=== PATIENT | female | born 1955 | race Caucasian/White ===

== ENCOUNTER 2025-06-23 10:36 | Outpatient (AMB) | payer OTHER, SELFPAY ==
--- OUTSIDE RECORDS SUMMARY | 2025-06-23 11:36 | XMS_ITS | Encounter Summary ---
Author Organization [facility] Address [address] [place] [address] Phone Care Team Providers Care Wind Plant Manager Name Role Phone Jovan Guillermo MD Primary Care Provider + Cece Dai MD, MPH Primary Care Provid er Cece Dai MD, MPH Unavailable [phone] Encounter Details Date Type Department Care Team (Late Contact Info) Description 05/24/2021 Ancillary Orders Virtual Department [address] [place] [address] Jovan Guillermo MD [address] [place] [id number] Breast screening Social History Tobacco Use Types Packs/Day Years Used Date Smoking Tobacco: Former Smokeless Tobacco: Never Comments:Smoking History Pac ks/day: >2 Alcohol Use Standard Drinks/Week Comments Never 0 (1 standard drink = 0.6 oz pur e alcohol) Comments Unknown Sex and Gender Information Value Date Recorded Sex Assigned at Not on file Legal Sex Female 6:31 PM EST Gender Identity Not on file Sexual Orientation Not on file documented as of this encounter Plan of Treatment Upcoming Encounters Date Type Department Care Team (Late Contact Info) Description 02/26/2026 9:00 AM EDT Office Visit [facility] [address] [facility] [address] [place] [address] Cece Dai MD, MPH [address] [address] Tomer Arita MD [address] [address] [email or web address] documented as of this encounter Results * BI MAMMOGRAM SCREENING WITH TOMOSYNTHESIS WITH CAD (BILATERAL) (06/03/2021 9:29 AM EDT) Anatomical Region Laterality Modality Breast Left, Breast Right, Breast Bilateral Bila teral Mammography 06/03/2021 10:4 2 AM EDT Addenda Addendum by Jovan Martinez MD on 07/02/2021 5:30 PM EDT ADDENDUM: The first word in the addendum should be comparison not thousand. Addendum by Jovan Martinez MD on 06/10/2021 2:58 PM EDT ADDENDUM: Thousand now made to multiple prior, most recent May 06, 2011. No worrisome interval change is seen. Routine screening is again recommended. Impressions 06/03/2021 10:44 AM EDT No mammographic finding indicative of malignancy. Routine screening is recommended. BI-RADS CATEGORY: 1 - Negative. DENSITY: There are scattered fibroglandular densities. Narrative 06/03/2021 10:44 AM EDT Bilateral full-field digital screening mammography is obtained and read in conjunction with computer-aided detection. Tomosynthesis as well as 2-D C view imaging of both breasts in two planes also obtained. No prior for comparison. No dominant mass, architectural distortion, worrisome asymmetry, or suspicious calcification is identified. No skin or nipple finding of concern is appreciated. Some skin lesions noted bilaterally. Procedure Note Jovan Martinez MD - 06/03/2021 Bilateral full-field digital screening mammography is obtained and read inconjunction with computer-aided detection. Tomosynthesis as well as 2-D Cview imaging of both breasts in two planes also obtained. No prior forcomparison. No dominant mass, architectural distortion, worrisome asymmetry, orsuspicious calcification is identified. No skin or nipple finding ofconcern is appreciated. Some skin lesions noted bilaterally. IMPRESSION: No mammographic finding indicative of malignancy. Routine screening isrecommended. BI-RADS CATEGORY: 1 - Negative. DENSITY: There are scattered fibroglandular densities. Jovan Guillermo MD IM MG EXAMS Edited R esult - Final documented in this encounter Visit Diagnoses Diagnosis Breast screening Breast screening, unspecified Breast screening Breast screening, unspecified documented in this encounter Care Teams Wind Plant Manager Relationship Specialty Start Date End Date Jovan Guillermo MD [address] [place] [address] PCP - General 05/17/19 04/21/24 Cece Dai MD, MPH [address] [place] [id number] PCP - General Family Medicine 04/22/24 Cece Dai MD, MPH [address] [place] [id number] Insurance Assigned Provider 02/09/25 documented as of this encounter Additional Source Comments The information contained in this document represents components of the legal health record. It is not the complete legal health record.[facility]
--- OUTSIDE RECORDS SUMMARY | 2025-06-23 11:36 | XMS_ITS | Clinical Summary ---
Author Organization [facility] it Address [address] [place] [address] Care Team Providers Care Canvas Shrinker Name Role Phone Heri Cueto MD Primary Care Provider [phone] Allergies Active Allergy Reactions Criticality Noted Date Comments Penicillins Hives 12/26/2005 Sulfamethoxazole-Trimethopri m 05/03/2010 Bactrim [na Benzoate-sulfamethoxazol e-trimethoprim] Medications lisinopriL (PRINIVIL,ZESTR IL) 10 mg tablet take 1 tablet by mouth once daily 1 Active multivitamin (Multiple Vitamins) tablet Take 1 Tab by mouth daily. Active coenzyme Q-10 30 mg capsule Take 30 mg by mouth daily. Active esomeprazole (NexIUM) [address] capsule TAKE 1 CAPSULE MOUTH EVERY MORNING BEFORE BREAKFAST 1 Active aspirin 81 mg EC tablet 1 Tab daily. Active fluticasone propionate (FLONASE) 50 mcg/actuation nasal spray 2 Sprays by Nasal route 2 times daily. Active folic acid (FOLVITE) 800 mcg tablet Take 2 Tabs by mouth daily. Active fexofenadine (Khalida Allergy) 180 mg tablet 1 TABLET DAILY Activ e montelukast (Singulair) 10 mg tablet 1 tab po qhs Active Active Problems Problem Noted Date Diagnosed Date Hepatic cyst 06/01/2011 Overview (11/07/2024): Liver US 05/2011 Gallstone 06/01/2011 Overview (11/07/2024): US 05/2011. 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 GERD (gastroesophageal reflux disease) 1 Overview (11/07/2024): Evaluation for H. Pylori was negative in 2002. Lung blebs ([facility] V24, [facility] V28) 05/18/2011 Overview (11/07/2024): H/o chest tube on the right side for this approx age 22. 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 Migraine without aura 10/06/2005 Overview (11/07/2024): IMO update Immunizations Name Administration Dates Next Due Influenza trivalent, with pr eservative (Fluzone; Afluria) 6mo and older 10/12/2005 Surgical History Surgery Date Site/Laterality Comments HERNIA REPAIR PROCEDURE: HISTORICAL HERNIA REPAIR/ING Medical History Medical History Date Comments Unspecified transient cerebr al ischemia 10/06/2005 DX:Unspecified transient cer ebral ischemia; COMMENT: Verapamil Migraine without aura, witho ut mention of intractable migraine without mention of status migrainosus 10/06/2005 DX:Migraine without aura, wi thout mention of intractable migraine without mention of status migrainosus DVT (deep venous thrombosis) (CMS/HCC V24, [facility] V28) in 20s DX:DVT (deep venous thrombo sis) ([facility]); COMMENT: on OCPs at the time, taken off; never anticoagulated MTHFR mutation 05/18/2011 DX:MTHFR mutatio n GERD (gastroesophageal reflu x disease) 05/18/2011 DX:GERD (gastroesophageal re flux disease) Lung blebs (CMS/HCC V24, [facility] V28) 05/18/2011 DX:Lung blebs (HCC) Hepatic cyst 06/01/2011 DX:Hepatic cyst Gallstone 06/01/2011 DX:Gallstone Family History Relation Name Status Comments Father Mother Alive Social History Tobacco Use Types Packs/Day Years Used Date Smoking Tobacco: Never Smokeless Tobacco: Never Alcohol Use Standard Drinks/Week Comments No 0 (1 standard drink = 0.6 oz pur e alcohol) Comments Unknown Sex and Gender Information Value Date Recorded Sex Assigned at Not on file Legal Sex Female 4:41 AM EST Gender Identity Not on file Sexual Orientation Not on file Obstetrics History Plan of Treatment Health Maintenance Due Date Last Done Comments Breast Cancer Screening 1955 DTaP,Tdap,and Td Vaccines (1 - Tdap) 1976 Pneumococcal Vaccine: 50+ Ye ars (1 of 2 - PCV) 1976 Zoster Vaccines (1 of 2) 2007 COVID-19 Vaccine ( - 2023-2 5 season) 2024 Depression Screening 11/06/2024 Colorectal Cancer Screening: Colonoscopy 11/08/2024 Falls Risk Assessment 11/08/2024 Osteoporosis Screening (Bone Density Screening) 11/08/2024 Social Influencers of Health Screening 11/08/2024 Influenza Vaccine (#1) 2025 10/12/2005 RSV Immunization Adult Patie nts (1 - 1-dose 75+ series) 2032 Hepatitis C Screening Completed 05/20/2003 HIB Vaccines Aged Out No longer eligi ble based on patient's age to complete this topic HPV Vaccines Aged Out No longer eligi ble based on patient's age to complete this topic Hepatitis A Vaccines Aged Out No long er eligible based on patient's age to complete this topic Hepatitis B Vaccines Aged Out No long er eligible based on patient's age to complete this topic IPV Vaccines Aged Out No longer eligi ble based on patient's age to complete this topic MMR Vaccines Aged Out No longer eligi ble based on patient's age to complete this topic Meningococcal ACWY Vaccine Aged Out N o longer eligible based on patient's age to complete this topic Meningococcal B Vaccine Aged Out No l onger eligible based on patient's age to complete this topic RSV Immunization Patients Un federico 20 months Aged Out No longer eligible b ased on patient's age to complete this topic Varicella Vaccines Aged Out No longer eligible based on patient's age to complete this topic Procedures Procedure Name Priority Date/Time Associated Diagnosis Comments HM HEPATITIS C SCREENING Routine 05/20/2003 from Last 3 Months or Most Recently Relevant to Health Maintenance Results * Hm Hepatitis C Screening (05/20/2003) Hepatitis C Screening Abstracted us Historical Provider HEALTH MAINTENANCE Final Result from Last 3 Months or Most Recently Relevant to Health Maintenance Care Teams Canvas Shrinker Relationship Specialty Start Date End Date Heri Cueto MD [address] [place] [address] PCP - General 04/29/11
== END 2025-06-23 10:39 | disposition home or self-care (01) ==
LOC: HO.HMGAL 10:36
PROVIDERS: PCP Family Medicine; Visit Provider Registered Nurse Emergency
DX: J30.89 Other allergic rhinitis (principal)
CPT/HCPCS: 95117; 95165

== ENCOUNTER 2025-07-09 09:50 | Outpatient (AMB) | payer MEDICARE, OTHER, SELFPAY ==
--- OUTSIDE RECORDS SUMMARY | 2007-05-11 | XMS_ITS | Encounter Summary ---
Author Organization [facility] Address [address] [place] [address] Phone Care Team Providers Care Hebrew Cantor Name Role Phone Unavailable Primary Care Provider Unavailabl e Encounter Details Date Type Department Care Team (Late st Contact Info) Description 05/11/2007 Hospital Encounter [facility],Outside Imaging 30 [place], [place] [id number] System, Provider [place] In, [place] [address] Social History Tobacco Use Types Packs/Day Years [...] Sex Female 6:31 PM EST Gender Identity Not on file Sexual Orientation Not on file documented as of this encounter Functional Status documented as of this encounter Plan of Treatment Upcoming Encounters Date Type Department Care Team (Late st Contact Info) Description 02/26/2026 9:00 AM EDT Office Visit [facility] [place] [facility] 15 [facility] [address] [place] [address] Cece Dai MD, MPH 15 [facility] 201 [place] [address] Tomer Arita MD 15 [facility] 201 [place] [address] documented as of this encounter Procedures Procedure [...] It is not the complete legal health record.[facility]
--- OUTSIDE RECORDS SUMMARY | 2007-05-15 | XMS_ITS | Encounter Summary ---
Author Organization [facility] Address [address] [place] [address] Phone Care Team Providers Care Elementary School Art Teacher Name Role Phone Unavailable Primary Care Provider Unavailabl e Encounter Details Date Type Department Care Team (Late st Contact Info) Description 05/15/2007 Hospital Encounter [facility],Outside Imaging 30 [place], [place] [id number] System, Provider [place] In, [place] [address] Social History Tobacco Use Types Packs/Day Years [...] 02/26/2026 9:00 AM EDT Office Visit [facility] [place] [facility] 15 [facility] [address] [place] [address] Cece Dai MD, MPH 15 [facility] 201 [place] [address] Tomer Arita MD 15 [facility] 201 [place] [address] documented as of this encounter Procedures Procedure [...]
--- OUTSIDE RECORDS SUMMARY | 2010-05-11 | XMS_ITS | Encounter Summary ---
Author Organization [facility] Address [address] [place] [address] Phone Care Team Providers Care Radio Mechanic Apprentice Name Role Phone Unavailable Primary Care Provider Unavailabl e Encounter Details Date Type Department Care Team (Late st Contact Info) Description 05/11/2010 Hospital Encounter [facility],Outside Imaging 30 [place], [place] [phone] System, Provider [place] In, [place] [address] Social History Tobacco Use Types Packs/Day Years [...] 02/26/2026 9:00 AM EDT Office Visit [facility] [place] [facility] 15 [facility] [address] [place] [address] Cece Dai MD, MPH 15 [facility] 201 [place] [address] Tomer Arita MD 15 [facility] 201 [place] [address] documented as of this encounter Procedures Procedure [...] It is not the complete legal health record.[facility]
--- OUTSIDE RECORDS SUMMARY | 2011-05-16 | XMS_ITS | Encounter Summary ---
Author Organization [facility] Address [address] [place] [address] Phone Care Team Providers Care Foreign Exchange Dealer Name Role Phone Unavailable Primary Care Provider Unavailabl e Encounter Details Date Type Department Care Team (Late st Contact Info) Description 05/16/2011 Hospital Encounter [facility],Outside Imaging 30 [place], [place] [phone] System, Provider [place] In, [place] [address] Social History Tobacco Use Types Packs/Day Years [...] 02/26/2026 9:00 AM EDT Office Visit [facility] [place] [facility] 15 [facility] [address] [place] [address] Cece Dai MD, MPH 15 [facility] 201 [place] [address] Tomer Arita MD 15 [facility] 201 [place] [address] documented as of this encounter Procedures Procedure [...]
--- OUTSIDE RECORDS SUMMARY | 2025-07-09 10:59 | XMS_ITS | Encounter Summary ---
Author Organization [facility] Address [address] [place] [address] Phone Care Team Providers Care Voice Intercept Technician Name Role Phone Jovan Guillermo MD Primary Care Provider + Cece Dai MD, MPH Primary Care Provid er Cece Dai MD, MPH Unavailable [phone] Encounter Details Date Type Department Care Team (Late st Contact Info) Description 05/24/2021 Procedure Pass [facility] - [address] [place] [address] Social History Tobacco Use Types Packs/Day Years Used Date Smoking Tobacco: Former Smokeless Tobacco: Never Comments:Smoking History Pac ks/day: >2 Alcohol Use Standard Drinks/Week Comments Never 0 (1 standard drink = 0.6 oz pur e alcohol) Comments No Sex and Gender Information Value Date Recorded Sex Assigned at Not on file Legal Sex Female 6:31 PM EST Gender Identity Not on file Sexual Orientation Not on file documented as of this encounter Plan of Treatment Upcoming Encounters Date Type Department Care Team (Late Contact Info) Description 02/26/2026 9:00 AM EDT Office Visit [facility] [address] [place] [address] Cece Dai MD, MPH [address] [facility] [address]. [address] [place] [address] Tomer Arita MD [address] [address] documented as of this encounter Visit Diagnoses Not on filedocumented in this encounter Care Teams Voice Intercept Technician Relationship Specialty Start Date End Date Jovan Guillermo MD [address] [place] [address] PCP - General 05/17/19 04/21/24 Cece Dai MD, MPH [address] [address] PCP - General Family Medicine 04/22/24 Cece Dai MD, MPH [address] [address] [email or web address] Insurance Assigned Provider 02/09/25 documented as of this encounter Additional Source Comments The information contained in this document represents components of the legal health record. It is not the complete legal health record.[facility]
--- OUTSIDE RECORDS SUMMARY | 2025-07-09 10:59 | XMS_ITS | Encounter Summary ---
Author Organization [facility] Address [address] [place] [address] Phone Care Team Providers Care Change Control Manager Name Role Phone Jovan Guillermo MD Primary Care Provider + Cece Dai MD, MPH Primary Care Provid er Cece Dai MD, MPH Unavailable [phone] Encounter Details Date Type Department Care Team (Late Contact Info) Description 05/24/2021 Ancillary Orders Virtual Department [address] [place] [address] Jovan Guillermo MD [address] [place] [phone] Breast screening Social History Tobacco Use Types [...] 02/26/2026 9:00 AM EDT Office Visit [facility] [address] [facility] [address] [place] [address] Cece Dai MD, MPH [address] [address] Tomer Arita MD [address] [address] [email or web address] documented as of this encounter Results * [...] unspecified documented in this encounter Care Teams Change Control Manager Relationship Specialty Start Date End Date Jovan Guillermo MD [address] [place] [address] PCP - General 05/17/19 04/21/24 Cece Dai MD, MPH [address] [place] [address] PCP - General Family Medicine 04/22/24 Cece Dai MD, MPH [address] [place] [phone] Insurance Assigned Provider 02/09/25 documented as of this encounter Additional Source Comments The information contained in this document represents components of the legal health record. It is not the complete legal health record.[facility]
--- OUTSIDE RECORDS SUMMARY | 2025-07-09 10:59 | XMS_ITS | Clinical Summary ---
Author Organization [facility] Address [address] [facility] [address] [place] [address] Phone Care Team Providers Care Heater Engineer Helper Name Role Phone Cece Dai MD, MPH Primary Care Provid er Cece Dai MD, MPH Unavailable [phone] Allergies Active Allergy Reactions Criticality Noted Date Comments Penicillins Rash,GI Upset Low 02/25/2011 All antibiotics, as reported Sulfa (Sulfonamide Antibiotics) Rash 02/25/2011 Sulfamethoxazole-Trimethop rim Rash Low 02/25/2011 Medications aspirin 81 MG EC tablet Take 81 mg by mouth. Active multivitamin per tablet Take 1 tablet by mouth. Active omega-3 fatty acids-fish oil 300-1,000 mg Cap Take 1 g by mouth. Active folic acid (FOLVITE) 1 MG tablet Take 2,400 mg by mouth. Active calcium carbonate-vitam in D3 1,250 mg (500 mg elemental)-400 units per tablet Take 1 tablet by mouth daily. Active flaxseed oiL 1,000 mg Cap Take 1,000 mg by mouth daily. Active GARLIC ORAL Take by mouth. Act cristiane VALERIAN ORAL Take by mouth. A ctive Bacillus coagulans-inuli n 1 billion-250 cell-mg Cap Take 250 mg by mouth daily. Active acetylcysteine 600 mg Cap capsule Take by mouth every 4 (four) hours. Active OLIVE LEAF EXTRACT ORAL Take by mouth. Ac tive dihydroberberin e (BERBERINE ES-5 ORAL) Take by mouth. Acti ve lisinopril (PRINIVIL,ZESTR IL) 2.5 MG tablet Take 1 tablet (2.5 mg total) by mouth daily. Take 2.5-5mg by mouth daily 60 tablet 5 Active Additional Information Patient not taking.Reported on 02/07/2025 aloe vera 25 mg Cap Take by mouth. Activ e Active Problems Problem Noted Date Diagnosed Date Essential hypertension 10/28/2024 Assessment & Plan (03/31/2025 5:27 AM EDT): Controlled. She monitors closely Assessment & Plan (10/28/2024 1:39 PM EST): Plantar fasciitis 04/22/2024 Osteoarthritis, multiple sites 04/22/2024 Chronic sinusitis 04/22/2024 Overview (04/22/2024): Follows at [facility], believes it is fungal Assessment & Plan (02/25/2025 11:18 AM EDT): Orders: Ambulatory referral to External Allergy Assessment & Plan (10/22/2024 10:54 AM EST): Orders: External Referral to [facility] ([facility]) History of stroke associated with blood clotting tendency 04/22/2024 Overview (04/22/2024): Age 37 yo Vision effected, walks with cane for a while Assessment & Plan (03/31/2025 5:27 AM EDT): Cont aspirin daily 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 I also strongly encouraged her to think about re-visiting neurology for migraine treatment options. There are a bunch of new medications that has helped many people who previously had treatment resistent sinus migraines. Orders: Ambulatory referral to External Allergy Assessment & Plan (10/28/2024 1:39 PM EST): Chronic headaches 04/22/2024 Assessment & Plan (10/28/2024 1:39 PM EST): Resolved Problems Problem Noted Date Diagnosed Date Resolved Date Cholecystitis 03/16/2015 04/22/2024 Encounters Date Type Department Care Team Description 06/07/2025 10:33 AM EDT - 06/07/2025 11:59 PM EDT Hospital Encounter [facility] [address] [place] [address] Cece Dai MD, MPH Discharge Disposition: Home or Self Care 05/13/2025 Telephone [facility] [address] [place] [address] Cece Dai MD, MPH Triage (Yellow - Rib Pain) 04/23/2025 11:19 AM EDT - 04/23/2025 11:59 PM EDT Hospital Encounter [facility] [address] [place] [address] Cece Dai MD, MPH Discharge Disposition: Home or Self Care 04/23/2025 Telephone [facility] [address] [place] [address] Cece Dai MD, MPH 04/15/2025 Telephone [facility] [address] [place] [address] Paige Reardon Referral from Last 3 Months Immunizations Immunization Administration Dates Next Due INFLUENZA, SPLIT VIRUS, TRIVALENT W/ PRESERVATIV E IM 10/12/2005 Influenza Quadrivalent Adjuvanted Preservative F ree IM 09/04/2023 Influenza Quadrivalent Preservative Free IM 12/2021 Pneumococcal conjugate PCV20 12/30/2022 Td, unspecified formulation 05/22/2002 Tdap 12/30/2022 Social History Tobacco Use Types Packs/Day Years Used Date Smoking Tobacco: Former Cigarettes Smokeless Tobacco: Never Tobacco Cessation:Counseling Given: Not Answered Comments:Smoking History Packs/day: >2. Quit about 1985. Alcohol Use Standard [...] your housing situation today? I have beth sing 04/22/2024 How many times have you move [...] on file Sexual Orientation Not on file Last Filed Vital Signs Vital Sign Reading Time Taken Comments Blood Pressure 124/74 02/25/2025 10:05 AM EDT Pulse 80 02/25/2025 10:05 AM EDT Temperature - - Respiratory Rate - - Oxygen Saturation 97% 02/25/2025 10:05 AM EDT Inhaled Oxygen Concentration - - Weight 60.1 kg (132 lb 9.6 oz) 02/25/2025 10:05 AM EDT Height 163.5 cm (5' 4.37 ) 02/25/2025 10:05 AM E DT Body Mass Index 22.5 02/25/2025 10:05 AM EDT Plan of Treatment Upcoming Encounters Date Type Department Care Team (Late st Contact Info) Description 02/26/2026 9:00 AM EDT Office Visit [facility] [address] [place] [address] [address] [place] [address] Cece Dai MD, MPH [address] [facility] [address] [place] [address] Tomer Arita MD [address] [facility] [place] [address] Health Maintenance Due Date Last Done Comments SMOKING Hx and SMOKELESS TOBACCO SCREENING 1970 HEPATITIS C SCREENING 1975 COLONOSCOPY 2002 FIT TEST 2002 FOBT 2002 SIGMOIDOSCOPY 2002 VIRTUAL COLONOSCOPY 2002 ZOSTER VACCINES (1 of 2) 2007 COVID-19 VACCINE ( season) 2025 10/16/2024, 09/11/2023, 08/18/2022, Additional history exists CREATININE LEVEL 06/21/2025 06/21/2024 POTASSIUM LEVEL 06/21/2025 06/21/2024 BLOOD PRESSURE 08/27/2025 02/25/2025 DEPRESSION SCREENING 02/25/2026 02/25/2025 MAMMOGRAM 02/27/2027 02/27/2025, 08/0 02/2023, 06/03/2021, Additional history exists COLOGUARD 01/07/2028 01/06/2025 COLORECTAL CANCER SCREENING 01/07/2028 LIPID PANEL 06/21/2029 06/21/2024 RSV VACCINE (1 - 1-dose 75+ series) 2032 Adult Td,Tdap Booster 12/30/2032 12/30/2022, 002 PNEUMOCOCCAL VACCINES (50+ years) Completed 12/30/2022 OSTEOPOROSIS SCREENING INITIAL (ONE-TIME) Completed 06/07/2025 HEPATITIS A VACCINES Aged Out No long er eligible based on patient's age to complete this topic HIB VACCINES Aged Out No longer eligi ble based on patient's age to complete this topic MENINGOCOCCAL VACCINES (ACWY) Aged Out No longer eligible based on patient's age to complete this topic MENINGOCOCCAL VACCINES (B) Aged Out N o longer eligible based on patient's age to complete this topic Medical Devices Not on file Procedures Procedure Name Priority Date/Time Associated Diagnosis Comments BD DXA AXIAL (SPINE) WITH HIP Routine 06/07/2025 11:36 AM EDT Medicare annual wellness visit, subsequent Unspecified menopausal and perimenopausal disorder MEASLES ANTIBODY, IGG Routine 04/23/2025 11:31 AM EDT Measles, mumps, rubella (MMR) vaccination status unknown BI MAMMOGRAM DIAGNOSTIC WITH TOMOSYNTHESIS WITH CAD (BILATERAL) Urgent/patient waiting 02/27/2025 2:46 PM EDT Mass of lower inner quadrant of left breast LIPID PANEL Routine 06/21/2024 10:39 AM EDT Screening cholesterol level COMPREHENSIVE METABOLIC PANEL Routine 06/21/2024 10:39 AM EDT Restricted diet from Last 3 Months or Most Recently Relevant to Health Maintenance Results * BD DXA AXIAL (SPINE) WITH HIP (06/07/2025 11:36 AM EDT) Anatomical Region Laterality Modality Bone Density Bone Density 06/07/2025 10:5 1 AM EDT Impressions 06/09/2025 12:17 PM EDT Interpretation: Osteoporosis. Narrative 06/09/2025 12:17 PM EDT Referred By: CECE DAI Indications: Postmenopausal Scanner: Hepa Wash A with serial# of [id number] located at [facility] Bone Density Scan (DXA) 06/07/25 Details of prior DXA scans are available by clicking View Full Report BMD T- Z- Skeletal Site gm/cm2 score score BMD Change Since Prior Scan ------ ----- ----- PA Spine (L1-L4) 0.560 -4.40 -2.50 N/A Total Hip (Left) 0.439 -4.10 -2.80 N/A Femoral Neck (Left) 0.430 -3.80 -2.10 N/A Total Hip (Right) 0.432 -4.20 -2.80 N/A Femoral Neck (Right) 0.411 -3.90 -2.30 N/A ------ ----- ----- * Denotes significant change when >= 0.022 g/cm2 for the spine, 0.027 g/cm2 for the total hip, 0.029 g/cm2 for the femoral neck. Interpretation: Osteoporosis. Technical Quality: Imaging of all sites was of adequate quality. FRAX: A FRAX(r) score is not provided because the patient has osteoporosis, which is generally an indication for treatment. Reviewed By: Jean Loza on 06/09/2025 12:17:48 Additional Information: -World Health Organization criteria classify adults based on lowest T-score at PA spine, hip or forearm: Normal (T-score >= -1.0), Osteopenia (T-score between -1 and -2.5), or Osteoporosis (T-score <= -2.5). At [facility], T-scores are compared to peak bone density of a young white gender matched reference population. - For premenopausal women and men under the age of 50, Z-scores (comparison to age, gender, and ethnicity matched reference population) are used: Above expected range for age (Z-score >= 2.0), Within expected range of age (Z-score 1.9 to -1.9), or Below expected range for age (Z-score <= -2.0). - The Bone Health and Osteoporosis Foundation recommends that treatment be considered in men aged more than 50 years and in postmenopausal women with ANY of the following: Prior hip or vertebral fractures; T-score of <= -2.5 at the PA spine or hip; or 10 year fracture probability by FRAX of >= 3% for the hip or >= 20% for major osteoporotic fracture. - The FRAX algorithm (https://www.jamila.ac.uk/FRAX/tool.aspx) is designed to predict 10-year fracture risk in treatment-naive adults between the ages of 40 and 90. It is not intended to be used in those receiving pharmacologic osteoporosis treatment. - The TBS is derived from the texture of the DXA spine image and has been shown to be related to bone microarchitecture and fracture risk. This data provides information independent of BMD value. It adds to fracture risk assessment with a FRAX adjusted for TBS score. If your patient had a TBS and qualified for a FRAX score, the reported FRAX score has been adjusted for TBS. TBS Score Interpretation 1.350 and greater Normal bone microarchitecture 1.200 to 1.350 Partially degraded bone microarchitecture 1.200 and less Degraded bone microarchitecture - Including race/ethnicity in the generation of T- or Z-scores or in the FRAX calculation is complicated, and currently undergoing active review to ensure that we can give patients the best information on their risk of fracture. - Some prior studies may not be compatible with our comparison software. - Click on View Full Report to see subsequent pages with images and prior bone density results. Procedure Note Jean Loza MD - 06/09/2025 Referred By: CECE DAI Indications: Postmenopausal Scanner: Hepa Wash A with serial# of [id number] located at [facility] Bone Density Scan (DXA) 06/07/25 Details of prior DXA scans are available by clicking View Full Report BMD T- Z- Skeletal Site gm/cm2 score score BMD Change Since Prior Scan ------ ----- PA Spine (L1-L4) 0.560 -4.40 -2.50 N/A Total Hip (Left) 0.439 -4.10 -2.80 N/A Femoral Neck (Left) 0.430 -3.80 -2.10 N/A Total Hip (Right) 0.432 -4.20 -2.80 N/A Femoral Neck (Right) 0.411 -3.90 -2.30 N/A ------ ----- * Denotes significant change when >= 0.022 g/cm2 for the spine, 0.027g/cm2 for the total hip, 0.029 g/cm2 for the femoral neck. Interpretation: Osteoporosis. Technical Quality: Imaging of all sites was of adequate quality. FRAX: A FRAX(r) score is not provided because the patient hasosteoporosis, which is generally an indication for treatment. Reviewed By: Jean Loza on 06/09/2025 12:17:48 Additional Information: -World Health Organization criteria classify adults based on lowestT-score at PA spine, hip or forearm: Normal (T-score >= -1.0), Osteopenia (T-score between -1 and -2.5), or Osteoporosis (T-score <= -2.5). At [facility], T-scores are compared to peak bone density of a young white gender matched reference population. - For premenopausal women and men under the age of 50, Z-scores(comparison to age, gender, and ethnicity matched reference population) are used:Above expected range for age (Z-score >= 2.0), Within expected range of age (Z-score 1.9 to -1.9), or Below expected range for age (Z-score <= -2.0). - The Bone Health and Osteoporosis Foundation recommends that treatment be considered in men aged more than 50 years and in postmenopausal women with ANY of the following: Prior hip or vertebral fractures; T-score of <= -2.5 at the PA spine or hip; or 10 year fracture probability by FRAX of >= 3%for the hip or >= 20% for major osteoporotic fracture. - The FRAX algorithm (https://www.jamila.ac.uk/FRAX/tool.aspx) is designed to predict 10-year fracture risk in treatment-naive adultsbetween the ages of 40 and 90. It is not intended to be used in those receiving pharmacologic osteoporosis treatment. - The TBS is derived from the texture of the DXA spine image and has been shown to be related to bone microarchitecture and fracture risk. This data provides information independent of BMD value. It adds to fracture risk assessment with a FRAX adjusted for TBS score. If your patient had a TBSand qualified for a FRAX score, the reported FRAX score has been adjusted for TBS. TBS Score Interpretation 1.350 and greater Normal bone microarchitecture 1.200 to 1.350 Partially degraded bone microarchitecture 1.200 and less Degraded bone microarchitecture - Including race/ethnicity in the generation of T- or Z-scores or in the FRAX calculation is complicated, and currently undergoing active review to ensure that we can give patients the best information on their risk of fracture. - Some prior studies may not be compatible with our comparison software. - Click on View Full Report to see subsequent pages with images andprior bone density results. IMPRESSION: Interpretation: Osteoporosis. us Cece Dai MD, MPH IMG BD BONE DENSITY DEXA Final Result * (ABNORMAL) Measles antibody, IgG (04/23/2025 11:31 AM EDT) SIDRA IGG Negative(A ) Positive [facility] Blood (Blood) 04/23/2025 11: 31 AM EDT 04/23/2025 11:32 AM EDT us Cece Dai MD, MPH NON CULTURE MICROBIO LOGY Final Result Performing Organization Address City/State/[facility] Co de Phone Number [address] [address] * BI MAMMOGRAM DIAGNOSTIC WITH TOMOSYNTHESIS WITH CAD (BILATERAL) (02/27/2025 2:46 PM EDT) Anatomical Region Laterality Modality Breast Left, Breast Right, Breast Bilateral Bila teral Mammography 02/27/2025 3:03 PM EDT Impressions 02/27/2025 4:25 PM EDT No findings suspicious for malignancy. Clinical follow-up recommended as well as bilateral screening mammography in one year. BI-RADS 2 BENIGN Results and recommendations were communicated to the patient at time of examination. Narrative 02/27/2025 4:25 PM EDT BI MAMMOGRAM DIAGNOSTIC WITH TOMOSYNTHESIS WITH CAD (BILATERAL), BI US BREAST LIMITED (LEFT) Additional patient information: Palpable lump and pain 2:00 position left breast near axilla. COMPARISON: Comparison is made with relevant prior imaging. Breast composition: There are scattered areas of fibroglandular density. FINDINGS: Right Mammogram: No abnormal masses, suspicious calcifications, or other significant findings are identified mammographically in the right breast. There is no change since previous examination. Left Mammogram: 4 mm oval mass in the posterior lower inner aspect. Targeted ultrasound demonstrates a smoothly marginated hypoechoic reniform shape 4 mm x 4 mm x 1 mm mass. This has a hyperechoic notch with a small amount of blood flow. The appearance is consistent with a benign lymph node. No suspicious mass. No architectural distortion. No suspicious microcalcifications. Targeted ultrasound performed over palpable lump in the axillary region. This demonstrates 7 mm x 7 mm x 3 mm lymph node with a prominent fatty hilum. No cortical thickening. Scanning elsewhere in the upper outer quadrant demonstrates no sonographic abnormality. us Cece Dia MD, MPH IMG MG EXAMS Karolyn l Result * (ABNORMAL) Comprehensive metabolic panel (06/21/2024 10:39 AM EDT) SODIUM 138 133 - 146 mmol/L [facility] POTASSIUM 4.3 3.3 - 5.1 mmol/L [facility] CHLORIDE 102 96 - 108 mmol/L [facility] CO2 26 21 - 35 mmol/L [facility] BUN 8 6 - 19 mg/dL [facility] CREATININE 0.40(L) 0.5 - 1.5 mg/dL [facility] GLUCOSE 97 70 - 99 mg/dL [facility] ALBUMIN 4.4 3.9 - 4.8 g/dL [facility] TOTAL PROTEIN 7.3 6.5 - 8.0 g/dL [facility] CALCIUM 9.7 8.4 - 10.3 mg/dL [facility] ALKALINE PHOSPHATASE 75 39 - 117 U/L [facility] TOTAL BILIRUBIN 0.6 0.0 - 1.2 mg/dL [facility] AST 32 0 - 37 U/L [facility] ALT 15 0 - 40 U/L [facility] GLOBULIN 2.9 1 - 4.8 g/dL [facility] EGFR 109 >59 mL/min/1.7 3m2 [facility] Comment:Estimated glomerular filtration rate calculated using the CKD-EPI refit equation. ANION GAP 14 10 - 20 mmol/L [facility] Blood 06/21/2024 10:3 9 AM EDT 06/21/2024 10:50 AM EDT us Cece Dai MD, MPH LAB BLOOD ORDERABLES Final Result Performing Organization Address City/[facility]/ZIP Co de Phone Number [address] [address] * (ABNORMAL) Lipid panel (06/21/2024 10:39 AM EDT) HDL 103 mg/dL [facility] Comment: Interpretation <40 mg/dL: Low HDL cholesterol (major risk factor for CHD) Greater than or equal to 60 mg/dL: High HDL cholesterol ( negative risk factor for CHD) HDL - cholesterol is affected by a number of factors, e.g. smoking, excerise, hormones, sex and age. CHOLESTEROL 174 0 - 240 mg/dL [facility] TRIGLYCERIDES 62 30 - 160 mg/dL [facility] LDL 59 50 - 129 mg/dL [facility] Comment: LDL levels in terms of risk for coronary heart disease: <100 mg/dL: Optimal 100-129 mg/dL: Near or above optimal 130-159 mg/dL: Borderline high 160-189 mg/dL: High >190 mg/dL: Very High CARDIAC RISK RATIO 1.7(L) 3.3 - 4.4 C [facility] Blood 06/21/2024 10:3 9 AM EDT 06/21/2024 10:50 AM EDT us Cece Dai MD, MPH LAB BLOOD ORDERABLES Final Result Performing Organization Address [facility]/ZIP Co de Phone Number [address] [address] from Last 3 Months or Most Recently Relevant to Health Maintenance Insurance MEDICARE PART A & B [facility] MEDICARE ENHANCE SUPPLEMENT MEDICARE PART A & B [facility] MEDICARE ENHANCE SUPPLEMENT MEDICARE PART A & B MEDICARE ENHANCE SUPPLEMENT MEDICARE PART A & B MEDICARE ENHANCE SUPPLEMENT MEDICARE PART A & B [facility] MEDICARE ENHANCE SUPPLEMENT MEDICARE PART A & B [facility] MEDICARE ENHANCE SUPPLEMENT Care Teams Heater Engineer Helper Relationship Specialty Start Date End Date Cece Dai MD, MPH [address] [place] [id number] PCP - General Family Medicine 04/22/24 Cece Dai MD, MPH [address] [place] [address] Insurance Assigned Provider 02/09/25 Additional Source Comments The information contained in this document represents components of the legal health record. It is not the complete legal health record.[facility]
--- OUTSIDE RECORDS SUMMARY | 2025-07-09 11:00 | XMS_ITS | Encounter Summary ---
Author Organization [facility] Address [address] [place] [address] Phone Care Team Providers Care Motorized Squad Captain Name Role Phone Jovan Guillermo MD Primary Care Provider + Cece Dai MD, MPH Primary Care Provid er Cece Dai MD, MPH Unavailable + [phone] Encounter Details Date Type Department Care Team (Late Contact Info) Description 06/04/2021 Ancillary Orders [facility],Outside Imaging [address] [place] [address] System, Provider Not In, PhD [address] [address] Social History Tobacco Use Types Packs/Day Years [...] Upcoming Encounters Date Type Department Care Team ([facility] Contact Info) Description 02/26/2026 9:00 AM EDT Office Visit [facility] [address] [facility] [address] [place], [place] [id number] Cece Dai MD, MPH [address] [facility] [address] [place] [address] Tomer Arita MD [address] [place] [id number] [email or web address] documented as of this encounter Results * Mammogram Outside (No Interpretation) (05/16/2011 12:00 AM EDT) Narrative SYSTEMGENERATED, DOCUMENTATION - 06/04/2021 10:44 AM EDT This study is for PACS storage only and not for interpretation. us Provider Not In System PhD IMG OUTSIDE IMAGING W /OUT INTERPRETATION Final Result * Mammogram Outside (No Interpretation) (05/11/2010 12:00 AM EDT) Narrative SYSTEMGENERATED, DOCUMENTATION - 06/04/2021 10:45 AM EDT This study is for PACS storage only and not for interpretation. us Provider Not In System PhD IMG OUTSIDE IMAGING W /OUT INTERPRETATION Final Result * Mammogram Outside (No Interpretation) (05/13/2008 12:00 AM EDT) Narrative SYSTEMGENERATED, DOCUMENTATION - 06/04/2021 10:46 AM EDT This study is for PACS storage only and not for interpretation. us Provider Not In System PhD IMG OUTSIDE IMAGING W /OUT INTERPRETATION Final Result * Mammogram Outside (No Interpretation) (05/15/2007 12:00 AM EDT) Narrative SYSTEMGENERATED, DOCUMENTATION - 06/04/2021 10:44 AM EDT This study is for PACS storage only and not for interpretation. us Provider Not In System PhD IMG OUTSIDE IMAGING W /OUT INTERPRETATION Final Result * Mammogram Outside (No Interpretation) (05/11/2007 12:00 AM EDT) Narrative SYSTEMGENERATED, DOCUMENTATION - 06/04/2021 10:45 AM EDT This study is for PACS storage only and not for interpretation. us Provider Not In System PhD IMG OUTSIDE IMAGING W /OUT INTERPRETATION Final Result documented in this encounter Visit Diagnoses Not on filedocumented in this encounter Care Teams Motorized Squad Captain Relationship Specialty Start Date End Date Jovan Guillermo MD [address] [place] [id number] PCP - General 05/17/19 04/21/24 Cece Dai MD, MPH [address] [facility] [address] [place] [address] [email or web address] PCP - General Family Medicine 04/22/24 Cece Dai MD, MPH [address] [address] [email or web address] Insurance Assigned Provider 02/09/25 documented as of this encounter Additional Source Comments The information contained in this document represents components of the legal health record. It is not the complete legal health record.[facility]
--- OUTSIDE RECORDS SUMMARY | 2025-07-09 11:00 | XMS_ITS | Encounter Summary ---
Author Organization [facility] Address [address] [facility] [address] [place] [address] Phone Care Team Providers Care Music Librarian Name Role Phone Jovan Guillermo MD Primary Care Provider + Cece Dai MD, MPH Primary Care Provid er Cece Dai MD, MPH Unavailable +1- [phone] Encounter Details Date Type Department Care Team (Late Contact Info) Description 06/09/2023 Procedure Pass [facility] - [address] [place] [address] Social History Tobacco Use Types Packs/Day Years Used Date Smoking Tobacco: Former Smokeless Tobacco: Never Comments:Smoking History Pac ks/day: >2 Alcohol Use Standard Drinks/Week Comments Never 0 (1 standard drink = 0.6 oz pur e alcohol) Education Answer Date Recorded Are you interested in more education? Not on yanet e 03/12/2023 Are you concerned about learning? Not on file 03/12/2023 No 03/12/2023 No 03/12/2023 Digital Access Answer Date Recorded No 04/02/2023 No 04/02/2023 Reliable internet access at home? Not on file 04/02/2023 Device with a working camera? Not on file Comments No Sex and Gender Information Value Date Recorded Sex Assigned at Not on file Legal Sex Female 6:31 PM EST Gender Identity Not on file Sexual Orientation Not on file documented as of this encounter Plan of Treatment Upcoming Encounters Date Type Department Care Team (Late st Contact Info) Description 02/26/2026 9:00 AM EDT Office Visit [facility] [place] [facility] 15 [facility] [address] [place] [address] Cece Dai MD, MPH 15 [facility] [address] [place] [address] Tomer Arita MD 15 [facility] [address] [place] [address] documented as of this encounter Visit Diagnoses Not on filedocumented in this encounter Care Teams Music Librarian Relationship Specialty Start Date End Date Jovan Guillermo MD [address] [place] [address] PCP - General 05/17/19 04/21/24 Cece Dai MD, MPH [address] [address] PCP - General Family Medicine 04/22/24 Cece Dai MD, MPH 15 [facility]. 201 [place] [address] Insurance Assigned Provider 02/09/25 documented as of this encounter Additional Source Comments The information contained in this document represents components of the legal health record. It is not the complete legal health record.[facility]
--- OUTSIDE RECORDS SUMMARY | 2025-07-09 11:00 | XMS_ITS | Encounter Summary ---
Author Organization [facility] Address [address] [facility] [address] [place] [address] Phone Care Team Providers Care Dumpster Operator Name Role Phone Cece Dai MD, MPH Primary Care Provid er Cece Dai MD, MPH Unavailable [phone]- [phone] Reason for Visit * Reason Onset Date Comments Triage 05/06/2025 Yellow - Rib Korin n Encounter Details Date Type Department Care Team (Late st Contact Info) Description 05/13/2025 Telephone [facility] [place] [facility] 15 [facility] [address] [place] [address] Cece Dai MD, MPH 15 [facility] [address] [place] [address] [email or web address] Triage (Yellow - Rib Pain) Social History Tobacco Use Types Packs/Day Years [...] on file documented as of this encounter Progress Notes * Renata Dumas I, RN - 05/13/2025 2:49 PM EDT Called pt. She stated that she has DXA in . Basically reiterated below. Pt states her two broken ribs were from this past winter. She is 69 and 'doesn't act like she is. States I do things that I shouldn't be doing.I stretched myself in a way I shouldn't in the car and that is when I brokeone of them. This incident was from her carrying too many boxes down from the attic. Wedged the box into her ribs and heard and felt it pop. That is when it happened. She has had this before and didnot report the other two incidents because I didn't think there was anything you guys could do about it. Advised pt she was correct re this. Pt was only looking for advice re DEXA vs CXR to see if she could do one or the other if they checked the same thing. Advised they did not but CXR to confirm break was not necessary since there was nothing to treat this but time. Advised pt that to get directly to nursing staff please send gateway message rather than walking in to office or calling retail center receptionist desk. Advised option 4 for nursing rather than 2 for retail center receptionist when she had medical questions. Told pt that once DEXA was received and reviewed someone would reach ut to her re next steps. Pt understood and agreed with plan. FYI to Dr. Arita. * Harika Medina - 05/13/2025 2:26 PM EDT Red Yellow Green Guidelines Select Red, Yellow, Green Triage Intake *Route to appropriate staff member/pool according to practice guidelines* Yellow Call Intake Call Back Number: (if not patient, name/relationship) [phone] Yellow Symptom: Triage (Yellow - Rib Pain) When did these symptoms start? 1 week ago Have you ever experienced these symptoms before? YES Any additional information: Pt c/o left upper rib pain for about 1 week. She thinks it is broken. She states she has had 2 broken ribs in the past. This one is worse. She questions if she should get an x-ray prior to her bone density test or if she should be seen sooner. She states she tried to schedule an appt in the office earlier and she was told she could not schedule an appt with Dr. Arita. Route Normal Priority Encounter to cashier tube room Reason for Call = TRIAGE Comment = YELLOW + symptom documented in this encounter Plan of Treatment Upcoming Encounters Date Type Department Care Team (Late st Contact Info) Description 02/26/2026 9:00 AM EDT Office Visit [facility] 15 [facility] [address] [place] [address] Cece Dai MD, MPH 15 [facility]. [address] [place] [address] Tomer Arita MD 15 [facility] [address] [place] [address] documented as of this encounter Visit Diagnoses Not on filedocumented in this encounter Additional Health Concerns Assessment Noted Time PHQ-2 Depression Total Score: 0 02/26/20 10:12 AM EDT documented as of this encounter Care Teams Dumpster Operator Relationship Specialty Start Date End Date Cece Dai MD, MPH 15 [facility] 201 [place] [address] PCP - General Family Medicine 04/22/24 Cece Dai MD, MPH 15 [facility] [place] [address] Insurance Assigned Provider 02/09/25 documented as of this encounter Additional Source Comments The information contained in this document represents components of the legal health record. It is not the complete legal health record.[facility]
--- OUTSIDE RECORDS SUMMARY | 2025-07-09 11:00 | XMS_ITS | Encounter Summary ---
Author Organization [facility] Address [address] [facility] [address] [place] [address] Phone Care Team Providers Care Health Center Manager Name Role Phone Jovan Guillermo MD Primary Care Provider + Cece Dai MD, MPH Primary Care Provid er Cece Dai MD, MPH Unavailable [phone]- [phone] Encounter Details Date Type Department Care Team (Latest Contact Info) Description 06/07/2023 Transcribe Orders Virtual Department 30 [place] [address] Jovan Guillermo MD [address] [place] [address] Encounter for screening mammogram for malignant neoplasm of breast (Primary Dx) Social History Tobacco Use Types Packs/Day Years [...] Upcoming Encounters Date Type Department Care Team ([facility] st Contact Info) Description 02/26/2026 9:00 AM EDT Office Visit [facility] [place] [facility] 15 [facility] [address] [place] [address] Cece Dai MD, MPH 15 [facility]. [address] [place] [address] Tomer Arita MD 15 [facility] [place] [address] documented as of this encounter Visit Diagnoses Diagnosis Encounter for screening mammogram for malignant neoplasm of breast- Primary documented in this encounter Care Teams Health Center Manager Relationship Specialty Start Date End Date Jovan Guillermo MD [address] [place] [address] PCP - General 05/17/19 04/21/24 Cece Dai MD, MPH [address] [address] PCP - General Family Medicine 04/22/24 Cece Dai MD, MPH 15 [facility] 201 [place] [address] Insurance Assigned Provider 02/09/25 documented as of this encounter Additional Source Comments The information contained in this document represents components of the legal health record. It is not the complete legal health record.[facility]
--- OUTSIDE RECORDS SUMMARY | 2025-07-09 11:00 | XMS_ITS | Encounter Summary ---
Author Organization [facility] Address [address] [facility] [address] [place] [address] Phone Care Team Providers Care Mail Order Biller Name Role Phone Jovan Guillermo MD Primary Care Provider + Cece Dai MD, MPH Primary Care Provid er Cece Dai MD, MPH Unavailable [phone]- [phone] Encounter Details Date Type Department Care Team (Late st Contact Info) Description 06/09/2023 Ancillary Orders Virtual Department 30 [place] [address] Jovan Guillermo MD [address] [place] [address] Encounter for screening mammogram for malignant neoplasm of breast Social History Tobacco Use Types Packs/Day Years [...] 02/26/2026 9:00 AM EDT Office Visit [facility] [place] [facility] 15 [facility] [address] [place] [address] Cece Dai MD, MPH 15 [facility] [address] [place] [address] Tomer Arita MD 15 [facility] [address] [place] [address] documented as of this encounter Results * BI MAMMOGRAM DIAGNOSTIC WITH TOMOSYNTHESIS WITH CAD (BILATERAL) (06/09/2023 3:42 PM EDT) Anatomical Region Laterality Modality Breast Left, Breast Right, Breast Bilateral Bila teral Mammography 06/09/2023 4:05 PM EDT Impressions 06/09/2023 4:53 PM EDT No imaging findings suspicious for malignancy. Clinical follow-up recommended. Bilateral screening mammography in 12 months is recommended. Results and recommendation conveyed to the patient before she left the clinic. BI-RADS CATEGORY: 1 - Negative. DENSITY: There are scattered fibroglandular densities. Narrative 06/09/2023 4:53 PM EDT HISTORY: Left breast pain and intermittent warmth in the 3:00 position there is a history of remote benign biopsy in this region. EXAM: Bilateral diagnostic mammogram with tomosynthesis and CAD, left breast ultrasound. COMPARISON: Compared with previous mammograms as far back as 05/11/2007 and as recent as 06/03/2021. FINDINGS: No suspicious masses or evidence of architectural distortion on mammography. No suspicious microcalcifications. Directed left breast ultrasound performed in the region of pain and intermittent performed to include the 3:00 position. No sonographic abnormalities are demonstrated. Procedure Note Tomi Thrasher MD - 06/09/2023 HISTORY: Left breast pain and intermittent warmth in the 3:00 positionthere is a history of remote benign biopsy in this region. EXAM: Bilateral diagnostic mammogram with tomosynthesis and CAD, leftbreast ultrasound. COMPARISON: Compared with previous mammograms as far back as 05/11/2007 andas recent as 06/03/2021. FINDINGS: No suspicious masses or evidence of architectural distortion onmammography. No suspicious microcalcifications. Directed left breast ultrasound performed in the region of pain andintermittent performed to include the 3:00 position. No sonographicabnormalities are demonstrated. IMPRESSION: No imaging findings suspicious for malignancy. Clinical follow-uprecommended. Bilateral screening mammography in 12 months isrecommended. Results and [facility]-RADS CATEGORY: 1 - Negative. DENSITY: There are scattered fibroglandular densities. Jovan Guillermo MD IMG MG EXAMS Final Re sult documented in this encounter Visit Diagnoses Diagnosis Encounter for screening mammogram for malignant neoplasm of breast Encounter for screening mammogram for malignant neoplasm of breast documented in this encounter Care Teams Mail Order Biller Relationship Specialty Start Date End Date Jovan Guillermo MD [address] [place] [address] PCP - General 05/17/19 04/21/24 Cece Dai MD, MPH [address] [place] [address] PCP - General Family Medicine 04/22/24 Cece Dai MD, MPH [address] [place] [address] Insurance Assigned Provider 02/09/25 documented as of this encounter Additional Source Comments The information contained in this document represents components of the legal health record. It is not the complete legal health record.[facility]
--- OUTSIDE RECORDS SUMMARY | 2025-07-09 11:00 | XMS_ITS | Encounter Summary ---
Author Organization [facility] Address [address] [place] [address] Phone Care Team Providers Care Frame Coverer Name Role Phone Cece Dai MD, MPH Primary Care Provid er Cece Dai MD, MPH Unavailable [phone]- [phone] Encounter Details Date Type Department Care Team (Late st Contact Info) Description 02/07/2025 Procedure Pass [facility] - [address] [place] [address] Social History Tobacco Use Types Packs/Day Years [...] ecorded Denied Basic Needs Not on file 04/22/2024 In the past 12 months have y ou been in a relationship with a person who hurts, threatens, or tries to control you? No 04/22/2024 Worried food would run out Not on file 04/22 In the past 12 months have y ou been in a relationship with a person who hurts, threatens, or tries to control you? No 04/22/2024 Comments No Sex and Gender Information Value Date Recorded Sex Assigned at Not on file Legal Sex Female 6:31 PM EST Gender Identity Not on file Sexual Orientation Not on file documented as of this encounter Plan of Treatment Upcoming Encounters Date Type Department Care Team (Late Contact Info) Description 02/26/2026 9:00 AM EDT Office Visit [facility] [place] [facility] 15 [facility] [address] [place] [address] Cece Dai MD, MPH [address] [address] [email or web address] Tomer Arita MD 15 [facility] 201 [place] [address] [email or web address] documented as of this encounter Visit Diagnoses Not on filedocumented in this encounter Additional Health Concerns Assessment Noted Time PHQ-2 Depression Total Score: 0 02/26/20 10:12 AM EDT documented as of this encounter Care Teams Frame Coverer Relationship Specialty Start Date End Date Cece Dai MD, MPH [address] [address] [email or web address] PCP - General Family Medicine 04/22/24 Cece Dai MD, MPH [address] [place] [address] [email or web address] Insurance Assigned Provider 02/09/25 documented as of this encounter Additional Source Comments The information contained in this document represents components of the legal health record. It is not the complete legal health record.[facility]
--- OUTSIDE RECORDS SUMMARY | 2025-07-09 11:00 | XMS_ITS | Encounter Summary ---
Author Organization [facility] Address [address] [facility] [address] [place] [address] Phone Care Team Providers Care Tinsel Machine Operator Name Role Phone Jovan Guillermo MD Primary Care Provider + Cece Dai MD, MPH Primary Care Provid er Cece Dai MD, MPH Unavailable [phone]- [phone] Encounter Details Date Type Department Care Team (Late st Contact Info) Description 06/09/2023 Procedure Pass [facility] - [address] [place] [address] Social History Tobacco Use Types Packs/Day Years [...] 02/26/2026 9:00 AM EDT Office Visit [facility] [place] [facility] 15 [facility] [address] [place] [address] Cece Dai MD, MPH 15 [facility] [address] [place] [address] Tomer Arita MD 15 [facility] [address] [place] [address] documented as of this encounter Visit Diagnoses Not on filedocumented in this encounter Care Teams Tinsel Machine Operator Relationship Specialty Start Date End Date Jovan Guillermo MD [address] [place] [address] PCP - General 05/17/19 04/21/24 Cece Dai MD, MPH [address] [address] PCP - General Family Medicine 04/22/24 Cece Dai MD, MPH 15 [facility] 201 [place] [address] Insurance Assigned Provider 02/09/25 documented as of this encounter Additional Source Comments The information contained in this document represents components of the legal health record. It is not the complete legal health record.[facility]
--- OUTSIDE RECORDS SUMMARY | 2025-07-09 11:00 | XMS_ITS | Encounter Summary ---
Author Organization [facility] Address [address] [employer] [facility] [address] [place] [address] Phone Care Team Providers Care Marketing Information Coordinator Name Role Phone Jovan Guillermo MD Primary Care Provider + Cece Dai MD, MPH Primary Care Provid er Cece Dai MD, MPH Unavailable [phone]- [phone] Encounter Details Date Type Department Care Team (Late st Contact Info) Description 06/09/2023 Ancillary Orders Virtual Department 30 [place] [address] Jovan Guillermo MD [address] [place] [address] Encounter for screening mammogram for malignant neoplasm [...] EDT Office Visit [facility] [place] [facility] 15 [facility] [address] [place] [address] Cece Dai MD, MPH 15 [facility] [address] [place] [address] Tomer Arita MD 15 [facility] [address] [place] [address] documented as of this encounter Results * BI US BREAST LIMITED (LEFT) (06/09/2023 4:52 PM EDT) Anatomical Region Laterality Modality Breast Left, Breast Bilateral Left Ul trasound 06/09/2023 4:05 PM EDT Impressions 06/09/2023 4:53 [...] [facility] BI-RADS CATEGORY: 1 - Negative. DENSITY: There are scattered fibroglandular densities. Jovan Guillermo MD [facility] BREAST Final Re sult documented in this encounter Visit Diagnoses Diagnosis Encounter for screening mammogram for malignant neoplasm of breast Encounter for screening mammogram for malignant neoplasm of breast documented in this encounter Care Teams Marketing Information Coordinator Relationship Specialty Start Date End Date Jovan Guillermo MD [address] [place] [address] PCP - General 05/17/19 04/21/24 Cece Dai MD, MPH [address] [place] [address] PCP - General Family Medicine 04/22/24 Cece Dai MD, MPH [address] [place] [address] Insurance Assigned Provider 02/09/25 documented as of this encounter Additional Source Comments The information contained in this document represents components of the legal health record. It is not the complete legal health record.[facility]
--- OUTSIDE RECORDS SUMMARY | 2025-07-09 11:00 | XMS_ITS | Clinical Summary ---
Author Organization [facility] it Address [address] [place] [address] Care Team Providers Care Fixer Supervisor Name Role Phone Heri Cueto MD Primary Care Provider [phone] Allergies Active Allergy Reactions Criticality Noted Date [...] Pylori was negative in 2002. Lung blebs ([facility] V24, CMS/[facility] V28) 05/18/2011 Overview (11/07/2024): H/o chest tube [...] migrainosus DVT (deep venous thrombosis) (CMS/HCC V24, [facility] V28) in 20s DX:DVT (deep venous thrombo sis) ([facility]); COMMENT: on OCPs at the time, taken off; never anticoagulated MTHFR mutation 05/18/2011 DX:MTHFR mutatio n GERD (gastroesophageal reflu x disease) 05/18/2011 DX:GERD (gastroesophageal re flux disease) Lung blebs (CMS/HCC V24, CMS /[facility] V28) 05/18/2011 DX:Lung blebs (HCC) Hepatic cyst [...] 1976 Zoster Vaccines (1 of 2) 2007 Depression Screening 11/06/2024 Colorectal Cancer Screening: Colonoscopy 11/08/2024 Falls Risk Assessment 11/08/2024 Osteoporosis Screening (Bone Density Screening) 11/08/2024 Social Influencers of Health Screening 11/08/2024 COVID-19 Vaccine ( - 2023-2 5 season) 2025 Influenza Vaccine (#1) 2025 10/12/2005 RSV Immunization [...] Recently Relevant to Health Maintenance Results * Hepatitis C Screening (05/20/2003) Hepatitis C Screening Abstracted us Historical Provider HEALTH MAINTENANCE Final Result from Last 3 Months or Most Recently Relevant to Health Maintenance Care Teams Fixer Supervisor Relationship Specialty Start Date End Date Heri Cueto MD [address] [place] [address] PCP - General 04/29/11
--- OUTSIDE RECORDS SUMMARY | 2025-07-09 11:00 | XMS_ITS | Encounter Summary ---
Author Organization [facility] Address [address] [place] [address] Phone Care Team Providers Care Director Advertising Name Role Phone Cece Dai MD, MPH Primary Care Provid er Cece Dai MD, MPH Unavailable [phone] Encounter Details Date Type Department Care Team (Late st Contact Info) Description 02/27/2025 Procedure Pass [address] [place] [address] Social History Tobacco Use Types Packs/Day Years [...] 02/26/2026 9:00 AM EDT Office Visit [facility] [place] [facility] 15 [facility] 201 [place] [address] Cece Dai MD, MPH [address] [address] [email or web address] Tomer Arita MD 15 [facility] 201 [place] [address] [email or web address] documented as of this encounter Visit Diagnoses Not on filedocumented in this encounter Additional Health Concerns Assessment Noted Time PHQ-2 Depression Total Score: 0 02/26/20 10:12 AM EDT documented as of this encounter Care Teams Director Advertising Relationship Specialty Start Date End Date Cece Dai MD, MPH [address] [place] [address] [email or web address] PCP - General Family Medicine 04/22/24 Cece Dai MD, MPH [address] [place] [address] [email or web address] Insurance Assigned Provider 02/09/25 documented as of this encounter Additional Source Comments The information contained in this document represents components of the legal health record. It is not the complete legal health record.[facility]
== END 2025-07-09 09:52 | disposition home or self-care (01) ==
LOC: HO.HMGAL 09:50
PROVIDERS: PCP Family Medicine; Visit Provider Registered Nurse Emergency
DX: J30.89 Other allergic rhinitis (principal)
CPT/HCPCS: 95117; 95165

== ENCOUNTER 2025-07-16 11:18 | Outpatient (AMB) | payer MEDICARE, OTHER, SELFPAY ==
--- OUTSIDE RECORDS SUMMARY | 2007-05-11 | XMS_ITS | Encounter Summary ---
Author Organization [facility] Address [address] [place] [address] Phone Care Team Providers Care Customer Service Coordinator Name Role Phone Unavailable Primary Care Provider Unavailabl e Encounter Details Date Type Department Care Team (Late st Contact Info) Description 05/11/2007 Hospital Encounter [facility],Outside Imaging 30 [place], [place] [phone] System, Provider [place] In, [place] [address] Social History Tobacco Use Types Packs/Day Years [...] Description 08/21/2025 10:40 AM EDT Office Visit [facility] Primary Care 15 [facility] [address] [place] [address] Tomer Arita MD [address] [place] [address] [email or web address] 02/26/2026 9:00 AM EDT Office Visit [facility] Primary [facility] 15 [facility] [address] [place] [address] Cece Dai MD, MPH [address] [place] [address] Tomer Arita MD [address] [address] [email or web address] documented as of this [...] It is not the complete legal health record.[facility]
--- OUTSIDE RECORDS SUMMARY | 2007-05-15 | XMS_ITS | Encounter Summary ---
Author Organization [facility] Address [address] [place] [address] Phone Care Team Providers Care Alteration Tailor Apprentice Name Role Phone Unavailable Primary Care Provider Unavailabl e Encounter Details Date Type Department Care Team (Late st Contact Info) Description 05/15/2007 Hospital Encounter [facility],Outside Imaging 30 [place], [place] [phone] System, Provider Not In, [place] [address] Social History Tobacco Use Types Packs/Day Years [...] Description 08/21/2025 10:40 AM EDT Office Visit [facility] 15 [facility] [address] [place] [address] Tomer Arita MD [address] [place] [address] [email or web address] 02/26/2026 9:00 AM EDT Office Visit [facility] 15 [facility] [address] [place] [address] Cece Dai MD, MPH [address] [place] [address] Tomer Arita MD [address] [address] [email or web address] documented as of this encounter Procedures Procedure [...] It is not the complete legal health record.[facility]
--- OUTSIDE RECORDS SUMMARY | 2008-05-13 | XMS_ITS | Encounter Summary ---
Author Organization [facility] Address [address] [place] [address] Phone Care Team Providers Care Display Designer Name Role Phone Unavailable Primary Care Provider Unavailabl e Encounter Details Date Type Department Care Team (Late st Contact Info) Description 05/13/2008 Hospital Encounter [facility],Outside Imaging 30 [place], [place] [phone] System, Provider [place] In, [place] [address] Social History Tobacco Use Types Packs/Day Years [...] Description 08/21/2025 10:40 AM EDT Office Visit [facility] 15 [facility] [address] [place] [address] Tomer Arita MD [address] [place] [address] [email or web address] 02/26/2026 9:00 AM EDT Office Visit [facility] 15 [facility] [address] [place] [address] Cece Dai MD, MPH [address] [place] [address] Tomer Arita MD [address] [address] [email or web address] documented as of this [...] complete legal health record.[facility]
--- OUTSIDE RECORDS SUMMARY | 2010-05-11 | XMS_ITS | Encounter Summary ---
Author Organization [facility] Address [address] [place] [address] Phone Care Team Providers Care Sweatband Maker Name Role Phone Unavailable Primary Care Provider Unavailabl e Encounter Details Date Type Department Care Team (Late st Contact Info) Description 05/11/2010 Hospital Encounter [facility],Outside Imaging 30 [place], [place] [phone] System, Provider Not In, [place] [address] Social History Tobacco Use Types Packs/Day Years [...] Description 08/21/2025 10:40 AM EDT Office Visit [facility] 15 [facility] [address] [place] [address] Tomer Arita MD [address] [place] [address] [email or web address] 02/26/2026 9:00 AM EDT Office Visit [facility] 15 [facility] [address] [place] [address] Cece Dai MD, MPH [address] [place] [address] Tomer Arita MD [address] [address] [email or web address] documented as of this encounter Procedures Procedure [...] is not the complete legal health record.[facility]
--- OUTSIDE RECORDS SUMMARY | 2011-05-16 | XMS_ITS | Encounter Summary ---
Author Organization [facility] Address [address] [place] [address] Phone Care Team Providers Care Managing Consultant Name Role Phone Unavailable Primary Care Provider Unavailabl e Encounter Details Date Type Department Care Team (Late st Contact Info) Description 05/16/2011 Hospital Encounter [facility],Outside Imaging 30 [place], [place] [phone] System, Provider Not In, [place] [address] Social History Tobacco Use Types Packs/Day Years [...] Description 08/21/2025 10:40 AM EDT Office Visit [facility] Care 15 [facility] [address] [place] [address] Tomer Arita MD [address] [place] [address] [email or web address] 02/26/2026 9:00 AM EDT Office Visit [facility] 15 [facility] [address] [place] [address] Cece Dai MD, MPH [address] [place] [address] Tomer Arita MD [address] [address] [email or web address] documented as of this encounter Procedures Procedure [...]
--- OUTSIDE RECORDS SUMMARY | 2025-07-15 16:00 | XMS_ITS | Encounter Summary ---
Author Organization [facility] Address [address] [place] [address] Phone Care Team Providers Care Collar Cutter Name Role Phone Cece Dai MD, MPH Primary Care Provid er Cece Dai MD, MPH Unavailable +1- [phone] Reason for Referral * Consultation (Within 2 weeks) - New Request Specialty Diagnoses / Procedures Referred By Hussein t Referred To Contact Endocrinology Diagnoses Age related osteoporosis, unspecified pathological fracture presence Tomer Arita MD [address] [place] [address] [address] [place] [address] Phone: tel: fax: mailto:[email or web address] [address] Phone: tel: Referral ID Status Reason Start Date Expiration Date V isits Requested Visits Authorized [id number] New Request 07/15/2025 07/15/2026 1 1 * MRI/CAT Scan - Authorized Specialty Diagnoses / Procedures Referred By Contac t Referred To Contact Radiology Diagnoses Intractable abdominal pain Procedures CT Abdomen/Pelvis Tomer Arita MD 15 [facility] 201 [place] [address] Phone: tel: fax: mailto:[email or web address] Referral ID Status Reason Start Date Expiration Date V isits Requested Visits Authorized [id number] Authorized 07/15/2025 07/16/2026 1 1 Reason for Visit * Reason Comments Sick Visit Abdominal pain x 3 w eeks. Mid back pain, rib pain - mentions had broken 4 ribs. Encounter Details Date Type Department Care Team (Late st Contact Info) Description 07/15/2025 4:00 PM EDT Office Visit [facility] [place] [facility] [address] [facility] [address] [place] [address] Tomer Arita MD 15 [facility] [address]. [address] [place] [address] [email or web address] Age related osteoporosis, unspecified pathological fracture presence (Primary Dx); Need for gbqaswi-fhlmj-jabbgmh (MMR) vaccine; Intractable abdominal pain Social History Tobacco Use Types Packs/Day Years [...] on file documented as of this encounter Last Filed Vital Signs Vital Sign Reading Time Taken Comments Blood Pressure 112/72 07/15/2025 3:50 PM EDT Pulse 86 07/15/2025 3:50 PM EDT Temperature 36.4 C (97.5 F) 07/15/2025 3:50 PM EDT Respiratory Rate - - Oxygen Saturation 97% 07/15/2025 3:50 PM EDT Inhaled Oxygen Concentration - - Weight 59.1 kg (130 lb 3.2 oz) 07/15/2025 3:50 P M EDT Height - - Body Mass Index 22.09 02/25/2025 10:05 AM EDT documented in this encounter Miscellaneous Notes * Assessment & Plan Note - Peggy Schmidt - 07/15/2025 5:03 PM EDTAssociated Problem(s): Intractable abdominal pain During interview, patient's initial complaints were LUQ pain, characterized as dull and achey with 4-5/10 pain that has worsened in frequency over the last 3 weeks. Patient has had longstanding GERD that has not been relieved by any treatments. Initially Ddx included gastritis or H.pylori infection, however upon physical exam, the patient's pain was localized more to the LLQ instead which suggests a different pathology. Ddx includes a diverticulosis or mild diverticulitis, or an MSK etiology involving some small pelvic hip fractures in setting of patient's osteoporosis. CT abdomen/pelvis without contrast was ordered to evaluate for any signs of bowel pathology and can also capture presence of any fractures. CBC and CMP were ordered to evaluate for signs of infection and analyze kidney/liver functions. * Assessment & Plan Note - Peggy Schmidt - 07/15/2025 5:01 PM EDTAssociated Problem(s): Age related osteoporosis Patient has (+) Dowager sign on physical exam with tenderness to palpation in thoracic region, in addition to feeling stiff and experiencing numerous nontraumatic rib fractures. Her DEXA scan revealed osteoporosis for which bisphosphonates were recommended, however given this patient's longstanding history of GERD, she would be a better candidate for the injectable Reclast in order to avoid esophagitis exacerbation. Endocrine referral was placed for this treatment option and patient should be receiving a call to schedule. Plan to follow-up in 1 month's time. documented in this encounter Plan of Treatment Upcoming Encounters Date Type Department Care Team (Late st Contact Info) Description 08/21/2025 10:40 AM EDT Office Visit [facility] [address] [place] [address] [address] [place] [address] Tomer Arita MD 15 [facility] [address] [place] [address] 02/26/2026 9:00 AM EDT Office Visit [facility] [place] 15 [facility] 201 [place] [address] Cece Dai MD, MPH 15 [facility]. 201 [place] [address] Tomer Arita MD 15 [facility] [address] [place] [address] Scheduled Orders Name Type Priority Associated Diagnoses Orde r Schedule CT Abdomen/Pelvis Imaging Routine Intractable abdominal pain Expected: 07/15/2025, Expires: 10/14/2025 CBC and differential Lab Routine Intractable abdominal pain Expected: 07/15/2025, Expires: 08/14/2025 Comprehensive metabolic panel Lab Routine Intractable abdominal pain Expected: 07/15/2025, Expires: 07/15/2026 Scheduled Referrals Name Type Priority Associated Diagnoses Orde r Schedule Ambulatory referral to [facility] Endocrinology Outpatient Referral Routine Age related osteoporosis, unspecified pathological fracture presence Ordered: 07/15/2025 documented as of this encounter Visit Diagnoses Diagnosis Age related osteoporosis, unspecified pathological fracture presence- Primary Need for jmmftcq-xlswd-knltrbq (MMR) vaccine Need for prophylactic vaccination with wigggny-wtymf-lwvsoba (MMR) vaccine Intractable abdominal pain documented in this encounter Additional Health Concerns Assessment Noted Time PHQ-2 Depression Total Score: 0 02/26/20 25 10:12 AM EDT documented as of this encounter Care Teams Collar Cutter Relationship Specialty Start Date End Date Cece Dai MD, MPH [address] [place] [address] [email or web address] PCP - General Family Medicine 04/22/24 Cece Dai MD, MPH [address] [place] [address]. [address] [place] [address] [email or web address] Insurance Assigned Provider 02/09/25 documented as of this encounter Additional Source Comments The information contained in this document represents components of the legal health record. It is not the complete legal health record.[facility]
--- OUTSIDE RECORDS SUMMARY | 2025-07-16 14:26 | XMS_ITS | Encounter Summary ---
Author Organization [facility] Address [address] [facility] [address] [place] [address] Phone Care Team Providers Care Bone Process Operator Name Role Phone Jovan Guillermo MD Primary Care Provider + Cece Dai MD, MPH Primary Care Provid er Cece Dai MD, MPH Unavailable [phone]- [phone] Encounter Details Date Type Department Care Team (Late st Contact Info) Description 06/09/2023 Ancillary Orders Virtual Department [address] [place] [address] Jovan Guillermo MD [address] [place] [address] Encounter for screening mammogram for malignant neoplasm [...] Description 08/21/2025 10:40 AM EDT Office Visit [facility] 15 [facility] [address] [place] [address] Tomer Arita MD [address] [address] 02/26/2026 9:00 AM EDT Office Visit [facility] 15 [facility] [address] [place] [address] Cece Dai MD, MPH [address] [place] [address] Tomer Arita MD [address] [address] documented as of this encounter Results * [...] conveyed to the patient before she left theinic. BI-RADS CATEGORY: 1 - Negative. DENSITY: There are scattered fibroglandular densities. Jovan Guillermo MD IMG MG EXAMS Final Re sult documented in this encounter Visit Diagnoses Diagnosis Encounter for screening mammogram for malignant neoplasm of breast Encounter for screening mammogram for malignant neoplasm of breast documented in this encounter Care Teams Bone Process Operator Relationship Specialty Start Date End Date Jovan Guillermo MD [address] [place] [address] PCP - General 05/17/19 04/21/24 Cece Dai MD, MPH 15 [facility] 201 [place] [address] [email or web address] PCP - General Family Medicine 04/22/24 Cece Dai MD, MPH [address] [place] [address] [email or web address] Insurance Assigned Provider 02/09/25 documented as of this encounter Additional Source Comments The information contained in this document represents components of the legal health record. It is not the complete legal health record.[facility]
--- OUTSIDE RECORDS SUMMARY | 2025-07-16 14:26 | XMS_ITS | Encounter Summary ---
Author Organization [facility] Address [address] [facility] [address] [place] [address] Phone Care Team Providers Care Alligator Hunter Name Role Phone Cece Dai MD, MPH Primary Care Provid er Cece Dai MD, MPH Unavailable [phone]- [phone] Reason for Visit * Reason Onset Date Comments Triage 07/15/2025 Abdominal pain Encounter Details Date Type Department Care Team (Late st Contact Info) Description 07/15/2025 Nurse Triage [facility] [address] [facility] [address] [place] [address] Cece Dai MD, MPH 15 [facility] [address] [place] [address] [email or web address] Triage (Abdominal pain ) Social History Tobacco Use Types Packs/Day Years [...] this encounter Progress Notes * Renata Dumas RN - 07/15/2025 10:40 AM EDT Nurse Triage Encounter Note Reason for Triage Tish Ren contacted office for Triage Abdominal pain Call Disposition See Today In Office Disposition Comments: Patient/caregiver understands and will follow disposition: Yes Initial Symptom Screening and Assessment IA None Care Advice Patient/Caregiver understands and will follow care advice?: Yes, plans to follow advice Abdominal Pain - Xxjlu-YDRCM-BW Renata Dumas RN Tumayuri Jul 15, 2025 10:44 AM Disposition and First Aid SEE IN OFFICE OR VIDEO VISIT TODAY: * You need to be examined today or have a video telemedicine visit. * PCP OFFICE VISIT: Let me give you an appointment. Patient will call back with additional questions or if symptoms change or worsen Renata Dumas RN Reason for Disposition and Assessment Pt denies n/v/d. No changes in BM. Dull achey pain. Has intermittent pain. Has not noted anything that makes it better or worse. Reason for Disposition Age > 60 years Protocols used: Abdominal Pain - Keleo-RWBWJ-GL * Janna Martini - 07/15/2025 10:01 AM EDT [facility] PEN Top Smart Phrases: Red Yellow Green Guidelines Select Red, Yellow, Green Triage Intake *Route to appropriate staff member/pool according to practice guidelines* [place] Call Intake Call Back Number: (if not patient, name/relationship) [phone] [place] Symptom: Triage (Abdominal pain ) When did these symptoms start? 3 weeks Have you ever experienced these symptoms before? NO Any additional information: Pt said pain is off and on but feels like pain from gallbladder but on other side Route High Priority Encounter to twisting frame fixer Reason for Call = TRIAGE Comment = ORANGE + symptom documented in this encounter Plan of Treatment Upcoming Encounters Date Type Department Care Team (Late st Contact Info) Description 08/21/2025 10:40 AM EDT Office Visit [facility] [place] [facility] [address] [facility] [address] [place] [address] Tomer Arita MD [address] [place] [address] [address] [place] [address] 02/26/2026 9:00 AM EDT Office Visit [facility] [place] [facility] [address] [facility] [address] [place] [address] Cece Dai MD, MPH 15 [facility] 201 [place] [address] Tomer Arita MD 15 [facility] [address] [place] [address] documented as of this encounter Visit Diagnoses Not on filedocumented in this encounter Additional Health Concerns Assessment Noted Time PHQ-2 Depression Total Score: 0 02/26/20 10:12 AM EDT documented as of this encounter Care Teams Alligator Hunter Relationship Specialty Start Date End Date Cece Dai MD, MPH 15 [facility] 201 [place] [address] PCP - General Family Medicine 04/22/24 Cece Dai MD, MPH 15 [facility] 201 [place] [address] Insurance Assigned Provider 02/09/25 documented as of this encounter Additional Source Comments The information contained in this document represents components of the legal health record. It is not the complete legal health record.[facility]
--- OUTSIDE RECORDS SUMMARY | 2025-07-16 14:26 | XMS_ITS | Encounter Summary ---
Author Organization [facility] Address [address] [facility] [address] [place] [address] Phone Care Team Providers Care Boning Room Worker Name Role Phone Jovan Guillermo MD Primary Care Provider + Cece Dai MD, MPH Primary Care Provid er Cece Dai MD, MPH Unavailable [phone]- [phone] Encounter Details Date Type Department Care Team (Late st Contact Info) Description 06/09/2023 Procedure Pass [facility] - [address] [place] [address] Social History Tobacco Use Types Packs/Day Years [...] Description 08/21/2025 10:40 AM EDT Office Visit [facility] [address] [place] [address] Tomer Arita MD [address] [address] 02/26/2026 9:00 AM EDT Office Visit [facility] [address] [place] [address] Cece Dai MD, MPH [address] [place] [address] Tomer Arita MD [address] [place] [address] documented as of this encounter Visit Diagnoses Not on filedocumented in this encounter Care Teams Boning Room Worker Relationship Specialty Start Date End Date Jovan Guillermo MD [address] [place] [address] PCP - General 05/17/19 04/21/24 Cece Dai MD, MPH [address] [place] [address] PCP - General Family Medicine 04/22/24 Cece Dai MD, MPH [address] [place] [address] Insurance Assigned Provider 02/09/25 documented as of this encounter Additional Source Comments The information contained in this document represents components of the legal health record. It is not the complete legal health record.[facility]
--- OUTSIDE RECORDS SUMMARY | 2025-07-16 14:26 | XMS_ITS | Encounter Summary ---
Author Organization [facility] Address [address] [place] [address] Phone Care Team Providers Care Mash Preparatory Operator Name Role Phone Cece Dai MD, MPH Primary Care Provid er Cece Dai MD, MPH Unavailable [phone]- [phone] Encounter Details Date Type Department Care Team (Late st Contact Info) Description 02/27/2025 Procedure Pass [address] [place] [address] Social History Tobacco Use Types Packs/Day Years [...] Department Care Team (Late Contact Info) Description 08/21/2025 10:40 AM EDT Office Visit [facility] [address] [place] [address] Tomer Arita MD [address] [place] [address] [address] [place] [address] 02/26/2026 9:00 AM EDT Office Visit [facility] [address] [facility] [address] [place] [address] Cece Dai MD, MPH [address] [address] [email or web address] Tomer Arita MD [address] [address] [email or web address] documented as of this encounter Visit Diagnoses Not on filedocumented in this encounter Additional Health Concerns Assessment Noted Time PHQ-2 Depression Total Score: 0 02/26/20 10:12 AM EDT documented as of this encounter Care Teams Mash Preparatory Operator Relationship Specialty Start Date End Date Cece Dai MD, MPH [address] [address] [email or web address] PCP - General Family Medicine 04/22/24 Cece Dai MD, MPH [address] [address] [email or web address] Insurance Assigned Provider 02/09/25 documented as of this encounter Additional Source Comments The information contained in this document represents components of the legal health record. It is not the complete legal health record.[facility]
--- OUTSIDE RECORDS SUMMARY | 2025-07-16 14:26 | XMS_ITS | Encounter Summary ---
Author Organization [facility] Address [address] [facility] [address] [place] [address] Phone Care Team Providers Care Aquatic Facility Manager Name Role Phone Jovan Guillermo MD Primary Care Provider + Cece Dai MD, MPH Primary Care Provid er Cece Dai MD, MPH Unavailable [phone]- [phone] Encounter Details Date Type Department Care Team (Late st Contact Info) Description 05/24/2021 Procedure Pass [facility] - [address] [place] [address] Social History Tobacco Use Types Packs/Day Years [...] Description 08/21/2025 10:40 AM EDT Office Visit [facility] [address] [place] [address] [address] [place] [address] Tomer Arita MD 15 [facility] [address]. [address] [place] [address] 02/26/2026 9:00 AM EDT Office Visit [facility] [address] [facility] 201 [place] [address] Cece Dai MD, MPH 15 [facility]. 201 [place] [address] Tomer Arita MD 15 [facility] [place] [address] documented as of this encounter Visit Diagnoses Not on filedocumented in this encounter Care Teams Aquatic Facility Manager Relationship Specialty Start Date End Date Jovan Guillermo MD [address] [place] [address] PCP - General 05/17/19 04/21/24 Cece Dai MD, MPH [address] [address] PCP - General Family Medicine 04/22/24 Cece Dai MD, MPH [address] [place] [address] Insurance Assigned Provider 02/09/25 documented as of this encounter Additional Source Comments The information contained in this document represents components of the legal health record. It is not the complete legal health record.[facility]
--- OUTSIDE RECORDS SUMMARY | 2025-07-16 14:26 | XMS_ITS | Encounter Summary ---
Author Organization [facility] Address [address] [place] [address] Phone Care Team Providers Care Telegraph Repeater Mechanic Name Role Phone Jovan Guillermo MD Primary Care Provider + Ccee Dai MD, MPH Primary Care Provid er Cece Dai MD, MPH Unavailable [phone]- [phone] Encounter Details Date Type Department Care Team (Late st Contact Info) Description 06/09/2023 Ancillary Orders Virtual Department 30 [place] [address] Jovan Guillermo MD [address] [place] [address] Encounter for screening mammogram for malignant neoplasm [...] Description 08/21/2025 10:40 AM EDT Office Visit [facility] [address] [facility] [address] [place] [address] Tomer Arita MD [address] [address] 02/26/2026 9:00 AM EDT Office Visit [facility] [address] [facility] [address] [place] [address] Cece Dai MD, MPH [address] [place] [address] Tomer Arita MD [address] [address] documented as of this encounter Results * [...] [facility] BI-RADS CATEGORY: 1 - Negative. DENSITY: There are scattered fibroglandular densities. Jovan Guillermo MD [facility] BREAST Final Re sult documented in this encounter Visit Diagnoses Diagnosis Encounter for screening mammogram for malignant neoplasm of breast Encounter for screening mammogram for malignant neoplasm of breast documented in this encounter Care Teams Telegraph Repeater Mechanic Relationship Specialty Start Date End Date Jovan Guillermo MD [address] [place] [address] PCP - General 05/17/19 04/21/24 Cece Dai MD, MPH [address] [place] [address] [email or web address] PCP - General Family Medicine 04/22/24 Cece Dai MD, MPH [address] [place] [address] [email or web address] Insurance Assigned Provider 02/09/25 documented as of this encounter Additional Source Comments The information contained in this document represents components of the legal health record. It is not the complete legal health record.[facility]
--- OUTSIDE RECORDS SUMMARY | 2025-07-16 14:26 | XMS_ITS | Encounter Summary ---
Author Organization [facility] Address [address] [place] [address] Phone Care Team Providers Care Engineering Instructor Name Role Phone Cece Dai MD, MPH Primary Care Provid er Cece Dai MD, MPH Unavailable [phone]- [phone] Encounter Details Date Type Department Care Team (Late st Contact Info) Description 02/07/2025 Procedure Pass [facility] - [address] [place] [address] Social History Tobacco Use Types Packs/Day Years [...] Description 08/21/2025 10:40 AM EDT [facility] [address] [place] [address] Tomer Arita MD [address] [place] [address] 201 [place] [address] 02/26/2026 9:00 AM EDT [facility] [address] [place] [address] Cece Dai MD, MPH [address] [address] [email or web address] Tomer Arita MD [address] [address] [email or web address] documented as of this encounter Visit Diagnoses Not on filedocumented in this encounter Additional Health Concerns Assessment Noted Time PHQ-2 Depression Total Score: 0 02/26/20 10:12 AM EDT documented as of this encounter Care Teams Engineering Instructor Relationship Specialty Start Date End Date Cece Dai MD, MPH [address] [address] [email or web address] PCP - General Family Medicine 04/22/24 Cece Dai MD, MPH [address] [address] [email or web address] Insurance Assigned Provider 02/09/25 documented as of this encounter Additional Source Comments The information contained in this document represents components of the legal health record. It is not the complete legal health record.[facility]
--- OUTSIDE RECORDS SUMMARY | 2025-07-16 14:26 | XMS_ITS | Clinical Summary ---
Author Organization [facility] it Address [address] [place] [address] Care Team Providers Care Stenotype Operator Name Role Phone Heri Cueto MD Primary Care Provider [phone] Allergies Active Allergy Reactions Criticality Noted Date [...] Pylori was negative in 2002. Lung blebs ([facility] V24, [facility] V28) 05/18/2011 Overview (11/07/2024): H/o chest tube [...] migrainosus DVT (deep venous thrombosis) (CMS/HCC V24, [facility] V28) in 20s DX:DVT (deep venous thrombo sis) ([facility]); COMMENT: on OCPs at the time, taken off; never anticoagulated MTHFR mutation 05/18/2011 DX:MTHFR mutatio n GERD (gastroesophageal reflu x disease) 05/18/2011 DX:GERD (gastroesophageal re flux disease) Lung blebs (CMS/HCC V24, [facility] V28) 05/18/2011 DX:Lung blebs (HCC) Hepatic cyst [...] Recently Relevant to Health Maintenance Care Teams Stenotype Operator Relationship Specialty Start Date End Date Heri Cueto MD [address] [place] [address] PCP - General 04/29/11
--- OUTSIDE RECORDS SUMMARY | 2025-07-16 14:26 | XMS_ITS | Clinical Summary ---
Author Organization [facility] Address [address] [employer] [facility] [address] [place] [address] Phone Care Team Providers Care Lunchroom Food Service Supervisor Name Role Phone Cece Dai MD, MPH Primary Care Provid er Cece Dai MD, MPH Unavailable +1- [phone] Allergies Active Allergy Reactions Criticality Noted Date Comments Nystatin Unknown High 07/15/2025 Penicillins Rash,GI Upset Low 02/25/2011 All antibiotics, [...] Active Additional Information Patient not taking.Reported on 07/15/2025 aloe vera 25 mg Cap Take by mouth. Activ e ZINC ORAL Take by mouth daily. Active cholecalciferol , vitamin D3, (VITAMIN D3 ORAL) Take by mouth daily. Active MAGNESIUM ORAL Take by mouth daily. Active Active Problems Problem Noted Date Diagnosed Date Age related osteoporosis 07/15/2025 Assessment & Plan (07/16/2025 9:38 AM EDT): Patient has (+) Dowager sign on physical [...] Plan to follow-up in 1 month's time. Intractable abdominal pain 07/15/2025 Assessment & Plan (07/16/2025 9:37 AM EDT): During interview, patient's initial complaints were LUQ [...] signs of infection and analyze kidney/liver functions. Essential hypertension 10/28/2024 Assessment & Plan (03/31/2025 5:27 AM EDT): Controlled. She monitors closely Assessment & Plan (10/28/2024 1:39 PM EST): Plantar fasciitis 04/22/2024 Osteoarthritis, multiple sites 04/22/2024 Chronic sinusitis 04/22/2024 Overview (04/22/2024): Follows at [facility], believes it is fungal Assessment & Plan (02/25/2025 11:18 AM EDT): Orders: Ambulatory referral to External Allergy Assessment & Plan (10/22/2024 10:54 AM EST): Orders: External Referral to [facility]ol[facility] ([facility]) History of stroke associated with blood clotting [...] 5:27 AM EDT): Will need a new technical business systems analyst as Dr Holland is nearing longterm. I also strongly encouraged her to think [...] Encounters Date Type Department Care Team Description 07/15/2025 4:00 PM EDT Office Visit [address] [place] [address] Tomer Arita MD Age related osteoporosis, unspecified pathological fracture presence (Primary Dx); Need for qlntecj-jqldi-lzgpic a (MMR) vaccine; Intractable abdominal pain 07/15/2025 Nurse Triage [facility] [address] [place] [address] Cece Dai MD, MPH Triage (Abdominal pain ) 06/07/2025 10:33 AM EDT - 06/07/2025 11:59 PM EDT Hospital Encounter [facility], [facility] [address] [place] [address] Cece Dai MD, MPH Discharge Disposition: Home or Self Care 05/13/2025 Telephone [facility] [address] [place] [address] Cece Dai MD, MPH Triage (Yellow - Rib Pain) 04/23/2025 11:19 AM EDT - 04/23/2025 11:59 PM EDT Hospital Encounter [facility] [address] [place] [address] Cece Dai MD, MPH Discharge Disposition: Home or Self Care 04/23/2025 Telephone [facility] [address] [place] [address] Cece Dai MD, MPH 04/15/2025 Telephone [facility] [address] [place] [address] Caron, Paige Referral from Last 3 Months Immunizations Immunization [...] oz) 07/15/2025 3:50 P M EDT Height 163.5 cm (5' 4.37 ) 02/25/2025 10:05 AM E DT Body Mass Index 22.09 02/25/2025 10:05 AM EDT Plan of Treatment Upcoming Encounters Date Type Department Care Team (Late st Contact Info) Description 08/21/2025 10:40 AM EDT Office Visit [facility] [address] [place] [address] [address] Tomer Arita MD [address] [place] [address] [email or web address] 02/26/2026 9:00 AM EDT Office Visit [facility] 15 [facility] [address] [place] [address] Cece Dai MD, MPH [address] [place] [address] Tomer Arita MD [address] [place] [address] [address] [place] [address] [email or web address] Health Maintenance Due Date Last Done Comments SMOKING Hx and SMOKELESS TOBACCO SCREENING 1970 HEPATITIS C SCREENING 1975 COLONOSCOPY 2002 FIT TEST 2002 FOBT 2002 SIGMOIDOSCOPY 2002 VIRTUAL COLONOSCOPY 2002 ZOSTER VACCINES (1 of 2) 2007 INFLUENZA VACCINE (#1) 2025 , 09/07/2022, 10/12/2005 CREATININE LEVEL 06/21/2025 06/21/2024 POTASSIUM LEVEL 06/21/2025 06/21/2024 COVID-19 VACCINE ( season) 2025 10/16/2024, 09/11/2023, 08/18/2022, Additional history exists BLOOD PRESSURE 01/12/2026 07/15/2025 DEPRESSION SCREENING 02/25/2026 02/25/2025 MAMMOGRAM 02/27/2027 02/27/2025, [...] Referred By: CECE DAI Indications: Postmenopausal Scanner: [email or web address] A with serial# of [id number] located at [facility] Bone Density Scan (DXA) 06/07/25 Details [...] -2.5), or Osteoporosis (T-score <= -2.5). At [facility], T-scores are compared to peak bone [...] Referred By: CECE DAI Indications: Postmenopausal Scanner: [email or web address] A with serial# of [id number] located at [facility] Bone Density Scan (DXA) 06/07/25 Details [...] -2.5), or Osteoporosis (T-score <= -2.5). At [facility], T-scores are compared to peak bone [...] andprior bone density results. IMPRESSION: Interpretation: Osteoporosis. Cece Dai MD, MPH IMG BD BONE DENSITY DEXA Final Result * (ABNORMAL) Measles antibody, IgG (04/23/2025 11:31 AM EDT) SIDRA IGG Negative(A ) Positive [facility] Blood (Blood) 04/23/2025 11: 31 AM EDT 04/23/2025 11:32 AM EDT Cece Dai MD, MPH NON CULTURE MICROBIO LOGY Final Result [facility] [address] [place] [address] * BI MAMMOGRAM DIAGNOSTIC WITH TOMOSYNTHESIS WITH [...] quadrant demonstrates no sonographic abnormality. us Cece Dai MD, MPH IMG MG EXAMS Karolyn l Result * (ABNORMAL) Comprehensive metabolic panel (06/21/2024 10:39 AM EDT) SODIUM 138 133 - 146 mmol/L [facility] POTASSIUM 4.3 3.3 - 5.1 mmol/L [facility] CHLORIDE 102 96 - 108 mmol/L [facility] CO2 26 21 - 35 mmol/L [facility] BUN 8 6 - 19 mg/dL [facility] CREATININE 0.40(L) 0.5 - 1.5 mg/dL [facility] GLUCOSE 97 70 - 99 mg/dL [facility] ALBUMIN 4.4 3.9 - 4.8 g/dL [facility] TOTAL PROTEIN 7.3 6.5 - 8.0 g/dL [facility] CALCIUM 9.7 8.4 - 10.3 mg/dL [facility] ALKALINE PHOSPHATASE 75 39 - 117 U/L [facility] TOTAL BILIRUBIN 0.6 0.0 - 1.2 mg/dL [facility] AST 32 0 - 37 U/L [facility] ALT 15 0 - 40 U/L [facility] GLOBULIN 2.9 1 - 4.8 g/dL [facility] EGFR 109 >59 mL/min/1.7 3m2 [facility] Comment:Estimated glomerular filtration rate calculated using the CKD-EPI refit equation. ANION GAP 14 10 - 20 mmol/L [facility] Blood 06/21/2024 10:3 9 AM EDT 06/21/2024 10:50 AM EDT us Cece Dai MD, MPH LAB BLOOD ORDERABLES Final Result [address] [address] * (ABNORMAL) Lipid panel (06/21/2024 10:39 AM EDT) HDL 103 mg/dL [facility] Comment: Interpretation <40 mg/dL: Low HDL cholesterol (major risk factor for CHD) Greater than or equal to 60 mg/dL: High HDL cholesterol ( negative risk factor for CHD) HDL - cholesterol is affected by a number of factors, e.g. smoking, excerise, hormones, sex and age. CHOLESTEROL 174 0 - 240 mg/dL [facility] TRIGLYCERIDES 62 30 - 160 mg/dL [facility] LDL 59 50 - 129 mg/dL [facility] Comment: LDL levels in terms of risk for coronary heart disease: <100 mg/dL: Optimal 100-129 mg/dL: Near or above optimal 130-159 mg/dL: Borderline high 160-189 mg/dL: High >190 mg/dL: Very High CARDIAC RISK RATIO 1.7(L) 3.3 - 4.4 C [facility] Blood 06/21/2024 10:3 9 AM EDT 06/21/2024 10:50 AM EDT Cece Dai MD, MPH LAB BLOOD ORDERABLES Final Result [facility] [address] [place] [address] from Last 3 Months or Most Recently Relevant to Health Maintenance Insurance MEDICARE PART A & B [facility] [employer] ENHANCE SUPPLEMENT MEDICARE PART A & B [facility] MEDICARE ENHANCE SUPPLEMENT MEDICARE PART A & B [facility] MEDICARE ENHANCE SUPPLEMENT MEDICARE PART A & B MEDICARE ENHANCE SUPPLEMENT MEDICARE PART A & B [id number] [place] [address] MEDICARE ENHANCE SUPPLEMENT MEDICARE PART A & B Member Subscriber Plan / Payer ( fective 2022-Present) Name:Tish Ren Member ID:[id number] Relation to Subscriber:Self Name:Tish Ren Subscriber ID:[id number] Payer ID:[id number] Group ID:Not on file Type:Medicare Address: [facility] [facility] [facility].[address] [phone] [employer] MEDIC[employer] ENHANCE SUPPLEMENT Care Teams Lunchroom Food Service Supervisor Relationship Specialty Start Date End Date Cece Dai MD, MPH [address] [place] [address] [email or web address] PCP - General Family Medicine 04/22/24 Cece Dai MD, MPH [address] [place] [address] [email or web address] Insurance Assigned Provider 02/09/25 Additional Source Comments The information contained in this document represents components of the legal health record. It is not the complete legal health record.[facility]
--- OUTSIDE RECORDS SUMMARY | 2025-07-16 14:26 | XMS_ITS | Encounter Summary ---
Author Organization [facility] Address [address] [facility] [address] [place] [address] Phone Care Team Providers Care Banquet Captain Name Role Phone Jovan Guillermo MD Primary Care Provider + Cece Dai MD, MPH Primary Care Provid er Cece Dai MD, MPH Unavailable [phone]- [phone] Encounter Details Date Type Department Care Team (Late Contact Info) Description 06/04/2021 Ancillary Orders [facility],Outside Imaging [address] [place] [address] System, Provider Not In, PhD [address] [address] Social History Tobacco Use Types Packs/Day Years [...] Upcoming Encounters Date Type Department Care Team ([facility] Contact Info) Description 08/21/2025 10:40 AM EDT Office Visit [facility] [place] [facility] [address] [facility] [address] [place], [place] [id number] Tomer Artia MD [address] [facility] [address] [place], [place] [id number] 02/26/2026 9:00 AM EDT [facility] [place] [facility] [address] [facility] [address] [place] [address] Cece Dai MD, MPH [address] [facility] [address] [place] [address] Tomer Arita MD [address] [facility] [address] [place] [address] documented as of this encounter Results * [...] on filedocumented in this encounter Care Teams Banquet Captain Relationship Specialty Start Date End Date Jovan Guillermo MD [address] [place] [address] PCP - General 05/17/19 04/21/24 Cece Dai MD, MPH [address] [place] [address] [email or web address] PCP - General Family Medicine 04/22/24 Cece Dai MD, MPH [address] [place] [address] Insurance Assigned Provider 02/09/25 documented as of this encounter Additional Source Comments The information contained in this document represents components of the legal health record. It is not the complete legal health record.[facility]
--- OUTSIDE RECORDS SUMMARY | 2025-07-16 14:26 | XMS_ITS | Encounter Summary ---
Author Organization [facility] Address [address] [facility] [address] [place] [address] Phone Care Team Providers Care Signals Analyst Name Role Phone Jovan Guillermo MD Primary Care Provider + Cece Dai MD, MPH Primary Care Provid er Cece Dai MD, MPH Unavailable [phone]- [phone] Encounter Details Date Type Department Care Team (Late Contact Info) Description 05/24/2021 Ancillary Orders Virtual Department [address] [place] [address] Jovan Guillermo MD [address] [place] [address] Breast screening Social History Tobacco Use Types [...] Description 08/21/2025 10:40 AM EDT Office Visit [facility] [place] [facility] [address] [facility] [address] [place] [address] Tomer Arita MD 15 [facility] [address] [place] [address] 02/26/2026 9:00 AM EDT Office Visit [facility] [place] [facility] [address] [facility] [address] [place] [address] Cece Dai MD, MPH 15 [facility] [address] [place] [address] Tomer Arita MD 15 [facility] [address] [place] [address] documented as of this encounter Results * [...] unspecified documented in this encounter Care Teams Signals Analyst Relationship Specialty Start Date End Date Jovan Guillermo MD [address] [place] [address] PCP - General 05/17/19 04/21/24 Cece Dai MD, MPH [address] [place] [address] PCP - General Family Medicine 04/22/24 Cece Dai MD, MPH [address] [place] [address] Insurance Assigned Provider 4/6/25 documented as of this encounter Additional Source Comments The information contained in this document represents components of the legal health record. It is not the complete legal health record.[facility]
--- OUTSIDE RECORDS SUMMARY | 2025-07-16 14:26 | XMS_ITS | Encounter Summary ---
Author Organization [facility] Address [address] [employer] [facility] [address] [place] [address] Phone Care Team Providers Care Manager Pharmaceutical Name Role Phone Jovan Guillermo MD Primary Care Provider + Cece Dai MD, MPH Primary Care Provid er Cece Dai MD, MPH Unavailable [phone]- [phone] Encounter Details Date Type Department Care Team (Late Contact Info) Description 06/09/2023 Procedure Pass [facility] - [address] [place] [address] Social History Tobacco Use Types Packs/Day Years [...] Description 08/21/2025 10:40 AM EDT Office Visit [facility] [address] [place] [address] Tomer Arita MD [address] [place] [address] 02/26/2026 9:00 AM EDT Office Visit [facility] [address] [place] [address] Cece Dai MD, MPH [address] [place] [address] Tomer Arita MD [address] [place] [address] documented as of this encounter Visit Diagnoses Not on filedocumented in this encounter Care Teams Manager Pharmaceutical Relationship Specialty Start Date End Date Jovan Guillermo MD [address] [place] [address] PCP - General 05/17/19 04/21/24 Cece Dai MD, MPH [address] [place] [address] PCP - General Family Medicine 04/22/24 Cece Dai MD, MPH [address] [place] [address] Insurance Assigned Provider 02/09/25 documented as of this encounter Additional Source Comments The information contained in this document represents components of the legal health record. It is not the complete legal health record.[facility]
--- OUTSIDE RECORDS SUMMARY | 2025-07-16 14:26 | XMS_ITS | Encounter Summary ---
Author Organization [facility] Address [address] [employer] [facility] [address] [place] [address] Phone Care Team Providers Care Grey Goods Tester Name Role Phone Jovan Guillermo MD Primary Care Provider + Cece Dai MD, MPH Primary Care Provid er Cece Dai MD, MPH Unavailable +1- [phone] Encounter Details Date Type Department Care Team (Latest Contact Info) Description 06/07/2023 Transcribe Orders Virtual Department [address] [place] [address] Jovan Guillermo MD [address] [place] [address] Encounter for screening mammogram for malignant neoplasm [...] Description 08/21/2025 10:40 AM EDT Office Visit [facility] [address] [facility] [address] [place] [address] Tomer Arita MD [address] [address] 02/26/2026 9:00 AM EDT Office Visit [facility] [address] [facility] [address] [place] [address] Cece Dai MD, MPH [address] [place] [address] Tomer Arita MD [address] [place] [address] documented as of this encounter Visit Diagnoses Diagnosis Encounter for screening mammogram for malignant neoplasm of breast- Primary documented in this encounter Care Teams Grey Goods Tester Relationship Specialty Start Date End Date Jovan Guillermo MD [address] [place] [address] PCP - General 05/17/19 04/21/24 eCce Dai MD, MPH [address] [place] [address] PCP - General Family Medicine 04/22/24 Cece Dai MD, MPH [address] [place] [address] [email or web address] Insurance Assigned Provider 02/09/25 documented as of this encounter Additional Source Comments The information contained in this document represents components of the legal health record. It is not the complete legal health record.[facility]
--- OUTSIDE RECORDS SUMMARY | 2025-07-16 14:27 | XMS_ITS | Encounter Summary ---
Author Organization [facility] Address [address] [facility] [address] [place] [address] Phone Care Team Providers Care Unit Secretary Name Role Phone Cece Dai MD, MPH Primary Care Provid er Cece Dai MD, MPH Unavailable [phone]- [phone] Encounter Details Date Type Department Care Team (Late st Contact Info) Description 02/27/2025 Ancillary Orders [facility] [place] [facility] [address] [facility] [address] [place] [address] Cece Dai MD, MPH [address] [facility] [address] [place] [address] [email or web address] [place] of lower inner quadrant of left breast (Primary Dx) Social History Tobacco Use [...] EDT Office Visit [facility] [place] [facility] 15 [facility] [address] [place] [address] Tomer Arita MD 15 [facility] [address] [place] [address] [email or web address] 02/26/2026 9:00 AM EDT Office Visit [facility] [place] [facility] [address] [facility] [address] [place] [address] Cece Dai MD, MPH [address] [facility] [address] [place] [address] Tomer Arita MD [address] [facility] [address] [place] [address] documented as of this encounter Results * BI US BREAST LIMITED (LEFT) (02/27/2025 3:52 PM EDT) Anatomical Region Laterality Modality Breast Left, Breast Bilateral Left Ul trasound 02/27/2025 3:03 PM EDT Impressions 02/27/2025 4:25 [...] abnormality. us Cece Dai MD, MPH IMG US BREAST Karolyn l Result documented in this encounter Visit Diagnoses Diagnosis Mass of lower inner quadrant of left breast [place] of lower inner quadrant of left breast- Primary documented in this encounter Additional Health Concerns Assessment Noted Time PHQ-2 Depression Total Score: 0 02/26/20 10:12 AM EDT documented as of this encounter Care Teams Unit Secretary Relationship Specialty Start Date End Date Cece Dai MD, MPH [address] [address] [email or web address] PCP - General Family Medicine 04/22/24 Cece Dai MD, MPH [address] [address] [email or web address] Insurance Assigned Provider 02/09/25 documented as of this encounter Additional Source Comments The information contained in this document represents components of the legal health record. It is not the complete legal health record.[facility]
--- OUTSIDE RECORDS SUMMARY | 2025-07-16 14:27 | XMS_ITS | Encounter Summary ---
Author Organization [facility] Address [address] [facility] [address] [place] [address] Phone Care Team Providers Care Religious Assistant Name Role Phone Cece Dai MD, MPH Primary Care Provid er Cece Dai MD, MPH Unavailable [phone]- [phone] Reason for Visit * Reason Onset Date Comments Triage 05/06/2025 Yellow - Rib Korin n Encounter Details Date Type Department Care Team (Late st Contact Info) Description 05/13/2025 Telephone [facility] [place] [facility] [address] [facility] [address] [place] [address] Cece Dai MD, MPH 15 [facility] [address] [place] [address] [email or web address] Triage (Yellow - Rib Pain) Social History [...] than walking in to office or calling legal secretary receptionist desk. Advised option 4 for nursing rather than 2 for legal secretary receptionist when she had medical questions. Told [...] Call Back Number: (if not patient, name/relationship) [phone] Yellow Symptom: Triage (Yellow - Rib Pain) [...] Dr. Arita. Route Normal Priority Encounter to web content developer Reason for Call = TRIAGE Comment = YELLOW + symptom documented in this encounter Plan of Treatment Upcoming Encounters Date Type Department Care Team (Late st Contact Info) Description 08/21/2025 10:40 AM EDT Office Visit [facility] [address] [place] [address] [address] [place] [address] Tomer Arita MD [address] [place] [address] 02/26/2026 9:00 AM EDT Office Visit [facility] [address] [place] [address] [place] [address] Cece Dai MD, MPH [address] [place] [address] Tomer Arita MD [address] [place] [address] documented as of this encounter Visit Diagnoses Not on filedocumented in this encounter Additional Health Concerns Assessment Noted Time PHQ-2 Depression Total Score: 0 02/26/20 25 10:12 AM EDT documented as of this encounter Care Teams Religious Assistant Relationship Specialty Start Date End Date Cece Dai MD, MPH [address] [place] [address] PCP - General Family Medicine 04/22/24 Cece Dai MD, MPH [address] [place] [address] Insurance Assigned Provider 02/09/25 documented as of this encounter Additional Source Comments The information contained in this document represents components of the legal health record. It is not the complete legal health record.[facility]
== END 2025-07-16 11:20 | disposition home or self-care (01) ==
LOC: HO.HMGAL 11:18
PROVIDERS: PCP Family Medicine; Visit Provider Registered Nurse Emergency
DX: J30.89 Other allergic rhinitis (principal)
CPT/HCPCS: 95117; 95165

== ENCOUNTER 2025-07-30 11:12 | Outpatient (AMB) | payer MEDICARE, OTHER, SELFPAY ==
--- OUTSIDE RECORDS SUMMARY | 2007-05-11 | XMS_ITS | Encounter Summary ---
Author Organization [facility] Address [address] [place] [address] Phone Care Team Providers Care Diet Assistant Name Role Phone Unavailable Primary Care Provider Unavailabl e Encounter Details Date Type Department Care Team (Late st Contact Info) Description 05/11/2007 Hospital Encounter [facility],Outside Imaging 30 [place], [place] [phone] System, Provider [place] In, [place] [address] Social History Tobacco Use Types Packs/Day Years [...] Care Team (Late st Contact Info) Description 08/21/2025 10:40 AM EDT Office Visit [facility] [place] [facility] 15 [facility] [address] [place] [address] Tomer Arita MD 15 [facility] [address] [place] [address] 12/03/2025 10:50 AM EST Office Visit [facility] [address] [place] [address] Juan Wright DO [address] [place] [address] 02/26/2026 9:00 AM EDT Office Visit [facility] [place] [facility] 15 [facility] [address] [place] [address] Cece Dai MD, MPH 15 [facility] [address] [place] [address] Tomer Arita MD 15 [facility] [address] [place] [address] documented as of this encounter Procedures Procedure [...] It is not the complete legal health record.[facility]
--- OUTSIDE RECORDS SUMMARY | 2007-05-15 | XMS_ITS | Encounter Summary ---
Author Organization [facility] Address [address] [place] [address] Phone Care Team Providers Care Electronic Operator Name Role Phone Unavailable Primary Care Provider Unavailabl e Encounter Details Date Type Department Care Team (Late st Contact Info) Description 05/15/2007 Hospital Encounter [facility],Outside Imaging 30 [place], [place] [id number] System, Provider [place] In, [place] [address] Social History Tobacco Use Types Packs/Day Years [...] 08/21/2025 10:40 AM EDT Office Visit [facility] [place] [facility] 15 [facility] [address] [place] [address] Tomer Arita MD 15 [facility] [address] 201 [place] [address] 12/03/2025 10:50 AM EST Office Visit [facility] 22 [place] [address] Juan Wright DO [address] [place] [address] 02/26/2026 9:00 AM EDT Office Visit [facility] [place] [facility] 15 [facility] [address] [place] [address] Cece Dai MD, MPH 15 [facility] [address] [place] [address] Tomer Arita MD 15 [facility] [address] [place] [address] documented as of this encounter Procedures Procedure [...] It is not the complete legal health record.[facility]
--- OUTSIDE RECORDS SUMMARY | 2008-05-13 | XMS_ITS | Encounter Summary ---
Author Organization [facility] Address [address] [place] [address] Phone Care Team Providers Care Sports Physiotherapist Name Role Phone Unavailable Primary Care Provider Unavailabl e Encounter Details Date Type Department Care Team (Late st Contact Info) Description 05/13/2008 Hospital Encounter [facility],Outside Imaging 30 [place], [place] [id number] System, Provider [place] In, [place] [address] Social History Tobacco Use Types Packs/Day Years [...] 08/21/2025 10:40 AM EDT Office Visit [facility] [place] [facility] 15 [facility] [address] [place] [address] Tomer Arita MD 15 [facility] [address] 201 [place] [address] 12/03/2025 10:50 AM EST Office Visit [facility] 22 [place] [address] Juan Wright DO [address] [place] [address] 02/26/2026 9:00 AM EDT Office Visit [facility] [place] [facility] 15 [facility] [address] [place] [address] Cece Dai MD, MPH 15 [facility] [address] [place] [address] Tomer Arita MD 15 [facility] [address] [place] [address] documented as of this encounter Procedures Procedure [...] is not the complete legal health record.[facility]
--- OUTSIDE RECORDS SUMMARY | 2010-05-11 | XMS_ITS | Encounter Summary ---
Author Organization [facility] Address [address] [place] [address] Phone Care Team Providers Care Office Mover Name Role Phone Unavailable Primary Care Provider Unavailabl e Encounter Details Date Type Department Care Team (Late st Contact Info) Description 05/11/2010 Hospital Encounter [facility],Outside Imaging 30 [place], [place] [phone] System, Provider [place] In, [place] [address] Social History Tobacco Use Types Packs/Day Years [...] 08/21/2025 10:40 AM EDT Office Visit [facility] [place] [facility] [facility] 15 [facility] [address] [place] [address] Tomer Arita MD 15 [facility] [address] [place] [address] 12/03/2025 10:50 AM EST Office Visit [facility] [address] [place] [address] Juan Wright DO [address] [place] [address] 02/26/2026 9:00 AM EDT Office Visit [facility] [employer] [facility] [facility] 15 [facility] [address] [place] [address] Cece Dai MD, MPH 15 [facility] [address] [place] [address] Tomer Arita MD 15 [facility] [address] [place] [address] documented as of this encounter Procedures Procedure [...] It is not the complete legal health record.[facility]
--- OUTSIDE RECORDS SUMMARY | 2011-05-16 | XMS_ITS | Encounter Summary ---
Author Organization [facility] Address [address] [place] [address] Phone Care Team Providers Care Bag Printer Name Role Phone Unavailable Primary Care Provider Unavailabl e Encounter Details Date Type Department Care Team (Late st Contact Info) Description 05/16/2011 Hospital Encounter [facility],Outside Imaging 30 [place], [place] [phone] System, Provider [place] In, [place] [address] Social History Tobacco Use Types Packs/Day Years [...] 08/21/2025 10:40 AM EDT Office Visit [facility] [place] [facility] 15 [facility] [address] [place] [address] Tomer Arita MD 15 [facility] [address] 201 [place] [address] 12/03/2025 10:50 AM EST Office Visit [facility] [address] [place] [address] Juan Wright DO [address] [place] [address] 02/26/2026 9:00 AM EDT Office Visit [facility] [place] [facility] 15 [facility] [address] [place] [address] Cece Dai MD, MPH 15 [facility] Carter. [address] [place] [address] Tomer Arita MD 15 [facility] Carter. [address] [place] [address] documented as of this encounter Procedures Procedure [...]
--- OUTSIDE RECORDS SUMMARY | 2025-07-30 14:23 | XMS_ITS | Clinical Summary ---
Author Organization [facility] Address [address] [email or web address] [facility] [address] [place] [address] Phone Care Team Providers Care Plant Engineering Manager Name Role Phone Cece Dai MD, MPH Primary Care Provid er Cece Dai MD, MPH Unavailable +1- [phone] Allergies Active Allergy Reactions Criticality Noted Date [...] Chronic sinusitis 04/22/2024 Overview (04/22/2024): Follows at [facility], believes it is fungal Assessment & Plan (02/25/2025 11:18 AM EDT): Orders: Ambulatory referral to External Allergy Assessment & Plan (10/22/2024 10:54 AM EST): Orders: External Referral to [facility]ol[facility] ([facility]) History of stroke associated with blood clotting [...] 5:27 AM EDT): Will need a new miller apprentice as Dr Holland is nearing snf. I also strongly encouraged her to think [...] Encounters Date Type Department Care Team Description 07/24/[address] [place] [address] Cece Dai MD, MPH CT order question 07/21/[address] [place] [address] Cece Dai MD, MPH Testing question 07/15/2025 4:00 PM EDT Office Visit [address] [place] [address] Tomer Arita MD Age related osteoporosis, unspecified pathological fracture presence (Primary Dx); Need for [id number]-myhxhf a (MMR) vaccine; Intractable abdominal pain 07/15/2025 Nurse Triage [address] [place] [address] Cece Dai MD, MPH Triage (Abdominal pain ) 06/07/2025 10:33 AM EDT - 06/07/2025 11:59 PM EDT Hospital Encounter [facility], Bone Density - [address] [address] Cece Dai MD, MPH Discharge Disposition: Home or Self Care 05/13/[address] [place] [address] Cece Dai MD, MPH Triage (Yellow - Rib Pain) from Last 3 Months Immunizations Immunization Administration [...] 08/21/2025 10:40 AM EDT Office Visit [facility] [address] [place] [address] Tomer Arita MD [address] [place] [address] 12/03/2025 10:50 AM EST Office Visit [facility] 22 [place] [address] Juan Wright DO [address] [place] [address] 02/26/2026 9:00 AM EDT Office Visit [facility] [address] [place] [address] Cece Dai MD, MPH [address] [address] [email or web address] Tomer Arita MD 15 [facility] 201 [place] [address] [email or web address] Health Maintenance Due Date Last Done Comments [...] visit, subsequent Unspecified menopausal and perimenopausal disorder BI MAMMOGRAM DIAGNOSTIC WITH TOMOSYNTHESIS WITH CAD [...] Referred By: CECE DAI Indications: Postmenopausal Scanner: [employer] A with serial# of [id number] located at [facility] Bone Density Scan (DXA) 06/07/25 Details of [...] -2.5), or Osteoporosis (T-score <= -2.5). At [facility], T-scores are compared to peak bone density [...] Referred By: CECE DAI Indications: Postmenopausal Scanner: [employer] A with serial# of [id number] located at [facility] Bone Density Scan (DXA) 06/07/25 Details of [...] -2.5), or Osteoporosis (T-score <= -2.5). At [facility], T-scores are compared to peak bone density [...] BD BONE DENSITY DEXA Final Result * BI MAMMOGRAM DIAGNOSTIC WITH TOMOSYNTHESIS WITH [...] EDT) SODIUM 138 133 - 146 mmol/L [facility] POTASSIUM 4.3 3.3 - 5.1 mmol/L [facility] CHLORIDE 102 96 - 108 mmol/L [facility] CO2 26 21 - 35 mmol/L [facility] BUN 8 6 - 19 mg/dL [facility] CREATININE 0.40(L) 0.5 - 1.5 mg/dL [facility] GLUCOSE 97 70 - 99 mg/dL [facility] ALBUMIN 4.4 3.9 - 4.8 g/dL [facility] TOTAL PROTEIN 7.3 6.5 - 8.0 g/dL [facility] CALCIUM 9.7 8.4 - 10.3 mg/dL [facility] ALKALINE PHOSPHATASE 75 39 - 117 U/L [facility] TOTAL BILIRUBIN 0.6 0.0 - 1.2 mg/dL [facility] AST 32 0 - 37 U/L [facility] ALT 15 0 - 40 U/L [facility] GLOBULIN 2.9 1 - 4.8 g/dL [facility] EGFR 109 >59 mL/min/1.7 3m2 [facility] Comment:Estimated glomerular filtration rate calculated using the CKD-EPI refit equation. ANION GAP 14 10 - 20 mmol/L [facility] Blood 06/21/2024 10:3 9 AM EDT 06/21/2024 10:50 AM EDT us Cece Dai MD, MPH LAB BLOOD ORDERABLES Final Result Performing Organization Address City/[facility]/ZIP Co de Phone Number [address] [address] * (ABNORMAL) Lipid panel (06/21/2024 10:39 AM EDT) HDL 103 mg/dL [facility] Comment: Interpretation <40 mg/dL: Low HDL cholesterol (major risk factor for CHD) Greater than or equal to 60 mg/dL: High HDL cholesterol ( negative risk factor for CHD) HDL - cholesterol is affected by a number of factors, e.g. smoking, excerise, hormones, sex and age. CHOLESTEROL 174 0 - 240 mg/dL [facility] TRIGLYCERIDES 62 30 - 160 mg/dL [facility] LDL 59 50 - 129 mg/dL [facility] Comment: LDL levels in terms of risk for coronary heart disease: <100 mg/dL: Optimal 100-129 mg/dL: Near or above optimal 130-159 mg/dL: Borderline high 160-189 mg/dL: High >190 mg/dL: Very High CARDIAC RISK RATIO 1.7(L) 3.3 - 4.4 C [facility] Blood 06/21/2024 10:3 9 AM EDT 06/21/2024 10:50 AM EDT us Cece Dai MD, MPH LAB BLOOD ORDERABLES Final Result Performing Organization Address City/[facility]/ZIP Co de Phone Number [address] [address] from Last 3 Months or Most Recently Relevant to Health Maintenance Insurance MEDICARE PART A & [place] [address] [place] [address] MEDICARE ENHANCE SUPPLEMENT MEDICARE PART A & B [facility] MEDICARE ENHANCE SUPPLEMENT MEDICARE PART A & B [facility] MEDICARE ENHANCE SUPPLEMENT MEDICARE PART A & B [facility] MEDICARE ENHANCE SUPPLEMENT MEDICARE PART A & B [facility] MEDICARE ENHANCE SUPPLEMENT MEDICARE PART A & B [facility] MEDICARE ENHANCE SUPPLEMENT Care Teams Plant Engineering Manager Relationship Specialty Start Date End Date Cece Dai MD, MPH [address] [place] [address] [email or web address] PCP - General Family Medicine 04/22/24 Cece Dai MD, MPH [address] [place] [address] Insurance Assigned Provider 02/09/25 Additional Source Comments The information contained in this document represents components of the legal health record. It is not the complete legal health record.[facility]
--- OUTSIDE RECORDS SUMMARY | 2025-07-30 14:23 | XMS_ITS | Encounter Summary ---
Author Organization [facility] Address [address] [facility] [address] [place] [address] Phone Care Team Providers Care Industrial Gas Servicer Name Role Phone Jovan Guillermo MD Primary Care Provider + Cece Dai MD, MPH Primary Care Provid er Cece Dai MD, MPH Unavailable [phone]- [phone] Encounter Details Date Type Department Care Team (Late Contact Info) Description 05/24/2021 Ancillary Orders Virtual Department [address] [place] [address] Jovan Guillermo MD [address] [place] [address] Breast screening Social History Tobacco Use Types [...] 08/21/2025 10:40 AM EDT Office Visit [facility] [place] [facility] 201 [place] [address] Tomer Arita MD [address] [address] 12/03/2025 10:50 AM EST Office Visit [facility] 22 [place] [address] Juan Wright DO 22 [place] [address] 02/26/2026 9:00 AM EDT Office Visit [facility] [place] [facility] [address] [address] Cece Dai MD, MPH [address] [address] Tomer Arita MD [address] [address] documented as of this encounter Results * [...] densities. Jovan Guillermo MD IMG MG EXAMS Edited R esult - Final documented in this encounter Visit Diagnoses Diagnosis Breast screening Breast screening, unspecified Breast screening Breast screening, unspecified documented in this encounter Care Teams Industrial Gas Servicer Relationship Specialty Start Date End Date Jovan Guillermo MD [address] [place] [address] PCP - General 05/17/19 04/21/24 Cece Dai MD, MPH [address] [place] [address] [email or web address] PCP - General Family Medicine 04/22/24 Cece Dai MD, MPH [address] [place] [address] [email or web address] Insurance Assigned Provider 02/09/25 documented as of this encounter Additional Source Comments The information contained in this document represents components of the legal health record. It is not the complete legal health record.[facility]
--- OUTSIDE RECORDS SUMMARY | 2025-07-30 14:23 | XMS_ITS | Encounter Summary ---
Author Organization [facility] Address [address] [facility] [address] [place] [address] Phone Care Team Providers Care Atomic Physics Professor Name Role Phone Jovan Guillermo MD Primary Care Provider + Cece Dai MD, MPH Primary Care Provid er Cece Dai MD, MPH Unavailable [phone]- [phone] Encounter Details Date Type Department Care Team (Late Contact Info) Description 06/09/2023 Procedure Pass [facility] - [address] [place] [address] Social History Tobacco Use Types Packs/Day Years [...] Description 08/21/2025 10:40 AM EDT Office Visit [facility] [address] [address] Tomer Arita MD [address] [place] [address] 12/03/2025 10:50 AM EST Office Visit [facility] 22 [place] [address] Juan Wright DO 22 [place] [address] 02/26/2026 9:00 AM EDT Office Visit [facility] [address] [address] Cece Dai MD, MPH [address] [place] [address] Tomer Arita MD [address] [place] [address] documented as of this encounter Visit Diagnoses Not on filedocumented in this encounter Care Teams Atomic Physics Professor Relationship Specialty Start Date End Date Jovan Guillermo MD [address] [place] [address] PCP - General 05/17/19 04/21/24 Cece Dai MD, MPH [address] [place] [address] PCP - General Family Medicine 04/22/24 Cece Dai MD, MPH [address] [place] [address] [email or web address] Insurance Assigned Provider 02/09/25 documented as of this encounter Additional Source Comments The information contained in this document represents components of the legal health record. It is not the complete legal health record.[facility]
--- OUTSIDE RECORDS SUMMARY | 2025-07-30 14:23 | XMS_ITS | Encounter Summary ---
Author Organization [facility] Address [address] [facility] [address] [place] [address] Phone Care Team Providers Care Cement Boat And Barge Loader Name Role Phone Jovan Guillermo MD Primary Care Provider + Cece Dai MD, MPH Primary Care Provid er Cece Dai MD, MPH Unavailable [phone]- [phone] Encounter Details Date Type Department Care Team (Late st Contact Info) Description 06/09/2023 Procedure Pass [facility] - [address] [place] [address] Social History Tobacco Use Types Packs/Day Years [...] Description 08/21/2025 10:40 AM EDT Office Visit [facility] [address] [address] Tomer Arita MD [address] [place] [address] 12/03/2025 10:50 AM EST Office Visit [facility] 22 [place] [address] Juan Wright DO 22 [place] [address] 02/26/2026 9:00 AM EDT Office Visit [facility] [address] [address] Cece Dai MD, MPH [address] [place] [address] Tomer Arita MD [address] [place] [address] documented as of this encounter Visit Diagnoses Not on filedocumented in this encounter Care Teams Cement Boat And Barge Loader Relationship Specialty Start Date End Date Jovan Guillermo MD [address] [place] [address] PCP - General 05/17/19 04/21/24 Cece Dai MD, MPH [address] [place] [address] PCP - General Family Medicine 04/22/24 Cece Dai MD, MPH [address] [place] [address] [email or web address] Insurance Assigned Provider 02/09/25 documented as of this encounter Additional Source Comments The information contained in this document represents components of the legal health record. It is not the complete legal health record.[facility]
--- OUTSIDE RECORDS SUMMARY | 2025-07-30 14:23 | XMS_ITS | Encounter Summary ---
Author Organization [facility] Address [address] [facility] [address] [place] [address] Phone Care Team Providers Care Help Desk Engineer Name Role Phone Jovan Guillermo MD Primary Care Provider + Cece Dai MD, MPH Primary Care Provid er Cece Dai MD, MPH Unavailable [phone]- [phone] Encounter Details Date Type Department Care Team (Late Contact Info) Description 06/04/2021 Ancillary Orders [facility] Imaging 30 [place] [address] System, Provider Not In, PhD [address] [address] Social History Tobacco Use Types Packs/Day Years [...] Upcoming Encounters Date Type Department Care Team ([facility] Contact Info) Description 08/21/2025 10:40 AM EDT Office Visit [facility] [facility] 15 [facility] [address] [place], [place] [phone] Tomer Arita MD 15 [facility] [address]. [address] [place], [place] [address] 12/03/2025 10:50 AM EST Office Visit [facility] 22 [place] [address] Juan Wright DO 22 [place] [address] 02/26/2026 9:00 AM EDT [facility] [place] [facility] 15 [facility] [address] [place] [address] Cece Dai MD, MPH [address] [address] Tomer Arita MD 15 [facility] 201 [place] [address] documented as of this encounter Results * [...] on filedocumented in this encounter Care Teams Help Desk Engineer Relationship Specialty Start Date End Date Jovan Guillermo MD [address] [place] [address] PCP - General 05/17/19 04/21/24 Cece Dai MD, MPH [address] [place] [address] [email or web address] PCP - General Family Medicine 04/22/24 Cece Dai MD, MPH [address] [place] [address] Insurance Assigned Provider 02/09/25 documented as of this encounter Additional Source Comments The information contained in this document represents components of the legal health record. It is not the complete legal health record.[facility]
--- OUTSIDE RECORDS SUMMARY | 2025-07-30 14:23 | XMS_ITS | Encounter Summary ---
Author Organization [facility] Address [address] [facility] [address] [place] [address] Phone Care Team Providers Care Sneller Hand Name Role Phone Cece Dai MD, MPH Primary Care Provid er Cece Dai MD, MPH Unavailable [phone]- [phone] Encounter Details Date Type Department Care Team (Late st Contact Info) Description 02/27/2025 Ancillary Orders [facility] [place] [facility] 15 [facility] [address] [place] [address] Cece Dai MD, MPH 15 [facility] [address] [place] [address] [email or web address] [place] [...] [facility] 15 [facility] 201 [place] [address] Tomer Arita MD 15 [facility] 201 [place] [address] 12/03/2025 10:50 AM EST Office Visit [facility] 22 [place] [address] Juan Wright DO 22 [place] [address] 02/26/2026 9:00 AM EDT Office Visit [facility] [place] [facility] [address] [address] Cece Dai MD, MPH [address] [address] Tomer Arita MD [address] [address] documented as of this encounter Results * [...] documented as of this encounter Care Teams Sneller Hand Relationship Specialty Start Date End Date Cece Dai MD, MPH [address] [address] [email or web address] PCP - General Family Medicine 04/22/24 Cece Dai MD, MPH [address] [address] [email or web address] Insurance Assigned Provider 02/09/25 documented as of this encounter Additional Source Comments The information contained in this document represents components of the legal health record. It is not the complete legal health record.[facility]
--- OUTSIDE RECORDS SUMMARY | 2025-07-30 14:23 | XMS_ITS | Encounter Summary ---
Author Organization [facility] Address [address] [facility] [address] [place] [address] Phone Care Team Providers Care Head Of It Name Role Phone Jovan Guillermo MD Primary Care Provider + Cece Dai MD, MPH Primary Care Provid er Cece Dai MD, MPH Unavailable [phone]- [phone] Encounter Details Date Type Department Care Team (Latest Contact Info) Description 06/07/2023 Transcribe Orders Virtual Department 30 [place] [address] Jovan Guillermo MD [address] [place] [address] Encounter for screening mammogram for malignant neoplasm [...] Upcoming Encounters Date Type Department Care Team ([facility] Contact Info) Description 08/21/2025 10:40 AM EDT [facility] [address] [address] Tomer Arita MD [address] [place] [address] 12/03/2025 10:50 AM EST Office Visit [facility] 22 [place] [address] Juan Wright DO [address] [place] [address] 02/26/2026 9:00 AM EDT Office Visit [facility] [address] [address] Cece Dai MD, MPH [address] [place] [address] Tomer Arita MD [address] [place] [address] documented as of this encounter Visit Diagnoses Diagnosis Encounter for screening mammogram for malignant neoplasm of breast- Primary documented in this encounter Care Teams Head Of It Relationship Specialty Start Date End Date Jovan Guillermo MD [address] [place] [address] PCP - General 05/17/19 04/21/24 Cece Dai MD, MPH [address] [place] [address] [email or web address] PCP - General Family Medicine 04/22/24 Cece Dai MD, MPH [address] [place] [address] [address] [place] [address] [email or web address] Insurance Assigned Provider 02/09/25 documented as of this encounter Additional Source Comments The information contained in this document represents components of the legal health record. It is not the complete legal health record.[facility]
--- OUTSIDE RECORDS SUMMARY | 2025-07-30 14:23 | XMS_ITS | Encounter Summary ---
Author Organization [facility] Address [address] [employer] [facility] [address] [place] [address] Phone Care Team Providers Care Port Traffic Manager Name Role Phone Jovan Guillermo MD Primary Care Provider + Cece Dai MD, MPH Primary Care Provid er Cece Dai MD, MPH Unavailable [phone]- [phone] Encounter Details Date Type Department Care Team (Late st Contact Info) Description 06/09/2023 Ancillary Orders Virtual Department 30 [place] [address] Jovan Guillermo MD [address] [place] [address] Encounter for screening mammogram for malignant neoplasm [...] Description 08/21/2025 10:40 AM EDT Office Visit [facility] [address] [address] Tomer Arita MD [address] [place] [address] 12/03/2025 10:50 AM EST Office Visit [facility] 22 [place] [address] Juan Wright DO 22 [place] [address] 02/26/2026 9:00 AM EDT Office Visit [facility] [address] [address] Cece Dai MD, MPH [address] [place] [address] Tomer Arita MD [address] [place] [address] documented as of this encounter Results * [...] conveyed to the patient before she left theclinic. BI-RADS CATEGORY: 1 - Negative. DENSITY: There are scattered fibroglandular densities. Jovan Guillermo MD [facility] BREAST Final Re sult documented in this encounter Visit Diagnoses Diagnosis Encounter for screening mammogram for malignant neoplasm of breast Encounter for screening mammogram for malignant neoplasm of breast documented in this encounter Care Teams Port Traffic Manager Relationship Specialty Start Date End Date Jovan Guillermo MD [address] [place] [address] PCP - General 05/17/19 04/21/24 Cece Dai MD, MPH [address] [place] [address] [email or web address] PCP - General Family Medicine 04/22/24 Cece Dai MD, MPH [address] [place] [address] [email or web address] Insurance Assigned Provider 02/09/25 documented as of this encounter Additional Source Comments The information contained in this document represents components of the legal health record. It is not the complete legal health record.[facility]
--- OUTSIDE RECORDS SUMMARY | 2025-07-30 14:23 | XMS_ITS | Clinical Summary ---
Author Organization [facility] it Address [address] [place] [address] Care Team Providers Care Reference Services Head Name Role Phone Heri Cueto MD Primary Care Provider [phone] Allergies Active Allergy Reactions Criticality Noted Date [...] Pylori was negative in 2002. Lung blebs ([facility] V24, CMS/[facility] V28) 05/18/2011 Overview (11/07/2024): H/o chest tube [...] migrainosus DVT (deep venous thrombosis) (CMS/HCC V24, [facility] V28) in 20s DX:DVT (deep venous thrombo sis) ([facility]); COMMENT: on OCPs at the time, taken off; never anticoagulated MTHFR mutation 05/18/2011 DX:MTHFR mutatio n GERD (gastroesophageal reflu x disease) 05/18/2011 DX:GERD (gastroesophageal re flux disease) Lung blebs (CMS/HCC V24, [facility] /[facility] V28) 05/18/2011 DX:Lung blebs (HCC) Hepatic cyst [...] Recently Relevant to Health Maintenance Care Teams Reference Services Head Relationship Specialty Start Date End Date Heri Cueto MD 4 [place] [address] PCP - General 04/29/11
--- OUTSIDE RECORDS SUMMARY | 2025-07-30 14:23 | XMS_ITS | Encounter Summary ---
Author Organization [facility] Address [address] [place] [address] Phone Care Team Providers Care Airport Skilled Maintenance Supervisor Name Role Phone Cece Dai MD, MPH Primary Care Provid er Cece Dai MD, MPH Unavailable +1- [phone] Encounter Details Date Type Department Care Team (Late st Contact Info) Description 02/27/2025 Procedure Pass [facility] - [address] [place] [address] Social History Tobacco Use Types Packs/Day Years [...] EDT Office Visit [facility] [place] [facility] 15 [facility] [address] [place] [address] Tomer Arita MD 15 [facility] [address] [place] [address] 12/03/2025 10:50 AM EST Office Visit [facility] [address] [place] [address] Juan Wright DO [address] [place] [address] 02/26/2026 9:00 AM EDT Office Visit [facility] [place] [facility] [address] [address] Cece Dai MD, MPH [address] [address] Tomer Arita MD [address] [address] documented as of this encounter Visit Diagnoses Not on filedocumented in this encounter Additional Health Concerns Assessment Noted Time PHQ-2 Depression Total Score: 0 02/26/20 25 10:12 AM EDT documented as of this encounter Care Teams Airport Skilled Maintenance Supervisor Relationship Specialty Start Date End Date Cece Dai MD, MPH [address] [address] PCP - General Family Medicine 04/22/24 Cece Dai MD, MPH [address] [address] Insurance Assigned Provider 02/09/25 documented as of this encounter Additional Source Comments The information contained in this document represents components of the legal health record. It is not the complete legal health record.[facility]
--- OUTSIDE RECORDS SUMMARY | 2025-07-30 14:23 | XMS_ITS | Encounter Summary ---
Author Organization [facility] Address [address] [facility] [address] [place] [address] Phone Care Team Providers Care Sr. Manager Marketing Name Role Phone Jovan Guillermo MD Primary Care Provider + Cece Dai MD, MPH Primary Care Provid er Cece Dai MD, MPH Unavailable +1- [phone] Encounter Details Date Type Department Care Team (Late st Contact Info) Description 05/24/2021 Procedure Pass [facility] - [address] [place] [address] Social History Tobacco Use Types Packs/Day Years [...] AM EDT Office Visit [facility] [address] [place] [address] [address] [place] [address] Tomer Arita MD 15 [facility] [address] [place] [address] 12/03/2025 10:50 AM EST Office Visit [facility] 22 [place] [address] Juan Wright DO 22 [place] [address] 02/26/2026 9:00 AM EDT Office Visit [facility] [place] [facility] [address] [address] Cece Dai MD, MPH [address] [place] [address] Tomer Arita MD [address] [address] documented as of this encounter Visit Diagnoses Not on filedocumented in this encounter Care Teams Sr. Manager Marketing Relationship Specialty Start Date End Date Jovan Guillermo MD [address] [place] [address] PCP - General 05/17/19 04/21/24 Cece Dai MD, MPH [address] [place] [address] PCP - General Family Medicine 04/22/24 Cece Dai MD, MPH [address] [place] [address] Insurance Assigned Provider 02/09/25 documented as of this encounter Additional Source Comments The information contained in this document represents components of the legal health record. It is not the complete legal health record.[facility]
--- OUTSIDE RECORDS SUMMARY | 2025-07-30 14:23 | XMS_ITS | Encounter Summary ---
Author Organization [facility] Address [address] [place] [address] Phone Care Team Providers Care Research Director Name Role Phone Cece Dai MD, MPH Primary Care Provid er Cece Dai MD, MPH Unavailable +1- [phone] Encounter Details Date Type Department Care Team (Late st Contact Info) Description 02/07/2025 Procedure Pass [facility] - [address] [place] [address] Social History Tobacco Use Types Packs/Day Years [...] EDT Office Visit [facility] [place] [facility] 15 [facility] [address] [place] [address] Tomer Arita MD 15 [facility] [address] [place] [address] 12/03/2025 10:50 AM EST Office Visit [facility] [address] [place] [address] Juan Wright DO [address] [place] [address] 02/26/2026 9:00 AM EDT Office Visit [facility] [place] [facility] [address] [address] Cece Dai MD, MPH [address] [address] Tomer Arita MD [address] [address] documented as of this encounter Visit Diagnoses Not on filedocumented in this encounter Additional Health Concerns Assessment Noted Time PHQ-2 Depression Total Score: 0 02/26/20 10:12 AM EDT documented as of this encounter Care Teams Research Director Relationship Specialty Start Date End Date Cece Dai MD, MPH [address] [address] PCP - General Family Medicine 04/22/24 Cece Dai MD, MPH [address] [address] Insurance Assigned Provider 02/09/25 documented as of this encounter Additional Source Comments The information contained in this document represents components of the legal health record. It is not the complete legal health record.[facility]
--- OUTSIDE RECORDS SUMMARY | 2025-07-30 14:23 | XMS_ITS | Encounter Summary ---
Author Organization [facility] Address [address] [facility] [address] [place] [address] Phone Care Team Providers Care Hosted Services Analyst Name Role Phone Cece Dai MD, MPH Primary Care Provid er Cece Dai MD, MPH Unavailable +1- [phone] Reason for Visit * Reason Onset Date Comments Triage 05/06/2025 Yellow - Rib Korin n Encounter Details Date Type Department Care Team (Late st Contact Info) Description 05/13/2025 Telephone [email or web address] [place] [facility] 15 [facility] [address] [place] [address] Cece Dai MD, MPH 15 [facility] [address] [place] [address] [email or web address] Triage (Yellow - Rib Pain) Social History [...] than walking in to office or calling switchboard operator receptionist desk. Advised option 4 for nursing rather than 2 for switchboard operator receptionist when she had medical questions. Told [...] Call Back Number: (if not patient, name/relationship) [phone] Yellow Symptom: Triage (Yellow - Rib Pain) [...] Dr. Arita. Route Normal Priority Encounter to vocational aide Reason for Call = TRIAGE Comment = YELLOW + symptom documented in this encounter Plan of Treatment Upcoming Encounters Date Type Department Care Team (Late st Contact Info) Description 08/21/2025 10:40 AM EDT Office Visit [facility] [address] [place] [address] Tomer Arita MD [address] [place] [address] 12/03/2025 10:50 AM EST Office Visit [facility] [address] [place] [address] Juan Wright DO [address] [place] [address] 02/26/2026 9:00 AM EDT Office Visit [address] [address] Cece Dai MD, MPH [address] [place] [address] Tomer Arita MD [address] [place] [address] documented as of this encounter Visit Diagnoses Not on filedocumented in this encounter Additional Health Concerns Assessment Noted Time PHQ-2 Depression Total Score: 0 02/26/20 25 10:12 AM EDT documented as of this encounter Care Teams Hosted Services Analyst Relationship Specialty Start Date End Date Cece Dai MD, MPH [address] [place] [address] PCP - General Family Medicine 04/22/24 Cece Dai MD, MPH [address] [place] [address] [email or web address] Insurance Assigned Provider 02/09/25 documented as of this encounter Additional Source Comments The information contained in this document represents components of the legal health record. It is not the complete legal health record.[facility]
== END 2025-07-30 11:15 | disposition home or self-care (01) ==
LOC: HO.HMGAL 11:12
PROVIDERS: PCP Family Medicine; Visit Provider Registered Nurse Emergency
DX: J30.89 Other allergic rhinitis (principal)
CPT/HCPCS: 95117; 95165

== ENCOUNTER 2025-08-11 10:28 | Outpatient (AMB) | payer MEDICARE, OTHER, SELFPAY ==
--- OUTSIDE RECORDS SUMMARY | 2007-05-11 | XMS_ITS | Encounter Summary ---
Author Organization [facility] Address [address] [place] [address] Phone Care Team Providers Care Homemaking Rehabilitation Consultant Name Role Phone Unavailable Primary Care Provider Unavailabl e Encounter Details Date Type Department Care Team (Late st Contact Info) Description 05/11/2007 Hospital Encounter [facility],Outside Imaging 30 [place], [place] [address] System, Provider [place] In, [place] [address] Social History Tobacco Use Types Packs/Day Years [...] 08/21/2025 10:40 AM EDT Office Visit [facility] [place] [facility] 15 [facility] [address] [place] [address] Tomer Arita MD 15 [facility] [address] [place] [address] 12/03/2025 10:50 AM EST Office Visit [facility] [address] [place] [address] Juan Wright DO [address] [place] [address] 02/26/2026 9:00 AM EDT Office Visit [facility] [place] 15 [facility] [address] [place] [address] Cece Dai MD, MPH 15 [facility] [address]. [address] [place] [address] Tomer Arita MD 15 [facility] [address]. [address] [place] [address] documented as of this encounter Procedures Procedure [...] It is not the complete legal health record.[facility]
--- OUTSIDE RECORDS SUMMARY | 2007-05-15 | XMS_ITS | Encounter Summary ---
Author Organization [facility] Address [address] [place] [address] Phone Care Team Providers Care Drapery And Upholstery Measurer Name Role Phone Unavailable Primary Care Provider Unavailabl e Encounter Details Date Type Department Care Team (Late st Contact Info) Description 05/15/2007 Hospital Encounter [facility],Outside Imaging 30 [place], [place] [id number] System, Provider [place] In, [place] [address] Social History Tobacco Use Types Packs/Day Years [...] 08/21/2025 10:40 AM EDT Office Visit [facility] [place] [facility] 15 [facility] [address] [place] [address] Tomer Arita MD 15 [facility] [address] 201 [place] [address] 12/03/2025 10:50 AM EST Office Visit [facility] 22 [place] [address] Juan Wright DO [address] [place] [address] 02/26/2026 9:00 AM EDT Office Visit [facility] [place] [facility] 15 [facility] [address] [place] [address] Cece Dai MD, MPH 15 [facility] Carter. 201 [place] [address] Tomer Arita MD 15 [facility] [address]. 201 [place] [address] documented as of this encounter Procedures Procedure [...] It is not the complete legal health record.[facility]
--- OUTSIDE RECORDS SUMMARY | 2008-05-13 | XMS_ITS | Encounter Summary ---
Author Organization [facility] Address [address] [place] [address] Phone Care Team Providers Care Ear Machine Operator Name Role Phone Unavailable Primary Care Provider Unavailabl e Encounter Details Date Type Department Care Team (Late st Contact Info) Description 05/13/2008 Hospital Encounter [facility],Outside Imaging 30 [place], [place] [phone] System, Provider [place] In, [place] [address] Social History Tobacco Use Types Packs/Day Years [...] 08/21/2025 10:40 AM EDT Office Visit [facility] [place] [facility] 15 [facility] [address] [place] [address] Tomer Arita MD 15 [facility] [address] 201 [place] [address] 12/03/2025 10:50 AM EST Office Visit [facility] 22 [place] [address] Juan Wright DO [address] [place] [address] 02/26/2026 9:00 AM EDT Office Visit [facility] [place] [facility] 15 [facility] [address] [place] [address] Cece Dai MD, MPH 15 [facility] [address] [place] [address] Tomer Arita MD 15 [facility] [address] [place] [address] documented as of this encounter Procedures Procedure [...] It is not the complete legal health record.[facility]
--- OUTSIDE RECORDS SUMMARY | 2010-05-11 | XMS_ITS | Encounter Summary ---
Author Organization [facility] Address [address] [place] [address] Phone Care Team Providers Care Rn Access Name Role Phone Unavailable Primary Care Provider Unavailabl e Encounter Details Date Type Department Care Team (Late st Contact Info) Description 05/11/2010 Hospital Encounter [facility],Outside Imaging 30 [place], [place] [phone] System, Provider [place] In, [place] [address] Social History Tobacco Use Types Packs/Day Years [...] 08/21/2025 10:40 AM EDT Office Visit [facility] [place] [facility] 15 [facility] [address] [place] [address] Tomer Arita MD 15 [facility] [address] [place] [address] 12/03/2025 10:50 AM EST Office Visit [facility] 22 [place] [address] Juan Wright DO [address] [place] [address] 02/26/2026 9:00 AM EDT Office Visit [facility] [place] [facility] 15 [facility] [address] [place] [address] Cece Dai MD, MPH 15 [facility] [address] [place] [address] Tomer Arita MD 15 [facility] [address] [place] [address] documented as of this encounter Procedures Procedure [...] is not the complete legal health record.[facility]
--- OUTSIDE RECORDS SUMMARY | 2011-05-16 | XMS_ITS | Encounter Summary ---
Author Organization [facility] Address [address] [place] [address] Phone Care Team Providers Care Overlay Plastician Name Role Phone Unavailable Primary Care Provider Unavailabl e Encounter Details Date Type Department Care Team (Late st Contact Info) Description 05/16/2011 Hospital Encounter [facility],Outside Imaging 30 [place], [place] [phone] System, Provider [place] In, [place] [address] Social History Tobacco Use Types Packs/Day Years [...] 08/21/2025 10:40 AM EDT Office Visit [facility] [place] [facility] 15 [facility] [address] [place] [address] Tomer Arita MD 15 [facility] [address] [place] [address] 12/03/2025 10:50 AM EST Office Visit [facility] [address] [place] [address] Juan Wright DO [address] [place] [address] 02/26/2026 9:00 AM EDT Office Visit [facility] [place] [facility] 15 [facility] [address] [place] [address] Cece Dai MD, MPH 15 [facility] [address] [place] [address] Tomer Arita MD 15 [facility] [address] [place] [address] documented as of this encounter Procedures Procedure [...] It is not the complete legal health record.[facility]
--- OUTSIDE RECORDS SUMMARY | 2025-08-11 12:17 | XMS_ITS | Encounter Summary ---
Author Organization [facility] Address [address] [facility] [address] [place] [address] Phone Care Team Providers Care Diet Aide Name Role Phone Jovan Guillermo MD Primary Care Provider + Cece aDi MD, MPH Primary Care Provid er Cece Dai MD, MPH Unavailable +1- [phone] Encounter Details Date Type Department Care Team (Late Contact Info) Description 05/24/2021 Ancillary Orders Virtual Department 30 [place] [address] Jovan Guillermo MD [address] [place] [address] Breast screening Social History Tobacco Use Types [...] 08/21/2025 10:40 AM EDT Office Visit [facility] [place] [facility] 15 [facility] 201 [place] [address] Tomer Arita MD [address] [address] 12/03/2025 10:50 AM EST Office Visit [facility] 22 [place] [address] Juan Wright DO 22 [place] [address] 02/26/2026 9:00 AM EDT Office Visit [facility] [place] [facility] [address] [address] Cece Dai MD, MPH [address] [address] Tomer Arita MD [address] [address] documented as of this encounter Results * [...] unspecified documented in this encounter Care Teams Diet Aide Relationship Specialty Start Date End Date Jovan Guillermo MD [address] [place] [address] PCP - General 05/17/19 04/21/24 Cece Dai MD, MPH [address] [place] [address] [email or web address] PCP - General Family Medicine 04/22/24 Cece Dai MD, MPH [address] [place] [address] [email or web address] Insurance Assigned Provider 02/09/25 documented as of this encounter Additional Source Comments The information contained in this document represents components of the legal health record. It is not the complete legal health record.[facility]
--- OUTSIDE RECORDS SUMMARY | 2025-08-11 12:17 | XMS_ITS | Encounter Summary ---
Author Organization [facility] Address [address] [facility] [address] [place] [address] Phone Care Team Providers Care Middle School Music Teacher Name Role Phone Cece Dai MD, MPH Primary Care Provid er Cece Dai MD, MPH Unavailable +1- [phone] Reason for Visit * Reason Onset Date Comments Calcium Injection 08/11/2025 Encounter Details Date Type Department Care Team (Late st Contact Info) Description 08/11/2025 Telephone [facility] [place] [facility] 15 [facility] [address] [place] [address] Cece Dai MD, MPH 15 [facility] [address] [place] [address] [email or web address] Calcium Injection Social History Tobacco Use Types Packs/Day Years [...] as of this encounter Progress Notes * Danika Garcia - 08/11/2025 9:43 AM EDT PT lm on the triage line to f/u on calcium injection she is scheduled for in Nov. PT is concerned of waiting this long, states that she has broken six bones since Dec. Requesting call back to f/u. CSS Agent (Please do not reply to this user, as this inbox is not monitored. Thank you.) Thank you. documented in this encounter Plan of Treatment Upcoming Encounters Date Type Department Care Team (Late st Contact Info) Description 08/21/2025 10:40 AM EDT Office Visit [facility] [address] [place] [address] Tomer Arita MD [address] [place] [address] 12/03/2025 10:50 AM EST Office Visit [facility] [address] [place] [address] Juan Wright DO [address] [place] [address] 02/26/2026 9:00 AM EDT Office Visit [facility] [address] [place] [address] Cece Dai MD, MPH [address] [place] [address] Tomer Arita MD [address] [place] [address] documented as of this encounter Visit Diagnoses Not on filedocumented in this encounter Additional Health Concerns Assessment Noted Time PHQ-2 Depression Total Score: 0 02/26/20 25 10:12 AM EDT documented as of this encounter Care Teams Middle School Music Teacher Relationship Specialty Start Date End Date Cece Dai MD, MPH [address] [place] [address] [email or web address] PCP - General Family Medicine 04/22/24 Cece Dai MD, MPH [address] [place], [place] [address] [email or web address] Insurance Assigned Provider 02/09/25 documented as of this encounter Additional Source Comments The information contained in this document represents components of the legal health record. It is not the complete legal health record.[facility]
--- OUTSIDE RECORDS SUMMARY | 2025-08-11 12:17 | XMS_ITS | Encounter Summary ---
Author Organization [facility] Address [address] [facility] [address] [place] [address] Phone Care Team Providers Care Vice President Quality Name Role Phone Jovan Guillermo MD Primary Care Provider + Cece Dai MD, MPH Primary Care Provid er Cece Dai MD, MPH Unavailable +1- [phone] Encounter Details Date Type Department Care Team (Late st Contact Info) Description 05/24/2021 Procedure Pass [facility] - [address] [place] [address] Social History Tobacco Use Types Packs/Day Years [...] Office Visit [facility] [address] [place] [address] [address] [place] [address] Tomer Arita MD 15 [facility] [address] [place] [address] 12/03/2025 10:50 AM EST Office Visit [facility] 22 [place] [address] Juan Wright DO 22 [place] [address] 02/26/2026 9:00 AM EDT Office Visit [facility] [place] [facility] [address] [address] Cece Dai MD, MPH [address] [place] [address] Tomer Arita MD [address] [address] documented as of this encounter Visit Diagnoses Not on filedocumented in this encounter Care Teams Vice President Quality Relationship Specialty Start Date End Date Jovan Guillermo MD [address] [place] [address] PCP - General 05/17/19 04/21/24 Cece Dai MD, MPH [address] [place] [address] PCP - General Family Medicine 04/22/24 Cece Dai MD, MPH [address] [place] [address] Insurance Assigned Provider 02/09/25 documented as of this encounter Additional Source Comments The information contained in this document represents components of the legal health record. It is not the complete legal health record.[facility]
--- OUTSIDE RECORDS SUMMARY | 2025-08-11 12:17 | XMS_ITS | Encounter Summary ---
Author Organization [facility] Address [address] [facility] [address] [place] [address] Phone Care Team Providers Care Carport Erector Name Role Phone Cece Dai MD, MPH Primary Care Provid er Cece Dai MD, MPH Unavailable +1- [phone] Encounter Details Date Type Department Care Team (Late st Contact Info) Description 02/27/2025 Ancillary Orders [facility] [place] [facility] 15 [facility] [address] [place] [address] Cece Dai MD, MPH 15 [facility] [address] [place] [address] [email or web address] [place] [...] [facility] [place] [facility] 15 [facility] 201 [place] [address] Tomer Arita MD 15 [facility] 201 [place] [address] 12/03/2025 10:50 AM EST Office Visit [facility] 22 [place] [address] Juan Wright DO 22 [place] [address] 02/26/2026 9:00 AM EDT Office Visit [facility] [place] [facility] [address] [address] Cece Dai MD, MPH [address] [address] Tomer Arita MD [address] [address] documented as of this encounter Results * [...] documented as of this encounter Care Teams Carport Erector Relationship Specialty Start Date End Date Cece Dai MD, MPH [address] [address] [email or web address] PCP - General Family Medicine 04/22/24 Cece Dai MD, MPH [address] [address] [email or web address] Insurance Assigned Provider 02/09/25 documented as of this encounter Additional Source Comments The information contained in this document represents components of the legal health record. It is not the complete legal health record.[facility]
--- OUTSIDE RECORDS SUMMARY | 2025-08-11 12:17 | XMS_ITS | Encounter Summary ---
Author Organization [facility] Address [address] [facility] [address] [place] [address] Phone Care Team Providers Care Soubrette Name Role Phone Cece Dai MD, MPH Primary Care Provid er Cece Dai MD, MPH Unavailable +1- [phone] Encounter Details Date Type Department Care Team (Late st Contact Info) Description 02/27/2025 Procedure Pass [address] [place] [address] Social History Tobacco Use Types Packs/Day Years [...] EDT Office Visit [facility] [place] [facility] 15 [facility] [address] [place] [address] Tomer Arita MD 15 [facility] [address] [place] [address] 12/03/2025 10:50 AM EST Office Visit [facility] [address] [place] [address] Juan Wright DO [address] [place] [address] 02/26/2026 9:00 AM EDT Office Visit [facility] [place] [facility] [address] [address] Cece Dai MD, MPH [address] [address] Tomer Arita MD [address] [address] documented as of this encounter Visit Diagnoses Not on filedocumented in this encounter Additional Health Concerns Assessment Noted Time PHQ-2 Depression Total Score: 0 02/26/20 25 10:12 AM EDT documented as of this encounter Care Teams Soubrette Relationship Specialty Start Date End Date Cece Dai MD, MPH [address] [address] PCP - General Family Medicine 04/22/24 Cece Dai MD, MPH [address] [address] Insurance Assigned Provider 02/09/25 documented as of this encounter Additional Source Comments The information contained in this document represents components of the legal health record. It is not the complete legal health record.[facility]
--- OUTSIDE RECORDS SUMMARY | 2025-08-11 12:17 | XMS_ITS | Encounter Summary ---
Author Organization [facility] Address [address] [place] [address] Phone Care Team Providers Care Leisure Travel Agent Name Role Phone Cece Dai MD, MPH Primary Care Provid er Cece Dai MD, MPH Unavailable +1- [phone] Encounter Details Date Type Department Care Team (Late st Contact Info) Description 02/07/2025 Procedure Pass [facility] - [address] [place] [address] Social History Tobacco Use Types Packs/Day Years [...] EDT Office Visit [facility] [place] [facility] 15 [facility] [address] [place] [address] Tomer Arita MD 15 [facility] [address] [place] [address] 12/03/2025 10:50 AM EST Office Visit [facility] [address] [place] [address] Juan Wright DO [address] [place] [address] 02/26/2026 9:00 AM EDT [facility] [place] [facility] [address] [address] Cece Dai MD, MPH [address] [address] Tomer Arita MD [address] [address] documented as of this encounter Visit Diagnoses Not on filedocumented in this encounter Additional Health Concerns Assessment Noted Time PHQ-2 Depression Total Score: 0 02/26/20 10:12 AM EDT documented as of this encounter Care Teams Leisure Travel Agent Relationship Specialty Start Date End Date Cece aDi MD, MPH [address] [address] PCP - General Family Medicine 04/22/24 Cece Dai MD, MPH [address] [address] Insurance Assigned Provider 02/09/25 documented as of this encounter Additional Source Comments The information contained in this document represents components of the legal health record. It is not the complete legal health record.[facility]
--- OUTSIDE RECORDS SUMMARY | 2025-08-11 12:18 | XMS_ITS | Encounter Summary ---
Author Organization [facility] Address [address] [facility] [address] [place] [address] Phone Care Team Providers Care Guard Entrance Registrar Name Role Phone Jovan Guillermo MD Primary Care Provider + Cece Dai MD, MPH Primary Care Provid er Cece Dai MD, MPH Unavailable +1- [phone] Encounter Details Date Type Department Care Team (Late st Contact Info) Description 06/09/2023 Ancillary Orders Virtual Department 30 [place] [address] Jovan Guillermo MD [address] [place] [address] Encounter for screening mammogram for malignant neoplasm [...] Description 08/21/2025 10:40 AM EDT Office Visit [facility] [address] [address] Tomer Arita MD [address] [place] [address] 12/03/2025 10:50 AM EST Office Visit [facility] [address] [place] [address] Juan Wright DO 22 [place] [address] 02/26/2026 9:00 AM EDT Office Visit [facility] [address] [address] Cece Dai MD, MPH [address] [place] [address] Tomer Arita MD [address] [place] [address] documented as of this encounter Results * [...] breast documented in this encounter Care Teams Guard Entrance Registrar Relationship Specialty Start Date End Date Jovan Guillermo MD [address] [place], [place] [address] PCP - General 05/17/19 04/21/24 Cece Dai MD, MPH [address] [place] [address] [email or web address] PCP - General Family Medicine 04/22/24 Cece Dai MD, MPH [address] [place] [address] [email or web address] Insurance Assigned Provider 02/09/25 documented as of this encounter Additional Source Comments The information contained in this document represents components of the legal health record. It is not the complete legal health record.[facility]
--- OUTSIDE RECORDS SUMMARY | 2025-08-11 12:18 | XMS_ITS | Encounter Summary ---
Author Organization [facility] Address [address] [address] [place] [address] Phone Care Team Providers Care Histology Assistant Name Role Phone Jovan Guillermo MD Primary Care Provider + Cece Dai MD, MPH Primary Care Provid er Cece Dai MD, MPH Unavailable [phone]- [phone] Encounter Details Date Type Department Care Team (Late Contact Info) Description 06/09/2023 Procedure Pass [facility] - [address] [place] [address] Social History Tobacco Use Types Packs/Day Years [...] Description 08/21/2025 10:40 AM EDT Office Visit [facility] [address] [address] Tomer Arita MD [address] [place] [address] 12/03/2025 10:50 AM EST Office Visit [facility] 22 [place] [address] Juan Wright DO 22 [place] [address] 02/26/2026 9:00 AM EDT Office Visit [facility] [address] [address] Cece Dai MD, MPH [address] [place] [address] Tomer Arita MD [address] [place] [address] documented as of this encounter Visit Diagnoses Not on filedocumented in this encounter Care Teams Histology Assistant Relationship Specialty Start Date End Date Jovan Guillermo MD [address] [place] [address] PCP - General 05/17/19 04/21/24 Cece Dai MD, MPH [address] [place] [address] PCP - General Family Medicine 04/22/24 Cece Dai MD, MPH [address] [place] [address] [email or web address] Insurance Assigned Provider 02/09/25 documented as of this encounter Additional Source Comments The information contained in this document represents components of the legal health record. It is not the complete legal health record.[facility]
--- OUTSIDE RECORDS SUMMARY | 2025-08-11 12:18 | XMS_ITS | Encounter Summary ---
Author Organization [facility] Address [address] [facility] [address] [place] [address] Phone Care Team Providers Care Information Developer Name Role Phone Cece Dai MD, MPH Primary Care Provid er Cece Dai MD, MPH Unavailable [phone]- [phone] Reason for Visit * Reason Onset Date Comments Triage 05/06/2025 Yellow - Rib Korin n Encounter Details Date Type Department Care Team (Late st Contact Info) Description 05/13/2025 Telephone [facility] 15 [facility] [address] [place] [address] Cece Dai MD, MPH 15 [facility] [address] [place] [address] [email or web address] Triage (Yellow - Rib Pain) Social History [...] walking in to office or calling legal receptionist desk. Advised option 4 for nursing rather than 2 for legal receptionist when she had medical questions. Told [...] Call Back Number: (if not patient, name/relationship) [phone] Yellow Symptom: Triage (Yellow - Rib Pain) [...] Dr. Arita. Route Normal Priority Encounter to sample selector Reason for Call = TRIAGE Comment = YELLOW + symptom documented in this encounter Plan of Treatment Upcoming Encounters Date Type Department Care Team (Late st Contact Info) Description 08/21/2025 10:40 AM EDT Office Visit [facility] [address] [place] [address] Tomer Arita MD [address] [place] [address] 12/03/2025 10:50 AM EST Office Visit [facility] [address] [place] [address] Juan Wright DO [address] [place] [address] 02/26/2026 9:00 AM EDT Office Visit [address] [address] Cece Dai MD, MPH [address] [place] [address] Tomer Arita MD [address] [place] [address] documented as of this encounter Visit Diagnoses Not on filedocumented in this encounter Additional Health Concerns Assessment Noted Time PHQ-2 Depression Total Score: 0 02/26/20 25 10:12 AM EDT documented as of this encounter Care Teams Information Developer Relationship Specialty Start Date End Date Cece Dai MD, MPH [address] [place] [address] PCP - General Family Medicine 04/22/24 Cece Dai MD, MPH [address] [place] [address] [email or web address] Insurance Assigned Provider 02/09/25 documented as of this encounter Additional Source Comments The information contained in this document represents components of the legal health record. It is not the complete legal health record.[facility]
--- OUTSIDE RECORDS SUMMARY | 2025-08-11 12:18 | XMS_ITS | Encounter Summary ---
Author Organization [facility] Address [address] [facility] [address] [place] [address] Phone Care Team Providers Care Property Insurance Agent Name Role Phone Jovan Guillermo MD Primary Care Provider + Cece Dai MD, MPH Primary Care Provid er Cece Dai MD, MPH Unavailable [phone]- [phone] Encounter Details Date Type Department Care Team (Late st Contact Info) Description 06/09/2023 Ancillary Orders Virtual Department 30 [place] [address] Jovan Guillermo MD [address] [place] [address] Encounter for screening mammogram for malignant neoplasm [...] Description 08/21/2025 10:40 AM EDT Office Visit [facility] [address] [address] Tomer Arita MD [address] [place] [address] 12/03/2025 10:50 AM EST Office Visit [facility] 22 [place] [address] Juan Wright DO 22 [place] [address] 02/26/2026 9:00 AM EDT Office Visit [facility] [address] [address] Cece Dai MD, MPH [address] [place] [address] Tomer Arita MD [address] [place] [address] documented as of this encounter Results * [...] are scattered fibroglandular densities. Jovan Guillermo MD [facility] Final Re sult documented in this encounter Visit Diagnoses Diagnosis Encounter for screening mammogram for malignant neoplasm of breast Encounter for screening mammogram for malignant neoplasm of breast documented in this encounter Care Teams Property Insurance Agent Relationship Specialty Start Date End Date Jovan Guillermo MD [address] [place] [address] PCP - General 05/17/19 04/21/24 Cece Dai MD, MPH [address] [place] [address] [email or web address] PCP - General Family Medicine 04/22/24 Cece Dai MD, MPH [address] [place] [address] [email or web address] Insurance Assigned Provider 02/09/25 documented as of this encounter Additional Source Comments The information contained in this document represents components of the legal health record. It is not the complete legal health record.[facility]
--- OUTSIDE RECORDS SUMMARY | 2025-08-11 12:18 | XMS_ITS | Clinical Summary ---
Author Organization [facility] it Address [address] [place] [address] Care Team Providers Care Theoretical Physics Teacher Name Role Phone Heri Cueto MD Primary Care Provider [phone] Allergies Active Allergy Reactions Criticality Noted Date [...] Pylori was negative in 2002. Lung blebs (CMS/HCC V24, CMS/HCC V28) 05/18/2011 Overview (11/07/2024): H/o chest tube on the right side for this approx age 22. 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 Migraine without aura 10/06/2005 Overview (11/07/2024): IMO update Immunizations Immunization Administration Dates Next Due Influenza trivalent, with [...] migrainosus DVT (deep venous thrombosis) (CMS/HCC V24, CMS/HCC V28) in 20s DX:DVT (deep venous thrombo sis) ([facility]); COMMENT: on OCPs at the time, taken off; never anticoagulated MTHFR mutation 05/18/2011 DX:MTHFR mutatio n GERD (gastroesophageal reflu x disease) 05/18/2011 DX:GERD (gastroesophageal re flux disease) Lung blebs (CMS/HCC V24, CMS /[facility] V28) 05/18/2011 DX:Lung blebs (HCC) Hepatic cyst [...] Last Done Comments Breast Cancer Screening 1957 Colorectal Cancer Screening: Colonoscopy 1957 DTaP,Tdap,and Td Vaccines (1 - Tdap) 1976 Pneumococcal Vaccine: 50+ Ye ars (1 of 1 - PCV) 2007 Zoster Vaccines (1 of 2) 2007 Depression Screening 11/06/2024 Falls Risk Assessment 11/08/2024 Osteoporosis Screening (Bone Density Screening) 11/08/2024 Social Influencers of Health Screening 11/08/2024 COVID-19 Vaccine (1 - 2023-2 5 season) 2025 Influenza Vaccine [...] Recently Relevant to Health Maintenance Care Teams Theoretical Physics Teacher Relationship Specialty Start Date End Date Heri Cueto MD 4 [place] [address] PCP - General 04/29/11
--- OUTSIDE RECORDS SUMMARY | 2025-08-11 12:18 | XMS_ITS | Encounter Summary ---
Author Organization [facility] Address [address] [facility] [address] [place] [address] Phone Care Team Providers Care Power Cleaner Operator Name Role Phone Jovan Guillermo MD Primary Care Provider + Cece Dai MD, MPH Primary Care Provid er Cece Dai MD, MPH Unavailable [phone] Encounter Details Date Type Department Care Team (Late st Contact Info) Description 06/09/2023 Procedure Pass [facility] - [address] [place] [address] Social History Tobacco Use Types Packs/Day Years [...] Description 08/21/2025 10:40 AM EDT Office Visit [facility] [address] [address] Tomer Arita MD [address] [place] [address] 12/03/2025 10:50 AM EST Office Visit [facility] 22 [place] [address] Juan Wright DO 22 [place] [address] 02/26/2026 9:00 AM EDT Office Visit [facility] [address] [address] Cece Dai MD, MPH [address] [place] [address] Tomer Arita MD [address] [place] [address] documented as of this encounter Visit Diagnoses Not on filedocumented in this encounter Care Teams Power Cleaner Operator Relationship Specialty Start Date End Date Jovan Guillermo MD [address] [place] [address] PCP - General 05/17/19 04/21/24 Cece Dai MD, MPH [address] [place] [address] PCP - General Family Medicine 04/22/24 Cece Dai MD, MPH [address] [place] [address] [email or web address] Insurance Assigned Provider 02/09/25 documented as of this encounter Additional Source Comments The information contained in this document represents components of the legal health record. It is not the complete legal health record.[facility]
--- OUTSIDE RECORDS SUMMARY | 2025-08-11 12:18 | XMS_ITS | Encounter Summary ---
Author Organization [facility] Address [address] [facility] [address] [place] [address] Phone Care Team Providers Care Certified Coding Specialist Name Role Phone Jovan Guillermo MD Primary Care Provider + Cece Dai MD, MPH Primary Care Provid er Cece Dai MD, MPH Unavailable [phone]- [phone] Encounter Details Date Type Department Care Team (Latest Contact Info) Description 06/07/2023 Transcribe Orders Virtual Department 30 [place] [address] Jovan Guillermo MD [address] [place] [address] Encounter for screening mammogram for malignant neoplasm [...] Upcoming Encounters Date Type Department Care Team ([facility] Contact Info) Description 08/21/2025 10:40 AM EDT Office Visit [facility] [address] [address] Tomer Arita MD [address] [place] [address] 12/03/2025 10:50 AM EST Office Visit [facility] 22 [place] [address] Juan Wright DO [address] [place] [address] 02/26/2026 9:00 AM EDT Office Visit [facility] [address] [address] Cece Dai MD, MPH [address] [place] [address] Tomer Arita MD [address] [place] [address] documented as of this encounter Visit Diagnoses Diagnosis Encounter for screening mammogram for malignant neoplasm of breast- Primary documented in this encounter Care Teams Certified Coding Specialist Relationship Specialty Start Date End Date Jovan Guillermo MD [address] [place] [address] PCP - General 05/17/19 04/21/24 Cece Dai MD, MPH [address] [place] [address] [email or web address] PCP - General Family Medicine 04/22/24 Cece Dai MD, MPH [address] [place] [address] [address] [place] [address] [email or web address] Insurance Assigned Provider 02/09/25 documented as of this encounter Additional Source Comments The information contained in this document represents components of the legal health record. It is not the complete legal health record.[facility]
--- OUTSIDE RECORDS SUMMARY | 2025-08-11 12:18 | XMS_ITS | Encounter Summary ---
Author Organization [facility] Address [address] [facility] [address] [place] [address] Phone Care Team Providers Care Hat Finisher Name Role Phone Jovan Guillermo MD Primary Care Provider + Cece Dai MD, MPH Primary Care Provid er Cece Dai MD, MPH Unavailable [phone] Encounter Details Date Type Department Care Team (Late Contact Info) Description 06/04/2021 Ancillary Orders [facility] 30 [place] [address] System, Provider Not In, PhD [address] [address] Social History Tobacco Use Types Packs/Day Years [...] Upcoming Encounters Date Type Department Care Team ([facility] Contact Info) Description 08/21/2025 10:40 AM EDT Office Visit [facility] 15 [facility] [address] [place], [place] [phone] Tomer Arita MD 15 [facility] [address] [place], [place] [phone] 12/03/2025 10:50 AM EST Office Visit [facility] 22 [place] [address] Juan Wright DO 22 [place] [address] 02/26/2026 9:00 AM EDT [facility] [place] [facility] 15 [facility] [address] [place] [address] Cece Dai MD, MPH [address] [address] Tomer Arita MD 15 [facility] 201 [place] [address] documented as of this encounter Results * [...] on filedocumented in this encounter Care Teams Hat Finisher Relationship Specialty Start Date End Date Jovan Guillermo MD [address] [place] [address] PCP - General 05/17/19 04/21/24 Cece Dai MD, MPH [address] [place] [address] [email or web address] PCP - General Family Medicine 04/22/24 Cece Dai MD, MPH [address] [place] [address] Insurance Assigned Provider 02/09/25 documented as of this encounter Additional Source Comments The information contained in this document represents components of the legal health record. It is not the complete legal health record.[facility]
--- OUTSIDE RECORDS SUMMARY | 2025-08-11 12:18 | XMS_ITS | Clinical Summary ---
Author Organization [facility] Address [address] [employer] [facility] [address] [place] [address] Phone Care Team Providers Care Applications Programmer Analyst Name Role Phone Cece Dai MD, MPH Primary Care Provid er Cece Dai MD, MPH Unavailable +1- [phone] Allergies Active Allergy Reactions Criticality Noted Date [...] Chronic sinusitis 04/22/2024 Overview (04/22/2024): Follows at [facility], believes it is fungal Assessment & Plan (02/25/2025 11:18 AM EDT): Orders: Ambulatory referral to External Allergy Assessment & Plan (10/22/2024 10:54 AM EST): Orders: External Referral to [facility]ol[facility] ([facility]) History of stroke associated with blood [...] 5:27 AM EDT): Will need a new pole framer as Dr Holland is nearing custodial. I also strongly encouraged her to think [...] Encounters Date Type Department Care Team Description 08/11/[address] [place] [address] Cece Dai MD, MPH Calcium Injection 07/24/[address] [place] [address] Cece Dai MD, MPH CT order question 07/21/[address] [place] [address] Cece Dai MD, MPH Testing question 07/15/2025 4:00 PM EDT Office Visit [address] [place] [address] Tomer Arita MD Age related osteoporosis, unspecified pathological fracture presence (Primary Dx); Need for obvhecd-tvzss-acbssa a (MMR) vaccine; Intractable abdominal pain 07/15/2025 Nurse Triage [address] [place] [address] Cece Dai MD, MPH Triage (Abdominal pain ) 06/07/2025 10:33 AM EDT - 06/07/2025 11:59 PM EDT Hospital Encounter [facility], Bone Density - [facility] [address] [place] [address] Cece Dai MD, MPH Discharge Disposition: Home or Self Care 05/13/[address] [place] [address] Cece Dai MD, MPH Triage (Yellow - [...] 08/21/2025 10:40 AM EDT Office Visit [facility] [address] [facility] [address] [place] [address] Tomer Arita MD 15 [facility] [address] [place] [address] 12/03/2025 10:50 AM EST Office Visit [facility] [address] [place] [address] Juan Wright DO 22 [place] [address] 02/26/2026 9:00 AM EDT Office Visit [facility] [address] [facility] [address] [place] [address] Cece Dai MD, MPH 15 [facility] [address] [place] [address] Tomer Arita MD 15 [facility] [address] [place] [address] Health Maintenance Due Date Last Done Comments [...] Referred By: CECE DAI Indications: Postmenopausal Scanner: [email or web address] A with serial# of [id number] located at [facility] Bone Density Scan (DXA) 06/07/25 Details [...] -2.5), or Osteoporosis (T-score <= -2.5). At [facility], T-scores are compared to peak bone [...] Referred By: CECE DAI Indications: Postmenopausal Scanner: [email or web address] A with serial# of [id number] located at [facility] Bone Density Scan (DXA) 06/07/25 Details of [...] -2.5), or Osteoporosis (T-score <= -2.5). At [facility], T-scores are compared to peak bone [...] Dai MD, MPH IMG MG EXAMS Karolyn puente Result * (ABNORMAL) Comprehensive metabolic panel (06/21/2024 10:39 AM EDT) SODIUM 138 133 - 146 mmol/L [facility] POTASSIUM 4.3 3.3 - 5.1 mmol/L [facility] CHLORIDE 102 96 - 108 mmol/L [facility] CO2 26 21 - 35 mmol/L [facility] BUN 8 6 - 19 mg/dL [facility] CREATININE 0.40(L) 0.5 - 1.5 mg/dL [facility] GLUCOSE 97 70 - 99 mg/dL [facility] ALBUMIN 4.4 3.9 - 4.8 g/dL [facility] TOTAL PROTEIN 7.3 6.5 - 8.0 g/dL [facility] CALCIUM 9.7 8.4 - 10.3 mg/dL [facility] ALKALINE PHOSPHATASE 75 39 - 117 U/L [facility] TOTAL BILIRUBIN 0.6 0.0 - 1.2 mg/dL [facility] AST 32 0 - 37 U/L [facility] ALT 15 0 - 40 U/L [facility] GLOBULIN 2.9 1 - 4.8 g/dL [facility] EGFR 109 >59 mL/min/1.7 3m2 [facility] Comment:Estimated glomerular filtration rate calculated using the CKD-EPI refit equation. ANION GAP 14 10 - 20 mmol/L [facility] Blood 06/21/2024 10:3 9 AM EDT 06/21/2024 10:50 AM EDT us Cece Dai MD, MPH LAB BLOOD ORDERABLES Final Result Performing Organization Address City/[facility] Co de Phone Number [address] [address] * (ABNORMAL) Lipid panel (06/21/2024 10:39 AM EDT) HDL 103 mg/dL [facility] Comment: Interpretation <40 mg/dL: Low HDL cholesterol (major risk factor for CHD) Greater than or equal to 60 mg/dL: High HDL cholesterol ( negative risk factor for CHD) HDL - cholesterol is affected by a number of factors, e.g. smoking, excerise, hormones, sex and age. CHOLESTEROL 174 0 - 240 mg/dL [facility] TRIGLYCERIDES 62 30 - 160 mg/dL [facility] LDL 59 50 - 129 mg/dL [facility] Comment: LDL levels in terms of risk for coronary heart disease: <100 mg/dL: Optimal 100-129 mg/dL: Near or above optimal 130-159 mg/dL: Borderline high 160-189 mg/dL: High >190 mg/dL: Very High CARDIAC RISK RATIO 1.7(L) 3.3 - 4.4 C [facility] Blood 06/21/2024 10:3 9 AM EDT 06/21/2024 10:50 AM EDT us Cece Dai MD, MPH LAB BLOOD ORDERABLES Final Result [address] [address] from Last 3 Months or Most Recently Relevant to Health Maintenance Insurance MEDICARE PART A & [place] [address] [address] MEDICARE ENHANCE SUPPLEMENT MEDICARE PART A & B [facility] MEDICARE ENHANCE SUPPLEMENT MEDICARE PART A & B [facility] MEDICARE ENHANCE SUPPLEMENT MEDICARE PART A & B [facility] MEDICARE ENHANCE SUPPLEMENT MEDICARE PART A & B [facility] MEDICARE ENHANCE SUPPLEMENT MEDICARE PART A & B [facility] MEDICARE ENHANCE SUPPLEMENT Care Teams Applications Programmer Analyst Relationship Specialty Start Date End Date Cece Dai MD, MPH [address] [place] [address] [email or web address] PCP - General Family Medicine 04/22/24 Cece Dai MD, MPH [address] [address] [email or web address] Insurance Assigned Provider 02/09/25 Additional Source Comments The information contained in this document represents components of the legal health record. It is not the complete legal health record.[facility]
== END 2025-08-11 10:55 | disposition home or self-care (01) ==
LOC: HO.HMGAL 10:28
PROVIDERS: PCP Family Medicine; Visit Provider Registered Nurse Emergency
DX: J30.89 Other allergic rhinitis (principal)
CPT/HCPCS: 95117; 95165

== ENCOUNTER 2025-08-20 12:05 | Outpatient (AMB) | payer MEDICARE, OTHER, SELFPAY ==
--- OUTSIDE RECORDS SUMMARY | 2007-05-15 | XMS_ITS | Encounter Summary ---
Author Organization [facility] Address [address] [place] [address] Phone Care Team Providers Care Pediatric Dietician Name Role Phone Unavailable Primary Care Provider Unavailabl e Encounter Details Date Type Department Care Team (Late st Contact Info) Description 05/15/2007 Hospital Encounter [facility],Outside Imaging 30 [place], [place] [id number] System, Provider [place] In, [place] [address] Social History Tobacco Use Types Packs/Day Years [...] st Contact Info) Description 07/15/2025 Procedure Pass [facility], [address] [address] 08/21/2025 10:40 AM EDT Office Visit [facility] [place] [facility] 15 [facility] [address] [place] [address] Tomer Arita MD [address] [place] [address] [address] 09/25/2025 10:30 AM EST Appointment [address] [place] [address] Tomer Arita MD [address] [address] 12/03/2025 10:50 AM EST Office Visit [facility] 22 [place] [address] Juan Wright DO 22 [place] [address] 02/26/2026 9:00 AM EDT Office Visit [facility] [place] [facility] [address] [address] Cece Dai MD, MPH [address] [address] Tomer Arita MD [address] [address] documented as of this encounter Procedures Procedure [...] It is not the complete legal health record.[facility]
--- OUTSIDE RECORDS SUMMARY | 2008-05-13 | XMS_ITS | Encounter Summary ---
Author Organization [facility] Address [address] [place] [address] Phone Care Team Providers Care Digital Camera Technician Name Role Phone Unavailable Primary Care Provider Unavailabl e Encounter Details Date Type Department Care Team (Late st Contact Info) Description 05/13/2008 Hospital Encounter [facility],Outside Imaging 30 [place], [place] [phone] System, Provider Not In, [place] [address] Social History Tobacco Use Types Packs/Day Years [...] st Contact Info) Description 07/15/2025 Procedure Pass [facility], [address] [address] 08/21/2025 10:40 AM EDT Office Visit [facility] [place] [facility] 15 [facility] [address] [place] [address] Tomer Arita MD [address] [place] [address] [address] 09/25/2025 10:30 AM EST Appointment [address] [place] [address] Tomer Arita MD [address] [address] 12/03/2025 10:50 AM EST Office Visit [facility] 22 [place] [address] Juan [place] DO 22 [place] [address] 02/26/2026 9:00 AM EDT Office Visit [facility] [place] [facility] [address] [address] Cece Dai MD, MPH [address] [address] Tomer Arita MD [address] [address] documented as of this encounter Procedures Procedure [...] It is not the complete legal health record.[facility]
--- OUTSIDE RECORDS SUMMARY | 2011-05-16 | XMS_ITS | Encounter Summary ---
Author Organization [facility] Address [address] [place] [address] Phone Care Team Providers Care Steam Power Plant Operator Name Role Phone Unavailable Primary Care Provider Unavailabl e Encounter Details Date Type Department Care Team (Late st Contact Info) Description 05/16/2011 Hospital Encounter [facility],Outside Imaging 30 [place], [place] [address] System, Provider [place] In, [place] [address] Social History Tobacco Use Types Packs/Day Years [...] st Contact Info) Description 07/15/2025 Procedure Pass [facility], [address] [address] 08/21/2025 10:40 AM EDT Office Visit [facility] [place] [facility] 15 [facility] [address] [place] [address] Tomer Arita MD [address] [place] [address] [address] 09/25/2025 10:30 AM EST Appointment [address] [place] [address] Tomer Arita MD [address] [address] 12/03/2025 10:50 AM EST Office Visit [facility] 22 [place] [address] Juan Wright DO 22 [place] [address] 02/26/2026 9:00 AM EDT Office Visit [facility] [place] [facility] [address] [address] Cece Dai MD, MPH [address] [address] Tomer Arita MD [address] [address] documented as of this encounter Procedures Procedure [...] It is not the complete legal health record.[facility]
--- OUTSIDE RECORDS SUMMARY | 2025-08-20 15:17 | XMS_ITS | Clinical Summary ---
Author Organization [facility] it Address [address] [place] [address] Care Team Providers Care Operating Room Manager Name Role Phone Heri Cueto MD Primary Care Provider [phone] Allergies Active Allergy Reactions Criticality Noted Date [...] in 20s DX:DVT (deep venous thrombo sis) ([facility]); COMMENT: on OCPs at the time, taken off; never anticoagulated MTHFR mutation 05/18/2011 DX:MTHFR mutatio n GERD (gastroesophageal reflu x disease) 05/18/2011 DX:GERD (gastroesophageal re flux disease) Lung blebs (CMS/HCC V24, CMS /[facility] V28) 05/18/2011 DX:Lung blebs (HCC) Hepatic cyst [...] Recently Relevant to Health Maintenance Care Teams Operating Room Manager Relationship Specialty Start Date End Date Heri Cueto MD 4 [place] [address] PCP - General 04/29/11
--- OUTSIDE RECORDS SUMMARY | 2025-08-20 15:17 | XMS_ITS | Encounter Summary ---
Author Organization [facility] Address [address] [facility] [address] [place] [address] Phone Care Team Providers Care Fabric Normalizer Name Role Phone Cece Dai MD, MPH Primary Care Provid er Cece Dai MD, MPH Unavailable +1- [phone] Encounter Details Date Type Department Care Team (Late st Contact Info) Description 02/27/2025 Ancillary Orders [facility] [place] [facility] [address] [facility] [address] [place] [address] Cece Dai MD, MPH 15 [facility] [address] [place] [address] [email or web address] [place] quadrant of left [...] st Contact Info) Description 07/15/2025 Procedure Pass [facility], Ct Scan - [facility] [address] [place] [address] 08/21/2025 10:40 AM EDT Office Visit [facility] [place] [facility] [address] [facility] [address] [place] [address] Tomer Arita MD [address] [address] 09/25/2025 10:30 AM EST Appointment [facility], Ct Scan - [facility] 30 [place] [address] Tomer Arita MD [address] [address] 12/03/2025 10:50 AM EST Office Visit [facility] 22 [place] [address] Juan Wright DO 22 [place] [address] 02/26/2026 9:00 AM EDT Office Visit [facility] [place] [facility] [address] [address] Cece Dai MD, MPH [address] [place] [address] Tomer Arita MD [address] [place] [address] documented as of this encounter Results * [...] documented as of this encounter Care Teams Fabric Normalizer Relationship Specialty Start Date End Date Cece Dai MD, MPH [address] [place] [address] [email or web address] PCP - General Family Medicine 04/22/24 Cece Dai MD, MPH [address] [place] [address] Insurance Assigned Provider 02/09/25 documented as of this encounter Additional Source Comments The information contained in this document represents components of the legal health record. It is not the complete legal health record.[facility]
--- OUTSIDE RECORDS SUMMARY | 2025-08-20 15:17 | XMS_ITS | Encounter Summary ---
Author Organization [facility] Address [address] [facility] [address] [place] [address] Phone Care Team Providers Care Conductor Pullman Name Role Phone Jovan Guillermo MD Primary Care Provider + Cece Dai MD, MPH Primary Care Provid er Cece Dai MD, MPH Unavailable +1- [phone] Encounter Details Date Type Department Care Team (Late st Contact Info) Description 05/24/2021 Procedure Pass [facility] - [address] [place] [address] Social History Tobacco Use Types Packs/Day Years [...] Department Care Team (Late Contact Info) Description 07/15/2025 Procedure Pass [facility], Ct Scan - [facility] 30 [place] [address] 08/21/2025 10:40 AM EDT Office Visit [facility] [place] [facility] 15 [facility] [address] [place] [address] Tomer Arita MD [address] [address] 09/25/2025 10:30 AM EST Appointment [facility], Ct Scan - [facility] 30 [place] [address] Tomer Arita MD [address] [address] 12/03/2025 10:50 AM EST Office Visit [facility] 22 [place] [address] Juan Wright DO [address] [place] [address] 02/26/2026 9:00 AM EDT Office Visit [facility] [facility] [address] [address] Cece Dai MD, MPH [address] [place] [address] Tomer Arita MD [address] [place] [address] documented as of this encounter Visit Diagnoses Not on filedocumented in this encounter Care Teams Conductor Pullman Relationship Specialty Start Date End Date Jovan Guillermo MD [address] [place] [address] PCP - General 05/17/19 04/21/24 Cece Dai MD, MPH [address] [place] [address] [email or web address] PCP - General Family Medicine 04/22/24 Cece Dai MD, MPH [address] [place] [address] [email or web address] Insurance Assigned Provider 02/09/25 documented as of this encounter Additional Source Comments The information contained in this document represents components of the legal health record. It is not the complete legal health record.[facility]
--- OUTSIDE RECORDS SUMMARY | 2025-08-20 15:17 | XMS_ITS | Encounter Summary ---
Author Organization [facility] Address [address] [place] [address] Phone Care Team Providers Care Rehabilitation Worker Name Role Phone Cece Dai MD, MPH Primary Care Provid er Cece Dai MD, MPH Unavailable +1- [phone] Encounter Details Date Type Department Care Team (Late st Contact Info) Description 02/27/2025 Procedure Pass [address] [place] [address] Social History Tobacco Use Types Packs/Day Years [...] st Contact Info) Description 07/15/2025 Procedure Pass [facility], Ct Scan - [facility] [address] [place] [address] 08/21/2025 10:40 AM EDT Office Visit [facility] [place] [facility] [address] [facility] [address] [place] [address] Tomer Arita MD 15 [facility] [address] [place] [address] 09/25/2025 10:30 AM EST Appointment [facility], Ct Scan - [facility] [place] [facility] 30 [place] [address] Tomer Arita MD [address] [address] 12/03/2025 10:50 AM EST Office Visit [facility] 22 [place] [address] Juan Wright DO 22 [place] [address] 02/26/2026 9:00 AM EDT Office Visit [facility] [address] [address] Cece Dai MD, MPH [address] [place] [address] Tomer Arita MD [address] [place] [address] documented as of this encounter Visit Diagnoses Not on filedocumented in this encounter Additional Health Concerns Assessment Noted Time PHQ-2 Depression Total Score: 0 02/26/20 25 10:12 AM EDT documented as of this encounter Care Teams Rehabilitation Worker Relationship Specialty Start Date End Date Cece Dai MD, MPH [address] [place] [address] PCP - General Family Medicine 04/22/24 Cece Dai MD, MPH [address] [place] [address] Insurance Assigned Provider 02/09/25 documented as of this encounter Additional Source Comments The information contained in this document represents components of the legal health record. It is not the complete legal health record.[facility]
--- OUTSIDE RECORDS SUMMARY | 2025-08-20 15:17 | XMS_ITS | Encounter Summary ---
Author Organization [facility] Address [address] [facility] [address] [place] [address] Phone Care Team Providers Care Senior Cognos Developer Name Role Phone Cece Dai MD, MPH Primary Care Provid er Cece Dai MD, MPH Unavailable +1- [phone] Reason for Visit * Reason Onset Date Comments Calcium Injection 08/11/2025 Encounter Details Date Type Department Care Team (Late st Contact Info) Description 08/11/2025 Telephone [facility] [place] [facility] 15 [facility] [address] [place] [address] Cece Dai MD, MPH 15 [facility] [address] [place] [address] [email or web address] Calcium Injection Social History Tobacco Use Types [...] as of this encounter Progress Notes * Shameka Baez - 08/15/2025 2:33 PM EDT Please call patient and offer time held on 09/10 at 1150 with . * Cherri Boudreaux - 08/14/2025 10:42 AM EDT Pt is [facility] on waitlist * Danika Garcia - 08/12/2025 3:19 PM EDT PT lm on the triage line to f/u. CSS Agent (Please do not reply to this user, as this inbox is not monitored. Thank you.) Thank you. * Tomer Arita MD - 08/12/2025 2:33 PM EDT If I update the referral to urgent , could it be booked sooner? Dr T * Danika Garcia - 08/11/2025 9:43 AM [...] st Contact Info) Description 07/15/2025 Procedure Pass [facility], Ct Scan - [facility] [address] [place] [address] 08/21/2025 10:40 AM EDT Office Visit [facility] [place] [facility] 15 [facility] [address] [place] [address] Tomer Arita MD 15 [facility] [address] [place] [address] 09/25/2025 10:30 AM EST Appointment [facility], Ct Scan - [address] [address] Tomer Arita MD [address] [address] 12/03/2025 10:50 AM EST Office Visit [facility] 22 [place] [address] Juan Wright DO 22 [place] [address] 02/26/2026 9:00 AM EDT Office Visit [facility] [place] [facility] [address] [address] Cece Dai MD, MPH [address] [place] [address] Tomer Arita MD [address] [place] [address] documented as of this encounter Visit Diagnoses Not on filedocumented in this encounter Additional Health Concerns Assessment Noted Time PHQ-2 Depression Total Score: 0 02/26/20 25 10:12 AM EDT documented as of this encounter Care Teams Senior Cognos Developer Relationship Specialty Start Date End Date Cece Dai MD, MPH [address] [place] [address] PCP - General Family Medicine 04/22/24 Cece Dai MD, MPH [address] [place] [address] [email or web address] Insurance Assigned Provider 02/09/25 documented as of this encounter Additional Source Comments The information contained in this document represents components of the legal health record. It is not the complete legal health record.[facility]
--- OUTSIDE RECORDS SUMMARY | 2025-08-20 15:17 | XMS_ITS | Encounter Summary ---
Author Organization [facility] Address [address] [place] [address] Phone Care Team Providers Care Registered Land Surveyor Name Role Phone Cece Dai MD, MPH Primary Care Provid er Cece Dai MD, MPH Unavailable +1- [phone] Encounter Details Date Type Department Care Team (Late st Contact Info) Description 02/07/2025 Procedure Pass [facility] - [address] [place] [address] Social History Tobacco Use Types Packs/Day Years [...] st Contact Info) Description 07/15/2025 Procedure Pass [facility], Ct Scan - [facility] [address] [place] [address] 08/21/2025 10:40 AM EDT Office Visit [facility] [place] [facility] [address] [facility] [address] [place] [address] Tomer Arita MD 15 [facility] 201 [place] [address] 09/25/2025 10:30 AM EST Appointment [facility], Ct Scan - [facility] 30 [place] [address] Tomer Arita MD [address] [address] 12/03/2025 10:50 AM EST Office Visit [facility] 22 [place] [address] Juan Wright DO 22 [place] [address] 02/26/2026 9:00 AM EDT Office Visit [facility] [place] [facility] [address] [address] Cece Dai MD, MPH [address] [place] [address] Tomer Arita MD [address] [place] [address] documented as of this encounter Visit Diagnoses Not on filedocumented in this encounter Additional Health Concerns Assessment Noted Time PHQ-2 Depression Total Score: 0 02/26/20 25 10:12 AM EDT documented as of this encounter Care Teams Registered Land Surveyor Relationship Specialty Start Date End Date Cece Dai MD, MPH [address] [place] [address] PCP - General Family Medicine 04/22/24 Cece Dai MD, MPH [address] [place] [address] [email or web address] Insurance Assigned Provider 02/09/25 documented as of this encounter Additional Source Comments The information contained in this document represents components of the legal health record. It is not the complete legal health record.[facility]
--- OUTSIDE RECORDS SUMMARY | 2025-08-20 15:17 | XMS_ITS | Encounter Summary ---
Author Organization [facility] Address [address] [facility] [address] [place] [address] Phone Care Team Providers Care Community Ambassador Name Role Phone Jovan Guillermo MD Primary Care Provider + Cece Dai MD, MPH Primary Care Provid er Cece Dai MD, MPH Unavailable [phone]- [phone] Encounter Details Date Type Department Care Team (Late Contact Info) Description 06/04/2021 Ancillary Orders [facility],Outside Imaging 30 [place] [address] System, Provider Not In, PhD [address] [address] Social History Tobacco Use Types Packs/Day Years [...] Upcoming Encounters Date Type Department Care Team ([facility] Contact Info) Description 07/15/2025 Procedure Pass [facility], [facility] Scan - [facility] 30 [place], [place] [address] 08/21/2025 10:40 AM EDT Office Visit [facility] [place] [facility] 15 [facility] [address] [place], [place] [address] Tomer Arita MD [address] [address] 09/25/2025 10:30 AM EST Appointment [facility], Ct Scan - [facility] 30 [place] [address] Tomer Arita MD [address] [address] 12/03/2025 10:50 AM EST Office Visit [facility] 22 [place] [address] Juan Wright DO 22 [place] [address] 02/26/2026 9:00 AM EDT Office Visit [facility] [place] [facility] [address] [address] Cece Dai MD, MPH [address] [address] Tomer Arita MD [address] [address] documented as of this encounter Results * [...] on filedocumented in this encounter Care Teams Community Ambassador Relationship Specialty Start Date End Date Jovan Guillermo MD [address] [place] [address] PCP - General 05/17/19 04/21/24 Cece Dai MD, MPH [address] [place] [address] PCP - General Family Medicine 04/22/24 Cece Dai MD, MPH [address] [place] [address] [email or web address] Insurance Assigned Provider 02/09/25 documented as of this encounter Additional Source Comments The information contained in this document represents components of the legal health record. It is not the complete legal health record.[facility]
--- OUTSIDE RECORDS SUMMARY | 2025-08-20 15:17 | XMS_ITS | Encounter Summary ---
Author Organization [facility] Address [address] [facility] [address] [place] [address] Phone Care Team Providers Care Research Affiliate Name Role Phone Jovan Guillermo MD Primary Care Provider + Cece Dai MD, MPH Primary Care Provid er Cece Dai MD, MPH Unavailable +1- [phone] Encounter Details Date Type Department Care Team (Late st Contact Info) Description 05/24/2021 Ancillary Orders Virtual Department 30 [place] [address] Jovan Guillermo MD [address] [place] [address] Breast screening Social History Tobacco Use Types [...] (Late Contact Info) Description 07/15/2025 Procedure Pass [facility], Ct Scan - [facility] 30 [place] [address] 08/21/2025 10:40 AM EDT Office Visit [facility] [place] [facility] 15 [facility] [address] [place] [address] Tomer Arita MD [address] [address] 09/25/2025 10:30 AM EST Appointment [facility], Ct Scan - [address] [address] Tomer Arita MD [address] [address] 12/03/2025 10:50 AM EST Office Visit [facility] 22 [place] [address] Juan Wright DO 22 [place] [address] 02/26/2026 9:00 AM EDT Office Visit [facility] [place] [facility] [address] [address] Cece Dai MD, MPH [address] [place] [address] Tomer Arita MD [address] [place] [address] documented as of this encounter Results * [...] unspecified documented in this encounter Care Teams Research Affiliate Relationship Specialty Start Date End Date Jovan Guillermo MD [address] [place] [address] PCP - General 05/17/19 04/21/24 Cece Dai MD, MPH [address] [place] [address] [email or web address] PCP - General Family Medicine 04/22/24 Cece Dai MD, MPH [address] [place] [address] [email or web address] Insurance Assigned Provider 02/09/25 documented as of this encounter Additional Source Comments The information contained in this document represents components of the legal health record. It is not the complete legal health record.[facility]
--- OUTSIDE RECORDS SUMMARY | 2025-08-20 15:17 | XMS_ITS | Clinical Summary ---
Author Organization [facility] Address [address] [employer] [facility] [address] [place] [address] Phone Care Team Providers Care Investment Executive Name Role Phone Cece Dai MD, MPH Primary Care Provid er Cece Dai MD, MPH Unavailable +1- [phone] Allergies Active Allergy Reactions Criticality Noted Date [...] Chronic sinusitis 04/22/2024 Overview (04/22/2024): Follows at [facility], believes it is fungal Assessment & [...] 5:27 AM EDT): Will need a new social media strategist as Dr Holland is nearing care home. I also strongly encouraged her to think [...] Type Department Care Team Description 08/11/[address] [place] [address] Cece Dai MD, MPH Calcium Injection 07/24/[address] [place] [address] Cece Dai MD, MPH CT order question 07/21/2025 Telephone [facility] [address] [place] [address] Cece Dai MD, MPH Testing question 07/15/2025 4:00 PM EDT Office Visit [address] [place] [address] Tomer Arita MD Age related osteoporosis, unspecified pathological fracture presence (Primary Dx); Need for gmytrmw-cyutp-cyweqp a (MMR) vaccine; Intractable abdominal pain 07/15/2025 Nurse Triage [address] [place] [address] Cece Dai MD, MPH Triage (Abdominal pain ) 06/07/2025 10:33 AM EDT - 06/07/2025 11:59 PM EDT Hospital Encounter [facility], Bone Density - [address] [address] Cece Dai MD, MPH Discharge Disposition: Home or Self Care from Last 3 Months Immunizations Immunization Administration [...] st Contact Info) Description 07/15/2025 Procedure Pass [address] [address] 08/21/2025 10:40 AM EDT Office Visit [facility] [place] [facility] 15 [facility] [address] [place] [address] Tomer Arita MD [address] [address] 09/25/2025 10:30 AM EST Appointment [address] [address] Tomer Arita MD [address] [address] 12/03/2025 10:50 AM EST Office Visit [facility] 22 [place] [address] Juan Wright DO 22 [place] [address] 02/26/2026 9:00 AM EDT Office Visit [facility] [place] [facility] 15 [facility] [address] [place] [address] Cece Dai MD, MPH 15 [facility] 201 [place] [address] Tomer Arita MD 15 [facility] 201 [place] [address] Health Maintenance Due Date Last Done Comments [...] Referred By: CECE DAI Indications: Postmenopausal Scanner: Mashed jobs A with serial# of [id number] located at [facility] Bone Density Scan (DXA) 06/07/25 Details [...] -2.5), or Osteoporosis (T-score <= -2.5). At [facility], T-scores are compared to peak bone [...] Referred By: CECE DAI Indications: Postmenopausal Scanner: Mashed jobs A with serial# of [id number] located at [facility] Bone Density Scan (DXA) 06/07/25 Details [...] -2.5), or Osteoporosis (T-score <= -2.5). At [facility], T-scores are compared to peak bone [...] MD, MPH LAB BLOOD ORDERABLES Final Result [facility] 30 [place] [address] * (ABNORMAL) Lipid panel (06/21/2024 10:39 AM [...] RISK RATIO 1.7(L) 3.3 - 4.4 C [facility] Blood 06/21/2024 10:3 9 AM EDT 06/21/2024 10:50 AM EDT Cece Dai MD, MPH LAB BLOOD ORDERABLES Final Result [facility] 30 [place] [address] from Last 3 Months or Most Recently Relevant to Health Maintenance Insurance MEDICARE PART A & B [facility] MED[employer] ENHANCE SUPPLEMENT MEDICARE PART A & B [facility] MEDICARE ENHANCE SUPPLEMENT MEDICARE PART A & B [facility] MEDICARE ENHANCE SUPPLEMENT MEDICARE PART A & B [facility] MEDICARE ENHANCE SUPPLEMENT MEDICARE PART A & B [facility] MEDICARE ENHANCE SUPPLEMENT MEDICARE PART A & B [facility] MEDIC[employer] ENHANCE SUPPLEMENT Care Teams Investment Executive Relationship Specialty Start Date End Date Cece Dai MD, MPH [address] [address] [email or web address] PCP - General Family Medicine 04/22/24 Cece Dai MD, MPH [address] [address] [email or web address] Insurance Assigned Provider 02/09/25 Additional Source Comments The information contained in this document represents components of the legal health record. It is not the complete legal health record.[facility]
--- OUTSIDE RECORDS SUMMARY | 2025-08-20 15:17 | XMS_ITS | Encounter Summary ---
Author Organization [facility] Address [address] [employer] [facility] [address] [place] [address] Phone Care Team Providers Care Lining Folder Name Role Phone Jovan Guillermo MD Primary Care Provider + Cece Dai MD, MPH Primary Care Provid er Cece Dai MD, MPH Unavailable +1- [phone] Encounter Details Date Type Department Care Team (Late Contact Info) Description 06/09/2023 Procedure Pass [facility] - [address] [place] [address] Social History Tobacco Use Types Packs/Day Years [...] st Contact Info) Description 07/15/2025 Procedure Pass [facility], Ct [address] [address] 08/21/2025 10:40 AM EDT Office Visit [facility] [address] [place] [address] Tomer Arita MD [address] [place] [address] 09/25/2025 10:30 AM EST Appointment [address] [address] Tomer Arita MD [address] [place] [address] 12/03/2025 10:50 AM EST Office Visit [facility] 22 [place] [address] Juan Wright DO [address] [place] [address] 02/26/2026 9:00 AM EDT Office Visit [facility] [address] [place] [address] Cece Dai MD, MPH [address] [place] [address] Tomer Arita MD [address] [place] [address] documented as of this encounter Visit Diagnoses Not on filedocumented in this encounter Care Teams Lining Folder Relationship Specialty Start Date End Date Jovan Guillermo MD [address] [place] [address] PCP - General 05/17/19 04/21/24 Cece Dai MD, MPH [address] [place] [address] [email or web address] PCP - General Family Medicine 04/22/24 Cece Dai MD, MPH [address] [place] [address] [email or web address] Insurance Assigned Provider 02/09/25 documented as of this encounter Additional Source Comments The information contained in this document represents components of the legal health record. It is not the complete legal health record.[facility]
--- OUTSIDE RECORDS SUMMARY | 2025-08-20 15:18 | XMS_ITS | Encounter Summary ---
Author Organization Located Within [facility] Address [address] [facility] [address] [place] [address] Phone Care Team Providers Care Lidar Scientist Name Role Phone Jovan Guillermo MD Primary Care Provider + Cece Dai MD, MPH Primary Care Provid er Cece Dai MD, MPH Unavailable [phone]- [phone] Encounter Details Date Type Department Care Team (Late st Contact Info) Description 06/09/2023 Ancillary Orders Virtual Department 30 [place] [address] Jovan Guillermo MD [address] [place] [address] Encounter for screening mammogram for malignant neoplasm [...] st Contact Info) Description 07/15/2025 Procedure Pass [facility], [address] [address] 08/21/2025 10:40 AM EDT Office Visit [facility] Primary Care [address] [place] [address] Tomer Arita MD [address] [place] [address] 09/25/2025 10:30 AM EST Appointment [address] [address] Tomer Arita MD [address] [place] [address] 12/03/2025 10:50 AM EST Office Visit [facility] 22 [place] [address] Juan Wright DO [address] [place] [address] 02/26/2026 9:00 AM EDT Office Visit [facility] Primary Care [address] [place] [address] Cece Dai MD, MPH [address] [place] [address] Tomer Arita MD [address] [place] [address] documented as of this encounter Results * [...] are scattered fibroglandular densities. Jovan Guillermo MD [facility] Final Re sult documented in this encounter Visit Diagnoses Diagnosis Encounter for screening mammogram for malignant neoplasm of breast Encounter for screening mammogram for malignant neoplasm of breast documented in this encounter Care Teams Lidar Scientist Relationship Specialty Start Date End Date Jovan Guillermo MD [address] [place] [address] PCP - General 05/17/19 04/21/24 Cece Dai MD, MPH [address] [address] PCP - General Family Medicine 04/22/24 Cece Dai MD, MPH [address] [address] [email or web address] Insurance Assigned Provider 02/09/25 documented as of this encounter Additional Source Comments The information contained in this document represents components of the legal health record. It is not the complete legal health record.[facility]
--- OUTSIDE RECORDS SUMMARY | 2025-08-20 15:18 | XMS_ITS | Encounter Summary ---
Author Organization [facility] Address [address] [facility] [address] [place] [address] Phone Care Team Providers Care Mother Repairer Name Role Phone Jovan Guillermo MD Primary Care Provider + Cece Dai MD, MPH Primary Care Provid er Cece Dai MD, MPH Unavailable [phone]- [phone] Encounter Details Date Type Department Care Team (Latest Contact Info) Description 06/07/2023 Transcribe Orders Virtual Department 30 [place] [address] Jovan Guillermo MD [address] [place] [address] Encounter for screening mammogram for malignant neoplasm [...] st Contact Info) Description 07/15/2025 Procedure Pass [address] [address] 08/21/2025 10:40 AM EDT Office Visit [facility] Primary Care [address] [place] [address] Tomer Arita MD [address] [place] [address] 09/25/2025 10:30 AM EST Appointment [address] [address] Tomer Arita MD [address] [place] [address] 12/03/2025 10:50 AM EST Office Visit [facility] 22 [place] [address] Juan Wright DO [address] [place] [address] 02/26/2026 9:00 AM EDT Office Visit [facility] [address] [place] [address] Cece Dai MD, MPH [address] [place] [address] Tomer Arita MD [address] [place] [address] documented as of this encounter Visit Diagnoses Diagnosis Encounter for screening mammogram for malignant neoplasm of breast- Primary documented in this encounter Care Teams Mother Repairer Relationship Specialty Start Date End Date Jovan Guillermo MD [address] [place] [address] PCP - General 05/17/19 04/21/24 Cece Dai MD, MPH [address] [place] [address] [email or web address] PCP - General Family Medicine 04/22/24 Cece Dai MD, MPH [address] [place] [address] [email or web address] Insurance Assigned Provider 02/09/25 documented as of this encounter Additional Source Comments The information contained in this document represents components of the legal health record. It is not the complete legal health record.[facility]
--- OUTSIDE RECORDS SUMMARY | 2025-08-20 15:18 | XMS_ITS | Encounter Summary ---
Author Organization [facility] Address [address] [facility] [address] [place] [address] Phone Care Team Providers Care Rn Med Surg Name Role Phone Jovan Guillermo MD Primary Care Provider + Cece Dai MD, MPH Primary Care Provid er Cece Dai MD, MPH Unavailable [phone]- [phone] Encounter Details Date Type Department Care Team (Late st Contact Info) Description 06/09/2023 Procedure Pass [facility] - [address] [place] [address] Social History Tobacco Use Types Packs/Day Years [...] st Contact Info) Description 07/15/2025 Procedure Pass [facility] [address] [address] 08/21/2025 10:40 AM EDT Office Visit [facility] Primary Care [address] [place] [address] Tomer Arita MD [address] [place] [address] 09/25/2025 10:30 AM EST Appointment [address] [address] Tomer Arita MD [address] [place] [address] 12/03/2025 10:50 AM EST Office Visit [facility] [address] [place] [address] Juan Wright DO [address] [place] [address] 02/26/2026 9:00 AM EDT Office Visit [facility] Primary Care [address] [place] [address] Cece Dai MD, MPH [address] [place] [address] Toemr Arita MD [address] [place] [address] documented as of this encounter Visit Diagnoses Not on filedocumented in this encounter Care Teams Rn Med Surg Relationship Specialty Start Date End Date Jovan Guillermo MD [address] [place] [address] PCP - General 05/17/19 04/21/24 Cece Dai MD, MPH [address] [place] [address] [email or web address] PCP - General Family Medicine 04/22/24 Cece Dai MD, MPH [address] [place] [address] [email or web address] Insurance Assigned Provider 02/09/25 documented as of this encounter Additional Source Comments The information contained in this document represents components of the legal health record. It is not the complete legal health record.[facility]
--- OUTSIDE RECORDS SUMMARY | 2025-08-20 15:18 | XMS_ITS | Encounter Summary ---
Author Organization [facility] Address [address] [facility] [address] [place] [address] Phone Care Team Providers Care Special Shopper Name Role Phone Jovan Guillermo MD Primary Care Provider + Cece Dai MD, MPH Primary Care Provid er Cece Dai MD, MPH Unavailable [phone]- [phone] Encounter Details Date Type Department Care Team (Late st Contact Info) Description 06/09/2023 Ancillary Orders Virtual Department 30 [place] [address] Jovan Guillermo MD [address] [place] [address] Encounter for screening mammogram for malignant neoplasm [...] st Contact Info) Description 07/15/2025 Procedure Pass [facility], [address] [address] 08/21/2025 10:40 AM EDT Office Visit [facility] Primary Care [address] [place] [address] Tomer Arita MD [address] [place] [address] 09/25/2025 10:30 AM EST Appointment [address] [address] Tomer Arita MD [address] [place] [address] 12/03/2025 10:50 AM EST Office Visit [facility] 22 [place] [address] Juan Wright DO [address] [place] [address] 02/26/2026 9:00 AM EDT Office Visit [facility] Primary Care [address] [place] [address] Cece Dai MD, MPH [address] [place] [address] Tomer Arita MD [address] [place] [address] documented as of this encounter Results * [...] breast documented in this encounter Care Teams Special Shopper Relationship Specialty Start Date End Date Jovan Guillermo MD [address] [place] [address] PCP - General 05/17/19 04/21/24 Cece Dai MD, MPH [address] [address] PCP - General Family Medicine 04/22/24 Cece Dai MD, MPH [address] [address] Insurance Assigned Provider 02/09/25 documented as of this encounter Additional Source Comments The information contained in this document represents components of the legal health record. It is not the complete legal health record.[facility]
== END 2025-08-20 12:06 | disposition home or self-care (01) ==
LOC: HO.HMGAL 12:05
PROVIDERS: PCP Family Medicine; Visit Provider Registered Nurse Emergency
DX: J30.89 Other allergic rhinitis (principal)
CPT/HCPCS: 95117; 95165

== ENCOUNTER 2025-08-27 14:51 | Outpatient (AMB) | payer MEDICARE, OTHER, SELFPAY ==
--- OUTSIDE RECORDS SUMMARY | 2007-05-11 | XMS_ITS | Encounter Summary ---
Author Organization [facility] Address [address] [place] [address] Phone Care Team Providers Care Compo Caster Name Role Phone Unavailable Primary Care Provider Unavailabl e Encounter Details Date Type Department Care Team (Late st Contact Info) Description 05/11/2007 Hospital Encounter [facility],Outside Imaging 30 [place], [place] [address] System, Provider [place] In, [place] [address] Social History Tobacco Use Types Packs/Day Years [...] Care Team (Late st Contact Info) Description 07/15/2025 Procedure Pass [address] [address] 09/03/2025 10:00 AM EDT Appointment [address] [address] Tomer Arita MD [address] [place] [address] 12/03/2025 10:50 AM EST Office Visit [facility] [address] [place] [address] Juan Wright DO 22 [place] [address] [email or web address] 02/26/2026 9:00 AM EDT Office Visit [facility] [place] [facility] 15 [facility] [address] [place] [address] Cece Dai MD, MPH 15 [facility] Carter. [address] [place] [address] [email or web address] Tomer Arita MD 15 [facility]. 201 [place] [address] documented as of this encounter Procedures Procedure [...] It is not the complete legal health record.[facility]
--- OUTSIDE RECORDS SUMMARY | 2007-05-15 | XMS_ITS | Encounter Summary ---
Author Organization [facility] Address [address] [place] [address] Phone Care Team Providers Care Senior Research Project Manager Name Role Phone Unavailable Primary Care Provider Unavailabl e Encounter Details Date Type Department Care Team (Late st Contact Info) Description 05/15/2007 Hospital Encounter [facility],Outside Imaging 30 [place], [place] [phone] System, Provider [place] In, [place] [address] Social History Tobacco Use Types Packs/Day Years [...] st Contact Info) Description 07/15/2025 Procedure Pass [address] [address] 09/03/2025 10:00 AM EDT Appointment [address] [address] Tomer Arita MD [address] [place] [address] 12/03/2025 10:50 AM EST Office Visit [facility] [address] [place] [address] Juan Wright DO 22 [place] [address] [email or web address] 02/26/2026 9:00 AM EDT Office Visit [facility] [place] [facility] 15 [facility] [address] [place] [address] Cece Dai MD, MPH 15 [facility] [address] [place] [address] [email or web address] Tomer Arita MD 15 [facility]. 201 [place] [address] documented as of this encounter Procedures Procedure [...] It is not the complete legal health record.[facility]
--- OUTSIDE RECORDS SUMMARY | 2008-05-13 | XMS_ITS | Encounter Summary ---
Author Organization [facility] Address [address] [place] [address] Phone Care Team Providers Care Bundle Tier And Labeler Name Role Phone Unavailable Primary Care Provider Unavailabl e Encounter Details Date Type Department Care Team (Late st Contact Info) Description 05/13/2008 Hospital Encounter [facility],Outside Imaging 30 [place], [place] [phone] System, Provider [place] In, [place] [address] Social History Tobacco Use Types Packs/Day Years [...] st Contact Info) Description 07/15/2025 Procedure Pass [address] [address] 09/03/2025 10:00 AM EDT Appointment [address] [address] Tomer Arita MD [address] [place] [address] 12/03/2025 10:50 AM EST Office Visit [facility] 22 [place] [address] Juan [place] DO 22 [place] [address] [email or web address] 02/26/2026 9:00 AM EDT Office Visit [facility] [place] [facility] 15 [facility] [address] [place] [address] Cece Dai MD, MPH 15 [facility] Carter. 201 [place] [address] [email or web address] Tomer Arita MD 15 [facility]. 201 [place] [address] documented as of this encounter Procedures Procedure [...] It is not the complete legal health record.[facility]
--- OUTSIDE RECORDS SUMMARY | 2010-05-11 | XMS_ITS | Encounter Summary ---
Author Organization [facility] Address [address] [place] [address] Phone Care Team Providers Care Bell Neck Hammerer Name Role Phone Unavailable Primary Care Provider Unavailabl e Encounter Details Date Type Department Care Team (Late st Contact Info) Description 05/11/2010 Hospital Encounter [facility],Outside Imaging [address] [place], [place] [id number] System, Provider [place] In, [place] [address] Social History Tobacco Use Types Packs/Day Years [...] st Contact Info) Description 07/15/2025 Procedure Pass [address] [address] 09/03/2025 10:00 AM EDT Appointment [address] [address] Tomer Arita MD [address] [place] [address] 12/03/2025 10:50 AM EST Office Visit [facility] [address] [place] [address] Juan Wright DO 22 [place] [address] [email or web address] 02/26/2026 9:00 AM EDT Office Visit [facility] [place] [facility] 15 [facility] [address] [place] [address] Cece Dai MD, MPH 15 [facility] Carter. 201 [place] [address] [email or web address] Tomer Arita MD 15 [facility]. 201 [place] [address] documented as of this encounter Procedures Procedure [...] is not the complete legal health record.[facility]
--- OUTSIDE RECORDS SUMMARY | 2011-05-16 | XMS_ITS | Encounter Summary ---
Author Organization [facility] Address [address] [place] [address] Phone Care Team Providers Care Manager Investment Banking Name Role Phone Unavailable Primary Care Provider Unavailabl e Encounter Details Date Type Department Care Team (Late st Contact Info) Description 05/16/2011 Hospital Encounter [facility],Outside Imaging 30 [place], [place] [phone] System, Provider [place] In, [place] [address] Social History Tobacco Use Types Packs/Day Years [...] st Contact Info) Description 07/15/2025 Procedure Pass [address] [address] 09/03/2025 10:00 AM EDT Appointment [address] [address] Tomer Arita MD [address] [place] [address] 12/03/2025 10:50 AM EST Office Visit [facility] [address] [place] [address] Juan Wright DO 22 [place] [address] [email or web address] 02/26/2026 9:00 AM EDT Office Visit [facility] [place] [facility] 15 [facility] [address] [place] [address] Cece Dai MD, MPH 15 [facility] Carter. 201 [place] [address] [email or web address] Tomer Arita MD 15 [facility]. 201 [place] [address] documented as of this encounter Procedures Procedure [...] It is not the complete legal health record.[facility]
--- OUTSIDE RECORDS SUMMARY | 2025-08-22 11:20 | XMS_ITS | Encounter Summary ---
Author Organization [facility] Address [address] [facility] [address] [place] [address] Phone Care Team Providers Care Computer Graphic Designer Name Role Phone Cece Dai MD, MPH Primary Care Provid er Cece Dai MD, MPH Unavailable [phone]- [phone] Reason for Visit * Reason Comments Follow-up Encounter Details Date Type Department Care Team (Late st Contact Info) Description 08/22/2025 11:20 AM EDT Office Visit [facility] Primary [facility] [address] [facility] [address] [place] [address] Tomer Arita MD [address] [facility] [place] [address] [email or web address] Intractable abdominal pain (Primary Dx); Age related osteoporosis, unspecified pathological fracture presence Social History Tobacco Use Types Packs/Day Years [...] Sign Reading Time Taken Comments Blood Pressure 106/68 08/22/2025 11:05 AM EDT Pulse 76 08/22/2025 11:05 AM EDT Temperature 36.6 C (97.8 F) 08/22/2025 11:05 AM EDT Respiratory Rate 18 08/22/2025 11:05 AM EDT Oxygen Saturation 98% 08/22/2025 11:05 AM EDT Inhaled Oxygen Concentration - - Weight 54.6 kg (120 lb 6.4 oz) 08/22/2025 11:05 AM EDT Height - - Body Mass Index 20.43 02/25/2025 10:05 AM EDT documented in this encounter Progress Notes * Tomer Arita MD - 08/22/2025 11:20 AM EDT Subjective: Patient ID: Tish Mack is a 69 y.o. female. HPI Patient presents for 1 month FUV for abdominal pain. From last visit (07/15/25): The left-sided pain began three weeks ago, is intermittent, comes and goes throughout the day, andlasts for a couple hours at a time. The pain is ranked as a 4-5/10 and reminiscent of her cholecystitis in that is is of a dull/achey quality but feels more mild than that. Over the last three weeks,it has begun to occur more frequently. Nothing has made it particularly better or worse. Patient does have GERD, with a previous endoscopy revealing a loose lower esophageal sphincter. Occasionally she will fast for days and she will still experience nightly heartburn symptoms. She has tried antacids and PPIs but nothing has provided relief. She denies NSAID use and does not use alcohol. Denies any recent sick contacts. Patient reports that over the past several weeks the abdominal pain has improved in both severity and frequency, though it has not completely resolved. The pain is most pronounced when wearing clothes that compress her abdomen (Spandex). The pain radiates into her left groin at times and now she isexperiencing some aching pain in her RUQ as well, though very infrequently and with less severity than the left. She has also noticed increased L abdominal pain when she does a detox, involving a full liquid diet of mainly vegetable broth for 3-4 days, every 1.5 weeks. No changes to her bowel movements. She endorses daily, well-formed stools without straining. Denies bloody stools. Notably patient has a rather constrictive diet, stating that she cannot eat foods with a high glycemic index. She eats a salad with mostly leafy greens at least once per day, and restricts herself to one beet or a radish withher salad. She makes sure to eat at least one hard-boiled egg, a piece of salmon, or falafel for protein daily. Patient also reports worsening back pain over the past several months to years. It is described as an aching pain and stiffness. She feels that at this point she is unable to fully extend her spine. Patient does supplement with vitamin D and calcium daily, and states that the pain in her back is relieved somewhat when she takes the calcium. She has been to PT for OA of the knees which she feels has been beneficial for her knees but may have worsened her back pain. Patient notes that she thinks she has had more fractures since last visit, including one of her ribs and the top of her right foot. She has not sought evaluation for either of these, rather she states that she can feel when it happens. She describes it as a popping sensation followed by limited ROM secondary to pain. Review of Systems Constitutional: Negative for appetite change, fatigue, fever and unexpected weight change. Gastrointestinal: Positive for abdominal pain and heartburn. Negative for abdominal distention, blood in stool, constipation, diarrhea and vomiting. Genitourinary: Positive for frequency. Negative for bladder incontinence, dysuria and blood in urine. Patient notes increased frequency for several years which has remained unchanged. Musculoskeletal: Positive for joint pain and back pain. Objective: Physical Exam Constitutional: Appearance: Normal appearance. HENT: Head: Normocephalic and atraumatic. Eyes: Extraocular Movements: Extraocular movements intact. Conjunctiva/sclera: Conjunctivae normal. Pulmonary: Effort: Pulmonary effort is normal. Abdominal: General: Abdomen is flat. Bowel sounds are normal. There is no distension. There are no signs of injury. Palpations: Abdomen is soft. There is no mass. Tenderness: There is abdominal tenderness. Comments: Point tenderness in the LLQ, with radiation into the L groin Musculoskeletal: General: Normal range of motion. Comments: Kyphosis of the upper spine is present. Patient able to ambulate without difficulty Skin: General: Skin is warm and dry. Neurological: General: No focal deficit present. Mental Status: She is alert and oriented to person, place, and time. Psychiatric: Mood and Affect: Mood normal. Behavior: Behavior normal. Bone Density Scan (DXA) 08/02/25 Details of prior DXA scans are available [...] g/cm2 for the femoral neck. Interpretation: Osteoporosis. Assessment/Plan: Problem List Items Addressed This Visit Age related osteoporosis DEXA scan 06/2025 revealed significant osteoporosis. Patient reports frequent fractures concerning for fragility fractures. There is a possibility that her abdominal pain is related to fragility fracture of the hip as well. Patient at risk of further fractures without treatment. With patient's reported Hx of GERD, will defer bisphosphonate therapy for injectable medication. A referral for Endocrinology has been placed and will attempt to expedite. Patient is aware that it is important to have treatment as soon as possible to limit her risk of more significant fractures. CMP, CBC, ionized Ca and PTH to be drawn later today. Relevant Orders CT Abdomen/Pelvis Ionized calcium Parathyroid hormone (PTH) Intractable abdominal pain - Primary Patient with mild abdominal pain in the LLQ which worsens with palpation, and seems to be unrelatedto bowel function. Given that the pain is very localized and reproducible, radiates into the groin,and with her documented osteoporosis this makes a fracture of the hip or pelvis much more likely. Considered diverticular disease, or mass of the colon, ovary or kidney. A CT abdomen/pelvis has been ordered for visualization of the potential fracture sites and also to r/o above Dx. Will obtain CBC w/diff and CMP as well. Relevant Orders CT Abdomen/Pelvis CBC and differential With the patient's permission, this visit was conducted with PA Fellow Juan Gayle, who wrote this note. I personally examined the patient and over-read the note to ensure completeness and accuracy. I have maintained a long-term, longitudinal relationship with this patient, overseeing care of chronic conditions, including osteoporosis and hypertension. This care relationship has significantly influenced my decision-making and treatment plans during today's encounter. documented in this encounter Miscellaneous Notes * Assessment & Plan Note - Juan Gayle PA-C - 08/22/2025 1:09 PM EDT Associated Problem(s): Age related osteoporosis DEXA scan 06/2025 revealed significant osteoporosis. Patient reports frequent fractures concerning for fragility fractures. There is a possibility that her abdominal pain is related to fragility fracture of the hip as well. Patient at risk of further fractures without treatment. With patient's reported Hx of GERD, will defer bisphosphonate therapy for injectable medication. A referral for Endocrinology has been placed and will attempt to expedite. Patient is aware that it is important to have treatment as soon as possible to limit her risk of more significant fractures. CMP, CBC, ionized Ca and PTH to be drawn later today. * Assessment & Plan Note - Juan Gayle PA-C - 08/22/2025 1:04 PM EDT Associated Problem(s): Intractable abdominal pain Patient with mild abdominal pain in the LLQ which worsens with palpation, and seems to be unrelatedto bowel function. Given that the pain is very localized and reproducible, radiates into the groin,and with her documented osteoporosis this makes a fracture of the hip or pelvis much more likely. Considered diverticular disease, or mass of the colon, ovary or kidney. A CT abdomen/pelvis has been ordered for visualization of the potential fracture sites and also to r/o above Dx. Will obtain CBC w/diff and CMP as well. documented in this encounter Plan of Treatment Upcoming Encounters Date Type Department Care Team (Late st Contact Info) Description 07/15/2025 Procedure Pass [address] [address] 09/03/2025 10:00 AM EDT Appointment [address] [address] Tomer Arita MD [address] [address] 12/03/2025 10:50 AM EST Office Visit [facility] [address] [place] [address] Juan Wright DO [address] [place] [address] 02/26/2026 9:00 AM EDT Office Visit [facility] [address] [place] [address] Ccee Dai MD, MPH [address] [place] [address] Tomer Arita MD [address] [place] [address] [email or web address] documented as of this encounter Results * Parathyroid hormone (PTH) (08/25/2025 11:57 AM EDT) PARATHYROID HORMONE 26 15 - 65 pg/mL [facility] Blood 08/25/2025 11:5 7 AM EDT 08/25/2025 12:04 PM EDT us Tomer Arita MD LAB BLOOD ORDERABLES Karolyn l Result Performing Organization Address [facility]/ZIP Co de Phone Number [address] [address] * Ionized calcium (08/25/2025 11:57 AM EDT) Pathologist [facility] IONIZED CALCIUM 1.21 1.14 - 1.37 mmol/L [facility] Blood 08/25/2025 11:5 7 AM EDT 08/25/2025 12:04 PM EDT us Tomer Arita MD LAB BLOOD ORDERABLES Karolyn l Result Performing Organization Address [facility]/ZIP Co de Phone Number [address] [address] * (ABNORMAL) CBC and differential (08/25/2025 11:57 AM EDT) WBC 6.31 4.00 - 11.00 K/uL [facility] RBC 4.27 4.00 - 5.20 M/uL [facility] HGB 12.7 12.0 - 16.0 g/dL [facility] HCT 39.8 36.0 - 46.0 % [facility] PLT 349 150 - 450 K/uL [facility] MCV 93.2 80.0 - 100.0 fL [facility] MCH 29.7 27.0 - 31.0 pg [facility] MCHC 31.9(L) 32.0 - 36.0 g/dL [facility] RDW 14.1 11.5 - 14.5 % [facility] MPV 10.0 8.4 - 12.0 fL [facility] NRBC 0.00 0.00 /100 WBCs [facility] ABSOLUTE NRBC 0.00 0.00 K/uL [facility] DIFF METHOD Auto [facility] NEUTS 59.4 48.0 - 76.0 % [facility] LYMPHS 30.4 18.0 - 41.0 % [facility] MONOS 7.4 4.0 - 11.0 % [facility] EOS 2.1 0.0 - 5.0 % [facility] BASOS 0.5 0.0 - 1.5 % [facility] Granulocytes, immature (%) 0.2 0.0 - 0.9 % [facility] ABSOLUTE NEUTS 3.75 1.92 - 7.60 K/uL [facility] ABSOLUTE LYMPHS 1.92 0.72 - 4.10 K/uL [facility] ABSOLUTE MONOS 0.47 0.16 - 1.10 K/uL [facility] ABSOLUTE EOS 0.13 0.00 - 0.50 K/uL [facility] ABSOLUTE BASOS 0.03 0.00 - 0.15 K/uL [facility] Granulocytes, immature 0.01 0.00 - 0.09 K/uL [facility] Blood 08/25/2025 11:5 7 AM EDT 08/25/2025 12:04 PM EDT us Tomer Arita MD LAB BLOOD ORDERABLES Karolyn puente Result [facility] [address] [place], [place] [phone] documented in this encounter Visit Diagnoses Diagnosis Intractable abdominal pain- Primary Age related osteoporosis, unspecified pathological fracture presence documented in this encounter Additional Health Concerns Assessment Noted Time PHQ-2 Depression Total Score: 0 02/26/20 25 10:12 AM EDT documented as of this encounter Care Teams Computer Graphic Designer Relationship Specialty Start Date End Date Cece Dai MD, MPH [address] [address] [email or web address] PCP - General Family Medicine 04/22/24 Cece Dai MD, MPH [address] [address] [email or web address] Insurance Assigned Provider 02/09/25 documented as of this encounter Additional Source Comments The information contained in this document represents components of the legal health record. It is not the complete legal health record.[facility]
--- OUTSIDE RECORDS SUMMARY | 2025-08-25 11:52 | XMS_ITS | Encounter Summary ---
Author Organization [facility] Address [address] [facility] [address] [place] [address] Phone Care Team Providers Care Launch Commander [employer] Name Role Phone Cece Dai MD, MPH Primary Care Provid er Cece Dai MD, MPH Unavailable [phone]- [phone] Encounter Details Date Type Department Care Team (Latest Contact Info) Description 08/25/2025 11:52 AM EDT - 08/25/2025 11:59 PM EDT Hospital Encounter [facility] [address] [place] [address] Tomer Arita MD [address] [facility] [address] [place] [address] [email or web address] Discharge Disposition: Home or Self Care Social History Tobacco Use Types Packs/Day Years [...] on file documented as of this encounter Medications at Time of Discharge acetylcysteine 600 mg Cap capsule Take by mouth every 4 (four) hours. aloe vera 25 mg Cap Take by mouth. aspirin 81 MG EC tablet Take 81 mg by mouth. Bacillus coagulans-inulin 1 billion-250 cell-mg Cap Take 250 mg by mouth daily. cholecalciferol, vitamin D3, (VITAMIN D3 ORAL) Take by mouth daily. dihydroberberine (BERBERINE ES-5 ORAL) Take by mouth. flaxseed oiL 1,000 mg Cap Take 1,000 mg by mouth daily. folic acid (FOLVITE) 1 MG tablet Take 2,400 mg by mouth. GARLIC ORAL Take by mouth. lisinopril (PRINIVIL,ZESTRIL ) 2.5 MG tablet Take 1 tablet (2.5 mg total) by mouth daily. Take 2.5-5mg by mouth daily 60 tablet 5 10/22/2024 MAGNESIUM ORAL Take by mouth daily. multivitamin per tablet Take 1 tablet by mouth. OLIVE LEAF EXTRACT ORAL Take by mouth. omega-3 fatty acids-fish oil 300-1,000 mg Cap Take 1 g by mouth. ZINC ORAL Take by mouth daily. calcium carbonate-vitamin D3 1,250 mg (500 mg elemental)-400 units per tablet Take 1 tablet by mouth daily. documented as of this encounter Plan of Treatment Upcoming Encounters Date Type Department Care Team (Late st Contact Info) Description 07/15/2025 Procedure Pass [address] [address] 09/03/2025 10:00 AM EDT Appointment [address] [address] Tomer Arita MD [address] [place] [address] 12/03/2025 10:50 AM EST Office Visit [facility] [address] [place] [address] Juan Wright DO [address] [place] [address] 02/26/2026 9:00 AM EDT Office Visit [facility] [address] [address] Cece Dai MD, MPH [address] [place] [phone] [email or web address] Tomer Arita MD [address] [place] [address] [address] [place] [address] [email or web address] documented as of this encounter Procedures Procedure Name Priority Date/Time Associated Diagnosis Comments COMPREHENSIVE METABOLIC PANEL Routine 08/25/2025 11:57 AM EDT Intractable abdominal pain CBC AND DIFFERENTIAL Routine 08/25/2025 11:57 AM EDT Intractable abdominal pain PARATHYROID HORMONE (PTH) Routine 08/25/2025 11:57 AM EDT Age related osteoporosis, unspecified pathological fracture presence IONIZED CALCIUM Routine 08/25/2025 11:57 AM EDT Age related osteoporosis, unspecified pathological fracture presence documented in this encounter Results * (ABNORMAL) CBC and differential (08/25/2025 11:57 AM EDT) WBC 6.31 4.00 - 11.00 K/uL [facility] RBC 4.27 4.00 - 5.20 M/uL [facility] HGB 12.7 12.0 - 16.0 g/dL [facility] HCT 39.8 36.0 - 46.0 % [facility] PLT 349 150 - 450 K/uL [facility] MCV 93.2 80.0 - 100.0 [facility] MCH 29.7 27.0 - 31.0 pg [facility] MCHC 31.9(L) 32.0 - 36.0 g/dL [facility] RDW 14.1 11.5 - 14.5 % [facility] MPV 10.0 8.4 - 12.0 [facility] NRBC 0.00 0.00 /100 WBCs [facility] ABSOLUTE NRBC 0.00 0.00 K/uL [facility] DIFF METHOD Auto [facility] NEUTS 59.4 48.0 - 76.0 % [facility] LYMPHS 30.4 18.0 - 41.0 % [facility] MONOS 7.4 4.0 - 11.0 % [facility] EOS 2.1 0.0 - 5.0 % [facility] BASOS 0.5 0.0 - 1.5 % [facility] Granulocytes, immature (%) 0.2 0.0 - 0.9 % [facility] ABSOLUTE NEUTS 3.75 1.92 - 7.60 K/uL [facility] ABSOLUTE LYMPHS 1.92 0.72 - 4.10 K/uL [facility] ABSOLUTE MONOS 0.47 0.16 - 1.10 K/uL [facility] ABSOLUTE EOS 0.13 0.00 - 0.50 K/uL [facility] ABSOLUTE BASOS 0.03 0.00 - 0.15 K/uL [facility] Granulocytes, immature 0.01 0.00 - 0.09 K/uL [facility] Blood 08/25/2025 11:5 7 AM EDT 08/25/2025 12:04 PM EDT us Tomer Arita MD LAB BLOOD ORDERABLES Karolyn l Result [address] [address] * Ionized calcium (08/25/2025 11:57 AM EDT) IONIZED CALCIUM 1.21 1.14 - 1.37 mmol/L [facility] Blood 08/25/2025 11:5 7 AM EDT 08/25/2025 12:04 PM EDT us Tomer Arita MD LAB BLOOD ORDERABLES Karolyn l Result [address] [address] * Parathyroid hormone (PTH) (08/25/2025 11:57 AM EDT) PARATHYROID HORMONE 26 15 - 65 pg/mL [facility] Blood 08/25/2025 11:5 7 AM EDT 08/25/2025 12:04 PM EDT us Tomer Arita MD LAB BLOOD ORDERABLES Karolyn l Result [address] [address] * (ABNORMAL) Comprehensive metabolic panel (08/25/2025 11:57 AM EDT) SODIUM 137 133 - 146 mmol/L [facility] POTASSIUM 4.0 3.3 - 5.1 mmol/L [facility] CHLORIDE 101 96 - 108 mmol/L [facility] CO2 27 21 - 35 mmol/L [facility] BUN 10 6 - 19 mg/dL [facility] CREATININE 0.30(L) 0.5 - 1.5 mg/dL [facility] GLUCOSE 85 70 - 99 mg/dL [facility] ALBUMIN 4.5 3.9 - 4.8 g/dL [facility] TOTAL PROTEIN 6.9 6.5 - 8.0 g/dL [facility] CALCIUM 10.2 8.4 - 10.3 mg/dL [facility] ALKALINE PHOSPHATASE 76 39 - 117 U/L [facility] TOTAL BILIRUBIN 0.5 0.0 - 1.2 mg/dL [facility] AST 16 0 - 37 U/L [facility] ALT 14 0 - 40 U/L [facility] GLOBULIN 2.4 1 - 4.8 g/dL [facility] EGFR 116 >59 mL/min/1.7 3m2 [facility] Comment:Estimated glomerular filtration rate calculated using the CKD-EPI refit equation. ANION GAP 13 10 - 20 mmol/L [facility] Blood 08/25/2025 11:5 7 AM EDT 08/25/2025 12:04 PM EDT us Tomer Arita MD LAB BLOOD ORDERABLES Karolyn l Result [address] [address] documented in this encounter Visit Diagnoses Diagnosis Intractable abdominal pain Age related osteoporosis, unspecified pathological fracture presence documented in this encounter Additional Health Concerns Assessment Noted Time PHQ-2 Depression Total Score: 0 02/26/20 25 10:12 AM EDT documented as of this encounter Care Teams [employer] Relationship Specialty Start Date End Date Cece Dai MD, MPH [address] [address] [email or web address] PCP - General Family Medicine 04/22/24 Cece Dai MD, MPH [address] [address] [email or web address] Insurance Assigned Provider 02/09/25 documented as of this encounter Additional Source Comments The information contained in this document represents components of the legal health record. It is not the complete legal health record.[facility]
--- OUTSIDE RECORDS SUMMARY | 2025-08-27 21:06 | XMS_ITS | Encounter Summary ---
Author Organization [facility] Address [address] [facility] [address] [place] [address] Phone Care Team Providers Care Energy Scheduler Name Role Phone Jovan Guillermo MD Primary Care Provider + Cece Dai MD, MPH Primary Care Provid er Cece Dai MD, MPH Unavailable [phone]- [phone] Encounter Details Date Type Department Care Team (Late st Contact Info) Description 05/24/2021 Procedure Pass [facility] - [address] [place] [address] Social History Tobacco Use Types Packs/Day Years [...] st Contact Info) Description 07/15/2025 Procedure Pass [address] [address] 09/03/2025 10:00 AM EDT Appointment [address] [address] Tomer Arita MD [address] [address] 12/03/2025 10:50 AM EST Office Visit [facility] [address] [place] [address] Juan Wright DO [address] [place] [address] 02/26/2026 9:00 AM EDT Office Visit [facility] [address] [address] Cece Dai MD, MPH [address] [place] [address] Tomer Arita MD [address] [place] [address] documented as of this encounter Visit Diagnoses Not on filedocumented in this encounter Care Teams Energy Scheduler Relationship Specialty Start Date End Date Jovan Guillermo MD [address] [place] [address] PCP - General 05/17/19 04/21/24 Cece Dai MD, MPH [address] [place] [address] PCP - General Family Medicine 04/22/24 Cece Dai MD, MPH [address] [place] [phone] Insurance Assigned Provider 4/6/25 documented as of this encounter Additional Source Comments The information contained in this document represents components of the legal health record. It is not the complete legal health record.[facility]
--- OUTSIDE RECORDS SUMMARY | 2025-08-27 21:06 | XMS_ITS | Data Portability ---
Author Organization [place] - [facility], Allergy Address [address] [address] Care Team Providers Care Special Education Curriculum Specialist Name Role Phone TELLO SAMINA Referring Provider [phone] Assessment Encounter Date Assessment Date Assessment LastModified by Organization Details LastModified Time 12/17/2024 12/17/2024 69-year-old femlesley candelario with allergic rhinitis on SCIT presents for evaluation of chronic facial pain. She reports constant maxillary and frontal facial pain, left worse than right, for 20+ years. She suspects this is related to underlying fungal sinusitis, and feels her symptoms improved significantly with natural antifungal treatments. Examination demonstrates right septal deviation and inferior turbinate hypertrophy. Nasal endoscopy is unremarkable without purulence, mucosal edema, or obvious obstruction. Patient continues weekly SCIT to manage allergic rhinitis. She will continue to use daily intranasal xylitol and saline irrigations. She is not interested in starting intranasal steroid spray or oral antihistamine. We discussed her facial pain may be caused by underlying atypical migraine. Will obtain updated CT sinus. [email or web address] Not available 12/17/2024 12:44:23 03/21/2025 03/21/2025 We reviewed that the patient has symptoms out of proportion to the findings on CT scan. The constant feeling of head pressure, ear fullness and fatigue are likely related to migraine. She is convinced that she has some type of toxin or fungal infection. I explained that I do not see any significant disease on her CT scan. I cannot speak to any systemic illness. She is working with the integrative medicine [employer] [place]. They do have a somewhat different approach. We discussed that I think migraine is a big component and have suggested magnesium oxide up to 400 mg riboflavin 400 mg and avoidance of dietary triggers. I have given her written information including the migraine disorders.org website. I am happy to offer her an additional opinion. She was not happy at the [facility]. I asked her to review the migraine information and we can consider a referral to Dr. Romeo cruz Not available 03/21/2025 12:57:00 05/12/2025 05/12/2025 1. Allergy to environmental antigens Patient interested in continuing immunotherapy, as her previous ENT is closing his office.. Suggest we test and evaluate as it is unusual to need SCIT for long periods of time 2. Sinusitis Likely overlap between allergy and migraine. 3. Migraine Although diagnosis focus remains on sinus-related pressure, the potential overlap with migraine symptoms is acknowledged. Further multidisciplinary input may enhance symptom resolution. 4. Recent fall with knee injury Orthopedic assessment remains crucial following the fall incident. While maintaining brace use, further intervention hinges on natural recovery progress and functional capacity pentecostal. 5. Fractured rib Persistence of rib pain postulated to nutritional factors like calcium insufficiency necessitates dietary review. Further examination at a later date will clarify management strategies. Talk to PCP nancy Not available 05/12/2025 10:54:27 Plan of Treatment Reminders Order Date Submit Date Provider Last Modified By Organization Details Last Modified Time Details Appointments None recorded. Lab None recorded. Referral None recorded. Procedures allergy testing, skin prick (PROC) 2024 025 [email or web address] Not available 11:29:56 intradermal allergy skin testing (PROC) 2024 025 [email or web address] Not available 11:29:56 pulmonary function test procedure (PROC) 2024 025 [email or web address] Not available 11:29:56 pulse oximetry (PROC) 2024 025 [email or web address] Not available 11:29:56 Surgeries None recorded. Imaging CT, sinuses, w/o contrast 2024 025 [place] [facility] [place], [address], [address], [place], [address], 5 10:47:58 Medication Orders None recorded. Patient TargetsNo targets recorded. Patient Instructions Encounter Date Encounter Id Patient Instructions Last Modified By Organization Details Last Modified Time 05/12/2025 [id number] Please note: Parts of this encounter note have been generated by AI based on audio conversation. Patient consent was required prior to utilizing this technology. Content review was required prior to finalizing the note. [email or web address] Not available 05/12/2025 10:50:54 Reason for Referral None Reported. Results Created Date Observation Date Name Description Value Unit Range Abnormal Flag Note LastModifiedBy Organization Detail LastModifiedTime 12/27/19 25 12/26/2024 CT, sinus es, w/o contr ast No observ ation record ed. [facility] [place] [address], [address], 01/01/2025 13:39:36 Result Notes None recorded. Problems Name Problem SNOMED Code Status Onset Date Resolution Date Notes Provider Name and Address Organization Details Recorded Time Nasal congestion 16620134 Active 025 THERESA BRIGGS MD [address], [address], [place] - [facility] 5 12:57:18 Allergic rhinitis 59769974 Active 025 RUTH CORONA PA-C [address], [address], [facility] - [facility] 5 11:03:53 Atypical facial pain 26949882 Active 025 RUTH CORONA PA-C [address], [address], [facility] - [facility] 5 12:43:20 Migraine without aura, not refractory 862264890 Active 025 RUTH CORONA PA-C 100 [facility] [address] [place] [address], [address], [facility] - [facility] 5 12:43:29 Migraine 82697620 Active 025 RUTH CORONA PA-C 100 [facility] E [facility] [place], [address], [facility] - [facility] 5 12:43:37 Pain in face 36084109 Active 025 THERESA BRIGGS MD 100 [facility],[address], [place], [address], [facility] - [facility] 5 12:57:09 Ear sensations - finding 509693022 Active 025 THERESA BRIGGS MD 100 [facility],[address], [place], [address], [facility] - [facility] 5 12:57:24 Deviated nasal septum 294841406 Active 025 THERESA BRIGGS MD 100 [facility],[address], [place], [address], [facility] - [facility] 5 12:57:47 Perennial allergic rhinitis 375879099 Active 025 THERESA BRIGGS MD 100 [facility], [address], [place], [address], [facility] - [facility] 5 10:50:44 Frequent headache 964487933 Active 025 THERESA BRIGGS MD 100 [facility], [address], [place], [address], [facility] - [facility] 5 10:50:52 Chronic sinusitis 63874968 Active 025 THERESA BRIGGS MD 100 [facility], [address], [place], [address], [facility] - [facility] 5 10:50:57 Problem Notes None recorded. Procedures Surgical History Date Name Laterality Status Provider Name and Address Organization Details Recorded Time 03/21/20 25 JMSNasal/Sinus Endoscopy completed THERESA Reynolds MD [address] [address], [place], [address], [place] - [facility] 03/21/2025 08:53:42 12/17/19 25 Nasal Endoscopy completed RUTH CORONA PA-C [address], [address], [facility] - [facility] 12/17/2024 11:06:16 cholecystectomy completed Sonia Jack [place] - [facility] 12/17/2024 10:35:16 hernia repair completed Sonia Jack [place] - [facility] 12/17/2024 10:35:32 Imaging Results None recorded. Procedure Notes None recorded. Medical Equipment None Reported. Allergies Allergen ID Allergen Name Allergen Category Reaction Reaction Severity Criticality Documentation Date Start Date Code Code System Note Provider Name and Address Organization Details Recorded Time 386240 Substance with macrolide structure and antibacte rial mechanism of action (substanc e) medicatio n Not available Not available unabletoasse 12/17/2024 66877 0009 SNOMED Sonia whitt [place] - [facility] 5 10:32:47 007612 cultivate d mushroom extract food,medi cation Not available Not available Not available 12/17/2024 42250 17 RxNorm Sonia whitt [facility] 10:33:43 319261 nystatin medicatio n Not available Not available [facility] 12/17/2024 7597 RxNorm RUTH CORONA PA-C 100 [facility] [address], [place], [address], [facility] - [facility] 5 10:53:29 Medications Name Sig Start Date Stop Date Status Note LastModified by Organization Details LastModified Time lisinopril 2.5 mg tablet TAKE 1 TO 2 TABLETS BY MOUTH DAILY active Not Available Not Available No t Available Vitals Date Recorded Body height Body mass index (BMI) Body weight Provider Name and Address Organization Details Last Updated DateTime 12/17/2024 170.18 cm 18.8 kg/m2 10015.08 g Sonia Jack [place] - [facility] 12/17/2024 10:30:48 Date Recorded Systolic And Diastolic Provider Name and Address Organization Details Last Updated DateTime 05/12/2025 130/84 mm[Hg] THERESA CORTES MD [address] [place] [address], [place], [address], [place] - [facility] 05/12/2025 10:53:13 Date Recorded Body height Provider Name an d Address Organization Details Last Updated DateTime 05/12/2025 170.18 cm BLAIR LARA [place] [facility] [place] 05/12/2025 10:27:07 Social History None recorded. Functional Status Question Answer Note LastModified by Organizat ion Details LastModified Time Do you use any illicit or recreational drugs? No Information not available 12/17/2024 What is your level of alcohol consumption? None Information not available 12/17/2024 Mental Status None recorded. Family History Nothing Reported. Medical History Condition Response Allergies/Hayfever N Heart Problems N Anxiety N Tonsil Infections N Emphysema N Migraines Y Thyroid Problems N COPD N Depression N Developmental Delay N Glaucoma N Nasal or Sinus Problems N Anemia N Immune System Disorder N Anesthesia Complications N Heart Attack ([place]) N Other Skin Condition N Diabetes N Rhinitis N Bleeding Disorder Y Food Allergy N Hearing Loss N Arthritis Y Hyperlipidemia N Cancer N Stroke Y Dementia N Nasal polyps N Asthma N Sleep Disorder N High Cholesterol N GERD/Reflux N Liver Disease Y Headaches Y Fibromyalgia N Hypertension Y Speech Delay N Kidney Disease N Gynecological HistoryNo gynecological history recorded. Obstetrics History GPAL:G 0 P 0 0 0 0 Past Encounters Encounter ID Performer Location Encounter Start Date Encounter Closed Date Diagnosis/Indication Diagnosis SNOMED-CT Code Diagnosis ICD10 Code Diagnosis IMO Codes Diagnosis Note [id number] RUTH CORONA PA-C [facility] [address] [address] 12/17/2024 10:04:14 12/17/2024 11:06:28 Nasal congestion 40157261 R09.81 Allergic rhinitis 105693 04 J30.9 Atypical facial pain 713 13701 G50.1 Migraine 28026948 G43.90 9 [id number] THERESA ELENA MD [facility] [address] [address] 03/21/2025 08:32:29 03/21/2025 08:58:24 Pain in face 96542624 R51.9 98280 Nasal congestion 8121238 0 R09.81 66999 Ear sensat ions - finding 282812239 H93.8X3 52575238 Deviated nasal septum 12 2609095 J34.2 41660 [id number] THERESA ELENA MD [facility] [address] [address] 05/12/2025 10:18:42 05/12/2025 10:55:08 Perennial allergic rhinitis 737290140 J30.89 577805 Frequent headache 785809 003 R51.9 90413824 Chronic sinusitis 891689 00 J32.8 93951 Health Concerns Section Related Observation LastModified by Organization Detai ls LastModified Time None Recorded Concern Status LastModified by Organization Details LastModified Time None Recorded Advance Directives Directive None Recorded Payers Insurance Date Sequence Insurance Name Policy Number Policy Whatley Covered Member ID Whatley Member ID Guarantor Name 05/12/2025 2 [facility] (MEDICARE SUPPLEMENT) Tish garcia [id number] Tish Mack 05/12/2025 1 MEDICARE B-[place]: [facility] [employer] Tish Mack [id number] Tish Mack Notes Date Note Type Note Provider Name and Address Organization Details Recorded Time 12/17/2024 text/html ROS as noted in the HPI 69-year-old female with allergic rhinitis on SCIT presents for evaluation of chronic facial pain. She reports facial pain and pressure in the cheeks and forehead, left worse than right. She endorses associated nasal congestion, nasal drainage, hyposmia, photophobia with associated vomiting, and noise sensitivity. She is closely followed by [facility] for holistic management of her symptoms. She reports her facial pressure improves with natural antifungal supplements including garlic, burberry, tree bark, and compounded antifungal inhaler. She is hesitant to trial antibiotic or intranasal steroid sprays, as she would prefer natural treatments. She reports significant allergy to mold and continues weekly SCIT after 20+ years. She reports significant migraine history with 2-3 migraines per month. She does not take a maintenance migraine medication and is followed by neurologist, Dr. Medley. She reports prior CT sinuses were normal, most recent 2019. No history of sinus surgery. LIZETT PORTILLO MD 100 [facility],[address], [address], [facility] 12/18/2024 07:36:00 03/21/2025 text/html Persistent issues with headache, facial pressure and congestion. Presently taking multiple supplements and antifungals from [facility] for fungus and toxins Saw [facility] [place] [facility] and felt he wasn't very good. there must be something else that we can't see wants IV antifungal to get into brain recent CT scan did not show any significant sinus disease THERESA CORTES MD 100 [facility],[address], [address], [facility] 03/21/2025 12:58:01 05/12/2025 text/html The patient is a 69-year-old female presenting primarily for continuing allergy management due to chronic sinusitis exacerbated by environmental allergens. She has been on long-standing allergen immunotherapy since age 23, with significant symptomatic improvement noted following regular administration. Her sinus symptoms notably worsen upon discontinuation of shots, impacting her ability to engage in gardening, where exposure to allergens is common. Recent events include a fall during winter, resulting in a knee injury for which she requires a brace, and a possible rib fracture, contributing to concerns regarding her calcium intake. Despite these physical injuries, there were no recent hospital admissions or procedures at [facility]. She had an encounter with orthopedic health services and breast screening follow-up. Currently, the patient manages her health with supplementary magnesium and B vitamins, addressing unspecified wellness goals. Previously discussed management of migraine with magnesium and B vitamin. That seems to be helpful. I had also recommended evaluation with Dr. Walters in [place] but she has held off on that at the present time THERESA CORTES MD 100 [facility],[address] [address], [place], [address], [facility] 05/12/2025 10:55:31 OBGyn Episode No OBEpisode recorded.
--- OUTSIDE RECORDS SUMMARY | 2025-08-27 21:06 | XMS_ITS | Encounter Summary ---
Author Organization [facility] Address 399 [facility] [address] [place] [address] Phone Care Team Providers Care First Sampler Name Role Phone Jovan Guillermo MD Primary Care Provider + Cece Dai MD, MPH Primary Care Provid er Cece Dai MD, MPH Unavailable [phone] Encounter Details Date Type Department Care Team (Late Contact Info) Description 05/24/2021 Ancillary Orders Virtual Department [address] [place] [address] Jovan Guillermo MD [address] [place] [address] Breast screening Social History Tobacco Use Types [...] (Late Contact Info) Description 07/15/2025 Procedure Pass [address] [address] 09/03/2025 10:00 AM EDT Appointment [address] [place] [address] Tomer Arita MD [address] [address] 12/03/2025 10:50 AM EST Office Visit [facility] [address] [place] [address] Juan Wright DO 22 [place] [address] 02/26/2026 9:00 AM EDT Office Visit [facility] [address] [address] Cece Dai MD, MPH [address] [address] Tomer Arita MD [address] [address] documented as of this encounter Results * [...] unspecified documented in this encounter Care Teams First Sampler Relationship Specialty Start Date End Date Jovan Guillermo MD [address] [place] [address] PCP - General 05/17/19 04/21/24 Cece Dai MD, MPH [address] [address] [email or web address] PCP - General Family Medicine 04/22/24 Cece Dai MD, MPH [address] [address] [email or web address] Insurance Assigned Provider 02/09/25 documented as of this encounter Additional Source Comments The information contained in this document represents components of the legal health record. It is not the complete legal health record.[facility]
--- OUTSIDE RECORDS SUMMARY | 2025-08-27 21:06 | XMS_ITS | Encounter Summary ---
Author Organization [facility] Address [address] [facility] [address] [place] [address] Phone Care Team Providers Care Regulatory Product Manager Name Role Phone Cece Dai MD, MPH Primary Care Provid er Cece Dai MD, MPH Unavailable [phone]- [phone] Encounter Details Date Type Department Care Team (Late st Contact Info) Description 02/27/2025 Ancillary Orders [facility] [place] [facility] 15 [facility] [address] [place] [address] Cece Dai MD, MPH 15 [facility] [address]. [address] [place] [address] [email or web address] quadrant of left [...] st Contact Info) Description 07/15/2025 Procedure Pass [facility] [place], [address] [address] 09/03/2025 10:00 AM EDT Appointment [facility] [place], [address] [address] Tomer Arita MD [address] [address] 12/03/2025 10:50 AM EST Office Visit [facility] [address] [place] [address] Juan Wright DO [address] [place] [address] 02/26/2026 9:00 AM EDT Office Visit [facility] [place] [facility] [place] [facility] [address] [address] Cece Dai MD, MPH [address] [address] Tomer Arita MD [address] [address] documented as of this encounter Results * [...] documented as of this encounter Care Teams Regulatory Product Manager Relationship Specialty Start Date End Date Cece Dai MD, MPH [address] [address] [email or web address] PCP - General Family Medicine 04/22/24 Cece Dai MD, MPH [address] [address] [email or web address] Insurance Assigned Provider 02/09/25 documented as of this encounter Additional Source Comments The information contained in this document represents components of the legal health record. It is not the complete legal health record.[facility]
--- OUTSIDE RECORDS SUMMARY | 2025-08-27 21:06 | XMS_ITS | Encounter Summary ---
Author Organization [facility] Address [address] [place] [address] Phone Care Team Providers Care Temper Mill Roller Name Role Phone Cece Dai MD, MPH Primary Care Provid er Cece Dai MD, MPH Unavailable [phone]- [phone] Encounter Details Date Type Department Care Team (Late st Contact Info) Description 02/27/2025 Procedure Pass [address] [place] [address] Social History Tobacco Use Types Packs/Day Years [...] st Contact Info) Description 07/15/2025 Procedure Pass [address] [address] 09/03/2025 10:00 AM EDT Appointment [address] [address] Tomer Arita MD [address] [place] [address] 12/03/2025 10:50 AM EST Office Visit [facility] [address] [place] [address] Juan Wright DO 22 [place] [address] 02/26/2026 9:00 AM EDT Office Visit [facility] [place] [facility] [address] [address] Cece Dai MD, MPH [address] [place] [address] Tomer Arita MD [address] [address] documented as of this encounter Visit Diagnoses Not on filedocumented in this encounter Additional Health Concerns Assessment Noted Time PHQ-2 Depression Total Score: 0 02/26/20 10:12 AM EDT documented as of this encounter Care Teams Temper Mill Roller Relationship Specialty Start Date End Date Cece Dai MD, MPH [address] [place] [address] PCP - General Family Medicine 04/22/24 Cece Dai MD, MPH [address] [place] [address] Insurance Assigned Provider 02/09/25 documented as of this encounter Additional Source Comments The information contained in this document represents components of the legal health record. It is not the complete legal health record.[facility]
--- OUTSIDE RECORDS SUMMARY | 2025-08-27 21:07 | XMS_ITS | Encounter Summary ---
Author Organization [facility] Address [address] [employer] [facility] [address] [place] [address] Phone Care Team Providers Care Tiler Name Role Phone Jovan Guillermo MD Primary Care Provider + Cece Dai MD, MPH Primary Care Provid er Cece Dai MD, MPH Unavailable [phone]- [phone] Encounter Details Date Type Department Care Team (Late Contact Info) Description 06/04/2021 Ancillary Orders [facility],Outside Imaging [address] [place] [address] System, Provider Not In, [place] [address] Social History Tobacco Use Types Packs/Day Years [...] Upcoming Encounters Date Type Department Care Team ([facility] Contact Info) Description 07/15/2025 Procedure Pass [facility], [address] [address] 09/03/2025 10:00 AM EDT Appointment [facility], [address] [address] Tomer Arita MD [address] [address] 12/03/2025 10:50 AM EST Office Visit [facility] [address] [place] [address] Juan Wright DO 22 [place] [address] 02/26/2026 9:00 AM EDT Office Visit [facility] [address] [address] Cece Dai MD, MPH [address] [address] Tomer Airta MD [address] [address] documented as of this encounter Results * [...] on filedocumented in this encounter Care Teams Tiler Relationship Specialty Start Date End Date Jovan Guillermo MD [address] [place] [address] PCP - General 05/17/19 04/21/24 Cece Dai MD, MPH [address] [place] [address] PCP - General Family Medicine 04/22/24 Cece Dai MD, MPH [address] [place] [address] Insurance Assigned Provider 02/09/25 documented as of this encounter Additional Source Comments The information contained in this document represents components of the legal health record. It is not the complete legal health record.[facility]
--- OUTSIDE RECORDS SUMMARY | 2025-08-27 21:07 | XMS_ITS | Encounter Summary ---
Author Organization [facility] Address [address] [employer] [facility] [address] [place] [address] Phone Care Team Providers Care Manager Sign Name Role Phone Jovan Guillermo MD Primary Care Provider + Cece Dai MD, MPH Primary Care Provid er Cece Dai MD, MPH Unavailable [phone]- [phone] Encounter Details Date Type Department Care Team (Late Contact Info) Description 06/09/2023 Procedure Pass [facility] - [address] [place] [address] Social History Tobacco Use Types Packs/Day Years [...] st Contact Info) Description 07/15/2025 Procedure Pass [facility], Ct Scan [address] [address] 09/03/2025 10:00 AM EDT Appointment [address] [address] Tomer Arita MD [address] [place] [address] 12/03/2025 10:50 AM EST Office Visit [facility] [address] [place] [address] Juan Wright DO [address] [place] [address] 02/26/2026 9:00 AM EDT Office Visit [facility] [address] [address] Cece Dai MD, MPH [address] [place] [address] Tomer Arita MD [address] [place] [address] documented as of this encounter Visit Diagnoses Not on filedocumented in this encounter Care Teams Manager Sign Relationship Specialty Start Date End Date Jovan Guillermo MD [address] [place] [address] PCP - General 05/17/19 04/21/24 Cece Dai MD, MPH [address] [place] [address] [email or web address] PCP - General Family Medicine 04/22/24 Cece Dai MD, MPH [address] [place], [place] [id number] [email or web address] Insurance Assigned Provider 02/09/25 documented as of this encounter Additional Source Comments The information contained in this document represents components of the legal health record. It is not the complete legal health record.[facility]
--- OUTSIDE RECORDS SUMMARY | 2025-08-27 21:07 | XMS_ITS | Encounter Summary ---
Author Organization [facility] Address [address] [facility] [address] [place] [address] Phone Care Team Providers Care Neuropathologist Name Role Phone Jovan Guillermo MD Primary Care Provider + Cece Dai MD, MPH Primary Care Provid er Cece Dai MD, MPH Unavailable [phone]- [phone] Encounter Details Date Type Department Care Team (Late st Contact Info) Description 06/09/2023 Procedure Pass [facility] - [address] [place] [address] Social History Tobacco Use Types Packs/Day Years [...] st Contact Info) Description 07/15/2025 Procedure Pass [facility], Ct Scan [address] [address] 09/03/2025 10:00 AM EDT Appointment [address] [address] Tomer Arita MD [address] [place] [address] 12/03/2025 10:50 AM EST Office Visit [facility] 22 [place] [address] Juan Wright DO [address] [place] [address] 02/26/2026 9:00 AM EDT Office Visit [facility] [facility] [address] [address] Cece Dai MD, MPH [address] [place] [address] Tomer Arita MD [address] [place] [address] documented as of this encounter Visit Diagnoses Not on filedocumented in this encounter Care Teams Neuropathologist Relationship Specialty Start Date End Date Jovan Guillermo MD [address] [place] [address] PCP - General 05/17/19 04/21/24 Cece Dai MD, MPH [address] [place] [address] [email or web address] PCP - General Family Medicine 04/22/24 Cece Dai MD, MPH [address] [place], [place] [phone] [email or web address] Insurance Assigned Provider 02/09/25 documented as of this encounter Additional Source Comments The information contained in this document represents components of the legal health record. It is not the complete legal health record.[facility]
--- OUTSIDE RECORDS SUMMARY | 2025-08-27 21:07 | XMS_ITS | Encounter Summary ---
Author Organization [facility] Address [address] [facility] [address] [place] [address] Phone Care Team Providers Care Roller Pneumatic Name Role Phone Jovan Guillermo MD Primary Care Provider + Cece Dai MD, MPH Primary Care Provid er Cece Dai MD, MPH Unavailable [phone]- [phone] Encounter Details Date Type Department Care Team (Late st Contact Info) Description 06/09/2023 Ancillary Orders Virtual Department [address] [place] [address] Jovan Guillermo MD [address] [place] [address] Encounter for screening mammogram for malignant neoplasm [...] st Contact Info) Description 07/15/2025 Procedure Pass [facility], [address] [address] 09/03/2025 10:00 AM EDT Appointment [address] [address] Tomer Arita MD [address] [place] [address] 12/03/2025 10:50 AM EST Office Visit [facility] [address] [place] [address] Juan Wright DO [address] [place] [address] 02/26/2026 9:00 AM EDT Office Visit [facility] [address] [place] [address] Cece Dai MD, MPH [address] [place] [address] Tomer Arita MD [address] [place] [address] documented as of this encounter Results * [...] Negative. DENSITY: There are scattered fibroglandular densities. us Jovan Guillermo MD IMG US BREAST Final Re sult documented in this encounter Visit Diagnoses Diagnosis Encounter for screening mammogram for malignant neoplasm of breast Encounter for screening mammogram for malignant neoplasm of breast documented in this encounter Care Teams Roller Pneumatic Relationship Specialty Start Date End Date Jovan Guillermo MD [address] [place] [address] PCP - General 05/17/19 04/21/24 Cece Dai MD, MPH [address] [place] [address] [email or web address] PCP - General Family Medicine 04/22/24 Cece Dai MD, MPH [address] [place] [address] [email or web address] Insurance Assigned Provider 02/09/25 documented as of this encounter Additional Source Comments The information contained in this document represents components of the legal health record. It is not the complete legal health record.[facility]
--- OUTSIDE RECORDS SUMMARY | 2025-08-27 21:07 | XMS_ITS | Clinical Summary ---
Author Organization [facility] it Address [address] [place] [address] Care Team Providers Care Cloud Operations Engineer Name Role Phone Heri Cueto MD Primary Care Provider [phone] Allergies Active Allergy Reactions Criticality Noted Date [...] DX:DVT (deep venous thrombo sis) ([facility]); COMMENT: on OCPs at the time, taken off; never anticoagulated MTHFR mutation 05/18/2011 DX:MTHFR mutatio n GERD (gastroesophageal reflu x disease) 05/18/2011 DX:GERD (gastroesophageal re flux disease) Lung blebs (CMS/HCC V24, CMS /[facility] V28) 05/18/2011 DX:Lung blebs (HCC) Hepatic cyst [...] Recently Relevant to Health Maintenance Care Teams Cloud Operations Engineer Relationship Specialty Start Date End Date Heri Cueto MD [address] [place] [address] PCP - General 04/29/11
--- OUTSIDE RECORDS SUMMARY | 2025-08-27 21:07 | XMS_ITS | Encounter Summary ---
Author Organization [facility] Address [address] [employer] [facility] [address] [place] [address] Phone Care Team Providers Care Bus Assistant Name Role Phone Jovan Guillermo MD Primary Care Provider + Cece Dai MD, MPH Primary Care Provid er Cece Dai MD, MPH Unavailable [phone]- [phone] Encounter Details Date Type Department Care Team (Late st Contact Info) Description 06/09/2023 Ancillary Orders Virtual Department [address] [place] [address] Jovan Guillermo MD [address] [place] [address] Encounter for screening mammogram for malignant neoplasm [...] st Contact Info) Description 07/15/2025 Procedure Pass [facility], [address] [address] 09/03/2025 10:00 AM EDT Appointment [address] [address] Tomer Arita MD [address] [place] [address] 12/03/2025 10:50 AM EST Office Visit [facility] [address] [place] [address] Juan Wright DO [address] [place] [address] 02/26/2026 9:00 AM EDT Office Visit [facility] [address] [place] [address] Cece Dai MD, MPH [address] [place] [address] Tomer Arita MD [address] [place] [address] documented as of this encounter Results * [...] fibroglandular densities. us Jovan Guillermo MD IMG MG EXAMS Final Re sult documented in this encounter Visit Diagnoses Diagnosis Encounter for screening mammogram for malignant neoplasm of breast Encounter for screening mammogram for malignant neoplasm of breast documented in this encounter Care Teams Bus Assistant Relationship Specialty Start Date End Date Jovan Guillermo MD [address] [place] [address] PCP - General 05/17/19 04/21/24 Cece Dai MD, MPH [address] [place] [address] [email or web address] PCP - General Family Medicine 04/22/24 Cece Dai MD, MPH [address] [place] [address] [email or web address] Insurance Assigned Provider 02/09/25 documented as of this encounter Additional Source Comments The information contained in this document represents components of the legal health record. It is not the complete legal health record.[facility]
--- OUTSIDE RECORDS SUMMARY | 2025-08-27 21:07 | XMS_ITS | Encounter Summary ---
Author Organization [facility] Address [address] [facility] [address] [place] [address] Phone Care Team Providers Care Core Drill Operator Helper Name Role Phone Jovan Guillermo MD Primary Care Provider + Cece Dai MD, MPH Primary Care Provid er Cece Dai MD, MPH Unavailable [phone] Encounter Details Date Type Department Care Team (Latest Contact Info) Description 06/07/2023 Transcribe Orders Virtual Department 30 [place] [address] Jovan Guillermo MD [address] [place] [address] Encounter for screening mammogram for malignant neoplasm [...] st Contact Info) Description 07/15/2025 Procedure Pass [facility], [address] [address] 09/03/2025 10:00 AM EDT Appointment [address] [address] Tomer Arita MD [address] [place] [address] 12/03/2025 10:50 AM EST Office Visit [facility] [address] [place] [address] Juan Wright DO [address] [place] [address] 02/26/2026 9:00 AM EDT Office Visit [facility] [place] [facility] [address] [place] [address] Cece Dai MD, MPH [address] [place] [address] Tomer Arita MD [address] [place] [address] documented as of this encounter Visit Diagnoses Diagnosis Encounter for screening mammogram for malignant neoplasm of breast- Primary documented in this encounter Care Teams Core Drill Operator Helper Relationship Specialty Start Date End Date Jovan Guillermo MD [address] [place] [address] PCP - General 05/17/19 04/21/24 Cece Dai MD, MPH [address] [address] [email or web address] PCP - General Family Medicine 04/22/24 Cece Dai MD, MPH [address] [address] [email or web address] Insurance Assigned Provider 02/09/25 documented as of this encounter Additional Source Comments The information contained in this document represents components of the legal health record. It is not the complete legal health record.[facility]
--- OUTSIDE RECORDS SUMMARY | 2025-08-27 21:07 | XMS_ITS | Clinical Summary ---
Author Organization [facility] Address [address] [facility] [address] [place] [address] Phone Care Team Providers Care Stripper Cutter Machine Name Role Phone Cece Dai MD, MPH Primary Care Provid er Cece Dai MD, MPH Unavailable [phone] Allergies Active Allergy Reactions Criticality Noted Date [...] daily. Active GARLIC ORAL Take by mouth. Active Bacillus coagulans-inuli n 1 billion-250 cell-mg Cap Take 250 mg by mouth daily. Active acetylcysteine 600 mg Cap capsule Take by mouth every 4 (four) hours. Active OLIVE LEAF EXTRACT ORAL Take by mouth. Active dihydroberberin e (BERBERINE ES-5 ORAL) Take by mouth. Active lisinopril (PRINIVIL,ZESTR IL) 2.5 MG tablet Take 1 tablet (2.5 mg total) by mouth daily. Take 2.5-5mg by mouth daily 60 tablet 5 4 Active aloe vera 25 mg Cap Take by mouth. Active ZINC ORAL Take by mouth daily. Active cholecalciferol , vitamin D3, (VITAMIN D3 ORAL) Take by mouth daily. Active MAGNESIUM ORAL Take by mouth daily. Active VALERIAN ORAL Take by mouth. 08/22/20 25 Discontinu ed(No longer taking) Active Problems Problem Noted Date Diagnosed Date Age related osteoporosis 07/15/2025 Assessment & Plan (08/22/2025 1:38 PM EDT): DEXA scan 06/2025 revealed significant osteoporosis. Patient [...] and PTH to be drawn later today. Assessment & Plan (07/16/2025 9:38 AM EDT): [...] Intractable abdominal pain 07/15/2025 Assessment & Plan (08/22/2025 1:06 PM EDT): Patient with mild abdominal pain in the LLQ which worsens with palpation, and seems to be unrelated to bowel function. Given that the pain is very localized and reproducible, radiates into the groin, and with her documented osteoporosis this makes a fracture of the hip or pelvis much more likely. Considered diverticular disease, or mass of the colon, ovary or kidney. A CT abdomen/pelvis has been ordered for visualization of the potential fracture sites and also to r/o above Dx. Will obtain CBC w/diff and CMP as well. Assessment & Plan (07/16/2025 9:37 AM EDT): [...] Chronic sinusitis 04/22/2024 Overview (04/22/2024): Follows at [facility], believes it is fungal Assessment & Plan (02/25/2025 11:18 AM EDT): Orders: Ambulatory referral to External Allergy Assessment & Plan (10/22/2024 10:54 AM EST): Orders: External Referral to [facility]ol[facility] ([facility]) History of stroke associated with blood clotting [...] 5:27 AM EDT): Will need a new grounds maintenance supervisor as Dr Holland is nearing care home. [...] Encounters Date Type Department Care Team Description 08/25/2025 11:52 AM EDT - 08/25/2025 11:59 PM EDT Hospital Encounter [facility] [address] [place] [address] Tomer Arita MD Discharge Disposition: Home or Self Care 08/22/2025 11:20 AM EDT Office Visit [facility] [address] [place] [address] Tomer Arita MD Intractable abdominal pain (Primary Dx); Age related osteoporosis, unspecified pathological fracture presence 08/11/2025 Telephone [facility] [address] [place] [address] Cece Dai MD, MPH Calcium Injection 07/24/[address] [place] [address] Cece Dai MD, MPH CT order question 07/21/[address] [place] [address] Cece Dai MD, MPH Testing question 07/15/2025 4:00 PM EDT Office Visit [address] [place] [address] Tomer Arita MD Age related osteoporosis, unspecified pathological fracture presence (Primary Dx); Need for qrathge-qlebk-sbbvkp a (MMR) vaccine; Intractable abdominal pain 07/15/2025 Nurse Triage [address] [place] [address] Cece Dai MD, MPH Triage (Abdominal pain ) 06/07/2025 10:33 AM EDT - 06/07/2025 11:59 PM EDT Hospital Encounter [facility] - [address] [address] Cece Dai MD, MPH Discharge Disposition: Home [...] 6.4 oz) 08/22/2025 11:05 AM EDT Height 163.5 cm (5' 4.37 ) 02/25/2025 10:05 AM E DT Body Mass Index 20.43 02/25/2025 10:05 AM EDT Plan of Treatment Upcoming Encounters Date Type Department Care Team (Late st Contact Info) Description 07/15/2025 Procedure Pass [address] [address] 09/03/2025 10:00 AM EDT Appointment [address] [address] Tomer Arita MD [address] [address] 12/03/2025 10:50 AM EST Office Visit [facility] 22 [place] [address] Juan Wright DO 22 [place] [address] 02/26/2026 9:00 AM EDT Office Visit [facility] [place] [facility] [address] [address] Cece Dai MD, MPH [address] [address] Tomer Arita MD [address] [place] [address] Health Maintenance Due Date Last Done Comments SMOKING Hx and SMOKELESS TOBACCO SCREENING 1970 HEPATITIS C SCREENING 1975 COLONOSCOPY 2002 FIT TEST 2002 FOBT 2002 SIGMOIDOSCOPY 2002 VIRTUAL COLONOSCOPY 2002 ZOSTER VACCINES (1 of 2) 2007 INFLUENZA VACCINE (#1) 2025 , 09/07/2022, 10/12/2005 COVID-19 VACCINE ( season) 2025 10/16/2024, 09/11/2023, 08/18/2022, Additional history exists BLOOD PRESSURE 02/20/2026 08/22/2025 DEPRESSION SCREENING 02/25/2026 02/25/2025 CREATININE LEVEL 08/25/2026 08/25/2025, 06/21/2024 POTASSIUM LEVEL 08/25/2026 08/25/2025, 06/21/2024 MAMMOGRAM 02/27/2027 02/27/2025, 08/0 02/2023, 06/03/2021, Additional [...] Procedure Name Priority Date/Time Associated Diagnosis Comments CBC AND DIFFERENTIAL Routine 08/25/2025 11:57 AM EDT Intractable abdominal pain IONIZED CALCIUM Routine 08/25/2025 11:57 AM EDT Age related osteoporosis, unspecified pathological fracture presence PARATHYROID HORMONE (PTH) Routine 08/25/2025 11:57 AM EDT Age related osteoporosis, unspecified pathological fracture presence COMPREHENSIVE METABOLIC PANEL Routine 08/25/2025 11:57 AM EDT Intractable abdominal pain BD DXA AXIAL (SPINE) WITH HIP Routine 06/07/2025 11:36 AM EDT Medicare annual wellness visit, subsequent Unspecified menopausal and perimenopausal disorder BI MAMMOGRAM DIAGNOSTIC WITH TOMOSYNTHESIS WITH CAD (BILATERAL) Urgent/patient waiting 02/27/2025 2:46 PM EDT Mass of lower inner quadrant of left breast LIPID PANEL Routine 06/21/2024 10:39 AM EDT Screening cholesterol level from Last 3 Months or Most Recently Relevant to Health Maintenance Results * (ABNORMAL) Comprehensive metabolic panel (08/25/2025 11:57 AM EDT) SODIUM 137 133 - 146 mmol/L [facility] POTASSIUM 4.0 3.3 - 5.1 mmol/L [facility] CHLORIDE 101 96 - 108 mmol/L [facility] CO2 27 21 - 35 mmol/L [facility] BUN 10 6 - 19 mg/dL [facility] CREATININE 0.30(L) 0.5 - 1.5 mg/dL [facility] GLUCOSE 85 70 - 99 mg/dL [facility] ALBUMIN 4.5 3.9 - 4.8 g/dL [facility] TOTAL PROTEIN 6.9 6.5 - 8.0 g/dL [facility] CALCIUM 10.2 8.4 - 10.3 mg/dL [facility] ALKALINE PHOSPHATASE 76 39 - 117 U/L [facility] TOTAL BILIRUBIN 0.5 0.0 - 1.2 mg/dL [facility] AST 16 0 - 37 U/L [facility] ALT 14 0 - 40 U/L [facility] GLOBULIN 2.4 1 - 4.8 g/dL [facility] EGFR 116 >59 mL/min/1.7 3m2 [facility] Comment:Estimated glomerular filtration rate calculated using the CKD-EPI refit equation. ANION GAP 13 10 - 20 mmol/L [facility] Blood 08/25/2025 11:5 7 AM EDT 08/25/2025 12:04 PM EDT us Tomer Arita MD LAB BLOOD ORDERABLES Karolyn puente Result [facility] [address] [place] [address] * (ABNORMAL) CBC and differential (08/25/2025 11:57 AM EDT) WBC 6.31 4.00 - 11.00 K/uL [facility] RBC 4.27 4.00 - 5.20 M/uL [facility] HGB 12.7 12.0 - 16.0 g/dL [facility] HCT 39.8 36.0 - 46.0 % [facility] PLT 349 150 - 450 K/uL [facility] MCV 93.2 80.0 - 100.0 fL [facility] MCH 29.7 27.0 - 31.0 pg [facility] MCHC 31.9(L) 32.0 - 36.0 g/dL [facility] RDW 14.1 11.5 - 14.5 % [facility] MPV 10.0 8.4 - 12.0 fL [facility] NRBC 0.00 0.00 /100 WBCs [facility] ABSOLUTE NRBC 0.00 0.00 K/uL [facility] DIFF METHOD Auto [facility] NEUTS 59.4 48.0 - 76.0 % [facility] LYMPHS 30.4 18.0 - 41.0 % [facility] MONOS 7.4 4.0 - 11.0 % [facility] EOS 2.1 0.0 - 5.0 % [facility] BASOS 0.5 0.0 - 1.5 % [facility] Granulocytes, immature (%) 0.2 0.0 - 0.9 % [facility] ABSOLUTE NEUTS 3.75 1.92 - 7.60 K/uL [facility] ABSOLUTE LYMPHS 1.92 0.72 - 4.10 K/uL [facility] ABSOLUTE MONOS 0.47 0.16 - 1.10 K/uL [facility] ABSOLUTE EOS 0.13 0.00 - 0.50 K/uL [facility] ABSOLUTE BASOS 0.03 0.00 - 0.15 K/uL [facility] Granulocytes, immature 0.01 0.00 - 0.09 K/uL [facility] Blood 08/25/2025 11:5 7 AM EDT 08/25/2025 12:04 PM EDT Tomer Arita MD LAB BLOOD ORDERABLES Karolyn l Result [address] [address] * Parathyroid hormone (PTH) (08/25/2025 11:57 AM EDT) PARATHYROID HORMONE 26 15 - 65 pg/mL [facility] Blood 08/25/2025 11:5 7 AM EDT 08/25/2025 12:04 PM EDT us Tomer Arita MD LAB BLOOD ORDERABLES Karolyn l Result [address] [address] * Ionized calcium (08/25/2025 11:57 AM EDT) IONIZED CALCIUM 1.21 1.14 - 1.37 mmol/L [facility] Blood 08/25/2025 11:5 7 AM EDT 08/25/2025 12:04 PM EDT us Tomer Arita MD LAB BLOOD ORDERABLES Karolyn kwame Result [address] [address] * BD DXA AXIAL (SPINE) WITH HIP (06/07/2025 11:36 AM EDT) Anatomical Region Laterality Modality Bone Density Bone Density 06/07/2025 10:5 1 AM EDT Impressions 06/09/2025 12:17 PM EDT Interpretation: Osteoporosis. Narrative 06/09/2025 12:17 PM EDT Referred By: CECE DAI Indications: Postmenopausal Scanner: [facility] [employer] A with serial# of [id number] located at [facility] Bone Density Scan (DXA) 06/07/25 Details of [...] -2.5), or Osteoporosis (T-score <= -2.5). At [facility], T-scores are compared to peak bone density [...] Referred By: CECE DAI Indications: Postmenopausal Scanner: [facility] [facility] A with serial# of [id number] located at [facility] Bone Density Scan (DXA) 06/07/25 Details [...] -2.5), or Osteoporosis (T-score <= -2.5). At [facility], T-scores are compared to peak bone density [...] MG EXAMS Karolyn l Result * (ABNORMAL) Lipid panel (06/21/2024 10:39 AM EDT) HDL 103 mg/dL [facility] Comment: Interpretation <40 mg/dL: Low HDL cholesterol (major risk factor for CHD) Greater than or equal to 60 mg/dL: High HDL cholesterol ( negative risk factor for CHD) HDL - cholesterol is affected by a number of factors, e.g. smoking, excerise, hormones, sex and age. CHOLESTEROL 174 0 - 240 mg/dL [facility] TRIGLYCERIDES 62 30 - 160 mg/dL [facility] LDL 59 50 - 129 mg/dL [facility] Comment: LDL levels in terms of risk for coronary heart disease: <100 mg/dL: Optimal 100-129 mg/dL: Near or above optimal 130-159 mg/dL: Borderline high 160-189 mg/dL: High >190 mg/dL: Very High CARDIAC RISK RATIO 1.7(L) 3.3 - 4.4 C [facility] Blood 06/21/2024 10:3 9 AM EDT 06/21/2024 10:50 AM EDT us Cece Dai MD, MPH LAB BLOOD ORDERABLES Final Result [facility] [address] [place] [address] from Last 3 Months or Most Recently Relevant to Health Maintenance Insurance MEDICARE PART A & B [facility] MEDICARE ENHANCE SUPPLEMENT MEDICARE PART A & B [facility] MEDICARE ENHANCE SUPPLEMENT [facility] Address: [address] [place] [address] MEDICARE PART A & [place] [address] [address] MEDICARE ENHANCE SUPPLEMENT MEDICARE PART A & B [facility] MEDICARE ENHANCE SUPPLEMENT [facility] Address: [facility] [id number] [place] [id number] MEDICARE PART A & B [facility] MEDICARE ENHANCE SUPPLEMENT [facility] Address: [facility] [id number] [place] [id number] MEDICARE PART A & B [facility] MEDICARE ENHANCE SUPPLEMENT Care Teams Stripper Cutter Machine Relationship Specialty Start Date End Date Cece Dai MD, MPH [address] [address] [email or web address] PCP - General Family Medicine 04/22/24 Cece Dai MD, MPH [address] [address] Insurance Assigned Provider 02/09/25 Additional Source Comments The information contained in this document represents components of the legal health record. It is not the complete legal health record.[facility]
== END 2025-08-27 14:51 | disposition home or self-care (01) ==
LOC: HO.HMGAL 14:51
PROVIDERS: PCP Family Medicine; Visit Provider Registered Nurse Emergency
DX: J30.89 Other allergic rhinitis (principal)
CPT/HCPCS: 95117; 95165

== ENCOUNTER 2025-09-03 11:16 | Outpatient (AMB) | payer MEDICARE, OTHER, SELFPAY ==
--- OUTSIDE RECORDS SUMMARY | 2007-05-11 | XMS_ITS | Encounter Summary ---
Author Organization [facility] Address [address] [place] [address] Phone Care Team Providers Care Roller Coaster Designer Name Role Phone Unavailable Primary Care Provider Unavailabl e Encounter Details Date Type Department Care Team (Late st Contact Info) Description 05/11/2007 Hospital Encounter [facility],Outside Imaging 30 [place] [address] System, Provider Not In, PhD Partners [address] [address] Social History Tobacco Use Types Packs/Day Years [...] AM EST Office Visit [facility] [address] [place] [address] Juan Wright DO 22 [place] [address] 02/26/2026 9:00 AM EDT Office Visit [facility] [place] [facility] 15 [facility] [address] [place] [address] Cece Dai MD, MPH 15 [facility] [address] [place] [address] [email or web address] Tomer Arita MD 15 [facility] [address]. [address] [place] [address] [email or web address] documented as of this encounter Procedures Procedure [...]
--- OUTSIDE RECORDS SUMMARY | 2007-05-15 | XMS_ITS | Encounter Summary ---
Author Organization [facility] Address [address] [place] [address] Phone Care Team Providers Care Radio Equipment Installer Name Role Phone Unavailable Primary Care Provider Unavailabl e Encounter Details Date Type Department Care Team (Late st Contact Info) Description 05/15/2007 Hospital Encounter [facility],Outside Imaging 30 [place] [address] System, Provider Not In, PhD Partners [address] [address] Social History Tobacco Use Types Packs/Day Years [...] AM EST Office Visit [facility] 22 [place] [address] Juan Wright DO 22 [place] [address] 02/26/2026 9:00 AM EDT Office Visit [facility] [place] [facility] 15 [facility] [address] [place] [address] Cece Dai MD, MPH 15 [facility] [address] [place] [address] [email or web address] Tomer Arita MD 15 [facility] [address] 201 [place] [address] [email or web address] documented as [...] It is not the complete legal health record.[facility]
--- OUTSIDE RECORDS SUMMARY | 2008-05-13 | XMS_ITS | Encounter Summary ---
Author Organization [facility] Address [address] [place] [address] Phone Care Team Providers Care Sales Representative Consultant Name Role Phone Unavailable Primary Care Provider Unavailabl e Encounter Details Date Type Department Care Team (Late st Contact Info) Description 05/13/2008 Hospital Encounter [facility],Outside Imaging 30 [place] [address] System, Provider Not In, PhD Partners [address] [address] Social History Tobacco Use Types Packs/Day Years [...] AM EST Office Visit [facility] 22 [place] [address] Juan [place] DO 22 [place] [address] 02/26/2026 9:00 AM EDT Office Visit [facility] [place] [facility] 15 [facility] [address] [place] [address] Cece Dai MD, MPH 15 [facility] [address] 201 [place] [address] [email or web address] Tomer Arita MD 15 [facility] [address] 201 [place] [address] [email or web address] documented as of this encounter Procedures Procedure [...]
--- OUTSIDE RECORDS SUMMARY | 2010-05-11 | XMS_ITS | Encounter Summary ---
Author Organization [facility] Address [address] [place] [address] Phone Care Team Providers Care Weigher Bulker Name Role Phone Unavailable Primary Care Provider Unavailabl e Encounter Details Date Type Department Care Team (Late st Contact Info) Description 05/11/2010 Hospital Encounter [facility],Outside Imaging 30 [place] [address] System, Provider Not In, PhD Partners [address] [address] Social History Tobacco Use Types Packs/Day Years [...] AM EST Office Visit [facility] [address] [place] [address] Juan Wright DO 22 [place] [address] 02/26/2026 9:00 AM EDT Office Visit [facility] [place] [facility] 15 [facility] [address] [place] [address] Cece Dai MD, MPH 15 [facility] [address] [place] [address] [email or web address] Tomer Arita MD 15 [facility] Carter. 201 [place] [address] [email or web address] documented as of this encounter [...] It is not the complete legal health record.[facility]
--- OUTSIDE RECORDS SUMMARY | 2011-05-16 | XMS_ITS | Encounter Summary ---
Author Organization [facility] Address [address] [place] [address] Phone Care Team Providers Care Tv Production Assistant Name Role Phone Unavailable Primary Care Provider Unavailabl e Encounter Details Date Type Department Care Team (Late st Contact Info) Description 05/16/2011 Hospital Encounter [facility],Outside Imaging 30 [place] [address] System, Provider Not In, PhD Partners [address] [address] Social History Tobacco Use Types Packs/Day Years [...] AM EST Office Visit [facility] [address] [place] [address] Juan Wright DO 22 [place] [address] 02/26/2026 9:00 AM EDT Office Visit [facility] [place] [facility] 15 [facility] [address] [place] [address] Cece Dai MD, MPH 15 [facility] [address] [place] [address] [email or web address] Tomer Arita MD 15 [facility] [address] [place] [address] [email or web address] documented as of this encounter Procedures [...]
--- OUTSIDE RECORDS SUMMARY | 2025-09-03 09:02 | XMS_ITS | Encounter Summary ---
Author Organization [facility] Address [address] [facility] [address] [place] [address] Phone Care Team Providers Care Picture Frame Maker Name Role Phone Cece Dai MD, MPH Primary Care Provid er Cece Dai MD, MPH Unavailable [phone]- [phone] Reason for Referral * MRI/CAT Scan - Closed Specialty Diagnoses / Procedures Referred By Hussein douglas Referred To Contact Radiology Diagnoses Intractable abdominal pain Procedures CT Abdomen/Pelvis CT Abdomen/Pelvis Tomer Arita MD [address] [place] [address] Phone: tel: fax: [email or web address] Referral ID Status Reason Start Date Expiration Date Visits Re quested Visits Authorized [id number] Closed 07/15/2025 07/16/2026 1 1 Reason for Visit * MRI/CAT Scan - Closed Specialty Diagnoses / Procedures Referred By Hussein douglas Referred To Contact Radiology Diagnoses Intractable abdominal pain Procedures CT Abdomen/Pelvis CT Abdomen/Pelvis Tomer Arita MD [address] [place] [address] Phone: tel: fax: [email or web address]:[email or web address] Referral ID Status Reason Start Date Expiration Date Visits Re quested Visits Authorized [id number] Closed 07/15/2025 07/16/2026 1 1 Encounter Details Date Type Department Care Team (Late st Contact Info) Description 09/03/2025 9:02 AM EDT Hospital Encounter [facility] Scan - [facility] [address] [place] [address] Tomer Arita MD 15 [facility] [address] [place] [address] [email or web address] Arrived Social History Tobacco Use Types Packs/Day Years [...] AM EST Office Visit [facility] [address] [place] [address] Juan Wright DO [address] [place] [place] [address] 02/26/2026 9:00 AM EDT Office Visit [facility] [place] [facility] [address] [address] Cece Dai MD, MPH [address] [address] Tomer Arita MD [address] [address] Pending Results Name Type Priority Associated Diagnoses Date /Time CT Abdomen/Pelvis Imaging Routine Intractable abdominal pain 09/03/2025 9:21 AM EDT Scheduled Orders Name Type Priority Associated Diagnoses Orde r Schedule CT Abdomen/Pelvis Imaging Routine Intractable abdominal pain As Needed for 1 Occurrences starting 09/03/2025 until 09/03/2025 documented as of this encounter Visit Diagnoses Diagnosis Intractable abdominal pain documented in this encounter Additional Health Concerns Assessment Noted Time PHQ-2 Depression Total Score: 0 02/26/20 10:12 AM EDT documented as of this encounter Care Teams Picture Frame Maker Relationship Specialty Start Date End Date Cece Dai MD, MPH [address] [place] [address] [email or web address] PCP - General Family Medicine 04/22/24 Cece Dai MD, MPH [address] [place] [address] [email or web address] Insurance Assigned Provider 02/09/25 documented as of this encounter Additional Source Comments The information contained in this document represents components of the legal health record. It is not the complete legal health record.[facility]
--- OUTSIDE RECORDS SUMMARY | 2025-09-03 14:20 | XMS_ITS | Encounter Summary ---
Author Organization [facility] Address [address] [facility] [address] [place] [address] Phone Care Team Providers Care Retail Sales Director Name Role Phone Jovan Guillermo MD Primary Care Provider + Cece Dai MD, MPH Primary Care Provid er Cece Dai MD, MPH Unavailable [phone]- [phone] Encounter Details Date Type Department Care Team (Late st Contact Info) Description 05/24/2021 Ancillary Orders Virtual Department [address] [place], [place] [id number] Jovan Guillermo MD [address] [place] [phone] Breast screening Social History Tobacco Use Types [...] AM EST Office Visit [facility] [address] [place] [address] Juan Wright DO 22 [place] [address] [email or web address] 02/26/2026 9:00 AM EDT Office Visit [facility] [place] [facility] 15 [facility] 201 [place] [address] Cece Dai MD, MPH 15 [facility]. 201 [place] [address] Tomer Arita MD [address] [address] documented as of this encounter Results * [...] are scattered fibroglandular densities. Jovan Guillermo MD [facility] Edited R esult - Final documented in this encounter Visit Diagnoses Diagnosis Breast screening Breast screening, unspecified Breast screening Breast screening, unspecified documented in this encounter Care Teams Retail Sales Director Relationship Specialty Start Date End Date Jovan Guillermo MD [address] [place] [address] PCP - General 05/17/19 04/21/24 Cece Dai MD, MPH [address] [place] [address] PCP - General Family Medicine 04/22/24 Cece Dai MD, MPH [address] [place] [address] [email or web address] Insurance Assigned Provider 02/09/25 documented as of this encounter Additional Source Comments The information contained in this document represents components of the legal health record. It is not the complete legal health record.[facility]
--- OUTSIDE RECORDS SUMMARY | 2025-09-03 14:20 | XMS_ITS | Encounter Summary ---
Author Organization [facility] Address [address] [place] [address] Phone Care Team Providers Care Thermometer Production Worker Name Role Phone Jovan Guillermo MD Primary Care Provider + Cece Dai MD, MPH Primary Care Provid er Cece Dai MD, MPH Unavailable [phone]- [phone] Encounter Details Date Type Department Care Team (Late st Contact Info) Description 05/24/2021 Procedure Pass [facility] - [address] [place] [address] Social History Tobacco Use Types Packs/Day Years [...] 10:50 AM EST Office Visit [facility] [address] [place] [address] [place] [address] Juan Wright DO 22 [place] [address] 02/26/2026 9:00 AM EDT Office Visit [facility] [place] [facility] 15 [facility] [address] [place] [address] Cece Dai MD, MPH [address] [facility] [address] [place] [address] Tomer Arita MD [address] [facility] [address] [place] [address] documented as of this encounter Visit Diagnoses Not on filedocumented in this encounter Care Teams Thermometer Production Worker Relationship Specialty Start Date End Date Jovan Guillermo MD [address] [place] [address] PCP - General 05/17/19 04/21/24 Cece Dai MD, MPH [address] [address] PCP - General Family Medicine 04/22/24 Cece Dai MD, MPH [address] [address] Insurance Assigned Provider 02/09/25 documented as of this encounter Additional Source Comments The information contained in this document represents components of the legal health record. It is not the complete legal health record.[facility]
--- OUTSIDE RECORDS SUMMARY | 2025-09-03 14:20 | XMS_ITS | Encounter Summary ---
Author Organization [facility] Address [address] [place] [address] Phone Care Team Providers Care Densitometer Reader Name Role Phone Cece Dai MD, MPH Primary Care Provid er Cece Dai MD, MPH Unavailable [phone]- [phone] Encounter Details Date Type Department Care Team (Late st Contact Info) Description 07/15/2025 Procedure Pass [facility], Ct Scan - [address] [address] Social History Tobacco Use Types Packs/Day Years [...] 10:50 AM EST Office Visit [facility] [address] [place] [address] 02/26/2026 9:00 AM EDT Office Visit [facility] [place] [facility] [address] [facility] [address] [place] [address] Cece Dai MD, MPH 15 [facility] [address] [place] [address] [email or web address] Tomer Arita MD 15 [facility] [address] [place] [address] [email or web address] documented as of this encounter Visit Diagnoses Not on filedocumented in this encounter Additional Health Concerns Assessment Noted Time PHQ-2 Depression Total Score: 0 02/26/20 25 10:12 AM EDT documented as of this encounter Care Teams Densitometer Reader Relationship Specialty Start Date End Date Cece Dai MD, MPH 15 [facility] [address] [place] [address] [email or web address] PCP - General Family Medicine 04/22/24 Cece Dai MD, MPH [address] [address] [email or web address] Insurance Assigned Provider 02/09/25 documented as of this encounter Additional Source Comments The information contained in this document represents components of the legal health record. It is not the complete legal health record.[facility]
--- OUTSIDE RECORDS SUMMARY | 2025-09-03 14:21 | XMS_ITS | Clinical Summary ---
Author Organization [facility] it Address [address] [place] [address] Care Team Providers Care Film Sound Coordinator Name Role Phone Heri Cueto MD Primary Care Provider [phone] Allergies Active Allergy Reactions Criticality Noted Date [...] in 20s DX:DVT (deep venous thrombo sis) ([facility]); COMMENT: on OCPs at the time, taken off; never anticoagulated MTHFR mutation 05/18/2011 DX:MTHFR mutatio n GERD (gastroesophageal reflu x disease) 05/18/2011 DX:GERD (gastroesophageal re flux disease) Lung blebs (CMS/HCC V24, CMS /[facility] V28) 05/18/2011 DX:Lung blebs (HCC) [...] Recently Relevant to Health Maintenance Care Teams Film Sound Coordinator Relationship Specialty Start Date End Date Heri Cueto MD [address] [place] [address] PCP - General 04/29/11
--- OUTSIDE RECORDS SUMMARY | 2025-09-03 14:21 | XMS_ITS | Encounter Summary ---
Author Organization [facility] Address [address] [place] [address] Phone Care Team Providers Care Grip Boss Name Role Phone Cece Dai MD, MPH Primary Care Provid er Cece Dai MD, MPH Unavailable [phone]- [phone] Encounter Details Date Type Department Care Team (Late st Contact Info) Description 02/07/2025 Procedure Pass [facility] - [address] [place] [address] Social History Tobacco Use Types Packs/Day Years [...] AM EST Office Visit [facility] [address] [place] [address] Juan Wright DO 22 [place] [address] 02/26/2026 9:00 AM EDT Office Visit [facility] [address] [place] [address] Cece Dai MD, MPH [address] [facility] [address] [place] [address] [email or web address] Tomer Arita MD [address] [facility] [address] [place] [address] [email or web address] documented as of this encounter Visit Diagnoses Not on filedocumented in this encounter Additional Health Concerns Assessment Noted Time PHQ-2 Depression Total Score: 0 02/26/20 25 10:12 AM EDT documented as of this encounter Care Teams Grip Boss Relationship Specialty Start Date End Date Cece Dai MD, MPH 15 [facility] [address] [place] [address] [email or web address] PCP - General Family Medicine 04/22/24 Cece Dai MD, MPH [address] [address] [email or web address] Insurance Assigned Provider 02/09/25 documented as of this encounter Additional Source Comments The information contained in this document represents components of the legal health record. It is not the complete legal health record.[facility]
--- OUTSIDE RECORDS SUMMARY | 2025-09-03 14:21 | XMS_ITS | Encounter Summary ---
Author Organization [facility] Address [address] [place] [address] Phone Care Team Providers Care Community Center Director Name Role Phone Jovan Guillermo MD Primary Care Provider + Cece Dai MD, MPH Primary Care Provid er Cece Dai MD, MPH Unavailable [phone]- [phone] Encounter Details Date Type Department Care Team (Late st Contact Info) Description 06/09/2023 Procedure Pass [facility] - [address] [place] [address] Social History Tobacco Use Types Packs/Day Years [...] AM EST Office Visit [facility] 22 [place] [address] Juan Wright DO 22 [place] [address] 02/26/2026 9:00 AM EDT Office Visit [facility] [address] [address] Cece Dai MD, MPH [address] [place] [address] Tomer Arita MD [address] [place] [address] documented as of this encounter Visit Diagnoses Not on filedocumented in this encounter Care Teams Community Center Director Relationship Specialty Start Date End Date Jovan Guillermo MD [address] [place] [phone] PCP - General 05/17/19 04/21/24 Cece Dai MD, MPH [address] [place] [address] PCP - General Family Medicine 04/22/24 Cece Dai MD, MPH [address] [place] [address] Insurance Assigned Provider 02/09/25 documented as of this encounter Additional Source Comments The information contained in this document represents components of the legal health record. It is not the complete legal health record.[facility]
--- OUTSIDE RECORDS SUMMARY | 2025-09-03 14:21 | XMS_ITS | Encounter Summary ---
Author Organization [facility] Address [address] [facility] [address] [place] [address] Phone Care Team Providers Care Hat Cutter Name Role Phone Cece Dai MD, MPH Primary Care Provid er Cece Dai MD, MPH Unavailable [phone]- [phone] Encounter Details Date Type Department Care Team (Late st Contact Info) Description 02/27/2025 Ancillary Orders [facility] [place] [facility] [address] [facility] [address] [place] [address] Cece Dai MD, MPH [address] [facility] [address] [place] [address] [email or web address] [place] [...] AM EST Office Visit [facility] [address] [place] [address] [place] [address] 02/26/2026 9:00 AM EDT Office Visit [facility] [place] [facility] [address] [facility] [address] [place] [address] Cece Dai MD, MPH [address] [facility] [address] [place] [address] Tomer Arita MD [address] [facility] [address] [place] [address] documented as of this encounter Results * [...] documented as of this encounter Care Teams Hat Cutter Relationship Specialty Start Date End Date Cece Dai MD, MPH [address] [address] [email or web address] PCP - General Family Medicine 04/22/24 Cece Dai MD, MPH [address] [address] [email or web address] Insurance Assigned Provider 02/09/25 documented as of this encounter Additional Source Comments The information contained in this document represents components of the legal health record. It is not the complete legal health record.[facility]
--- OUTSIDE RECORDS SUMMARY | 2025-09-03 14:21 | XMS_ITS | Encounter Summary ---
Author Organization [facility] Address [address] [place] [address] Phone Care Team Providers Care Mining Machinery Assembler Name Role Phone Cece Dai MD, MPH Primary Care Provid er Cece Dai MD, MPH Unavailable [phone]- [phone] Encounter Details Date Type Department Care Team (Late st Contact Info) Description 02/27/2025 Procedure Pass [facility] - [address] [place] [address] Social History Tobacco Use Types Packs/Day Years [...] 10:50 AM EST Office Visit [facility] [address] [place] [address] 02/26/2026 9:00 AM EDT Office Visit [facility] [address] [facility] [address] [place] [address] Cece Dai MD, MPH 15 [facility] [address] [place] [address] [email or web address] Tomer Arita MD 15 [facility] [address] [place] [address] [email or web address] documented as of this encounter Visit Diagnoses Not on filedocumented in this encounter Additional Health Concerns Assessment Noted Time PHQ-2 Depression Total Score: 0 02/26/20 25 10:12 AM EDT documented as of this encounter Care Teams Mining Machinery Assembler Relationship Specialty Start Date End Date Cece Dai MD, MPH 15 [facility] [address] [place] [address] [email or web address] PCP - General Family Medicine 04/22/24 Cece Dai MD, MPH 15 [facility] [address] [place] [address] [email or web address] Insurance Assigned Provider 02/09/25 documented as of this encounter Additional Source Comments The information contained in this document represents components of the legal health record. It is not the complete legal health record.[facility]
--- OUTSIDE RECORDS SUMMARY | 2025-09-03 14:21 | XMS_ITS | Clinical Summary ---
Author Organization [facility] Address [address] [place] [address] Phone Care Team Providers Care Mine Car Repairer Name Role Phone Cece Dai MD, MPH Primary Care Provid er Cece Dai MD, MPH Unavailable [phone]- [phone] Allergies Active Allergy Reactions Criticality Noted Date [...] Chronic sinusitis 04/22/2024 Overview (04/22/2024): Follows at [facility], believes it is fungal Assessment & [...] 5:27 AM EDT): Will need a new dielectric machine operator as Dr Holland is nearing halfway. I also strongly encouraged her to think [...] Encounters Date Type Department Care Team Description 09/03/2025 9:02 AM EDT Hospital Encounter [facility], Ct Scan - [facility] [address] [place] [address] Tomer Arita MD Arrived 08/25/2025 11:52 AM EDT - 08/25/2025 11:59 PM EDT Hospital Encounter [facility] [address] [place] [address] Tomer Arita MD Discharge Disposition: Home or Self Care 08/22/2025 11:20 AM EDT Office Visit [address] [place] [address] Tomer Arita MD Intractable abdominal pain (Primary Dx); Age related osteoporosis, unspecified pathological fracture presence 08/11/[address] [place] [address] Cece Dai MD, MPH Calcium Injection 07/24/[address] [place] [address] Cece Dai MD, MPH CT order question 07/21/[address] [place] [address] Cece Dai MD, MPH Testing question 07/15/2025 4:00 PM EDT Office Visit [address] [place] [address] Tomer Arita MD Age related osteoporosis, unspecified pathological fracture presence (Primary Dx); Need for ktjltgb-[id number] a (MMR) vaccine; Intractable abdominal pain 07/15/2025 Procedure Pass [facility] Ct Scan - [address] [address] 07/15/2025 Nurse Triage [address] [place] [address] Cece Dai MD, MPH Triage (Abdominal pain ) 06/07/2025 10:33 AM EDT - 06/07/2025 11:59 PM EDT Hospital Encounter [facility], Bone Density - [address] [address] Cece Dai MD, MPH Discharge Disposition: Home [...] PM EDT Sexual Orientation Not on file Last Filed [...] EST Office Visit [facility] [address] [place] [address] Juan Wright DO 22 [place] [address] 02/26/2026 9:00 AM EDT Office Visit [facility] [address] [address] Cece Dai MD, MPH [address] [address] Tomer Arita MD [address] [place] [address] [email or web address] Health Maintenance Due Date Last Done Comments [...] EDT) SODIUM 137 133 - 146 mmol/L [facility] POTASSIUM 4.0 3.3 - 5.1 mmol/L [facility] CHLORIDE 101 96 - 108 mmol/L [facility] CO2 27 21 - 35 mmol/L [facility] BUN 10 6 - 19 mg/dL [facility] CREATININE 0.30(L) 0.5 - 1.5 mg/dL [facility] GLUCOSE 85 70 - 99 mg/dL [facility] ALBUMIN 4.5 3.9 - 4.8 g/dL [facility] TOTAL PROTEIN 6.9 6.5 - 8.0 g/dL [facility] CALCIUM 10.2 8.4 - 10.3 mg/dL [facility] ALKALINE PHOSPHATASE 76 39 - 117 U/L [facility] TOTAL BILIRUBIN 0.5 0.0 - 1.2 mg/dL [facility] AST 16 0 - 37 U/L [facility] ALT 14 0 - 40 U/L [facility] GLOBULIN 2.4 1 - 4.8 g/dL [facility] EGFR 116 >59 mL/min/1.7 3m2 [facility] Comment:Estimated glomerular filtration rate calculated using the CKD-EPI refit equation. ANION GAP 13 10 - 20 mmol/L [facility] Blood 08/25/2025 11:5 7 AM EDT 08/25/2025 12:04 PM EDT us Tomer Arita MD LAB BLOOD ORDERABLES Karolyn puente Result [facility] [address] [place] [address] * (ABNORMAL) CBC and differential (08/25/2025 11:57 AM EDT) WBC 6.31 4.00 - 11.00 K/uL [facility] RBC 4.27 4.00 - 5.20 M/uL [facility] HGB 12.7 12.0 - 16.0 g/dL [facility] HCT 39.8 36.0 - 46.0 % [facility] PLT 349 150 - 450 K/uL [facility] MCV 93.2 80.0 - 100.0 fL [facility] MCH 29.7 27.0 - 31.0 pg [facility] MCHC 31.9(L) 32.0 - 36.0 g/dL [facility] RDW 14.1 11.5 - 14.5 % [facility] MPV 10.0 8.4 - 12.0 fL [facility] NRBC 0.00 0.00 /100 WBCs [facility] ABSOLUTE NRBC 0.00 0.00 K/uL [facility] DIFF METHOD Auto [facility] NEUTS 59.4 48.0 - 76.0 % [facility] LYMPHS 30.4 18.0 - 41.0 % [facility] MONOS 7.4 4.0 - 11.0 % [facility] EOS 2.1 0.0 - 5.0 % [facility] BASOS 0.5 0.0 - 1.5 % [facility] Granulocytes, immature (%) 0.2 0.0 - 0.9 % [facility] ABSOLUTE NEUTS 3.75 1.92 - 7.60 K/uL [facility] ABSOLUTE LYMPHS 1.92 0.72 - 4.10 K/uL [facility] ABSOLUTE MONOS 0.47 0.16 - 1.10 K/uL [facility] ABSOLUTE EOS 0.13 0.00 - 0.50 K/uL [facility] ABSOLUTE BASOS 0.03 0.00 - 0.15 K/uL [facility] Granulocytes, immature 0.01 0.00 - 0.09 K/uL [facility] Blood 08/25/2025 11:5 7 AM EDT 08/25/2025 12:04 PM EDT Tomer Arita MD LAB BLOOD ORDERABLES Karolyn l Result [address] [address] * Parathyroid hormone (PTH) (08/25/2025 11:57 AM EDT) PARATHYROID HORMONE 26 15 - 65 pg/mL [facility] Blood 08/25/2025 11:5 7 AM EDT 08/25/2025 12:04 PM EDT us Tomer Arita MD LAB BLOOD ORDERABLES Karolyn l Result [address] [address] * Ionized calcium (08/25/2025 11:57 AM EDT) IONIZED CALCIUM 1.21 1.14 - 1.37 mmol/L [facility] Blood 08/25/2025 11:5 7 AM EDT 08/25/2025 12:04 PM EDT us Tomer Arita MD LAB BLOOD ORDERABLES Karolyn puente Result [facility] [address] [place], [place] [id number] * BD DXA AXIAL (SPINE) WITH HIP (06/07/2025 11:36 AM EDT) Anatomical Region Laterality Modality Bone Density Bone Density 06/07/2025 10:5 1 AM EDT Impressions 06/09/2025 12:17 PM EDT Interpretation: Osteoporosis. Narrative 06/09/2025 12:17 PM EDT Referred By: CECE DAI Indications: Postmenopausal Scanner: Noblivity A with serial# of [id number] located at [facility] Bone Density Scan (DXA) 06/07/25 Details of [...] -2.5), or Osteoporosis (T-score <= -2.5). At [facility], T-scores are compared to peak bone density [...] Referred By: CECE DAI Indications: Postmenopausal Scanner: Noblivity A with serial# of [id number] located at [facility] Bone Density Scan (DXA) 06/07/25 Details [...] -2.5), or Osteoporosis (T-score <= -2.5). At [facility], T-scores are compared to peak bone density [...] 10:39 AM EDT) HDL 103 mg/dL [facility] Comment: Interpretation <40 mg/dL: Low HDL cholesterol (major risk factor for CHD) Greater than or equal to 60 mg/dL: High HDL cholesterol ( negative risk factor for CHD) HDL - cholesterol is affected by a number of factors, e.g. smoking, excerise, hormones, sex and age. CHOLESTEROL 174 0 - 240 mg/dL [facility] TRIGLYCERIDES 62 30 - 160 mg/dL [facility] LDL 59 50 - 129 mg/dL [facility] Comment: LDL levels in terms of risk for coronary heart disease: <100 mg/dL: Optimal 100-129 mg/dL: Near or above optimal 130-159 mg/dL: Borderline high 160-189 mg/dL: High >190 mg/dL: Very High CARDIAC RISK RATIO 1.7(L) 3.3 - 4.4 C [facility] Blood 06/21/2024 10:3 9 AM EDT 06/21/2024 10:50 AM EDT us Cece Dai MD, MPH LAB BLOOD ORDERABLES Final Result [address] [address] from Last 3 Months or Most Recently Relevant to Health Maintenance Insurance MEDICARE PART A & B [facility] MEDICARE ENHANCE SUPPLEMENT MEDICARE PART A & B [facility] MEDICARE ENHANCE SUPPLEMENT MEDICARE PART A & B [facility] MEDICARE ENHANCE SUPPLEMENT MEDICARE PART A & B [facility] MEDICARE ENHANCE SUPPLEMENT MEDICARE PART A & B [facility] MEDICARE ENHANCE SUPPLEMENT MEDICARE PART A & B [facility] MEDICARE ENHANCE SUPPLEMENT Care Teams Mine Car Repairer Relationship Specialty Start Date End Date Cece Dai MD, MPH [address] [address] PCP - General Family Medicine 04/22/24 Cece Dai MD, MPH [address] [address] Insurance Assigned Provider 02/09/25 Additional Source Comments The information contained in this document represents components of the legal health record. It is not the complete legal health record.[facility]
--- OUTSIDE RECORDS SUMMARY | 2025-09-03 14:21 | XMS_ITS | Data Portability ---
Author Organization [place] [facility], Allergy Address [address] [address] Care Team Providers Care Oyster Planter Name Role Phone TELLO SAMINA Referring Provider Assessment Encounter Date Assessment Date Assessment LastModified [...] She is working with the integrative medicine [facility] and [place]. They do have a somewhat different approach. We discussed that I think migraine is a big component and have suggested magnesium oxide up to 400 mg riboflavin 400 mg and avoidance of dietary triggers. I have given her written information including the migraine disorders.org website. I am happy to offer her an additional opinion. She was not happy at the [facility]. I asked her to review the migraine [...] on natural recovery progress and functional capacity mosque. 5. Fractured rib Persistence of rib pain [...] w/o contrast 2024 025 [place] [facility] [place], [address], [place], [address], 5 10:47:58 Medication Orders None recorded. Patient TargetsNo targets recorded. Patient Instructions Encounter Date Encounter Id Patient Instructions Last Modified By Organization Details Last Modified Time 05/12/2025 [id number] Please note: Parts of this encounter note [...] contr ast No observ ation record ed. [facility] [place] [address], [address], 01/01/2025 13:39:36 Result Notes None recorded. Problems Name Problem SNOMED Code Status Onset Date Resolution Date Notes Provider Name and Address Organization Details Recorded Time Nasal congestion 38265559 Active 025 THERESA BRIGGS MD [address], [address], [place] [facility] 5 12:57:18 Allergic rhinitis 70660258 Active 025 RUTH CORONA PA-C [address], [address], [facility] - [facility] 5 11:03:53 Atypical facial pain 04659545 Active 025 RUTH CORONA PA-C [address], [address], [facility] - [facility] 5 12:43:20 Migraine without aura, not refractory 589154694 Active 025 RUTH CORONA PA-C 100 [facility] [address] [place] [address], [address], [facility] - [facility] 5 12:43:29 Migraine 08615976 Active 025 RUHT CORONA PA-C 100 Health system E [facility], [place], [address], [facility] - [facility] [place] 5 12:43:37 Pain in face 95694228 Active 025 THERESA BRIGGS MD 100 [facility],[address], [place], [address], [facility] - [facility] [place] 5 12:57:09 Ear sensations - finding 750968080 Active 025 THERESA BRIGGS MD 100 [facility],[address], [place], [address], [facility] - [facility] [place] 5 12:57:24 Deviated nasal septum 895279889 Active 025 THERESA BRIGGS MD 100 [facility],[address], [place], [address], [facility] - [facility] [place] 5 12:57:47 Perennial allergic rhinitis 976215083 Active 025 THERESA BRIGGS MD 100 [facility], [address], [place], [address], [facility] - [facility] 5 10:50:44 Frequent headache 254053871 Active 025 THERESA BRIGGS MD 100 [facility], [address], [place], [address], [facility] - [facility] 5 10:50:52 Chronic sinusitis 22926657 Active 025 THERESA BRIGGS MD 100 [facility], [address], [place], [address], [facility] - [facility] 5 10:50:57 Problem Notes None recorded. Procedures Surgical History Date Name Laterality Status Provider Name and Address Organization Details Recorded Time 03/21/20 25 JMSNasal/Sinus Endoscopy completed THERESA Reynolds MD [address] [address], [place], [address], [place] [facility] 03/21/2025 08:53:42 12/17/19 25 Nasal Endoscopy completed RUTH CORONA PA-C [address], [address], [facility] - [facility] 12/17/2024 11:06:16 cholecystectomy completed Sonia Jack [place] [facility] 12/17/2024 10:35:16 hernia repair completed Sonia Jack [place] [facility] 12/17/2024 10:35:32 Imaging Results None recorded. Procedure Notes None recorded. Medical Equipment None Reported. Allergies Allergen ID Allergen Name Allergen Category Reaction Reaction Severity Criticality Documentation Date Start Date Code Code System Note Provider Name and Address Organization Details Recorded Time 097332 Substance with macrolide structure and antibacte rial mechanism of action (substanc e) medicatio n Not available Not available unabletoasse 12/17/2024 92725 0009 SNOMED Sonia whitt [place] [facility] 5 10:32:47 360265 cultivate d mushroom extract food,medi cation Not available Not available Not available 12/17/2024 01207 17 RxNorm Sonia whitt [facility] 10:33:43 077889 nystatin medicatio n Not available Not available [facility] 12/17/2024 7597 RxNorm RUTH CORONA PA-C 100 [facility] [address], [place], [address], [facility] - [facility] 5 10:53:29 Medications Name Sig Start Date Stop Date Status Note LastModified by Organization Details LastModified Time lisinopril 2.5 mg tablet TAKE 1 TO 2 TABLETS BY MOUTH DAILY active Not Available Not Available No t Available Vitals Date Recorded Body height Body mass index (BMI) Body weight Provider Name and Address Organization Details Last Updated DateTime 12/17/2024 170.18 cm 18.8 kg/m2 07323.08 g Sonia Jack [place] [facility] 12/17/2024 10:30:48 Date Recorded Systolic And Diastolic Provider Name and Address Organization Details Last Updated DateTime 05/12/2025 130/84 mm[Hg] THERESA CORTES MD [address] [place] [address], [place], [address], [place] [facility] 05/12/2025 10:53:13 Date Recorded Body height Provider Name an d Address Organization Details Last Updated DateTime 05/12/2025 170.18 cm BLAIR LARA [place] [facility] [place] 05/12/2025 10:27:07 Social History None recorded. Functional [...] Emphysema N Migraines Y Thyroid Problems N Glaucoma N Depression N COPD N Developmental Delay N Nasal or Sinus Problems N Anemia N Immune System Disorder N Anesthesia Complications N Heart Attack (IN) N Other Skin Condition N Diabetes N Rhinitis N Bleeding Disorder Y Food Allergy N Arthritis Y Hearing Loss N Hyperlipidemia N Cancer N Stroke Y Dementia N Nasal polyps N Asthma N Sleep Disorder N GERD/Reflux N High Cholesterol N Liver Disease Y Headaches Y Fibromyalgia N Hypertension Y Speech Delay N Kidney Disease N Gynecological HistoryNo gynecological history recorded. Obstetrics History GPAL:G 0 P 0 0 0 0 Past Encounters Encounter ID Performer Location Encounter Start Date Encounter Closed Date Diagnosis/Indication Diagnosis SNOMED-CT Code Diagnosis ICD10 Code Diagnosis IMO Codes Diagnosis Note [id number] RUTH CORONA PA-C [facility] [address] [address] 12/17/2024 10:04:14 12/17/2024 11:06:28 Nasal congestion 70768138 R09.81 Allergic rhinitis 915540 04 J30.9 Atypical facial pain 713 90795 G50.1 Migraine 01175382 G43.90 9 [id number] THERESA ELENA MD [facility] [address] [address] 03/21/2025 08:32:29 03/21/2025 08:58:24 Pain in face 81610809 R51.9 38453 Nasal congestion 8981876 0 R09.81 76870 Ear sensat ions - finding 486577976 H93.8X3 64591786 Deviated nasal septum 12 5575379 J34.2 55038 [id number] THERESA ELENA MD [facility] [address] [address] 05/12/2025 10:18:42 05/12/2025 10:55:08 Perennial allergic rhinitis 592542654 J30.89 755333 Frequent headache 990366 003 R51.9 38909051 Chronic sinusitis 216837 00 J32.8 84349 Health Concerns Section Related Observation LastModified by Organization Detai ls LastModified Time None Recorded Concern Status LastModified by Organization Details LastModified Time None Recorded Advance Directives Directive None Recorded Payers Insurance Date Sequence Insurance Name Policy Number Policy Whatley Covered Member ID Whatley Member ID Guarantor Name 05/12/2025 2 [facility] (MEDICARE SUPPLEMENT) Tish garcia [id number] Tish Mack 05/12/2025 1 MEDICARE B-[place]: [facility] [employer] Tish Mack [id number] Tish Mack Notes Date Note Type [...] noise sensitivity. She is closely followed by [facility] for holistic management of her symptoms. [...] of sinus surgery. LIZETT PORTILLO MD 100 [facility],[address], [address], [facility] [place] 12/18/2024 07:36:00 03/21/2025 text/html Persistent issues with headache, facial pressure and congestion. Presently taking multiple supplements and antifungals from [facility] for fungus and toxins Saw Dr Soler at [facility] and felt he wasn't very good. there must be something else that we can't see wants IV antifungal to get into brain recent CT scan did not show any significant sinus disease THERESA CORTES MD 100 [facility],[address], [address], [facility] 03/21/2025 12:58:01 05/12/2025 text/html The patient is [...] no recent hospital admissions or procedures at [facility]. She had an encounter with orthopedic health services and breast screening follow-up. Currently, the patient manages her health with supplementary magnesium and B vitamins, addressing unspecified wellness goals. Previously discussed management of migraine with magnesium and B vitamin. That seems to be helpful. I had also recommended evaluation with Dr. Walters in [place] but she has held off on that at the present time THERESA CORTES MD 100 [facility],[address] [address], [place], [address], [facility] 05/12/2025 10:55:31 OBGyn Episode No OBEpisode recorded.
--- OUTSIDE RECORDS SUMMARY | 2025-09-03 14:22 | XMS_ITS | Encounter Summary ---
Author Organization [facility] Address [address] [place] [address] Phone Care Team Providers Care Repairer General Name Role Phone Jovan Guillermo MD Primary Care Provider + Cece Dai MD, MPH Primary Care Provid er Cece Dai MD, MPH Unavailable +1- [phone] Encounter Details Date Type Department Care Team (Late st Contact Info) Description 06/09/2023 Ancillary Orders Virtual Department 30 [place] [address] Jovan Guillermo MD [address] [place] [address] Encounter for screening mammogram for malignant neoplasm [...] AM EST Office Visit [facility] 22 [place] [address] Juan Wright DO 22 [place] [address] 02/26/2026 9:00 AM EDT Office Visit [facility] [place] [facility] [address] [address] Cece Dai MD, MPH [address] [address] Tomer Arita MD [address] [address] documented as of this encounter Results * [...] breast documented in this encounter Care Teams Repairer General Relationship Specialty Start Date End Date Jovan Guillermo MD [address] [place] [address] PCP - General 05/17/19 04/21/24 Cece Dai MD, MPH [address] [address] [email or web address] PCP - General Family Medicine 04/22/24 Cece Dai MD, MPH [address] [address] [email or web address] Insurance Assigned Provider 02/09/25 documented as of this encounter Additional Source Comments The information contained in this document represents components of the legal health record. It is not the complete legal health record.[facility]
--- OUTSIDE RECORDS SUMMARY | 2025-09-03 14:22 | XMS_ITS | Encounter Summary ---
Author Organization [facility] Address [address] [place] [address] Phone Care Team Providers Care Payment Specialist Name Role Phone Jovan Guillermo MD Primary Care Provider + Cece Dai MD, MPH Primary Care Provid er Cece Dai MD, MPH Unavailable +1- [phone] Encounter Details Date Type Department Care Team (Latest Contact Info) Description 06/07/2023 Transcribe Orders Virtual Department 30 [place] [address] Jovan Guillermo MD [address] [place] [address] Encounter for screening mammogram for malignant neoplasm [...] Upcoming Encounters Date Type Department Care Team ([facility] st Contact Info) Description 12/03/2025 10:50 AM EST Office Visit [facility] 22 [place] [address] Juan Wright DO 22 [place] [address] 02/26/2026 9:00 AM EDT Office Visit [facility] [place] [facility] [address] [address] Cece Dai MD, MPH [address] [place] [address] Tomer Arita MD [address] [place] [address] documented as of this encounter Visit Diagnoses Diagnosis Encounter for screening mammogram for malignant neoplasm of breast- Primary documented in this encounter Care Teams Payment Specialist Relationship Specialty Start Date End Date Jovan Guillermo MD [address] [place] [address] PCP - General 05/17/19 04/21/24 Cece Dai MD, MPH [address] [place] [address] PCP - General Family Medicine 04/22/24 Cece Dai MD, MPH [address] [address] [email or web address] Insurance Assigned Provider 02/09/25 documented as of this encounter Additional Source Comments The information contained in this document represents components of the legal health record. It is not the complete legal health record.[facility]
--- OUTSIDE RECORDS SUMMARY | 2025-09-03 14:22 | XMS_ITS | Encounter Summary ---
Author Hub.PushPage Preferred Language Albanian Marital Status /Civil Union Alevism Affiliation Unknown Race White Ethnic Group Not or Lati no Author Organization [facility] Address [address] [place] [address] Phone Care Team Providers Care Hog Pusher Name Role Phone Jovan Guillermo MD Primary Care Provider + Cece Dai MD, MPH Primary Care Provid er Cece Dai MD, MPH Unavailable +1- [phone] Encounter Details Date Type Department Care Team (Late st Contact Info) Description 06/09/2023 Procedure Pass [facility] - [address] [place] [address] Social History Tobacco Use Types Packs/Day Years [...] AM EST Office Visit [facility] 22 [place] [address] Juan Wright DO 22 [place] [address] 02/26/2026 9:00 AM EDT Office Visit [facility] [place] [facility] [address] [address] Cece Dai MD, MPH [address] [place] [address] Tomer Arita MD [address] [place] [address] documented as of this encounter Visit Diagnoses Not on filedocumented in this encounter Care Teams Hog Pusher Relationship Specialty Start Date End Date Jovan Guillermo MD [address] [place] [address] PCP - General 05/17/19 04/21/24 Cece Dai MD, MPH [address] [place] [address] PCP - General Family Medicine 04/22/24 Cece Dai MD, MPH [address] [place] [address] Insurance Assigned Provider 02/09/25 documented as of this encounter Additional Source Comments The information contained in this document represents components of the legal health record. It is not the complete legal health record.[facility]
--- OUTSIDE RECORDS SUMMARY | 2025-09-03 14:22 | XMS_ITS | Encounter Summary ---
Author Organization [facility] Address [address] [facility] [address] [place] [address] Phone Care Team Providers Care Hardware Manager Name Role Phone Jovan Guillermo MD Primary Care Provider + Cece Dai MD, MPH Primary Care Provid er Cece Dai MD, MPH Unavailable +1- [phone] Encounter Details Date Type Department Care Team (Late st Contact Info) Description 06/04/2021 Ancillary Orders [facility],Outside Imaging 30 [place] [address] System, Provider Not In, [place] [address] Social History Tobacco Use Types Packs/Day Years [...] AM EST Office Visit [facility] 22 [place], [place] [address] Juan Wright DO 22 [place] [address] 02/26/2026 9:00 AM EDT Office Visit [facility] [place] [facility] 15 [facility] [address] [place] [address] Cece Dai MD, MPH 15 [facility] [address] [place] [address] Tomer Arita MD 15 [facility] [address] [place] [address] documented as of this encounter Results * [...] on filedocumented in this encounter Care Teams Hardware Manager Relationship Specialty Start Date End Date Jovan Guillermo MD [address] [place] [address] PCP - General 05/17/19 04/21/24 Cece Dai MD, MPH [address] [place] [address] [email or web address] PCP - General Family Medicine 04/22/24 Cece Dai MD, MPH [address] [place] [address] [email or web address] Insurance Assigned Provider 02/09/25 documented as of this encounter Additional Source Comments The information contained in this document represents components of the legal health record. It is not the complete legal health record.[facility]
--- OUTSIDE RECORDS SUMMARY | 2025-09-03 14:22 | XMS_ITS | Encounter Summary ---
Author Organization [facility] Address [address] [place] [address] Phone Care Team Providers Care Ip Litigation Paralegal Name Role Phone Jovan Guillermo MD Primary Care Provider + Cece Dai MD, MPH Primary Care Provid er Cece Dai MD, MPH Unavailable +1- [phone] Encounter Details Date Type Department Care Team (Late st Contact Info) Description 06/09/2023 Ancillary Orders Virtual Department 30 [place] [address] Jovan Guillermo MD [address] [place] [address] Encounter for screening mammogram for malignant neoplasm [...] EST Office Visit [facility] 22 [place] [address] Juan Wright DO 22 [place] [address] 02/26/2026 9:00 AM EDT Office Visit [facility] [place] [facility] [address] [address] Cece Dai MD, MPH [address] [address] Tomer Arita MD [address] [address] documented as of this encounter Results * [...] are scattered fibroglandular densities. Jovan Guillermo MD [facility] BREAST Final Re sult documented in this encounter Visit Diagnoses Diagnosis Encounter for screening mammogram for malignant neoplasm of breast Encounter for screening mammogram for malignant neoplasm of breast documented in this encounter Care Teams Ip Litigation Paralegal Relationship Specialty Start Date End Date Jovan Guillermo MD [address] [place] [address] PCP - General 05/17/19 04/21/24 Cece Dai MD, MPH [address] [place] [address] [email or web address] PCP - General Family Medicine 04/22/24 Cece Dai MD, MPH [address] [place] [address] 201 [place] [address] [email or web address] Insurance Assigned Provider 02/09/25 documented as of this encounter Additional Source Comments The information contained in this document represents components of the legal health record. It is not the complete legal health record.[facility]
== END 2025-09-03 11:17 | disposition home or self-care (01) ==
LOC: HO.HMGAL 11:16
PROVIDERS: PCP Family Medicine; Visit Provider Registered Nurse Emergency
DX: J30.89 Other allergic rhinitis (principal)
CPT/HCPCS: 95117; 95165

== ENCOUNTER 2025-09-10 14:10 | Outpatient (AMB) | payer MEDICARE, OTHER, SELFPAY ==
--- OUTSIDE RECORDS SUMMARY | 2007-05-10 23:00 | XMS_ITS | Encounter Summary ---
Author Organization [facility] Address [address] [place] [address] Phone Care Team Providers Care Tiger Machine Operator Name Role Phone Unavailable Primary Care Provider Unavailabl e Encounter Details Date Type Department Care Team (Late st Contact Info) Description 05/11/2007 Hospital Encounter [facility],Outside Imaging 30 [place] [address] System, Provider Not In, PhD Partners [address] [address] Social History Tobacco Use Types Packs/Day Years [...] on file documented as of this encounter Functional Status documented as of this encounter Plan of Treatment Upcoming Encounters Date Type Department Care Team (Late st Contact Info) Description 12/03/2025 10:50 AM EST Office Visit [facility] [address] [place] [address] Juan Wright DO 22 [place] [address] 02/26/2026 9:00 AM EDT Office Visit [facility] [place] [facility] [address] [facility] [address] [place] [address] Cece Dai MD, MPH 15 [facility] [address] [place] [address] [email or web address] Tomer Arita MD 15 [facility] [address] [place] [address] [email or web address] documented as of this encounter Procedures Procedure [...] It is not the complete legal health record.[facility]
--- OUTSIDE RECORDS SUMMARY | 2007-05-14 23:00 | XMS_ITS | Encounter Summary ---
Author Organization [facility] Address [address] [place] [address] Phone Care Team Providers Care Armhole Baster Jumpbasting Name Role Phone Unavailable Primary Care Provider Unavailabl e Encounter Details Date Type Department Care Team (Late st Contact Info) Description 05/15/2007 Hospital Encounter [facility],Outside Imaging 30 [place] [address] System, Provider Not In, PhD Partners [address] [address] Social History Tobacco Use Types Packs/Day Years [...] AM EST Office Visit [facility] [address] [place] [address] Juan Wright DO 22 [place] [address] 02/26/2026 9:00 AM EDT Office Visit [facility] [place] [facility] 15 [facility] [address] [place] [address] Cece Dai MD, MPH 15 [facility] [address] [place] [address] [email or web address] Tomer Arita MD 15 [facility] [address] [place] [address] [email or web address] documented as of this encounter Procedures Procedure Name Priority Date/Time Associated Diagnosis Comments BI MAMMOGRAM OUTSIDE (NO INTERPRETATION) Routine 05/15/2007 12:00 AM EDT documented in this encounter Results * Mammogram Outside (No Interpretation) (05/15/2007 12:00 AM EDT) Narrative SYSTEMGENERATED, DOCUMENTATION - 06/04/2021 10:44 AM EDT This study is for PACS storage only and not for interpretation. us Provider Not In System PhD IMG OUTSIDE IMAGING W /OUT INTERPRETATION Final Result documented in this encounter Visit Diagnoses Not on filedocumented in this encounter Additional Source Comments The information contained in this document represents components of the legal health record. It is not the complete legal health record.[facility]
--- OUTSIDE RECORDS SUMMARY | 2008-05-12 23:00 | XMS_ITS | Encounter Summary ---
Author Organization [facility] Address [address] [place] [address] Phone Care Team Providers Care Chlorination Operator Name Role Phone Unavailable Primary Care Provider Unavailabl e Encounter Details Date Type Department Care Team (Late st Contact Info) Description 05/13/2008 Hospital Encounter [facility],Outside Imaging 30 [place] [address] System, Provider Not In, PhD Partners [address] [address] Social History Tobacco Use Types Packs/Day Years [...] AM EST Office Visit [facility] [address] [place] [address] Juan Wright DO 22 [place] [address] 02/26/2026 9:00 AM EDT Office Visit [facility] [place] [facility] 15 [facility] [address] [place] [address] Cece Dai MD, MPH 15 [facility] [address] [place] [address] [email or web address] Tomer Arita MD 15 [facility] [address] [place] [address] [email or web address] documented as of [...] It is not the complete legal health record.[facility]
--- OUTSIDE RECORDS SUMMARY | 2010-05-10 23:00 | XMS_ITS | Encounter Summary ---
Author Organization [facility] Address [address] [place] [address] Phone Care Team Providers Care Milk Condenser Name Role Phone Unavailable Primary Care Provider Unavailabl e Encounter Details Date Type Department Care Team (Late st Contact Info) Description 05/11/2010 Hospital Encounter [facility],Outside Imaging 30 [place] [address] System, Provider Not In, PhD Partners [address] [address] Social History Tobacco Use Types Packs/Day Years [...] AM EST Office Visit [facility] 22 [place] [address] Juan [place] DO 22 [place] [address] 02/26/2026 9:00 AM EDT Office Visit [facility] [place] [facility] 15 [facility] [address] [place] [address] Cece Dai MD, MPH 15 [facility] [address] 201 [place] [address] [email or web address] Tomer Arita MD 15 [facility] [address] [place] [address] [email or web address] documented as of this encounter Procedures Procedure [...] It is not the complete legal health record.[facility]
--- OUTSIDE RECORDS SUMMARY | 2011-05-15 23:00 | XMS_ITS | Encounter Summary ---
Author Organization [facility] Address [address] [place] [address] Phone Care Team Providers Care Surveying Technician Name Role Phone Unavailable Primary Care Provider Unavailabl e Encounter Details Date Type Department Care Team (Late st Contact Info) Description 05/16/2011 Hospital Encounter [facility],Outside Imaging 30 [place] [address] System, Provider Not In, PhD Partners [address] [address] Social History Tobacco Use Types Packs/Day Years [...] AM EST Office Visit [facility] [address] [place] [address] Juan Wright DO 22 [place] [address] 02/26/2026 9:00 AM EDT Office Visit [facility] [place] [facility] 15 [facility] [address] [place] [address] Cece Dai MD, MPH 15 [facility] [address] 201 [place] [address] [email or web address] Tomer Arita MD 15 [facility] [address] [place] [address] [email or web address] documented as of this encounter Procedures Procedure [...] It is not the complete legal health record.[facility]
--- OUTSIDE RECORDS SUMMARY | 2025-09-10 17:20 | XMS_ITS | Encounter Summary ---
Author Organization [facility] Address [address] [facility] [place] [address] Phone Care Team Providers Care Sider Mechanic Name Role Phone Jovan Guillermo MD Primary Care Provider + Cece Dai MD, MPH Primary Care Provid er Cece Dai MD, MPH Unavailable +1- [phone] Encounter Details Date Type Department Care Team (Late st Contact Info) Description 05/24/2021 Procedure Pass [facility] - [address] [place] [address] Social History Tobacco Use Types Packs/Day Years [...] 10:50 AM EST Office Visit [facility] [address] [place] [address] [place] [address] Juan Wright DO 22 [place] [address] 02/26/2026 9:00 AM EDT Office Visit [facility] [place] [facility] [address] [place] [address] Cece Dai MD, MPH 15 [facility] [address] [place] [address] Tomer Artia MD 15 [facility] [address] [place] [address] documented as of this encounter Visit Diagnoses Not on filedocumented in this encounter Care Teams Sider Mechanic Relationship Specialty Start Date End Date Jovan Guillermo MD [address] [place] [address] PCP - General 05/17/19 04/21/24 Cece Dai MD, MPH [address] [address] PCP - General Family Medicine 04/22/24 Cece Dai MD, MPH [address] [address] Insurance Assigned Provider 02/09/25 documented as of this encounter Additional Source Comments The information contained in this document represents components of the legal health record. It is not the complete legal health record.[facility]
--- OUTSIDE RECORDS SUMMARY | 2025-09-10 17:20 | XMS_ITS | Encounter Summary ---
Author Organization [facility] Address [address] [place] [address] Phone Care Team Providers Care Assistant Manager Name Role Phone Cece Dai MD, MPH Primary Care Provid er Cece Dai MD, MPH Unavailable +1- [phone] Encounter Details Date Type Department Care Team (Late st Contact Info) Description 02/07/2025 Procedure Pass [facility] - [address] [place] [address] Social History Tobacco Use Types Packs/Day Years [...] AM EST Office Visit [facility] [address] [place] [address] Juan Wright DO 22 [place] [address] 02/26/2026 9:00 AM EDT Office Visit [facility] [place] [facility] 15 [facility] [address] [place] [address] Cece Dai MD, MPH 15 [facility] [address] [place] [address] [email or web address] Tomer Arita MD 15 [facility] [address] [place] [address] [email or web address] documented as of this encounter Visit Diagnoses Not on filedocumented in this encounter Additional Health Concerns Assessment Noted Time PHQ-2 Depression Total Score: 0 02/26/20 25 10:12 AM EDT documented as of this encounter Care Teams Assistant Manager Relationship Specialty Start Date End Date Cece Dai MD, MPH 15 [facility] 201 [place] [address] [email or web address] PCP - General Family Medicine 04/22/24 Cece Dai MD, MPH [address] [address] [email or web address] Insurance Assigned Provider 02/09/25 documented as of this encounter Additional Source Comments The information contained in this document represents components of the legal health record. It is not the complete legal health record.[facility]
--- OUTSIDE RECORDS SUMMARY | 2025-09-10 17:20 | XMS_ITS | Encounter Summary ---
Author Organization [facility] Address [address] [place] [address] Phone Care Team Providers Care Nut Sifter Name Role Phone Jovan Guillermo MD Primary Care Provider + Cece Dai MD, MPH Primary Care Provid er Cece Dai MD, MPH Unavailable +1- [phone] Encounter Details Date Type Department Care Team (Late st Contact Info) Description 06/09/2023 Procedure Pass [facility] - [address] [place] [address] Social History Tobacco Use Types Packs/Day Years [...] AM EST Office Visit [facility] [address] [place] [address] Juan Wright DO 22 [place] [address] 02/26/2026 9:00 AM EDT Office Visit [facility] [place] [facility] [address] [address] Cece Dai MD, MPH [address] [place] [address] Tomer Arita MD [address] [place] [address] documented as of this encounter Visit Diagnoses Not on filedocumented in this encounter Care Teams Nut Sifter Relationship Specialty Start Date End Date Jovan Guillermo MD [address] [place] [address] PCP - General 05/17/19 04/21/24 Cece Dai MD, MPH [address] [place] [address] PCP - General Family Medicine 04/22/24 Cece Dai MD, MPH [address] [place] [phone] Insurance Assigned Provider 02/09/25 documented as of this encounter Additional Source Comments The information contained in this document represents components of the legal health record. It is not the complete legal health record.[facility]
--- OUTSIDE RECORDS SUMMARY | 2025-09-10 17:20 | XMS_ITS | Encounter Summary ---
Author Organization [facility] Address [address] [place] [address] Phone Care Team Providers Care Ordnance Corps Officer Name Role Phone Cece Dai MD, MPH Primary Care Provid er Cece Dai MD, MPH Unavailable +1- [phone] Encounter Details Date Type Department Care Team (Late st Contact Info) Description 02/27/2025 Procedure Pass [facility] - [address] [place] [address] Social History Tobacco Use Types Packs/Day Years [...] 10:50 AM EST Office Visit [facility] [place] [address] [place] [address] 02/26/2026 9:00 AM EDT Office Visit [facility] [place] [facility] 15 [facility] [address] [place] [address] Cece Dai MD, MPH 15 [facility] 201 [place] [address] [email or web address] Tomer Arita MD [address] [facility]. [address] [place] [address] [email or web address] documented as of this encounter Visit Diagnoses Not on filedocumented in this encounter Additional Health Concerns Assessment Noted Time PHQ-2 Depression Total Score: 0 02/26/20 25 10:12 AM EDT documented as of this encounter Care Teams [employer] Officer Relationship Specialty Start Date End Date Cece Dai MD, MPH 15 [facility] 201 [place] [address] [email or web address] PCP - General Family Medicine 04/22/24 Cece Dai MD, MPH 15 [facility] 201 [place] [address] [email or web address] Insurance Assigned Provider 02/09/25 documented as of this encounter Additional Source Comments The information contained in this document represents components of the legal health record. It is not the complete legal health record.[facility]
--- OUTSIDE RECORDS SUMMARY | 2025-09-10 17:20 | XMS_ITS | Encounter Summary ---
Author Organization [facility] Address [address] [place] [address] Phone Care Team Providers Care Supervisor Instrument Repair Name Role Phone Jovan Guillermo MD Primary Care Provider + Cece Dai MD, MPH Primary Care Provid er Cece Dai MD, MPH Unavailable [phone]- [phone] Encounter Details Date Type Department Care Team (Late st Contact Info) Description 06/09/2023 Ancillary Orders Virtual Department 30 [place] [address] Jovan Guillermo MD [address] [place] [address] Encounter for screening mammogram for malignant neoplasm [...] AM EST Office Visit [facility] 22 [place] [address] Juan Wright DO 22 [place] [address] 02/26/2026 9:00 AM EDT Office Visit [facility] [place] [facility] [address] [address] Cece Dai MD, MPH [address] [address] Tomer Arita MD [address] [address] documented as of this encounter Results * [...] breast documented in this encounter Care Teams Supervisor Instrument Repair Relationship Specialty Start Date End Date Jovan Guillermo MD [address] [place] [address] PCP - General 05/17/19 04/21/24 Cece Dai MD, MPH [address] [address] [email or web address] PCP - General Family Medicine 04/22/24 Cece Dai MD, MPH [address] [address] [email or web address] Insurance Assigned Provider 02/09/25 documented as of this encounter Additional Source Comments The information contained in this document represents components of the legal health record. It is not the complete legal health record.[facility]
--- OUTSIDE RECORDS SUMMARY | 2025-09-10 17:20 | XMS_ITS | Encounter Summary ---
Author Organization [facility] Address [address] [place] [address] Phone Care Team Providers Care Grounds Maintenance Supervisor Name Role Phone Jovan Guillermo MD Primary Care Provider + Cece Dai MD, MPH Primary Care Provid er Cece Dai MD, MPH Unavailable [phone]- [phone] Encounter Details Date Type Department Care Team (Late st Contact Info) Description 06/09/2023 Procedure Pass [facility] - [address] [place] [address] Social History Tobacco Use Types Packs/Day Years [...] AM EST Office Visit [facility] 22 [place] [address] Juan Wright DO 22 [place] [address] 02/26/2026 9:00 AM EDT Office Visit [facility] [place] [facility] [address] [address] Cece Dai MD, MPH [address] [place] [address] Tomer Arita MD [address] [place] [phone] documented as of this encounter Visit Diagnoses Not on filedocumented in this encounter Care Teams Grounds Maintenance Supervisor Relationship Specialty Start Date End Date Jovan Guillermo MD [address] [place] [address] PCP - General 05/17/19 04/21/24 Cece Dai MD, MPH [address] [place] [address] PCP - General Family Medicine 04/22/24 Cece Dai MD, MPH [address] [place] [address] Insurance Assigned Provider 02/09/25 documented as of this encounter Additional Source Comments The information contained in this document represents components of the legal health record. It is not the complete legal health record.[facility]
--- OUTSIDE RECORDS SUMMARY | 2025-09-10 17:20 | XMS_ITS | Encounter Summary ---
Author Organization [facility] Address [address] [place] [address] Phone Care Team Providers Care Die Cutter Operator Name Role Phone Cece Dai MD, MPH Primary Care Provid er Cece Dai MD, MPH Unavailable +1- [phone] Encounter Details Date Type Department Care Team (Late st Contact Info) Description 02/27/2025 Ancillary Orders [facility] [place] [facility] 15 [facility] [address] [place] [address] Cece Dai MD, MPH 15 [facility] [place]. 201 [place] [address] [email or web address] [...] Office Visit [facility] [address] [place] [address] [place] [address] 02/26/2026 9:00 AM EDT Office Visit [facility] [place] [facility] [address] [facility] [address] [place] [address] Cece Dai MD, MPH 15 [facility] [address]. [address] [place] [address] Tomer Arita MD 15 [facility] [place]. [address] [place] [address] documented as of this encounter Results * [...] documented as of this encounter Care Teams Die Cutter Operator Relationship Specialty Start Date End Date Cece Dai MD, MPH [address] [address] [email or web address] PCP - General Family Medicine 04/22/24 Cece Dai MD, MPH [address] [address] [email or web address] Insurance Assigned Provider 02/09/25 documented as of this encounter Additional Source Comments The information contained in this document represents components of the legal health record. It is not the complete legal health record.[facility]
--- OUTSIDE RECORDS SUMMARY | 2025-09-10 17:20 | XMS_ITS | Encounter Summary ---
Author Organization [facility] Address [address] [facility] [place] [address] Phone Care Team Providers Care Grain Scooper Name Role Phone Jovan Guillermo MD Primary Care Provider + Cece Dai MD, MPH Primary Care Provid er Cece Dai MD, MPH Unavailable +1- [phone] Encounter Details Date Type Department Care Team (Late st Contact Info) Description 05/24/2021 Ancillary Orders Virtual Department 30 [place], [place] [id number] Jovan Guillermo MD [address] [place] [address] Breast screening Social History Tobacco Use Types [...] AM EST Office Visit [facility] [address] [place] [address] Juan Wright DO 22 [place] [address] [email or web address] 02/26/2026 9:00 AM EDT Office Visit [facility] [place] [facility] 15 [facility] 201 [place] [address] Cece Dai MD, MPH 15 [facility]. 201 [place] [address] Tomer Arita MD [address] [address] documented as of this encounter Results * [...] are scattered fibroglandular densities. Jovan Guillermo MD [facility] Edited R esult - Final documented in this encounter Visit Diagnoses Diagnosis Breast screening Breast screening, unspecified Breast screening Breast screening, unspecified documented in this encounter Care Teams Grain Scooper Relationship Specialty Start Date End Date Jovan Guillermo MD [address] [place] [address] PCP - General 05/17/19 04/21/24 Cece Dai MD, MPH [address] [place] [address] PCP - General Family Medicine 04/22/24 Cece Dai MD, MPH [address] [place] [phone] [email or web address] Insurance Assigned Provider 02/09/25 documented as of this encounter Additional Source Comments The information contained in this document represents components of the legal health record. It is not the complete legal health record.[facility]
--- OUTSIDE RECORDS SUMMARY | 2025-09-10 17:20 | XMS_ITS | Clinical Summary ---
Author Organization [facility] Address [address] [place] [address] Phone Care Team Providers Care Assistant Chief Nursing Officer Name Role Phone Cece Dai MD, MPH Primary Care Provid er Cece Dai MD, MPH Unavailable +1- [phone] Allergies Active Allergy Reactions Criticality Noted Date [...] Chronic sinusitis 04/22/2024 Overview (04/22/2024): Follows at [facility], believes it is fungal Assessment & Plan (02/25/2025 11:18 AM EDT): Orders: Ambulatory referral to External Allergy Assessment & Plan (10/22/2024 10:54 AM EST): Orders: External Referral to [facility]ol[facility]ology ([facility]) History of stroke associated with blood [...] 5:27 AM EDT): 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 I also strongly encouraged her to think [...] Care Team Description 09/03/2025 9:02 AM EDT - 09/03/2025 11:59 PM EDT Hospital Encounter [facility], Ct Scan - [address] [address] Tomer Arita MD Discharge Disposition: Home or Self Care 08/25/2025 11:52 AM EDT - 08/25/2025 11:59 PM EDT Hospital Encounter [facility] [address] [address] Tomer Arita MD Discharge Disposition: Home or Self Care 08/22/2025 11:20 AM EDT Office Visit [address] [place] [address] Tomer Arita MD Intractable abdominal pain (Primary Dx); Age related osteoporosis, unspecified pathological fracture presence 08/11/[address] [place] [address] Cece Dai MD, MPH Calcium Injection 07/24/[address] [place] [address] Cece Dai MD, MPH CT order question 07/21/[address] [place] [address] Cece Dai MD, MPH Testing question 07/15/2025 4:00 PM EDT Office Visit [address] [place] [address] Tomer Arita MD Age related osteoporosis, unspecified pathological fracture presence (Primary Dx); Need for [id number] a (MMR) vaccine; Intractable abdominal pain 07/15/2025 Procedure Pass [facility], Ct Scan - [address] [address] 07/15/2025 Nurse Triage [address] [place] [address] Cece Dai MD, MPH Triage (Abdominal pain ) from Last 3 Months Immunizations Immunization Administration [...] AM EST Office Visit [facility] [address] [place] [address] Juan Wright DO 22 [place] [address] 02/26/2026 9:00 AM EDT Office Visit [facility] [place] [facility] [address] [address] Cece Dai MD, MPH [address] [address] Tomer Arita MD [address] [address] Health Maintenance Due Date Last Done Comments [...] Procedure Name Priority Date/Time Associated Diagnosis Comments CT ABDOMEN/PELVIS WITHOUT CONTRAST Routine 09/03/2025 9:21 AM EDT Intractable abdominal pain CBC AND DIFFERENTIAL Routine 08/25/2025 11:57 AM EDT Intractable abdominal pain IONIZED CALCIUM Routine 08/25/2025 11:57 AM EDT Age related osteoporosis, unspecified pathological fracture presence PARATHYROID HORMONE (PTH) Routine 08/25/2025 11:57 AM EDT Age related osteoporosis, unspecified pathological fracture presence COMPREHENSIVE METABOLIC PANEL (CMP) Routine 08/25/2025 11:57 AM EDT Intractable abdominal [...] Recently Relevant to Health Maintenance Results * CT ABDOMEN/PELVIS WITHOUT CONTRAST (09/03/2025 9:21 AM EDT) Anatomical Region Laterality Modality Abdomen, Pelvis Computed Tomogra phy 09/09/2025 12:0 4 PM EST Impressions 09/09/2025 12:15 PM EST 1. Prominent colonic stool burden which could be correlated with any clinical evidence of constipation. No specific findings of active diverticulitis or colitis identified on this non-contrast study. 2. Multiple hepatic cysts. Right adnexal cyst. Narrative 09/09/2025 12:[address] ABDOMEN/PELVIS WITHOUT CONTRAST Referring clinician's provided indication for this examination in Epic: * Diverticulitis suspected TECHNIQUE: Multidetector-row CT of the abdomen and pelvis was performed without intravenous contrast using tailored dose modulation techniques. Images were reconstructed in the axial, coronal, and sagittal planes. COMPARISON: None ABSENCE OF INTRAVENOUS CONTRAST DECREASES SENSITIVITY FOR DETECTION OF FOCAL LESIONS AND VASCULAR PATHOLOGY. FINDINGS: Lower Chest: No focal airspace consolidation or pleural effusion. Liver: Numerous hypodense lesions consistent with cysts are present throughout both hepatic lobes, measuring up to 6.4 x 5.0 cm in the dome of the right lobe, 3.6 cm and the left lobe abutting the falciform ligament, and 5.2 x 3.6 cm in the inferomedial right lobe. No hawa hepatomegaly or abnormal perihepatic fluid. Biliary: Status post cholecystectomy. No extrahepatic duct dilatation identified. Spleen: No splenomegaly. Pancreas: Somewhat limited assessment due to the lack of adjacent opacified bowel loops, without gross pancreatic enlargement or duct dilatation. Adrenal Glands: No nodules. Kidneys/Ureters: No nephrolithiasis, hydronephrosis, or perirenal stranding. Bowel: Stomach nondistended. No evidence of small bowel obstruction. Relatively large colonic stool burden without annular constricting mass or definitive paracolic fat infiltration. No gas-containing diverticular abscess identified. Peritoneum/Retroperitoneum: No free fluid or mass. Lymph Nodes: No pathologically enlarged mesenteric, para-aortic, iliac chain, or inguinal nodes identified. Pelvic Organs/Bladder: There is a 2.3 cm right ovarian cyst and adjacent non- specific calcifications. No discrete uterine or left adnexal enlargement. Bladder relatively decompressed, with adjacent stool filled bowel loops abutting and slightly deforming the dome. No free fluid collection identified. Vessels: No aortic aneurysm. Bones/Soft Tissues: No abdominal wall mass or bowel containing hernia. Minimal grade 1 anterolisthesis of L4 relation to L5 apparently on the basis of advanced degenerative facet arthropathy. Mild upper endplate central compression deformity of L5 vertebral body. No destructive skeletal lesion noted. Procedure Note Aramis Henderson MD - 09/09/2025 CT ABDOMEN/PELVIS WITHOUT CONTRAST Referring clinician's provided indication for this examination in Epic: *Diverticulitis suspected TECHNIQUE: Multidetector-row CT of the abdomen and pelvis was performedwithout intravenous contrast using tailored dose modulation techniques.Images were reconstructed in the axial, coronal, and sagittal planes. COMPARISON: None ABSENCE OF INTRAVENOUS CONTRAST DECREASES SENSITIVITY FOR DETECTION OFFOCAL LESIONS AND VASCULAR PATHOLOGY. FINDINGS: Lower Chest: No focal airspace consolidation or pleural effusion. Liver: Numerous hypodense lesions consistent with cysts are presentthroughout both hepatic lobes, measuring up to 6.4 x 5.0 cm in the dome ofthe right lobe, 3.6 cm and the left lobe abutting the falciform ligament,and 5.2 x 3.6 cm in the inferomedial right lobe. No hawa hepatomegaly orabnormal perihepatic fluid. Biliary: Status post cholecystectomy. No extrahepatic duct dilatationidentified. Spleen: No splenomegaly. Pancreas: Somewhat limited assessment due to the lack of adjacentopacified bowel loops, without gross pancreatic enlargement or ductdilatation. Adrenal Glands: No nodules. Kidneys/Ureters: No nephrolithiasis, hydronephrosis, or perirenalstranding. Bowel: Stomach nondistended. No evidence of small bowel obstruction.Relatively large colonic stool burden without annular constricting mass ordefinitive paracolic fat infiltration. No gas-containing diverticularabscess identified. Peritoneum/Retroperitoneum: No free fluid or mass. Lymph Nodes: No pathologically enlarged mesenteric, para-aortic, iliacchain, or inguinal nodes identified. Pelvic Organs/Bladder: There is a 2.3 cm right ovarian cyst and adjacentnon- specific calcifications. No discrete uterine or left adnexalenlargement. Bladder relatively decompressed, with adjacent stool filledbowel loops abutting and slightly deforming the dome. No free fluidcollection identified. Vessels: No aortic aneurysm. Bones/Soft Tissues: No abdominal wall mass or bowel containing hernia.Minimal grade 1 anterolisthesis of L4 relation to L5 apparently on thebasis of advanced degenerative facet arthropathy. Mild upper endplatecentral compression deformity of L5 vertebral body. No destructiveskeletal lesion noted. IMPRESSION: 1. Prominent colonic stool burden which could be correlated with anyclinical evidence of constipation. No specific findings of activediverticulitis or colitis identified on this non-contrast study. 2. Multiple hepatic cysts. Right adnexal cyst. Tomer Arita MD IMG CT ABD/PELVIS Final R esult * (ABNORMAL) Comprehensive metabolic panel (08/25/2025 11:57 AM EDT) SODIUM 137 133 - 146 mmol/L [facility] POTASSIUM 4.0 3.3 - 5.1 mmol/L [facility] CHLORIDE 101 96 - 108 mmol/L [facility] CO2 27 21 - 35 mmol/L [facility] BUN 10 6 - 19 mg/dL [facility] CREATININE 0.30(L) 0.5 - 1.5 mg/dL [facility] GLUCOSE 85 70 - 99 mg/dL [facility] ALBUMIN 4.5 3.9 - 4.8 g/dL [facility] TOTAL PROTEIN 6.9 6.5 - 8.0 g/dL [facility] CALCIUM 10.2 8.4 - 10.3 mg/dL [facility] ALKALINE PHOSPHATASE 76 39 - 117 U/L [facility] TOTAL BILIRUBIN 0.5 0.0 - 1.2 mg/dL [facility] AST 16 0 - 37 U/L [facility] ALT 14 0 - 40 U/L [facility] GLOBULIN 2.4 1 - 4.8 g/dL [facility] EGFR 116 >59 mL/min/1.7 3m2 [facility] Comment:Estimated glomerular filtration rate calculated using the CKD-EPI refit equation. ANION GAP 13 10 - 20 mmol/L [facility] Blood 08/25/2025 11:5 7 AM EDT 08/25/2025 12:04 PM EDT us Tomer Arita MD LAB BLOOD BKR ORDERABLES Final Result [facility] [address] [place] [address] * (ABNORMAL) CBC and differential (08/25/2025 11:57 AM EDT) WBC 6.31 4.00 - 11.00 K/uL [facility] RBC 4.27 4.00 - 5.20 M/uL [facility] HGB 12.7 12.0 - 16.0 g/dL [facility] HCT 39.8 36.0 - 46.0 % [facility] PLT 349 150 - 450 K/uL [facility] MCV 93.2 80.0 - 100.0 fL [facility] MCH 29.7 27.0 - 31.0 pg [facility] MCHC 31.9(L) 32.0 - 36.0 g/dL [facility] RDW 14.1 11.5 - 14.5 % [facility] MPV 10.0 8.4 - 12.0 fL [facility] NRBC 0.00 0.00 /100 WBCs [facility] ABSOLUTE NRBC 0.00 0.00 K/uL [facility] DIFF METHOD Auto [facility] NEUTS 59.4 48.0 - 76.0 % [facility] LYMPHS 30.4 18.0 - 41.0 % [facility] MONOS 7.4 4.0 - 11.0 % [facility] EOS 2.1 0.0 - 5.0 % [facility] BASOS 0.5 0.0 - 1.5 % [facility] Granulocytes, immature (%) 0.2 0.0 - 0.9 % [facility] ABSOLUTE NEUTS 3.75 1.92 - 7.60 K/uL [facility] ABSOLUTE LYMPHS 1.92 0.72 - 4.10 K/uL [facility] ABSOLUTE MONOS 0.47 0.16 - 1.10 K/uL [facility] ABSOLUTE EOS 0.13 0.00 - 0.50 K/uL [facility] ABSOLUTE BASOS 0.03 0.00 - 0.15 K/uL [facility] Granulocytes, immature 0.01 0.00 - 0.09 K/uL [facility] Blood 08/25/2025 11:5 7 AM EDT 08/25/2025 12:04 PM EDT us Tomer Arita MD LAB BLOOD BKR ORDERABLES Final Result [facility] [address] [place] [address] * Parathyroid hormone (PTH) (08/25/2025 11:57 AM EDT) PARATHYROID HORMONE 26 15 - 65 pg/mL [facility] Blood 08/25/2025 11:5 7 AM EDT 08/25/2025 12:04 PM EDT us Tomer Arita MD LAB BLOOD BKR ORDERABLES Final Result [address] [address] * Ionized calcium (08/25/2025 11:57 AM EDT) IONIZED CALCIUM 1.21 1.14 - 1.37 mmol/L [facility] Blood 08/25/2025 11:5 7 AM EDT 08/25/2025 12:04 PM EDT Tomer Arita MD LAB BLOOD BKR ORDERABLES Final Result Performing Organization Address City/[facility]/ZIP Co de Phone Number [address] [address] * BD DXA AXIAL (SPINE) WITH HIP (06/07/2025 11:36 AM EDT) Anatomical Region Laterality Modality Bone Density Bone Density 06/07/2025 10:5 1 AM EDT Impressions 06/09/2025 12:17 PM EDT Interpretation: Osteoporosis. Narrative 06/09/2025 12:17 PM EDT Referred By: CECE DAI Indications: Postmenopausal Scanner: [employer] A with serial# of [id number] located at [facility] Bone Density Scan (DXA) 06/07/25 Details of [...] -2.5), or Osteoporosis (T-score <= -2.5). At [facility], T-scores are compared to peak bone density [...] Referred By: CECE DAI Indications: Postmenopausal Scanner: [employer] A with serial# of [id number] located at [facility] Bone Density Scan (DXA) 06/07/25 Details [...] -2.5), or Osteoporosis (T-score <= -2.5). At [facility], T-scores are compared to peak bone density [...] (06/21/2024 10:39 AM EDT) HDL 103 mg/dL [facility] Comment: Interpretation <40 mg/dL: Low HDL cholesterol (major risk factor for CHD) Greater than or equal to 60 mg/dL: High HDL cholesterol ( negative risk factor for CHD) HDL - cholesterol is affected by a number of factors, e.g. smoking, excerise, hormones, sex and age. CHOLESTEROL 174 0 - 240 mg/dL [facility] TRIGLYCERIDES 62 30 - 160 mg/dL [facility] LDL 59 50 - 129 mg/dL [facility] Comment: LDL levels in terms of risk for coronary heart disease: <100 mg/dL: Optimal 100-129 mg/dL: Near or above optimal 130-159 mg/dL: Borderline high 160-189 mg/dL: High >190 mg/dL: Very High CARDIAC RISK RATIO 1.7(L) 3.3 - 4.4 C [facility] Blood 06/21/2024 10:3 9 AM EDT 06/21/2024 10:50 AM EDT us Cece Dai MD, MPH LAB BLOOD BKR ORDERA BLES Final Result [facility] [address] [place], [place] [id number] from Last 3 Months or Most Recently Relevant to Health Maintenance Insurance MEDICARE PART A & B [facility] MEDICARE ENHANCE SUPPLEMENT MEDICARE PART A & B [facility] MEDICARE ENHANCE SUPPLEMENT MEDICARE PART A & B [facility] MEDICARE ENHANCE SUPPLEMENT [facility] Address: [address] [place] [id number] MEDICARE PART A & B [facility] MEDICARE ENHANCE SUPPLEMENT MEDICARE PART A & B [facility] MEDICARE ENHANCE SUPPLEMENT [facility] Address: [address] [place] [id number] MEDICARE PART A & B [facility] MEDICARE ENHANCE SUPPLEMENT Care Teams Assistant Chief Nursing Officer Relationship Specialty Start Date End Date Cece Dai MD, MPH [address] [place] [id number] [email or web address] PCP - General Family Medicine 04/22/24 Cece Dai MD, MPH [address] [place] [address] [email or web address] Insurance Assigned Provider 02/09/25 Additional Source Comments The information contained in this document represents components of the legal health record. It is not the complete legal health record.[facility]
--- OUTSIDE RECORDS SUMMARY | 2025-09-10 17:20 | XMS_ITS | Encounter Summary ---
Author Organization [facility] Address [address] [place] [address] Phone Care Team Providers Care Seafood Processor Name Role Phone Jovan Guillermo MD Primary Care Provider + Cece Dai MD, MPH Primary Care Provid er Cece Dai MD, MPH Unavailable +1- [phone] Encounter Details Date Type Department Care Team (Late st Contact Info) Description 06/04/2021 Ancillary Orders [facility],Outside Imaging [address] [place] [address] System, Provider Not In, [place] [address] Social History Tobacco Use Types Packs/Day Years [...] AM EST Office Visit [facility] [address] [place] [place], [place] [id number] Juan Wright DO 22 [place] [address] 02/26/2026 9:00 AM EDT Office Visit [facility] [place] [facility] [address] [facility] [address] [place] [address] Cece Dai MD, MPH [address] [facility] [address] [place] [address] Tomer Arita MD [address] [facility] [address] [place] [address] documented as of this encounter Results * [...] on filedocumented in this encounter Care Teams Seafood Processor Relationship Specialty Start Date End Date Jovan Guillermo MD [address] [place] [id number] PCP - General 05/17/19 04/21/24 Cece Dai MD, MPH [address] [place] [phone] [email or web address] PCP - General Family Medicine 04/22/24 Cece Dai MD, MPH [address] [place] [phone] [email or web address] Insurance Assigned Provider 02/09/25 documented as of this encounter Additional Source Comments The information contained in this document represents components of the legal health record. It is not the complete legal health record.[facility]
--- OUTSIDE RECORDS SUMMARY | 2025-09-10 17:20 | XMS_ITS | Encounter Summary ---
Author Organization [facility] Address [address] [place] [address] Phone Care Team Providers Care Estate Attorney Name Role Phone Jovan Guillermo MD Primary Care Provider + Cece Dai MD, MPH Primary Care Provid er Cece Dai MD, MPH Unavailable +1- [phone] Encounter Details Date Type Department Care Team (Late st Contact Info) Description 06/09/2023 Ancillary Orders Virtual Department 30 [place] [address] Jovan Guillermo MD [address] [place] [address] Encounter for screening mammogram for malignant neoplasm [...] AM EST Office Visit [facility] [address] [place] [address] Juan Wright DO 22 [place] [address] 02/26/2026 9:00 AM EDT Office Visit [facility] [place] [facility] [address] [address] Cece Dai MD, MPH [address] [address] Tomer Arita MD [address] [address] documented as of this encounter Results * [...] are scattered fibroglandular densities. Jovan Guillermo MD [facility] BREAST Final Re sult documented in this encounter Visit Diagnoses Diagnosis Encounter for screening mammogram for malignant neoplasm of breast Encounter for screening mammogram for malignant neoplasm of breast documented in this encounter Care Teams Estate Attorney Relationship Specialty Start Date End Date Jovan Guillermo MD [address] [place] [address] PCP - General 05/17/19 04/21/24 Cece Dai MD, MPH [address] [place] [phone] [email or web address] PCP - General Family Medicine 04/22/24 Cece Dai MD, MPH [address] [place] [address] [address] [place] [address] [email or web address] Insurance Assigned Provider 02/09/25 documented as of this encounter Additional Source Comments The information contained in this document represents components of the legal health record. It is not the complete legal health record.[facility]
--- OUTSIDE RECORDS SUMMARY | 2025-09-10 17:20 | XMS_ITS | Encounter Summary ---
Author Organization [facility] Address [address] [place] [address] Phone Care Team Providers Care Legal Transcriptionist Name Role Phone Jovan Guillermo MD Primary Care Provider + Cece Dai MD, MPH Primary Care Provid er Cece Dai MD, MPH Unavailable [phone]- [phone] Encounter Details Date Type Department Care Team (Latest Contact Info) Description 06/07/2023 Transcribe Orders Virtual Department 30 [place] [address] Jovan Guillermo MD [address] [place] [phone] Encounter for screening mammogram for malignant neoplasm [...] Upcoming Encounters Date Type Department Care Team ([facility] st Contact Info) Description 12/03/2025 10:50 AM EST Office Visit [facility] [address] [place] [address] Juan Wright DO 22 [place] [address] 02/26/2026 9:00 AM EDT Office Visit [facility] [place] [facility] [address] [address] Cece Dai MD, MPH [address] [place] [address] Tomer Arita MD [address] [place] [address] documented as of this encounter Visit Diagnoses Diagnosis Encounter for screening mammogram for malignant neoplasm of breast- Primary documented in this encounter Care Teams Legal Transcriptionist Relationship Specialty Start Date End Date Jovan Guillermo MD [address] [place] [phone] PCP - General 05/17/19 04/21/24 Cece Dai MD, MPH [address] [place] [phone] PCP - General Family Medicine 04/22/24 Cece Dai MD, MPH [address] [address] [email or web address] Insurance Assigned Provider 02/09/25 documented as of this encounter Additional Source Comments The information contained in this document represents components of the legal health record. It is not the complete legal health record.[facility]
--- OUTSIDE RECORDS SUMMARY | 2025-09-10 17:20 | XMS_ITS | Data Portability ---
Author Organization [place] - [facility], Allergy Address [address] [address] Care Team Providers Care Chiropractor Sole Practitioner Name Role Phone TELLO SAMINA Referring Provider [...] She is working with the integrative medicine [facility] and [place]. They do have a somewhat different approach. [...] at the [place] [facility]. I asked her to review the migraine [...] on natural recovery progress and functional capacity yazidi. 5. Fractured rib Persistence of rib pain [...] w/o contrast 2024 025 [place] [facility] [place], [address], [place], [address], 5 10:47:58 Medication Orders None recorded. Patient TargetsNo targets recorded. Patient Instructions Encounter Date Encounter Id Patient Instructions Last Modified By Organization Details Last Modified Time 05/12/2025 [id number] Please note: Parts of this encounter note [...] contr ast No observ ation record ed. [facility] [place] [address], [address], 01/01/2025 13:39:36 Result Notes None recorded. Problems Name Problem SNOMED Code Status Onset Date Resolution Date Notes Provider Name and Address Organization Details Recorded Time Nasal congestion 97822958 Active 025 THERESA BRIGGS MD [address], [address], [place] - [facility] 5 12:57:18 Allergic rhinitis 09818304 Active 025 RUTH CORONA PA-C [address], [address], [facility] - [facility] 5 11:03:53 Atypical facial pain 62563413 Active 025 RUTH CORONA PA-C [address], [address], [facility] - [facility] 5 12:43:20 Migraine without aura, not refractory 156408534 Active 025 RUTH CORONA PA-C 100 [facility] [address] [place] [address], [address], [facility] - [facility] 5 12:43:29 Migraine 69068340 Active 025 RUTH CORONA PA-C 100 [facility] E [facility], [place], [address], [facility] - [facility] [place] 5 12:43:37 Pain in face 43144554 Active 025 THERESA BRIGGS MD 100 [facility],[address], [place], [address], [facility] - [facility] [place] 5 12:57:09 Ear sensations - finding 324419044 Active 025 THERESA BRIGGS MD 100 [facility],[address], [place], [address], [facility] - [facility] [place] 5 12:57:24 Deviated nasal septum 350071527 Active 025 THERESA BRIGGS MD 100 [facility],[address], [place], [address], [facility] - [facility] [place] 5 12:57:47 Perennial allergic rhinitis 518936623 Active 025 THERESA BRIGGS MD 100 [facility], [address], [place], [address], [facility] - [facility] 5 10:50:44 Frequent headache 399398232 Active 025 THERESA BRIGGS MD 100 [facility], [address], [place], [address], [facility] - [facility] 5 10:50:52 Chronic sinusitis 36218605 Active 025 THERESA BRIGGS MD 100 [facility], [address], [place], [address], [facility] - [facility] 5 10:50:57 Problem Notes None recorded. Procedures Surgical History Date Name Laterality Status Provider Name and Address Organization Details Recorded Time 03/21/20 25 JMSNasal/Sinus Endoscopy completed THERESA Reynolds MD [address] [address], [place], [address], [place] - [facility] 03/21/2025 08:53:42 12/17/19 25 Nasal Endoscopy completed RUTH CORONA PA-C [address], [address], [facility] - [facility] 12/17/2024 11:06:16 cholecystectomy completed Sonia Jack [place] - [facility] 12/17/2024 10:35:16 hernia repair completed Sonia Jack [place] - [facility] 12/17/2024 10:35:32 Imaging Results None recorded. Procedure Notes None recorded. Medical Equipment None Reported. Allergies Allergen ID Allergen Name Allergen Category Reaction Reaction Severity Criticality Documentation Date Start Date Code Code System Note Provider Name and Address Organization Details Recorded Time 350155 Substance with macrolide structure and antibacte rial mechanism of action (substanc e) medicatio n Not available Not available unabletoasse 12/17/2024 67707 0009 SNOMED Sonia whitt [place] - [facility] 5 10:32:47 471499 cultivate d mushroom extract food,medi cation Not available Not available Not available 12/17/2024 70223 17 RxNorm Sonia whitt [facility] 10:33:43 142641 nystatin medicatio n Not available Not available [facility] 12/17/2024 7597 RxNorm RUTH CORONA PA-C 100 [facility] [address], [address], [facility] - [facility] 5 10:53:29 Medications Name Sig Start Date Stop Date Status Note LastModified by Organization Details LastModified Time lisinopril 2.5 mg tablet TAKE 1 TO 2 TABLETS BY MOUTH DAILY active Not Available Not Available No t Available Vitals Date Recorded Body height Body mass index (BMI) Body weight Provider Name and Address Organization Details Last Updated DateTime 12/17/2024 170.18 cm 18.8 kg/m2 72509.08 g Sonia Jack [place] [facility] 12/17/2024 10:30:48 Date Recorded Systolic And Diastolic Provider Name and Address Organization Details Last Updated DateTime 05/12/2025 130/84 mm[Hg] THERESA CORTES MD [address] [place] [address], [place], [address], [place] - [facility] 05/12/2025 10:53:13 Date Recorded Body height Provider Name an d Address Organization Details Last Updated DateTime 05/12/2025 170.18 cm BLAIR LARA [place] [facility] [place] 05/12/2025 10:27:07 Social History None recorded. Functional [...] Disorder N Anesthesia Complications N Heart Attack ([place]) N Other Skin Condition N Diabetes N Rhinitis N Bleeding Disorder Y Food Allergy N Arthritis Y Hearing Loss N Hyperlipidemia N Cancer N Stroke Y Dementia N Nasal polyps N Asthma N High Cholesterol N Sleep Disorder N GERD/Reflux N Liver Disease Y Headaches Y Fibromyalgia N Hypertension Y Speech Delay N Kidney Disease N Gynecological HistoryNo gynecological history recorded. Obstetrics History GPAL:G 0 P 0 0 0 0 Past Encounters Encounter ID Performer Location Encounter Start Date Encounter Closed Date Diagnosis/Indication Diagnosis SNOMED-CT Code Diagnosis ICD10 Code Diagnosis IMO Codes Diagnosis Note [id number] RUTH CORONA PA-C [facility] [address] [address] 12/17/2024 10:04:14 12/17/2024 11:06:28 Nasal congestion 15118151 R09.81 Allergic rhinitis 783490 04 J30.9 Atypical facial pain 713 94936 G50.1 Migraine 91240430 G43.90 9 [id number] THERESA ELENA MD [facility] [address] [address] 03/21/2025 08:32:29 03/21/2025 08:58:24 Pain in face 27624097 R51.9 46366 Nasal congestion 6841392 0 R09.81 38722 Ear sensat ions - finding 489675975 H93.8X3 84064715 Deviated nasal septum 12 8238636 J34.2 [id number] THERESA ELENA MD [facility] [address] [address] 05/12/2025 10:18:42 05/12/2025 10:55:08 Perennial allergic rhinitis 862731552 J30.89 738357 Frequent headache 993948 003 R51.9 35981774 Chronic sinusitis 988729 00 J32.8 78344 Health Concerns Section Related Observation LastModified by Organization Detai ls LastModified Time None Recorded Concern Status LastModified by Organization Details LastModified Time None Recorded Advance Directives Directive None Recorded Payers Insurance Date Sequence Insurance Name Policy Number Policy Whatley Covered Member ID Whatley Member ID Guarantor Name 05/12/2025 2 [facility] (MEDICARE SUPPLEMENT) Tish garcia [id number] Tish Mack 05/12/2025 1 MEDICARE B-[place]: [facility] [employer] Tish Mack [id number] Tish Mack Notes Date Note Type [...] noise sensitivity. She is closely followed by [facility] for holistic management of her symptoms. She [...] of sinus surgery. LIZETT PORTILLO MD 100 [facility],[address], [address], [facility] [place] 12/18/2024 07:36:00 03/21/2025 text/html Persistent issues with headache, facial pressure and congestion. Presently taking multiple supplements and antifungals from [facility] for fungus and toxins Saw Dr Soler at [facility] and felt he wasn't very good. there must be something else that we can't see wants IV antifungal to get into brain recent CT scan did not show any significant sinus disease THERESA CORTES MD 100 [facility],[address], [address], [facility] 03/21/2025 12:58:01 05/12/2025 text/html The patient [...] no recent hospital admissions or procedures at [facility]. She had an encounter with orthopedic health services and breast screening follow-up. Currently, the patient manages her health with supplementary magnesium and B vitamins, addressing unspecified wellness goals. Previously discussed management of migraine with magnesium and B vitamin. That seems to be helpful. I had also recommended evaluation with Dr. Walters in [place] but she has held off on that at the present time THERESA CORTES MD 100 [facility],[address] [address], [place], [address], [facility] 05/12/2025 10:55:31 OBGyn Episode No OBEpisode recorded.
--- OUTSIDE RECORDS SUMMARY | 2025-09-10 17:20 | XMS_ITS | Encounter Summary ---
Author Organization [facility] Address [address] [place] [address] Phone Care Team Providers Care Sanitizer Name Role Phone Cece Dai MD, MPH Primary Care Provid er Cece Dai MD, MPH Unavailable [phone] Encounter Details Date Type Department Care Team (Late st Contact Info) Description 07/15/2025 Procedure Pass [facility], Ct Scan - [address] [address] Social History Tobacco Use Types Packs/Day Years [...] 10:50 AM EST Office Visit [facility] [address] [place] [address] 02/26/2026 9:00 AM EDT Office Visit [facility] [address] [place] [address] Cece Dai MD, MPH 15 [facility] [address] [place] [address] [email or web address] Tomer Arita MD 15 [facility] [address] [place] [address] [email or web address] documented as of this encounter Visit Diagnoses Not on filedocumented in this encounter Additional Health Concerns Assessment Noted Time PHQ-2 Depression Total Score: 0 02/26/20 25 10:12 AM EDT documented as of this encounter Care Teams Sanitizer Relationship Specialty Start Date End Date Cece Dai MD, MPH 15 [facility] 201 [place] [address] [email or web address] PCP - General Family Medicine 04/22/24 Cece Dai MD, MPH [address] [address] [email or web address] Insurance Assigned Provider 02/09/25 documented as of this encounter Additional Source Comments The information contained in this document represents components of the legal health record. It is not the complete legal health record.[facility]
== END 2025-09-10 14:11 | disposition home or self-care (01) ==
LOC: HO.HMGAL 14:10
PROVIDERS: PCP Family Medicine; Visit Provider Registered Nurse Emergency
DX: J30.89 Other allergic rhinitis (principal)
CPT/HCPCS: 95117; 95165

== ENCOUNTER 2025-09-17 14:20 | Outpatient (AMB) | payer MEDICARE, OTHER, SELFPAY ==
--- OUTSIDE RECORDS SUMMARY | 2025-09-17 17:45 | XMS_ITS | Data Portability ---
Author Organization [place] [facility], Allergy Address [address] [address] Care Team Providers Care Molded Goods Controls Operator Name Role Phone SAMINA JAVED Referring Provider [phone] Assessment Encounter Date Assessment Date Assessment LastModified [...] She is working with the integrative medicine [employer] and [place]. They do have a somewhat different approach. We discussed that I think migraine is a big component and have suggested magnesium oxide up to 400 mg riboflavin 400 mg and avoidance of dietary triggers. I have given her written information including the migraine disorders.org website. I am happy to offer her an additional opinion. She was not happy at the [place] [facility]. I asked her to review [...] on natural recovery progress and functional capacity jew. 5. Fractured rib Persistence of rib pain [...] w/o contrast 2024 025 [place] [facility] [place], [address], [place], [address], 5 10:47:58 Medication Orders None recorded. Patient TargetsNo targets recorded. Patient Instructions Encounter Date Encounter Id Patient Instructions Last Modified By Organization Details Last Modified Time 05/12/2025 [id number] Please note: Parts of this encounter note [...] contr ast No observ ation record ed. [facility] [place] [address], [address], 01/01/2025 13:39:36 Result Notes None recorded. Problems Name Problem SNOMED Code Status Onset Date Resolution Date Notes Provider Name and Address Organization Details Recorded Time Nasal congestion 94544980 Active 025 THERESA BRIGGS MD [address], [address], [place] - [facility] 5 12:57:18 Allergic rhinitis 25782784 Active 025 RUTH CORONA PA-C [address], [address], [facility] - [facility] 5 11:03:53 Atypical facial pain 75120328 Active 025 RUTH CORONA PA-C [address], [address], [facility] - [facility] 5 12:43:20 Migraine without aura, not refractory 017766733 Active 025 RUTH CORONA PA-C 100 [facility] [address] [place] [address], [address], [facility] - [facility] 5 12:43:29 Migraine 21656271 Active 025 RUTH CORONA PA-C 100 [facility] E [facility], [place], [address], [facility] - [facility] [employer] 5 12:43:37 Pain in face 15385988 Active 025 THERESA BRIGGS MD 100 [facility],[address], [place], [address], [facility] - [facility] [employer] 5 12:57:09 Ear sensations - finding 989892926 Active 025 THERESA BRIGGS MD 100 [facility],[address], [place], [address], [facility] - [facility] [employer] 5 12:57:24 Deviated nasal septum 888623126 Active 025 THERESA BRIGGS MD 100 [facility],[address], [place], [address], [facility] - [facility] [employer] 5 12:57:47 Perennial allergic rhinitis 843296468 Active 025 THERESA BRIGGS MD 100 [facility], [address], [place], [address], [facility] - [facility] 5 10:50:44 Frequent headache 687630689 Active 025 THERESA BRIGGS MD 100 [facility], [address], [place], [address], [facility] - [facility] 5 10:50:52 Chronic sinusitis 82620394 Active 025 THERESA BRIGGS MD 100 [facility], [address], [place], [address], [facility] - [facility] 5 10:50:57 Problem Notes None recorded. Procedures Surgical History Date Name Laterality Status Provider Name and Address Organization Details Recorded Time 03/21/20 25 JMSNasal/Sinus Endoscopy completed THERESA Reynolds MD [address] [address], [place], [address], [place] - [facility] 03/21/2025 08:53:42 12/17/19 25 Nasal Endoscopy completed RUTH CORONA PA-C [address], [address], [facility] - [facility] 12/17/2024 11:06:16 cholecystectomy completed Sonia Jack [place] - [facility] 12/17/2024 10:35:16 hernia repair completed Sonia Jack [place] [facility] 12/17/2024 10:35:32 Imaging Results None recorded. Procedure Notes None recorded. Medical Equipment None Reported. Allergies Allergen ID Allergen Name Allergen Category Reaction Reaction Severity Criticality Documentation Date Start Date Code Code System Note Provider Name and Address Organization Details Recorded Time 958386 Substance with macrolide structure and antibacte rial mechanism of action (substanc e) medicatio n Not available Not available unabletoasse 12/17/2024 66605 0009 SNOMED Sonia whitt [place] [facility] 5 10:32:47 493987 cultivate d mushroom extract food,medi cation Not available Not available Not available 12/17/2024 53327 17 RxNorm Sonia whitt [facility] 10:33:43 097443 nystatin medicatio n Not available Not available [facility] 12/17/2024 7597 RxNorm RUTH CORONA PA-C 100 [facility] [address], [place], [address], [facility] - [facility] 5 10:53:29 Medications Name Sig Start Date Stop Date Status Note LastModified by Organization Details LastModified Time lisinopril 2.5 mg tablet TAKE 1 TO 2 TABLETS BY MOUTH DAILY active Not Available Not Available No t Available Vitals Date Recorded Body height Body mass index (BMI) Body weight Provider Name and Address Organization Details Last Updated DateTime 12/17/2024 170.18 cm 18.8 kg/m2 42885.08 g Sonia Jack [place] [facility] 12/17/2024 10:30:48 Date Recorded Systolic And Diastolic Provider Name and Address Organization Details Last Updated DateTime 05/12/2025 130/84 mm[Hg] THERESA CORTES MD [address] [place] [address], [place], [address], [place] - [facility] 05/12/2025 10:53:13 Date Recorded Body height Provider Name an d Address Organization Details Last Updated DateTime 05/12/2025 170.18 cm BLAIR LARA [place] [facility] [employer] 05/12/2025 10:27:07 Social History None recorded. Functional [...] Disorder N Anesthesia Complications N Heart Attack ([place]) N Other Skin Condition N Diabetes N [...] ICD10 Code Diagnosis IMO Codes Diagnosis Note [id number] RUTH CORONA PA-C [facility] [address] [address] 12/17/2024 10:04:14 12/17/2024 11:06:28 Nasal congestion 40525040 R09.81 Allergic rhinitis 676018 04 J30.9 Atypical facial pain 713 43859 G50.1 Migraine 21888523 G43.90 9 [id number] THERESA ELENA MD [facility] [address] [address] 03/21/2025 08:32:29 03/21/2025 08:58:24 Pain in face 59263612 R51.9 35056 Nasal congestion 3098445 0 R09.81 80237 Ear sensat ions - finding 424216256 H93.8X3 34430365 Deviated nasal septum 12 9958693 J34.2 47696 [id number] THERESA ELENA MD [facility] [address] [address] 05/12/2025 10:18:42 05/12/2025 10:55:08 Perennial allergic rhinitis 746231919 J30.89 037279 Frequent headache 797127 003 R51.9 41668029 Chronic sinusitis 721953 00 J32.8 59186 Health Concerns Section Related Observation LastModified by Organization Detai ls LastModified Time None Recorded Concern Status LastModified by Organization Details LastModified Time None Recorded Advance Directives Directive None Recorded Payers Insurance Date Sequence Insurance Name Policy Number Policy Whatley Covered Member ID Whatley Member ID Guarantor Name 05/12/2025 2 [facility] (MEDICARE SUPPLEMENT) Tish garcia [id number] Tish Mack 05/12/2025 1 MEDICARE B-[place]: [facility] [employer] Tish Mack [id number] Tish Mack Notes Date Note Type [...] noise sensitivity. She is closely followed by [facility] for holistic management of her symptoms. She [...] of sinus surgery. LIZETT PORTILLO MD 100 [facility],[address], [address], [facility] [employer] 12/18/2024 07:36:00 03/21/2025 text/html Persistent issues with headache, facial pressure and congestion. Presently taking multiple supplements and antifungals from [facility] for fungus and toxins Saw Dr Soler at [facility] [place] [facility] and felt he wasn't very good. there must be something else that we can't see wants IV antifungal to get into brain recent CT scan did not show any significant sinus disease THERESA CORTES MD 100 [facility],[address], [address], [facility] 03/21/2025 12:58:01 05/12/2025 text/html The patient [...] no recent hospital admissions or procedures at [facility]. She had an encounter with orthopedic health services and breast screening follow-up. Currently, the patient manages her health with supplementary magnesium and B vitamins, addressing unspecified wellness goals. Previously discussed management of migraine with magnesium and B vitamin. That seems to be helpful. I had also recommended evaluation with Dr. Walters in [place] but she has held off on that at the present time THERESA CORTES MD 100 [facility],[address] [address], [place], [address], [facility] 05/12/2025 10:55:31 OBGyn Episode No OBEpisode recorded.
--- OUTSIDE RECORDS SUMMARY | 2025-09-17 17:46 | XMS_ITS | Clinical Summary ---
Author Organization [facility] it Address [address] [place] [address] Care Team Providers Care Carton Catcher Name Role Phone Heri Cueto MD Primary Care Provider [phone] Allergies Active Allergy Reactions Criticality Noted Date [...] Health Screening 11/08/2024 COVID-19 Vaccine (1 - 2024-2 6 season) 2025 Influenza Vaccine (#1) 2025 10/12/2005 [...] Recently Relevant to Health Maintenance Care Teams Carton Catcher Relationship Specialty Start Date End Date Heri Cueto MD [address] [place] [address] PCP - General 04/29/11
== END 2025-09-17 14:20 | disposition home or self-care (01) ==
LOC: HO.HMGAL 14:20
PROVIDERS: PCP Family Medicine; Visit Provider Registered Nurse Emergency
DX: J30.89 Other allergic rhinitis (principal)
CPT/HCPCS: 95117; 95165

== ENCOUNTER 2025-09-29 10:59 | Outpatient (AMB) | payer MEDICARE, OTHER, SELFPAY ==
--- OUTSIDE RECORDS SUMMARY | 2007-05-10 23:00 | XMS_ITS | Encounter Summary ---
Author Organization [facility] Address [address] [place] [address] Phone Care Team Providers Care Financial Services Internship Name Role Phone Unavailable Primary Care Provider Unavailabl e Encounter Details Date Type Department Care Team (Late st Contact Info) Description 05/11/2007 Hospital Encounter [facility],Outside Imaging 30 [place] [address] System, Provider Not In, PhD Partners [address] [address] Social History Tobacco Use Types Packs/Day Years [...] Info) Description 11/11/2025 12:45 PM EST Appointment [facility] [address] [place] [address] Tomer Arita MD [address] [address] 12/03/2025 10:50 AM EST Office Visit [facility] [address] [place] [address] Juan Wright DO 22 [place] [address] [email or web address] 02/26/2026 9:00 AM EDT Office Visit [facility] [place] [facility] 15 [facility] [address] [place] [address] Cece Dai MD, MPH 15 [facility] [address]. [address] [place] [address] [email or web address] Tomer Arita MD 15 [facility]. 201 [place] [address] documented as of this encounter Procedures Procedure [...] It is not the complete legal health record.[facility]
--- OUTSIDE RECORDS SUMMARY | 2007-05-14 23:00 | XMS_ITS | Encounter Summary ---
Author Organization [facility] Address [address] [place] [address] Phone Care Team Providers Care Central Office Equipment Engineer Name Role Phone Unavailable Primary Care Provider Unavailabl e Encounter Details Date Type Department Care Team (Late st Contact Info) Description 05/15/2007 Hospital Encounter [facility],Outside Imaging 30 [place] [address] System, Provider Not In, PhD Partners [address] [address] Social History Tobacco Use Types Packs/Day Years [...] Info) Description 11/11/2025 12:45 PM EST Appointment [facility] 30 [place] [address] Tomer Arita MD [address] [address] 12/03/2025 10:50 AM EST Office Visit [facility] 22 [place] [address] Juan Wright DO 22 [place] [address] [email or web address] 02/26/2026 9:00 AM EDT Office Visit [facility] [place] [facility] 15 [facility] [address] [place] [address] Cece Dai MD, MPH 15 [facility] [address] [place] [address] [email or web address] Tomer Arita MD 15 [facility]. 201 [place] [address] documented as of this encounter Procedures Procedure [...] It is not the complete legal health record.[facility]
--- OUTSIDE RECORDS SUMMARY | 2008-05-12 23:00 | XMS_ITS | Encounter Summary ---
Author Organization [facility] Address [address] [place] [address] Phone Care Team Providers Care Pellet Press Operator Name Role Phone Unavailable Primary Care Provider Unavailabl e Encounter Details Date Type Department Care Team (Late st Contact Info) Description 05/13/2008 Hospital Encounter [facility],Outside Imaging 30 [place] [address] System, Provider Not In, PhD Partners [address] [address] Social History Tobacco Use Types Packs/Day Years [...] Info) Description 11/11/2025 12:45 PM EST Appointment [facility] 30 [place] [address] Tomer Arita MD [address] [address] 12/03/2025 10:50 AM EST Office Visit [facility] 22 [place] [address] Juan [place] DO 22 [place] [address] [email or web address] 02/26/2026 9:00 AM EDT Office Visit [facility] [place] [facility] 15 [facility] [address] [place] [address] Cece Dai MD, MPH 15 [facility] [address] [place] [address] [email or web address] Tomer Arita MD 15 [facility]. 201 [place] [address] documented as of this encounter Procedures Procedure [...] It is not the complete legal health record.[facility]
--- OUTSIDE RECORDS SUMMARY | 2010-05-10 23:00 | XMS_ITS | Encounter Summary ---
Author Organization [facility] Address [address] [place] [address] Phone Care Team Providers Care Child Protective Services Social Worker Name Role Phone Unavailable Primary Care Provider Unavailabl e Encounter Details Date Type Department Care Team (Late st Contact Info) Description 05/11/2010 Hospital Encounter [facility],Outside Imaging 30 [place] [address] System, Provider Not In, PhD Partners [address] [address] Social History Tobacco Use Types Packs/Day Years [...] Info) Description 11/11/2025 12:45 PM EST Appointment [facility] 30 [place] [address] Tomer Arita MD [address] [address] 12/03/2025 10:50 AM EST Office Visit [facility] [address] [place] [address] Juan [place] DO 22 [place] [address] [email or web address] 02/26/2026 9:00 AM EDT Office Visit [facility] [place] [facility] 15 [facility] [address] [place] [address] Cece Dai MD, MPH 15 [facility] [address]. [address] [place] [address] [email or web address] Tomer Arita MD 15 [facility]. 201 [place] [address] documented as of this encounter Procedures Procedure [...]
--- OUTSIDE RECORDS SUMMARY | 2011-05-15 23:00 | XMS_ITS | Encounter Summary ---
Author Organization [facility] Address [address] [place] [address] Phone Care Team Providers Care Border Machine Operator Name Role Phone Unavailable Primary Care Provider Unavailabl e Encounter Details Date Type Department Care Team (Late st Contact Info) Description 05/16/2011 Hospital Encounter [facility],Outside Imaging 30 [place] [address] System, Provider Not In, PhD Partners [address] [address] Social History Tobacco Use Types Packs/Day Years [...] Info) Description 11/11/2025 12:45 PM EST Appointment [facility] [address] [place] [address] Tomer Arita MD [address] [address] 12/03/2025 10:50 AM EST Office Visit [facility] [address] [place] [address] Juan Wright DO 22 [place] [address] [email or web address] 02/26/2026 9:00 AM EDT Office Visit [facility] [place] [facility] 15 [facility] [address] [place] [address] Cece Dai MD, MPH 15 [facility] Carter. 201 [place] [address] [email or web address] Tomer Arita MD 15 [facility]. 201 [place] [address] documented as of this encounter Procedures Procedure [...]
--- OUTSIDE RECORDS SUMMARY | 2025-09-29 14:05 | XMS_ITS | Encounter Summary ---
Author Organization [facility] Address [address] [place] [address] Phone Care Team Providers Care Die Maintenance Technician Name Role Phone Jovan Guillermo MD Primary Care Provider + Cece Dai MD, MPH Primary Care Provid er Cece Dai MD, MPH Unavailable +1- [phone] Encounter Details Date Type Department Care Team (Late st Contact Info) Description 05/24/2021 Procedure Pass [facility] - [address] [place] [address] Social History Tobacco Use Types Packs/Day Years [...] Info) Description 11/11/2025 12:45 PM EST Appointment [facility], [address] [address] Tomer Arita MD [address] [address] 12/03/2025 10:50 AM EST Office Visit [facility] 22 [place] [address] Juan Wright DO 22 [place] [address] 02/26/2026 9:00 AM EDT Office Visit [facility] [address] [address] Cece Dai MD, MPH [address] [place] [address] Tomer Arita MD [address] [place] [address] documented as of this encounter Visit Diagnoses Not on filedocumented in this encounter Care Teams Die Maintenance Technician Relationship Specialty Start Date End Date Jovan Guillermo MD [address] [place] [address] PCP - General 05/17/19 04/21/24 Cece Dai MD, MPH [address] [place] [address] PCP - General Family Medicine 04/22/24 Cece Dai MD, MPH [address] [place] [address] Insurance Assigned Provider 4/6/25 documented as of this encounter Additional Source Comments The information contained in this document represents components of the legal health record. It is not the complete legal health record.[facility]
--- OUTSIDE RECORDS SUMMARY | 2025-09-29 14:05 | XMS_ITS | Encounter Summary ---
Author Organization [facility] Address [address] [place] [address] Phone Care Team Providers Care Temperature Control Inspector Name Role Phone Jovan Guillermo MD Primary Care Provider + Cece Dai MD, MPH Primary Care Provid er Cece Dai MD, MPH Unavailable [phone]- [phone] Encounter Details Date Type Department Care Team (Late st Contact Info) Description 05/24/2021 Ancillary Orders Virtual Department [address] [place] [address] Jovan Guillermo MD [address] [place] [address] Breast screening Social History Tobacco Use Types [...] Department Care Team (Late Contact Info) Description 11/11/2025 12:45 PM EST Appointment [facility] 30 [place] [address] Tomer Arita MD [address] [address] 12/03/2025 10:50 AM EST Office Visit [facility] 22 [place] [address] Juan Wright DO 22 [place] [address] 02/26/2026 9:00 AM EDT Office Visit [facility] [address] [address] Cece Dai MD, MPH [address] [address] Tomer Arita MD [address] [address] documented as of this encounter Results * [...] unspecified documented in this encounter Care Teams Temperature Control Inspector Relationship Specialty Start Date End Date Jovan Guillermo MD [address] [place] [address] PCP - General 05/17/19 04/21/24 Cece Dai MD, MPH [address] [address] [email or web address] PCP - General Family Medicine 04/22/24 Cece Dai MD, MPH [address] [address] [email or web address] Insurance Assigned Provider 02/09/25 documented as of this encounter Additional Source Comments The information contained in this document represents components of the legal health record. It is not the complete legal health record.[facility]
--- OUTSIDE RECORDS SUMMARY | 2025-09-29 14:05 | XMS_ITS | Encounter Summary ---
Author Organization [facility] Address [address] [place] [address] Phone Care Team Providers Care Benefits Director Name Role Phone Cece Dai MD, MPH Primary Care Provid er Cece Dai MD, MPH Unavailable +1- [phone] Encounter Details Date Type Department Care Team (Late st Contact Info) Description 07/15/2025 Procedure Pass [facility], Ct Scan - [address] [address] Social History Tobacco Use Types Packs/Day Years [...] Info) Description 11/11/2025 12:45 PM EST Appointment [address] [address] Tomer Arita MD [address] [place] [address] 12/03/2025 10:50 AM EST Office Visit [facility] 22 [place] [address] Juan Wright DO 22 [place] [address] 02/26/2026 9:00 AM EDT [facility] [place] [facility] [address] [address] Cece Dai MD, MPH [address] [place] [address] Tomer Arita MD [address] [address] documented as of this encounter Visit Diagnoses Not on filedocumented in this encounter Additional Health Concerns Assessment Noted Time PHQ-2 Depression Total Score: 0 02/26/20 10:12 AM EDT documented as of this encounter Care Teams Benefits Director Relationship Specialty Start Date End Date Cece Dai MD, MPH [address] [place] [address] PCP - General Family Medicine 04/22/24 Cece Dai MD, MPH [address] [place] [address] Insurance Assigned Provider 02/09/25 documented as of this encounter Additional Source Comments The information contained in this document represents components of the legal health record. It is not the complete legal health record.[facility]
--- OUTSIDE RECORDS SUMMARY | 2025-09-29 14:06 | XMS_ITS | Encounter Summary ---
Author Organization [facility] Address [address] [place] [address] Phone Care Team Providers Care Activity Therapist Name Role Phone Cece Dai MD, MPH Primary Care Provid er Cece Dai MD, MPH Unavailable +1- [phone] Encounter Details Date Type Department Care Team (Late st Contact Info) Description 02/27/2025 Procedure Pass [facility] - [address] [place] [address] Social History Tobacco Use Types Packs/Day Years [...] Info) Description 11/11/2025 12:45 PM EST Appointment [address] [address] Tomer Arita MD [address] [place] [address] 12/03/2025 10:50 AM EST Office Visit [facility] [address] [place] [address] Juan Wright DO 22 [place] [address] 02/26/2026 9:00 AM EDT Office Visit [facility] [address] [address] Cece Dai MD, MPH [address] [place] [address] Tomer Arita MD [address] [address] documented as of this encounter Visit Diagnoses Not on filedocumented in this encounter Additional Health Concerns Assessment Noted Time PHQ-2 Depression Total Score: 0 02/26/20 10:12 AM EDT documented as of this encounter Care Teams Activity Therapist Relationship Specialty Start Date End Date Cece Dai MD, MPH [address] [place] [address] PCP - General Family Medicine 04/22/24 Cece Dai MD, MPH [address] [place] [address] Insurance Assigned Provider 02/09/25 documented as of this encounter Additional Source Comments The information contained in this document represents components of the legal health record. It is not the complete legal health record.[facility]
--- OUTSIDE RECORDS SUMMARY | 2025-09-29 14:06 | XMS_ITS | Encounter Summary ---
Author Organization [facility] Address [address] [place] [address] Phone Care Team Providers Care Emergency Communications Operator Name Role Phone Cece Dai MD, MPH Primary Care Provid er Cece Dai MD, MPH Unavailable [phone]- [phone] Encounter Details Date Type Department Care Team (Late st Contact Info) Description 02/27/2025 Ancillary Orders [facility] [place] [facility] [address] [facility] [address] [place] [address] Cece Dai MD, MPH 15 [facility] [place]. [address] [place] [address] [email or web address] [place] of left [...] Info) Description 11/11/2025 12:45 PM EST Appointment [address] [address] Tomer Arita MD [address] [address] 12/03/2025 10:50 AM EST Office Visit [facility] 22 [place] [address] Juan Wright DO [address] [place] [address] 02/26/2026 9:00 AM EDT Office Visit [facility] [address] [address] Cece Dai MD, MPH [address] [address] Tomer Arita MD [address] [address] documented as of this encounter Results * [...] documented as of this encounter Care Teams Emergency Communications Operator Relationship Specialty Start Date End Date Cece Dai MD, MPH [address] [address] [email or web address] PCP - General Family Medicine 04/22/24 Cece Dai MD, MPH [address] [address] [email or web address] Insurance Assigned Provider 02/09/25 documented as of this encounter Additional Source Comments The information contained in this document represents components of the legal health record. It is not the complete legal health record.[facility]
--- OUTSIDE RECORDS SUMMARY | 2025-09-29 14:06 | XMS_ITS | Clinical Summary ---
Author Organization [facility] Address [address] [place] [address] Phone Care Team Providers Care Clinical Recruiter Name Role Phone Cece Dai MD, MPH Primary Care Provid er Cece Dai MD, MPH Unavailable +1- [phone] Allergies Active Allergy Reactions Criticality Noted Date [...] Take 2,400 mg by mouth. Active calcium carbonate-vitami n D3 1,250 mg (500 mg elemental)-400 units per tablet Take 1 tablet by mouth daily. Active flaxseed oiL 1,000 mg Cap Take 1,000 mg by mouth daily. Active GARLIC ORAL Take by mouth. Active Bacillus coagulans-inulin 1 billion-250 cell-mg Cap Take 250 mg by mouth daily. Active acetylcysteine 600 mg Cap capsule Take by mouth every 4 (four) hours. Active OLIVE LEAF EXTRACT ORAL Take by mouth. Active dihydroberberine (BERBERINE ES-5 ORAL) Take by mouth. Active lisinopril (PRINIVIL,ZESTRI L) 2.5 MG tablet Take 1 tablet (2.5 mg total) by mouth daily. Take 2.5-5mg by mouth daily 60 tablet 5 10/22/2024 Active aloe vera 25 mg Cap Take by mouth. Active ZINC ORAL Take by mouth daily. Active cholecalciferol, vitamin D3, (VITAMIN D3 ORAL) Take [...] Chronic sinusitis 04/22/2024 Overview (04/22/2024): Follows at [facility], believes it is fungal Assessment & Plan (02/25/2025 11:18 AM EDT): Orders: Ambulatory referral to External Allergy Assessment & Plan (10/22/2024 10:54 AM EST): Orders: External Referral to [facility]ol[facility] ([facility]) History of stroke associated with blood [...] 5:27 AM EDT): Will need a new environment friendly landscape designer as Dr Holland is nearing correction. I also strongly encouraged her to think [...] Encounters Date Type Department Care Team Description 09/18/2025 Telephone [facility] [address] [place] [address] Cece Dai MD, MPH Referral (Endocrinology ) 09/03/2025 9:02 AM EDT - 09/03/2025 11:59 PM EDT Hospital Encounter [facility], Ct Scan - [address] [address] Tomer Arita MD Discharge Disposition: Home or Self Care 08/25/2025 11:52 AM EDT - 08/25/2025 11:59 PM EDT Hospital Encounter [facility] [address] [place] [address] Tomer Arita MD Discharge Disposition: Home or Self Care 08/22/2025 11:20 AM EDT Office Visit [address] [place] [address] Tomer Arita MD Intractable abdominal pain (Primary Dx); Age related osteoporosis, unspecified pathological fracture presence 08/11/[address] [place] [address] Cece Dai MD, MPH Calcium Injection 07/24/[address] [place] [address] Cece Dai MD, MPH CT order question 07/21/[address] [place] [address] Cece Dai MD, MPH Testing question 07/15/2025 4:00 PM EDT Office Visit [address] [place] [address] Tomer Arita MD Age related osteoporosis, unspecified pathological fracture presence (Primary Dx); Need for naobleb-torcv-ndfhxa a (MMR) vaccine; Intractable abdominal pain 07/15/2025 Procedure Pass [facility] 30 [place] [address] 07/15/2025 Nurse Triage [address] [place] [address] Cece Dai MD, MPH Triage (Abdominal pain [...] Info) Description 11/11/2025 12:45 PM EST Appointment [address] [address] Tomer Arita MD [address] [place] [address] 12/03/2025 10:50 AM EST Office Visit [facility] [address] [place] [address] Juan Wright DO [address] [place] [address] 02/26/2026 9:00 AM EDT Office Visit [facility] [address] [place] [address] Cece Dai MD, MPH 15 [facility] [address]. [address] [place] [address] [email or web address] Tomer Arita MD 15 [facility] [address] [place] [address] [email or web address] Health Maintenance Due Date Last Done Comments [...] 2. Multiple hepatic cysts. Right adnexal cyst. us Tomer Arita MD IMG CT ABD/PELVIS Final R esult * (ABNORMAL) Comprehensive metabolic panel (08/25/2025 11:57 AM EDT) SODIUM 137 133 - 146 mmol/L [facility] POTASSIUM 4.0 3.3 - 5.1 mmol/L [facility] CHLORIDE 101 96 - 108 mmol/L [facility] CO2 27 21 - 35 mmol/L [facility] BUN 10 6 - 19 mg/dL [facility] CREATININE 0.30(L) 0.5 - 1.5 mg/dL [facility] GLUCOSE 85 70 - 99 mg/dL [facility] ALBUMIN 4.5 3.9 - 4.8 g/dL [facility] TOTAL PROTEIN 6.9 6.5 - 8.0 g/dL [facility] CALCIUM 10.2 8.4 - 10.3 mg/dL [facility] ALKALINE PHOSPHATASE 76 39 - 117 U/L [facility] TOTAL BILIRUBIN 0.5 0.0 - 1.2 mg/dL [facility] AST 16 0 - 37 U/L [facility] ALT 14 0 - 40 U/L [facility] GLOBULIN 2.4 1 - 4.8 g/dL [facility] EGFR 116 >59 mL/min/1.7 3m2 [facility] Comment:Estimated glomerular filtration rate calculated using the CKD-EPI refit equation. ANION GAP 13 10 - 20 mmol/L [facility] Blood 08/25/2025 11:5 7 AM EDT 08/25/2025 12:04 PM EDT us Tomer Arita MD LAB BLOOD BKR ORDERABLES Final Result [facility] 30 [place] [address] * (ABNORMAL) CBC and differential (08/25/2025 11:57 AM EDT) WBC 6.31 4.00 - 11.00 K/uL [facility] RBC 4.27 4.00 - 5.20 M/uL [facility] HGB 12.7 12.0 - 16.0 g/dL [facility] HCT 39.8 36.0 - 46.0 % [facility] PLT 349 150 - 450 K/uL [facility] MCV 93.2 80.0 - 100.0 fL [facility] MCH 29.7 27.0 - 31.0 pg [facility] MCHC 31.9(L) 32.0 - 36.0 g/dL [facility] RDW 14.1 11.5 - 14.5 % [facility] MPV 10.0 8.4 - 12.0 fL [facility] NRBC 0.00 0.00 /100 WBCs [facility] ABSOLUTE NRBC 0.00 0.00 K/uL [facility] DIFF METHOD Auto [facility] NEUTS 59.4 48.0 - 76.0 % [facility] LYMPHS 30.4 18.0 - 41.0 % [facility] MONOS 7.4 4.0 - 11.0 % [facility] EOS 2.1 0.0 - 5.0 % [facility] BASOS 0.5 0.0 - 1.5 % [facility] Granulocytes, immature (%) 0.2 0.0 - 0.9 % [facility] ABSOLUTE NEUTS 3.75 1.92 - 7.60 K/uL [facility] ABSOLUTE LYMPHS 1.92 0.72 - 4.10 K/uL [facility] ABSOLUTE MONOS 0.47 0.16 - 1.10 K/uL [facility] ABSOLUTE EOS 0.13 0.00 - 0.50 K/uL [facility] ABSOLUTE BASOS 0.03 0.00 - 0.15 K/uL [facility] Granulocytes, immature 0.01 0.00 - 0.09 K/uL [facility] Blood 08/25/2025 11:5 7 AM EDT 08/25/2025 12:04 PM EDT us Tomer Arita MD LAB BLOOD BKR ORDERABLES Final Result [address] [address] * Parathyroid hormone (PTH) (08/25/2025 11:57 AM EDT) PARATHYROID HORMONE 26 15 - 65 pg/mL [facility] Blood 08/25/2025 11:5 7 AM EDT 08/25/2025 12:04 PM EDT Tomer Arita MD LAB BLOOD BKR ORDERABLES Final Result Performing Organization Address City/[facility]/ZIP Co de Phone Number [address] [address] * Ionized calcium (08/25/2025 11:57 AM EDT) IONIZED CALCIUM 1.21 1.14 - 1.37 mmol/L [facility] Blood 08/25/2025 11:5 7 AM EDT 08/25/2025 12:04 PM EDT Tomer Arita MD LAB BLOOD BKR ORDERABLES Final Result Performing Organization Address City/[facility]/ZIP Co de Phone Number [address] [address] * BD DXA AXIAL (SPINE) WITH HIP (06/07/2025 11:36 AM EDT) Anatomical Region Laterality Modality Bone Density Bone Density 06/07/2025 10:5 1 AM EDT Impressions 06/09/2025 12:17 PM EDT Interpretation: Osteoporosis. Narrative 06/09/2025 12:17 PM EDT Referred By: CECE DAI Indications: Postmenopausal Scanner: Vinobo A with serial# of [id number] located at [facility] Bone Density Scan (DXA) 06/07/25 [...] -2.5), or Osteoporosis (T-score <= -2.5). At [facility], T-scores are compared to peak bone density [...] Referred By: CECE DAI Indications: Postmenopausal Scanner: Vinobo A with serial# of [id number] located at [facility] Bone Density Scan (DXA) 06/07/25 [...] -2.5), or Osteoporosis (T-score <= -2.5). At [facility], T-scores are compared to peak bone density [...] (06/21/2024 10:39 AM EDT) HDL 103 mg/dL [facility] Comment: Interpretation <40 mg/dL: Low HDL cholesterol (major risk factor for CHD) Greater than or equal to 60 mg/dL: High HDL cholesterol ( negative risk factor for CHD) HDL - cholesterol is affected by a number of factors, e.g. smoking, excerise, hormones, sex and age. CHOLESTEROL 174 0 - 240 mg/dL [facility] TRIGLYCERIDES 62 30 - 160 mg/dL [facility] LDL 59 50 - 129 mg/dL [facility] Comment: LDL levels in terms of risk for coronary heart disease: <100 mg/dL: Optimal 100-129 mg/dL: Near or above optimal 130-159 mg/dL: Borderline high 160-189 mg/dL: High >190 mg/dL: Very High CARDIAC RISK RATIO 1.7(L) 3.3 - 4.4 C [facility] Blood 06/21/2024 10:3 9 AM EDT 06/21/2024 10:50 AM EDT us Cece Dai MD, MPH LAB BLOOD BKR ORDERA BLES Final Result [facility] [address] [place], [place] [id number] from Last 3 Months or Most Recently Relevant to Health Maintenance Insurance MEDICARE PART A & B [facility] MED[employer] ENHANCE SUPPLEMENT MEDICARE PART A & B [facility] MEDICARE ENHANCE SUPPLEMENT MEDICARE PART A & B [facility] MEDICARE ENHANCE SUPPLEMENT [facility] Address: [facility] [address] [place] RAMON [id number] MEDICARE PART A & [place] [address] MEDICARE ENHANCE SUPPLEMENT [facility] Address: [facility] [address] [place] [address] MEDICARE PART A & B [id number] [place] [address] MEDICARE ENHANCE SUPPLEMENT [facility] Address: [address] [place]N RAMNO [id number] MEDICARE PART A & B [employer] [facility] MEDIC[employer] ENHANCE SUPPLEMENT Care Teams Clinical Recruiter Relationship Specialty Start Date End Date Cece Dai MD, MPH [address] [place] [address] [email or web address] PCP - General Family Medicine 04/22/24 Cece Dai MD, MPH [address] [place] [address] [email or web address] Insurance Assigned Provider 02/09/25 Additional Source Comments The information contained in this document represents components of the legal health record. It is not the complete legal health record.[facility]
--- OUTSIDE RECORDS SUMMARY | 2025-09-29 14:06 | XMS_ITS | Encounter Summary ---
Author Organization [facility] Address [address] [place] [address] Phone Care Team Providers Care Chaser Apprentice Name Role Phone Jovan Guillermo MD Primary Care Provider + Cece Dai MD, MPH Primary Care Provid er Cece Dai MD, MPH Unavailable [phone]- [phone] Encounter Details Date Type Department Care Team (Late st Contact Info) Description 06/04/2021 Ancillary Orders [facility],[address] [address] System, Provider Not In, [place] [address] Social History Tobacco Use Types Packs/Day Years [...] Info) Description 11/11/2025 12:45 PM EST Appointment [facility] [address] [place] [address] Tomer Arita MD [address] [address] 12/03/2025 10:50 AM EST Office Visit [facility] 22 [place] [address] Juan Wright DO 22 [place] [address] 02/26/2026 9:00 AM EDT Office Visit [facility] [place] [facility] [address] [address] Cece Dai MD, MPH [address] [address] Tomer Arita MD [address] [address] documented as of this encounter Results * [...] on filedocumented in this encounter Care Teams Chaser Apprentice Relationship Specialty Start Date End Date Jovan Guillermo MD [address] [place] [address] PCP - General 05/17/19 04/21/24 Cece Dai MD, MPH [address] [place] [address] PCP - General Family Medicine 04/22/24 Cece Dai MD, MPH [address] [place] [address] Insurance Assigned Provider 02/09/25 documented as of this encounter Additional Source Comments The information contained in this document represents components of the legal health record. It is not the complete legal health record.[facility]
--- OUTSIDE RECORDS SUMMARY | 2025-09-29 14:06 | XMS_ITS | Clinical Summary ---
Author Organization [facility] it Address [address] [place] [address] Care Team Providers Care Manager Personal Name Role Phone Heri Cueto MD Primary Care Provider [phone] Allergies Active Allergy Reactions Criticality Noted Date [...] 20s DX:DVT (deep venous thrombo sis) ([facility]); COMMENT: on OCPs at the time, taken off; never anticoagulated MTHFR mutation 05/18/2011 DX:MTHFR mutatio n GERD (gastroesophageal reflu x disease) 05/18/2011 DX:GERD (gastroesophageal re flux disease) Lung blebs (CMS/HCC V24, CMS /[facility] V28) 05/18/2011 DX:Lung blebs (HCC) Hepatic cyst [...] Recently Relevant to Health Maintenance Care Teams Manager Personal Relationship Specialty Start Date End Date Heri Cueto MD 4 [place] [address] PCP - General 04/29/11
--- OUTSIDE RECORDS SUMMARY | 2025-09-29 14:06 | XMS_ITS | Encounter Summary ---
Author Organization [facility] Address [address] [place] [address] Phone Care Team Providers Care Hat Blocking Machine Operator Name Role Phone Jovan Guillermo MD Primary Care Provider + Cece Dai MD, MPH Primary Care Provid er Cece Dai MD, MPH Unavailable +1- [phone] Encounter Details Date Type Department Care Team (Late st Contact Info) Description 06/09/2023 Procedure Pass [facility] - [address] [place] [address] Social History Tobacco Use Types Packs/Day Years [...] Info) Description 11/11/2025 12:45 PM EST Appointment [facility], [facility] [address] [place] [address] Tomer Arita MD [address] [address] 12/03/2025 10:50 AM EST Office Visit [facility] 22 [place] [address] Juan Wright DO 22 [place] [address] 02/26/2026 9:00 AM EDT Office Visit [facility] [address] [address] Cece Dai MD, MPH [address] [place] [address] Tomer Arita MD [address] [place] [address] documented as of this encounter Visit Diagnoses Not on filedocumented in this encounter Care Teams Hat Blocking Machine Operator Relationship Specialty Start Date End Date Jovan Guillermo MD [address] [place] [address] PCP - General 05/17/19 04/21/24 Cece Dai MD, MPH [address] [place] [address] [email or web address] PCP - General Family Medicine 04/22/24 Cece Dai MD, MPH [address] [place], [place] [address] [email or web address] Insurance Assigned Provider 02/09/25 documented as of this encounter Additional Source Comments The information contained in this document represents components of the legal health record. It is not the complete legal health record.[facility]
--- OUTSIDE RECORDS SUMMARY | 2025-09-29 14:06 | XMS_ITS | Encounter Summary ---
Author Organization [facility] Address [address] [place] [address] Phone Care Team Providers Care Torpedo Man Name Role Phone Cece Dai MD, MPH Primary Care Provid er Cece Dai MD, MPH Unavailable +1- [phone] Encounter Details Date Type Department Care Team (Late st Contact Info) Description 02/07/2025 Procedure Pass [facility] - [address] [place] [address] Social History Tobacco Use Types Packs/Day Years [...] Info) Description 11/11/2025 12:45 PM EST Appointment [address] [address] Tomer Arita MD [address] [place] [address] 12/03/2025 10:50 AM EST Office Visit [facility] 22 [place] [address] Juan Wright DO 22 [place] [address] 02/26/2026 9:00 AM EDT [facility] [place] [facility] [address] [address] Cece Dai MD, MPH [address] [place] [address] Tomer Arita MD [address] [address] documented as of this encounter Visit Diagnoses Not on filedocumented in this encounter Additional Health Concerns Assessment Noted Time PHQ-2 Depression Total Score: 0 02/26/20 10:12 AM EDT documented as of this encounter Care Teams Torpedo Man Relationship Specialty Start Date End Date Cece Dai MD, MPH [address] [place] [address] PCP - General Family Medicine 04/22/24 Cece aDi MD, MPH [address] [place] [address] Insurance Assigned Provider 02/09/25 documented as of this encounter Additional Source Comments The information contained in this document represents components of the legal health record. It is not the complete legal health record.[facility]
--- OUTSIDE RECORDS SUMMARY | 2025-09-29 14:06 | XMS_ITS | Encounter Summary ---
Author Organization [facility] Address [address] [place] [address] Phone Care Team Providers Care Equipment Cleaner And Tester Name Role Phone Jovan Guillermo MD Primary Care Provider + Cece Dai MD, MPH Primary Care Provid er Cece Dai MD, MPH Unavailable +1- [phone] Encounter Details Date Type Department Care Team (Late st Contact Info) Description 06/09/2023 Procedure Pass [facility] - [address] [place] [address] Social History Tobacco Use Types Packs/Day Years Used Date Smoking Tobacco: Former Smokeless Tobacco: Never Comments:Smoking History Pac ks/day: >2 Alcohol Use Standard Drinks/Week Comments Never 0 (1 standard drink = 0.6 oz pur e alcohol) Education Answer Date Recorded Are you interested in more education? Not on aynet e 03/12/2023 Are you concerned about learning? [...] Info) Description 11/11/2025 12:45 PM EST Appointment [facility], [facility] [address] [place] [address] Tomer Arita MD [address] [address] 12/03/2025 10:50 AM EST Office Visit [facility] 22 [place] [address] Juan Wright DO 22 [place] [address] 02/26/2026 9:00 AM EDT Office Visit [facility] [address] [address] Cece Dai MD, MPH [address] [place] [address] Tomer Arita MD [address] [place] [address] documented as of this encounter Visit Diagnoses Not on filedocumented in this encounter Care Teams Equipment Cleaner And Tester Relationship Specialty Start Date End Date Jovan Guillermo MD [address] [place] [address] PCP - General 05/17/19 04/21/24 Cece Dai MD, MPH [address] [place] [address] [email or web address] PCP - General Family Medicine 04/22/24 Cece Dai MD, MPH [address] [place], [place] [phone] [email or web address] Insurance Assigned Provider 02/09/25 documented as of this encounter Additional Source Comments The information contained in this document represents components of the legal health record. It is not the complete legal health record.[facility]
--- OUTSIDE RECORDS SUMMARY | 2025-09-29 14:06 | XMS_ITS | Encounter Summary ---
Author Organization [facility] Address [address] [place] [address] Phone Care Team Providers Care Transcription Name Role Phone Jovan Guillermo MD Primary Care Provider + Cece Dai MD, MPH Primary Care Provid er Cece Dai MD, MPH Unavailable +1- [phone] Encounter Details Date Type Department Care Team (Late st Contact Info) Description 06/09/2023 Ancillary Orders Virtual Department 30 [place] [address] Jovan Guillermo MD [address] [place] [address] Encounter for screening mammogram for malignant neoplasm [...] Info) Description 11/11/2025 12:45 PM EST Appointment [facility], [facility] [address] [place] [address] Tomer Arita MD [address] [address] 12/03/2025 10:50 AM EST Office Visit [facility] [address] [place] [address] Juan Wright DO [address] [place] [address] 02/26/2026 9:00 AM EDT Office Visit [facility] [address] [place] [address] Cece Dai MD, MPH [address] [place] [address] Tomer Arita MD [address] [place] [address] documented as of this encounter Results * [...] breast documented in this encounter Care Teams Transcription Relationship Specialty Start Date End Date Jovan Guillermo MD [address] [place] [address] PCP - General 05/17/19 04/21/24 Cece Dai MD, MPH [address] [place] [address] [email or web address] PCP - General Family Medicine 04/22/24 Cece Dai MD, MPH [address] [place] [address] [email or web address] Insurance Assigned Provider 02/09/25 documented as of this encounter Additional Source Comments The information contained in this document represents components of the legal health record. It is not the complete legal health record.[facility]
--- OUTSIDE RECORDS SUMMARY | 2025-09-29 14:06 | XMS_ITS | Encounter Summary ---
Author Organization [facility] Address [address] [place] [address] Phone Care Team Providers Care Scoring Machine Operator Name Role Phone Jovan Guillermo MD Primary Care Provider + Cece Dai MD, MPH Primary Care Provid er Cece Dai MD, MPH Unavailable +1- [phone] Encounter Details Date Type Department Care Team (Late st Contact Info) Description 06/09/2023 Ancillary Orders Virtual Department 30 [place] [address] Jovan Guillermo MD [address] [place] [address] Encounter for screening mammogram for malignant neoplasm [...] Description 11/11/2025 12:45 PM EST Appointment [facility], [facility] 30 [place] [address] Tomer Arita MD [address] [address] 12/03/2025 10:50 AM EST Office Visit [facility] [address] [place] [address] Juan Wright DO [address] [place] [address] 02/26/2026 9:00 AM EDT Office Visit [facility] [address] [place] [address] Cece Dai MD, MPH [address] [place] [address] Tomer Arita MD [address] [place] [address] documented as of this encounter Results * [...] breast documented in this encounter Care Teams Scoring Machine Operator Relationship Specialty Start Date End Date Jovan Guillermo MD [address] [place] [address] PCP - General 05/17/19 04/21/24 Cece Dai MD, MPH [address] [place] [address] [email or web address] PCP - General Family Medicine 04/22/24 Cece Dai MD, MPH [address] [place] [address] [email or web address] Insurance Assigned Provider 02/09/25 documented as of this encounter Additional Source Comments The information contained in this document represents components of the legal health record. It is not the complete legal health record.[facility]
--- OUTSIDE RECORDS SUMMARY | 2025-09-29 14:06 | XMS_ITS | Encounter Summary ---
Author Organization [facility] Address [address] [place] [address] Phone Care Team Providers Care Cold Roll Packer Sheet Iron Name Role Phone Jovan Guillermo MD Primary Care Provider + Cece Dai MD, MPH Primary Care Provid er Cece Dai MD, MPH Unavailable +1- [phone] Encounter Details Date Type Department Care Team (Latest Contact Info) Description 06/07/2023 Transcribe Orders Virtual Department 30 [place] [address] Jovan Guillermo MD [address] [place] [address] Encounter for screening mammogram for malignant neoplasm [...] Info) Description 11/11/2025 12:45 PM EST Appointment [facility], [facility] 30 [place] [address] Tomer Arita MD [address] [address] 12/03/2025 10:50 AM EST Office Visit [facility] [address] [place] [address] Juan Wright DO [address] [place] [address] 02/26/2026 9:00 AM EDT Office Visit [facility] [place] [facility] [address] [place] [address] Cece Dai MD, MPH [address] [place] [address] Tomer Arita MD [address] [place] [address] documented as of this encounter Visit Diagnoses Diagnosis Encounter for screening mammogram for malignant neoplasm of breast- Primary documented in this encounter Care Teams Cold Roll Packer Sheet Iron Relationship Specialty Start Date End Date Jovan Guillermo MD [address] [address] PCP - General 05/17/19 04/21/24 Cece Dai MD, MPH [address] [address] [email or web address] PCP - General Family Medicine 04/22/24 Cece Dai MD, MPH [address] [address] [email or web address] Insurance Assigned Provider 02/09/25 documented as of this encounter Additional Source Comments The information contained in this document represents components of the legal health record. It is not the complete legal health record.[facility]
== END 2025-09-29 11:02 | disposition home or self-care (01) ==
LOC: HO.HMGAL 10:59
PROVIDERS: PCP Family Medicine; Visit Provider Registered Nurse Emergency
DX: J30.89 Other allergic rhinitis (principal)
CPT/HCPCS: 95117; 95165

== ENCOUNTER 2025-10-15 11:08 | Outpatient (AMB) | payer MEDICARE, OTHER, SELFPAY ==
--- OUTSIDE RECORDS SUMMARY | 2007-05-10 23:00 | XMS_ITS | Encounter Summary ---
Author Organization [facility] Address [address] [place] [address] Phone Care Team Providers Care Residential Green Building Designer Name Role Phone Unavailable Primary Care Provider Unavailabl e Encounter Details Date Type Department Care Team (Late st Contact Info) Description 05/11/2007 Hospital Encounter [facility],Outside Imaging 30 [place] [address] System, Provider Not In, PhD Partners [address] [address] Social History Tobacco Use Types Packs/Day Years [...] Info) Description 11/11/2025 12:45 PM EST Appointment [facility] 30 [place] [address] Tomer Arita MD [address] [place] [address] [address] 02/26/2026 9:00 AM EDT Office Visit [facility] [place] [facility] [address] [place] [address] 201 [place] [address] Cece Dai MD, MPH 15 [facility] [address]. [address] [place] [address] Tomer Arita MD 15 [facility] [address]. [address] [place] [address] 04/07/2026 11:00 AM EDT Office Visit [facility] Endocrinology [address] [phone] Asia Morales MD [address] [address] [email or web address] documented as of this encounter Procedures Procedure [...] It is not the complete legal health record.[facility]
--- OUTSIDE RECORDS SUMMARY | 2007-05-14 23:00 | XMS_ITS | Encounter Summary ---
Author Organization [facility] Address [address] [place] [address] Phone Care Team Providers Care Railroad Brakeman Name Role Phone Unavailable Primary Care Provider Unavailabl e Encounter Details Date Type Department Care Team (Late st Contact Info) Description 05/15/2007 Hospital Encounter [facility],Outside Imaging 30 [place] [address] System, Provider Not In, PhD Partners [address] [address] Social History Tobacco Use Types Packs/Day Years [...] Description 11/11/2025 12:45 PM EST Appointment [facility] 30 [place] [address] Tomer Arita MD [address] [place] [address] [address] 02/26/2026 9:00 AM EDT Office Visit [facility] [place] [facility] [address] [place] [address] 201 [place] [address] Cece Dai MD, MPH 15 [facility] [address]. 201 [place] [address] Tomer Arita MD 15 [facility] [address] [place] [address] 04/07/2026 11:00 AM EDT Office Visit [facility] Endocrinology [address] [phone] Asia Morales MD [address] [address] [email or web address] documented as of this encounter Procedures Procedure [...] It is not the complete legal health record.[facility]
--- OUTSIDE RECORDS SUMMARY | 2008-05-12 23:00 | XMS_ITS | Encounter Summary ---
Author Organization [facility] Address [address] [place] [address] Phone Care Team Providers Care Pull Through Hooker Name Role Phone Unavailable Primary Care Provider Unavailabl e Encounter Details Date Type Department Care Team (Late st Contact Info) Description 05/13/2008 Hospital Encounter [facility],Outside Imaging 30 [place] [address] System, Provider Not In, PhD Partners [address] [address] Social History Tobacco Use Types Packs/Day Years [...] Info) Description 11/11/2025 12:45 PM EST Appointment [facility] 30 [place] [address] Tomer Arita MD [address] [place] [address] [address] 02/26/2026 9:00 AM EDT Office Visit [facility] [place] [facility] [address] [place] [address] 201 [place] [address] Cece Dai MD, MPH 15 [facility] [address] [place] [address] Tomer Arita MD 15 [facility] [address] [place] [address] 04/07/2026 11:00 AM EDT Office Visit [facility] Endocrinology [address] [phone] Asia Morales MD [address] [address] [email or web address] documented as of this encounter Procedures Procedure [...] It is not the complete legal health record.[facility]
--- OUTSIDE RECORDS SUMMARY | 2010-05-10 23:00 | XMS_ITS | Encounter Summary ---
Author Organization [facility] Address [address] [place] [address] Phone Care Team Providers Care Code And Test Clerk Name Role Phone Unavailable Primary Care Provider Unavailabl e Encounter Details Date Type Department Care Team (Late st Contact Info) Description 05/11/2010 Hospital Encounter [facility],Outside Imaging 30 [place] [address] System, Provider Not In, PhD Partners [address] [address] Social History Tobacco Use Types Packs/Day Years [...] Info) Description 11/11/2025 12:45 PM EST Appointment [facility] 30 [place] [address] Tomer Arita MD [address] [place] [address] [address] 02/26/2026 9:00 AM EDT Office Visit [facility] [place] [facility] [address] [place] [address] 201 [place] [address] Cece Dai MD, MPH 15 [facility] [address]. [address] [place] [address] Tomer Arita MD 15 [facility] [address] [place] [address] 04/07/2026 11:00 AM EDT Office Visit [facility] Endocrinology [address] [phone] Asia Morales MD [address] [address] [email or web address] documented as of this [...]
--- OUTSIDE RECORDS SUMMARY | 2011-05-15 23:00 | XMS_ITS | Encounter Summary ---
Author Organization [facility] Address [address] [place] [address] Phone Care Team Providers Care Traditional Chinese Herbalist Name Role Phone Unavailable Primary Care Provider Unavailabl e Encounter Details Date Type Department Care Team (Late st Contact Info) Description 05/16/2011 Hospital Encounter [facility],Outside Imaging 30 [place] [address] System, Provider Not In, PhD Partners [address] [address] Social History Tobacco Use Types Packs/Day Years [...] Info) Description 11/11/2025 12:45 PM EST Appointment [facility] 30 [place] [address] Tomer Arita MD [address] [place] [address] [address] 02/26/2026 9:00 AM EDT Office Visit [facility] [place] [facility] [address] [place] [address] 201 [place] [address] Cece Dai MD, MPH 15 [facility] Carter. 201 [place] [address] Tomer Arita MD 15 [facility] Carter. [address] [place] [address] 04/07/2026 11:00 AM EDT Office Visit [facility] Endocrinology [address] [phone] Asai Morales MD [address] [address] [email or web address] documented as of this encounter Procedures Procedure [...] It is not the complete legal health record.[facility]
--- OUTSIDE RECORDS SUMMARY | 2025-10-15 17:44 | XMS_ITS | Encounter Summary ---
Author Organization [facility] Address [address] [place] [address] Phone Care Team Providers Care Risk Prevention Engineer Name Role Phone Cece Dai MD, MPH Primary Care Provid er Cece Dai MD, MPH Unavailable +1- [phone] Encounter Details Date Type Department Care Team (Late st Contact Info) Description 07/15/2025 Procedure Pass [facility] - [address] [address] Social History Tobacco Use Types Packs/Day Years [...] Info) Description 11/11/2025 12:45 PM EST Appointment [facility] 30 [place] [address] Tomer Arita MD [address] [place] [address] 02/26/2026 9:00 AM EDT Office Visit [facility] [place] [facility] 15 [facility] [address] [place] [address] Cece Dai MD, MPH [address] [address] Tomer Arita MD 15 [facility] 201 [place] [address] 04/07/2026 11:00 AM EDT Office Visit [facility] Endocrinology [address] [phone] Asia Morales MD [address] [address] documented as of this encounter Visit Diagnoses Not on filedocumented in this encounter Additional Health Concerns Assessment Noted Time PHQ-2 Depression Total Score: 0 02/26/20 25 10:12 AM EDT documented as of this encounter Care Teams Risk Prevention Engineer Relationship Specialty Start Date End Date Cece Dai MD, MPH [address] [address] PCP - General Family Medicine 04/22/24 Cece Dai MD, MPH [address] [address] Insurance Assigned Provider 02/09/25 documented as of this encounter Additional Source Comments The information contained in this document represents components of the legal health record. It is not the complete legal health record.[facility]
--- OUTSIDE RECORDS SUMMARY | 2025-10-15 17:44 | XMS_ITS | Encounter Summary ---
Author Organization [facility] Address [address] [place] [address] Phone Care Team Providers Care Squeegee Finisher Name Role Phone Jovan Guillermo MD Primary Care Provider + Cece Dai MD, MPH Primary Care Provid er Cece Dai MD, MPH Unavailable +1- [phone] Encounter Details Date Type Department Care Team (Late st Contact Info) Description 05/24/2021 Ancillary Orders Virtual Department [address] [place] [address] Jovan Guillermo MD [address] [place] [address] Breast screening Social History Tobacco Use Types [...] Info) Description 11/11/2025 12:45 PM EST Appointment [facility] 30 [place] [address] Tomer Arita MD [address] [address] [email or web address] 02/26/2026 9:00 AM EDT Office Visit [facility] 15 [facility] [address] [place] [address] Cece Dai MD, MPH 15 [facility]. [address] [place] [address] [email or web address] Tomer Arita MD 15 [facility]. [address] [place] [address] 04/07/2026 11:00 AM EDT Office Visit [facility] Endocrinology [address] [address] Asia Morales MD [address] [place] [address] [email or web address] documented as of this encounter Results * [...] unspecified documented in this encounter Care Teams Squeegee Finisher Relationship Specialty Start Date End Date Jovan Guillermo MD [address] [place] [address] PCP - General 05/17/19 04/21/24 Cece Dai MD, MPH [address] [address] [email or web address] PCP - General Family Medicine 04/22/24 Cece Dai MD, MPH [address] [address] [email or web address] Insurance Assigned Provider 02/09/25 documented as of this encounter Additional Source Comments The information contained in this document represents components of the legal health record. It is not the complete legal health record.[facility]
--- OUTSIDE RECORDS SUMMARY | 2025-10-15 17:44 | XMS_ITS | Encounter Summary ---
Author Organization [facility] Address [address] [facility] [place] [address] Phone Care Team Providers Care Animal Damage Control Agent Name Role Phone Jovan Guillermo MD Primary Care Provider + Cece Dai MD, MPH Primary Care Provid er Cece Dai MD, MPH Unavailable +1- [phone] Encounter Details Date Type Department Care Team (Late st Contact Info) Description 05/24/2021 Procedure Pass [facility] - [address] [place] [address] Social History Tobacco Use Types Packs/Day Years [...] Info) Description 11/11/2025 12:45 PM EST Appointment [facility], [address] [address] Tomer Arita MD [address] [address] 02/26/2026 9:00 AM EDT Office Visit [facility] 15 [facility] 201 [place] [address] Cece Dai MD, MPH [address] [address] Tomer Arita MD [address] [address] 04/07/2026 11:00 AM EDT Office Visit [facility] Endocrinology [address] [phone] Asia Morales MD [address] [place] [address] [email or web address] documented as of this encounter Visit Diagnoses Not on filedocumented in this encounter Care Teams Animal Damage Control Agent Relationship Specialty Start Date End Date Jovan Guillermo MD [address] [place] [address] PCP - General 05/17/19 04/21/24 Cece Dai MD, MPH [address] [place] [address] PCP - General Family Medicine 04/22/24 Cece Dai MD, MPH [address] [place] [address] Insurance Assigned Provider 02/09/25 documented as of this encounter Additional Source Comments The information contained in this document represents components of the legal health record. It is not the complete legal health record.[facility]
--- OUTSIDE RECORDS SUMMARY | 2025-10-15 17:46 | XMS_ITS | Encounter Summary ---
Author Organization [facility] Address [address] [place] [address] Phone Care Team Providers Care Heating And Cooling Technician Name Role Phone Jovan Guillermo MD Primary Care Provider + Cece Dai MD, MPH Primary Care Provid er Cece Dai MD, MPH Unavailable +1- [phone] Encounter Details Date Type Department Care Team (Late st Contact Info) Description 06/09/2023 Procedure Pass [facility] - [address] [place] [address] Social History Tobacco Use Types Packs/Day Years [...] Info) Description 11/11/2025 12:45 PM EST Appointment [facility], [facility] 30 [place] [address] Tomer Arita MD [address] [place] [address] 02/26/2026 9:00 AM EDT Office Visit [facility] [place] [facility] [address] [place] [address] Cece Dai MD, MPH [address] [place] [address] Tomer Arita MD [address] [place] [address] 04/07/2026 11:00 AM EDT Office Visit [facility] Endocrinology [address] [phone] Asia Morales MD [address] [place] [address] documented as of this encounter Visit Diagnoses Not on filedocumented in this encounter Care Teams Heating And Cooling Technician Relationship Specialty Start Date End Date Jovan Guillermo MD [address] [place] [address] PCP - General 05/17/19 04/21/24 Cece Dai MD, MPH [address] [place] [address] [email or web address] PCP - General Family Medicine 04/22/24 Cece Dai MD, MPH [address] [place] [address] 201 [place] [address] [email or web address] Insurance Assigned Provider 02/09/25 documented as of this encounter Additional Source Comments The information contained in this document represents components of the legal health record. It is not the complete legal health record.[facility]
--- OUTSIDE RECORDS SUMMARY | 2025-10-15 17:46 | XMS_ITS | Encounter Summary ---
Author Organization [facility] Address [address] [place] [address] Phone Care Team Providers Care Associate Professor Of Philosophy Name Role Phone Cece Dai MD, MPH Primary Care Provid er Cece Dai MD, MPH Unavailable +1- [phone] Encounter Details Date Type Department Care Team (Late st Contact Info) Description 02/07/2025 Procedure Pass [facility] - [address] [place] [address] Social History Tobacco Use Types Packs/Day Years [...] Info) Description 11/11/2025 12:45 PM EST Appointment [facility] 30 [place] [address] Tomer Arita MD [address] [place] [address] 02/26/2026 9:00 AM EDT Office Visit [facility] [place] [facility] 15 [facility] [address] [place] [address] Cece Dai MD, MPH [address] [address] Tomer Arita MD 15 [facility] 201 [place] [address] 04/07/2026 11:00 AM EDT Office Visit [facility] Endocrinology [address] [phone] Asia Morales MD [address] [address] documented as of this encounter Visit Diagnoses Not on filedocumented in this encounter Additional Health Concerns Assessment Noted Time PHQ-2 Depression Total Score: 0 02/26/20 25 10:12 AM EDT documented as of this encounter Care Teams Associate Professor Of Philosophy Relationship Specialty Start Date End Date Cece Dai MD, MPH [address] [address] PCP - General Family Medicine 04/22/24 Cece Dai MD, MPH [address] [address] Insurance Assigned Provider 02/09/25 documented as of this encounter Additional Source Comments The information contained in this document represents components of the legal health record. It is not the complete legal health record.[facility]
--- OUTSIDE RECORDS SUMMARY | 2025-10-15 17:46 | XMS_ITS | Encounter Summary ---
Author Organization [facility] Address [address] [place] [address] Phone Care Team Providers Care Utilities And Maintenance Supervisor Name Role Phone Cece Dai MD, MPH Primary Care Provid er Cece Dai MD, MPH Unavailable +1- [phone] Encounter Details Date Type Department Care Team (Late st Contact Info) Description 02/27/2025 Procedure Pass [facility] - [address] [place] [address] Social History Tobacco Use Types Packs/Day Years [...] Info) Description 11/11/2025 12:45 PM EST Appointment [facility] 30 [place] [address] Tomer Arita MD [address] [place] [address] 02/26/2026 9:00 AM EDT Office Visit [facility] [facility] [address] [facility] [address] [place] [address] Cece Dai MD, MPH [address] [address] Tomer Arita MD 15 [facility]. 201 [place] [address] 04/07/2026 11:00 AM EDT Office Visit [facility] Endocrinology [address] [phone] Asia Morales MD [address] [address] documented as of this encounter Visit Diagnoses Not on filedocumented in this encounter Additional Health Concerns Assessment Noted Time PHQ-2 Depression Total Score: 0 02/26/20 25 10:12 AM EDT documented as of this encounter Care Teams Utilities And Maintenance Supervisor Relationship Specialty Start Date End Date Cece Dai MD, MPH [address] [address] PCP - General Family Medicine 04/22/24 Cece Dai MD, MPH [address] [address] Insurance Assigned Provider 02/09/25 documented as of this encounter Additional Source Comments The information contained in this document represents components of the legal health record. It is not the complete legal health record.[facility]
--- OUTSIDE RECORDS SUMMARY | 2025-10-15 17:46 | XMS_ITS | Clinical Summary ---
Author Organization [facility] Address [address] [place] [address] Phone Care Team Providers Care Typewriter Operator Automatic Name Role Phone Cece Dai MD, MPH Primary Care Provid er Cece Dai MD, MPH Unavailable +1- [phone] Allergies Active Allergy Reactions Criticality Noted Date [...] [facility]) History of stroke associated with blood clotting [...] 5:27 AM EDT): Will need a new portfolio strategist as Dr Holland is nearing jail. I also strongly encouraged her to think [...] Type Department Care Team Description 09/18/2025 Telephone [facility] Primary Care [address] [place] [address] Cece Dai MD, MPH Referral (Endocrinology ) 09/03/2025 9:02 AM EDT - 09/03/2025 11:59 PM EDT Hospital Encounter [facility] Scan - [address] [address] Tomer Arita MD Discharge Disposition: Home or Self Care 08/25/2025 11:52 AM EDT - 08/25/2025 11:59 PM EDT Hospital Encounter [facility] [address] [place] [address] Tomer Arita MD Discharge Disposition: Home or Self Care 08/22/2025 11:20 AM EDT Office Visit [address] [place] [address] Tomer Arita MD Intractable abdominal pain (Primary Dx); Age related osteoporosis, unspecified pathological fracture presence 08/11/2025 Telephone [facility] [address] [place] [address] Cece Dai MD, MPH Calcium Injection 07/24/2025 Telephone [facility] [address] [place] [address] Cece Dai MD, MPH CT order question 07/21/[address] [place] [address] Cece Dai MD, MPH Testing question 07/15/2025 Procedure Pass [facility] - [address] [address] from Last 3 Months Immunizations Immunization Administration [...] Info) Description 11/11/2025 12:45 PM EST Appointment [address] [address] Tomer Arita MD [address] [place] [address] 02/26/2026 9:00 AM EDT Office Visit [facility] [address] [place] [address] Cece Dai MD, MPH [address] [place] [address] Tomer Arita MD [address] [place] [address] 04/07/2026 11:00 AM EDT Office Visit [facility] End[facility]inology [facility] [phone] Asia Morales MD [address] [place] [address] Health Maintenance Due Date Last Done Comments [...] EDT) SODIUM 137 133 - 146 mmol/L [facility] POTASSIUM 4.0 3.3 - 5.1 mmol/L [facility] CHLORIDE 101 96 - 108 mmol/L [facility] CO2 27 21 - 35 mmol/L [facility] BUN 10 6 - 19 mg/dL [facility] CREATININE 0.30(L) 0.5 - 1.5 mg/dL [facility] GLUCOSE 85 70 - 99 mg/dL [facility] ALBUMIN 4.5 3.9 - 4.8 g/dL [facility] TOTAL PROTEIN 6.9 6.5 - 8.0 g/dL [facility] CALCIUM 10.2 8.4 - 10.3 mg/dL [facility] ALKALINE PHOSPHATASE 76 39 - 117 U/L [facility] TOTAL BILIRUBIN 0.5 0.0 - 1.2 mg/dL [facility] AST 16 0 - 37 U/L [facility] ALT 14 0 - 40 U/L [facility] GLOBULIN 2.4 1 - 4.8 g/dL [facility] EGFR 116 >59 mL/min/1.7 3m2 [facility] Comment:Estimated glomerular filtration rate calculated using the CKD-EPI refit equation. ANION GAP 13 10 - 20 mmol/L [facility] Blood 08/25/2025 11:5 7 AM EDT 08/25/2025 12:04 PM EDT us Tomer Arita MD LAB BLOOD BKR ORDERABLES Final Result [facility] 30 [place] [address] * (ABNORMAL) CBC and differential (08/25/2025 11:57 AM EDT) WBC 6.31 4.00 - 11.00 K/uL [facility] RBC 4.27 4.00 - 5.20 M/uL [facility] HGB 12.7 12.0 - 16.0 g/dL [facility] HCT 39.8 36.0 - 46.0 % [facility] PLT 349 150 - 450 K/uL [facility] MCV 93.2 80.0 - 100.0 fL [facility] MCH 29.7 27.0 - 31.0 pg [facility] MCHC 31.9(L) 32.0 - 36.0 g/dL [facility] RDW 14.1 11.5 - 14.5 % [facility] MPV 10.0 8.4 - 12.0 fL [facility] NRBC 0.00 0.00 /100 WBCs [facility] ABSOLUTE NRBC 0.00 0.00 K/uL [facility] DIFF METHOD Auto [facility] NEUTS 59.4 48.0 - 76.0 % [facility] LYMPHS 30.4 18.0 - 41.0 % [facility] MONOS 7.4 4.0 - 11.0 % [facility] EOS 2.1 0.0 - 5.0 % [facility] BASOS 0.5 0.0 - 1.5 % [facility] Granulocytes, immature (%) 0.2 0.0 - 0.9 % [facility] ABSOLUTE NEUTS 3.75 1.92 - 7.60 K/uL [facility] ABSOLUTE LYMPHS 1.92 0.72 - 4.10 K/uL [facility] ABSOLUTE MONOS 0.47 0.16 - 1.10 K/uL [facility] ABSOLUTE EOS 0.13 0.00 - 0.50 K/uL [facility] ABSOLUTE BASOS 0.03 0.00 - 0.15 K/uL [facility] Granulocytes, immature 0.01 0.00 - 0.09 K/uL [facility] Blood 08/25/2025 11:5 7 AM EDT 08/25/2025 12:04 PM EDT us Tomer Arita MD LAB BLOOD BKR ORDERABLES Final Result [facility] [address] [place], [place] [id number] * Parathyroid hormone (PTH) (08/25/2025 11:57 AM EDT) PARATHYROID HORMONE 26 15 - 65 pg/mL [facility] Blood 08/25/2025 11:5 7 AM EDT 08/25/2025 12:04 PM EDT us Tomer Arita MD LAB BLOOD BKR ORDERABLES Final Result [address] [address] * Ionized calcium (08/25/2025 11:57 AM EDT) IONIZED CALCIUM 1.21 1.14 - 1.37 mmol/L [facility] Blood 08/25/2025 11:5 7 AM EDT 08/25/2025 12:04 PM EDT Tomer Arita MD LAB BLOOD BKR ORDERABLES Final Result Performing Organization Address City/[facility]/ZIP Co de Phone Number [address] [address] * BD DXA AXIAL (SPINE) WITH HIP (06/07/2025 11:36 AM EDT) Anatomical Region Laterality Modality Bone Density Bone Density 06/07/2025 10:5 1 AM EDT Impressions 06/09/2025 12:17 PM EDT Interpretation: Osteoporosis. Narrative 06/09/2025 12:17 PM EDT Referred By: CECE DAI Indications: Postmenopausal Scanner: Amoobi A with serial# of [id number] located at [facility] Bone Density Scan (DXA) 06/07/25 Details [...] -2.5), or Osteoporosis (T-score <= -2.5). At [facility], T-scores are compared to peak bone [...] Referred By: CECE DAI Indications: Postmenopausal Scanner: Amoobi A with serial# of [id number] located at [facility] Bone Density Scan (DXA) 06/07/25 Details [...] -2.5), or Osteoporosis (T-score <= -2.5). At [facility], T-scores are compared to peak bone [...] (06/21/2024 10:39 AM EDT) HDL 103 mg/dL [facility] Comment: Interpretation <40 mg/dL: Low HDL cholesterol (major risk factor for CHD) Greater than or equal to 60 mg/dL: High HDL cholesterol ( negative risk factor for CHD) HDL - cholesterol is affected by a number of factors, e.g. smoking, excerise, hormones, sex and age. CHOLESTEROL 174 0 - 240 mg/dL [facility] TRIGLYCERIDES 62 30 - 160 mg/dL [facility] LDL 59 50 - 129 mg/dL [facility] Comment: LDL levels in terms of risk for coronary heart disease: <100 mg/dL: Optimal 100-129 mg/dL: Near or above optimal 130-159 mg/dL: Borderline high 160-189 mg/dL: High >190 mg/dL: Very High CARDIAC RISK RATIO 1.7(L) 3.3 - 4.4 C [facility] Blood 06/21/2024 10:3 9 AM EDT 06/21/2024 10:50 AM EDT us Cece Dai MD, MPH LAB BLOOD BKR ORDERA BLES Final Result [facility] [address] [place], [place] [id number] from Last 3 Months or Most Recently Relevant to Health Maintenance Insurance MEDICARE PART A & B [employer] ENHANCE SUPPLEMENT MEDICARE PART A & B [facility] MEDICARE ENHANCE SUPPLEMENT MEDICARE PART A & B [facility] MEDICARE ENHANCE SUPPLEMENT [facility] Address: [address] [place] [address] MEDICARE PART A & B [facility] MEDICARE ENHANCE SUPPLEMENT MEDICARE PART A & B [facility] MEDICARE ENHANCE SUPPLEMENT MEDICARE PART A & B [facility] MEDICARE ENHANCE SUPPLEMENT Care Teams Typewriter Operator Automatic Relationship Specialty Start Date End Date Cece Dai MD, MPH [address] [place] [address] [email or web address] PCP - General Family Medicine 04/22/24 Cece Dai MD, MPH [address] [place] [address] [email or web address] Insurance Assigned Provider 02/09/25 Additional Source Comments The information contained in this document represents components of the legal health record. It is not the complete legal health record.[facility]
--- OUTSIDE RECORDS SUMMARY | 2025-10-15 17:47 | XMS_ITS | Encounter Summary ---
Author Organization [facility] Address [address] [place] [address] Phone Care Team Providers Care Watch Electrician Name Role Phone Jovan Guillermo MD Primary Care Provider + Cece Dai MD, MPH Primary Care Provid er Cece Dai MD, MPH Unavailable [phone]- [phone] Encounter Details Date Type Department Care Team (Late st Contact Info) Description 06/09/2023 Ancillary Orders Virtual Department 30 [place] [address] Jovan Guillermo MD [address] [place] [address] Encounter for screening mammogram for malignant neoplasm [...] Info) Description 11/11/2025 12:45 PM EST Appointment [facility] [address] [place] [address] Tomer Arita MD [address] [address] 02/26/2026 9:00 AM EDT Office Visit [facility] [address] [address] Cece Dai MD, MPH [address] [address] Tomer Arita MD [address] [place] [address] 04/07/2026 11:00 AM EDT Office Visit [facility] [place] [address] [phone] Asia Morales MD [address] [address] documented as of this encounter Results * [...] breast documented in this encounter Care Teams Watch Electrician Relationship Specialty Start Date End Date Jovan Guillermo MD [address] [place] [address] PCP - General 05/17/19 04/21/24 Cece Dai MD, MPH [address] [place] [address] [email or web address] PCP - General Family Medicine 04/22/24 Cece Dai MD, MPH [address] [place] [address] [email or web address] Insurance Assigned Provider 02/09/25 documented as of this encounter Additional Source Comments The information contained in this document represents components of the legal health record. It is not the complete legal health record.[facility]
--- OUTSIDE RECORDS SUMMARY | 2025-10-15 17:47 | XMS_ITS | Clinical Summary ---
Author Organization [facility] it Address [address] [place] [address] Care Team Providers Care Spanish Tutor Name Role Phone Heri Cueto MD Primary Care Provider [phone] Allergies Active Allergy Reactions Criticality Noted Date [...] Pylori was negative in 2002. Lung blebs 05/18/2011 Overview (11/07/2024): H/o chest tube on [...] in 20s DX:DVT (deep venous thrombo sis) (HCC); COMMENT: on OCPs at the time, taken off; never anticoagulated MTHFR mutation 05/18/2011 DX:MTHFR mutatio n GERD (gastroesophageal reflu x disease) 05/18/2011 DX:GERD (gastroesophageal re flux disease) Lung blebs (CMS/HCC V24, CMS /HCC V28) 05/18/2011 DX:Lung blebs (HCC) Hepatic cyst [...] on file Sexual Orientation Not on file Plan of Treatment Health Maintenance Due Date [...] Procedure Name Priority Date/Time Associated Diagnosis Comments HEPATITIS C SCREENING Routine 05/20/2003 from Last 3 Months or Most Recently Relevant to Health Maintenance Results * Hepatitis C Screening (05/20/2003) Hepatitis C Screening Abstracted us Historical Provider HEALTH MAINTENANCE Final Result from Last 3 Months or Most Recently Relevant to Health Maintenance Care Teams Spanish Tutor Relationship Specialty Start Date End Date Heri Cueto MD [address] [place] [address] PCP - General 04/29/11
--- OUTSIDE RECORDS SUMMARY | 2025-10-15 17:48 | XMS_ITS | Encounter Summary ---
Author Organization [facility] Address [address] [place] [address] Phone Care Team Providers Care Creative Writing English Professor Name Role Phone Jovan Guillermo MD Primary Care Provider + Cece Dai MD, MPH Primary Care Provid er Cece Dai MD, MPH Unavailable [phone] Encounter Details Date Type Department Care Team (Late st Contact Info) Description 06/09/2023 Procedure Pass [facility] - [address] [place] [address] Social History Tobacco Use Types Packs/Day Years [...] Info) Description 11/11/2025 12:45 PM EST Appointment [facility] 30 [place] [address] Tomer Arita MD [address] [place] [address] 02/26/2026 9:00 AM EDT Office Visit [facility] [place] [facility] [address] [place] [address] Cece Dai MD, MPH [address] [place] [address] Tomer Arita MD [address] [place] [address] 04/07/2026 11:00 AM EDT Office Visit [facility] Endocrinology [address] [phone] Asia Morales MD [address] [place] [address] documented as of this encounter Visit Diagnoses Not on filedocumented in this encounter Care Teams Creative Writing English Professor Relationship Specialty Start Date End Date Jovan Guillermo MD [address] [place] [address] PCP - General 05/17/19 04/21/24 Cece Dai MD, MPH [address] [place] [address] [email or web address] PCP - General Family Medicine 04/22/24 Cece Dai MD, MPH [address] [place] [address] [address]. [address] [place] [address] [email or web address] Insurance Assigned Provider 02/09/25 documented as of this encounter Additional Source Comments The information contained in this document represents components of the legal health record. It is not the complete legal health record.[facility]
--- OUTSIDE RECORDS SUMMARY | 2025-10-15 17:49 | XMS_ITS | Encounter Summary ---
Author Organization [facility] Address [address] [place] [address] Phone Care Team Providers Care Dice Manager Name Role Phone Jovan Guillermo MD Primary Care Provider + Cece Dai MD, MPH Primary Care Provid er Cece Dai MD, MPH Unavailable [phone]- [phone] Encounter Details Date Type Department Care Team (Late st Contact Info) Description 06/09/2023 Ancillary Orders Virtual Department 30 [place] [address] Jovan Guillermo MD [address] [place] [address] Encounter for screening mammogram for malignant neoplasm [...] Info) Description 11/11/2025 12:45 PM EST Appointment [facility] 30 [place] [address] Tomer Arita MD [address] [address] 02/26/2026 9:00 AM EDT Office Visit [facility] Primary Care [address] [address] Cece Dai MD, MPH [address] [address] Tomer Arita MD [address] [place] [address] 04/07/2026 11:00 AM EDT Office Visit [facility] Endocrinology [address] [phone] Asia Morales MD [address] [address] documented as of this encounter Results * [...] scattered fibroglandular densities. Jovan Guillermo MD IM US BREAST Final Re sult documented in this encounter Visit Diagnoses Diagnosis Encounter for screening mammogram for malignant neoplasm of breast Encounter for screening mammogram for malignant neoplasm of breast documented in this encounter Care Teams Dice Manager Relationship Specialty Start Date End Date Jovan Guillermo MD [address] [place] [address] PCP - General 05/17/19 04/21/24 Cece Dai MD, MPH [address] [place] [address] [email or web address] PCP - General Family Medicine 04/22/24 Cece Dai MD, MPH [address] [place] [address] [email or web address] Insurance Assigned Provider 02/09/25 documented as of this encounter Additional Source Comments The information contained in this document represents components of the legal health record. It is not the complete legal health record.[facility]
--- OUTSIDE RECORDS SUMMARY | 2025-10-15 17:50 | XMS_ITS | Encounter Summary ---
Author Organization [facility] Address [address] [place] [address] Phone Care Team Providers Care Medical Management Specialist Name Role Phone Jovan Guillermo MD Primary Care Provider + Cece Dai MD, MPH Primary Care Provid er Cece Dai MD, MPH Unavailable [phone]- [phone] Encounter Details Date Type Department Care Team (Latest Contact Info) Description 06/07/2023 Transcribe Orders Virtual Department 30 [place] [address] Jovan Guillermo MD [address] [place] [address] Encounter for screening mammogram for malignant neoplasm [...] Info) Description 11/11/2025 12:45 PM EST Appointment [facility] 30 [place] [address] Tomer Arita MD [address] [address] 02/26/2026 9:00 AM EDT Office Visit [facility] Primary Care [address] [address] Cece Dai MD, MPH [address] [place] [address] Tomer Arita MD [address] [place] [address] 04/07/2026 11:00 AM EDT Office Visit [facility] Endocrinology [address] [phone] Asia Morales MD [address] [place] [address] documented as of this encounter Visit Diagnoses Diagnosis Encounter for screening mammogram for malignant neoplasm of breast- Primary documented in this encounter Care Teams Medical Management Specialist Relationship Specialty Start Date End Date Jovan Guillermo MD [address] [place] [address] PCP - General 05/17/19 04/21/24 Cece Dai MD, MPH [address] [place] [address] [email or web address] PCP - General Family Medicine 04/22/24 Cece Dai MD, MPH [address] [place] [address] [email or web address] Insurance Assigned Provider 02/09/25 documented as of this encounter Additional Source Comments The information contained in this document represents components of the legal health record. It is not the complete legal health record.[facility]
== END 2025-10-15 11:09 | disposition home or self-care (01) ==
LOC: HO.HMGAL 11:08
PROVIDERS: PCP Family Medicine; Visit Provider Registered Nurse Emergency
DX: J30.89 Other allergic rhinitis (principal)
CPT/HCPCS: 95117; 95165

== ENCOUNTER 2025-10-22 14:26 | Outpatient (AMB) | payer MEDICARE, OTHER, SELFPAY ==
--- OUTSIDE RECORDS SUMMARY | 2007-05-10 23:00 | XMS_ITS | Encounter Summary ---
Author Organization [facility] Address [address] [place] [address] Phone Care Team Providers Care South Asian History Professor Name Role Phone Unavailable Primary Care Provider Unavailabl e Encounter Details Date Type Department Care Team (Late st Contact Info) Description 05/11/2007 Hospital Encounter [facility],Outside Imaging 30 [place] [address] System, Provider Not In, PhD Partners [address] [address] Social History Tobacco Use Types Packs/Day Years [...] Info) Description 11/11/2025 12:45 PM EST Appointment [facility] 30 [place] [address] Tomer Arita MD 15 [facility] [address]. [address] [place] [address] 02/26/2026 9:00 AM EDT Office Visit [facility] 15 [facility] [address] [place] [address] Cece Dai MD, MPH 15 [facility] [address]. [address] [place] [address] Tomer Arita MD 15 [facility] [address]. [address] [place] [address] 04/07/2026 11:00 AM EDT Office Visit [facility]ology [facility] 40 [place] [address] Asia Morales MD [address] [place] [address] [email or web address] documented as of this encounter Procedures Procedure [...] It is not the complete legal health record.[facility]
--- OUTSIDE RECORDS SUMMARY | 2007-05-14 23:00 | XMS_ITS | Encounter Summary ---
Author Organization [facility] Address [address] [place] [address] Phone Care Team Providers Care Armored Machine Operator Name Role Phone Unavailable Primary Care Provider Unavailabl e Encounter Details Date Type Department Care Team (Late st Contact Info) Description 05/15/2007 Hospital Encounter [facility],Outside Imaging 30 [place] [address] System, Provider Not In, PhD Partners [address] [address] Social History Tobacco Use Types Packs/Day Years [...] PM EST Appointment [facility] 30 [place] [address] Tomer Arita MD 15 [facility] Carter. [address] [place] [address] 02/26/2026 9:00 AM EDT Office Visit [facility] 15 [facility] [address] [place] [address] Cece Dai MD, MPH 15 [facility] [address]. [address] [place] [address] Tomer Arita MD 15 [facility] [address]. [address] [place] [address] 04/07/2026 11:00 AM EDT Office Visit [facility] Endocrinology Clinic 40 [place] [address] Asia Morales MD [address] [place] [address] [email or web address] documented as of this encounter [...] It is not the complete legal health record.[facility]
--- OUTSIDE RECORDS SUMMARY | 2008-05-12 23:00 | XMS_ITS | Encounter Summary ---
Author Organization [facility] Address [address] [place] [address] Phone Care Team Providers Care Lacquer Sizer Name Role Phone Unavailable Primary Care Provider Unavailabl e Encounter Details Date Type Department Care Team (Late st Contact Info) Description 05/13/2008 Hospital Encounter [facility],Outside Imaging 30 [place] [address] System, Provider Not In, PhD Partners [address] [address] Social History Tobacco Use Types Packs/Day Years [...] Info) Description 11/11/2025 12:45 PM EST Appointment [facility] 30 [place] [address] Tomer Arita MD 15 [facility] [address]. 201 [place] [address] 02/26/2026 9:00 AM EDT Office Visit [facility] Primary Care Clinic 15 [facility] [address] [place] [address] Cece Dai MD, MPH 15 [facility] [address]. [address] [place] [address] Tomer Arita MD 15 [facility] [address] [place] [address] 04/07/2026 11:00 AM EDT Office Visit [facility] Endocrinology Clinic 40 [place] [address] Asia Morales MD [address] [place] [address] [email or web address] documented as of this encounter Procedures Procedure Name Priority Date/Time Associated Diagnosis Comments BI MAMMOGRAM OUTSIDE (NO INTERPRETATION) Routine 05/13/2008 12:00 AM EDT documented in this encounter Results * Mammogram Outside (No Interpretation) (05/13/2008 12:00 AM EDT) Narrative SYSTEMGENERATED, DOCUMENTATION - 06/04/2021 10:46 AM EDT This study is for PACS storage only and not for interpretation. us Provider Not In System PhD IMG OUTSIDE IMAGING W /OUT INTERPRETATION Final Result documented in this encounter Visit Diagnoses Not on filedocumented in this encounter Additional Source Comments The information contained in this document represents components of the legal health record. It is not the complete legal health record.[facility]
--- OUTSIDE RECORDS SUMMARY | 2010-05-10 23:00 | XMS_ITS | Encounter Summary ---
Author Organization [facility] Address [address] [place] [address] Phone Care Team Providers Care Deckhand Shrimp Boat Name Role Phone Unavailable Primary Care Provider Unavailabl e Encounter Details Date Type Department Care Team (Late st Contact Info) Description 05/11/2010 Hospital Encounter [facility],Outside Imaging 30 [place] [address] System, Provider Not In, PhD Partners [address] [address] Social History Tobacco Use Types Packs/Day Years [...] Info) Description 11/11/2025 12:45 PM EST Appointment [facility] 30 [place] [address] Tomer Arita MD 15 [facility] Carter. 201 [place] [address] 02/26/2026 9:00 AM EDT Office Visit [facility] 15 [facility] [address] [place] [address] Cece Dai MD, MPH 15 [facility] [address]. [address] [place] [address] Tomer Arita MD 15 [facility] [address] [place] [address] 04/07/2026 11:00 AM EDT Office Visit [facility]ology Clinic 40 [place] [address] Asia Morales MD [address] [place] [address] [email or web address] documented as of this encounter Procedures Procedure [...] It is not the complete legal health record.[facility]
--- OUTSIDE RECORDS SUMMARY | 2011-05-15 23:00 | XMS_ITS | Encounter Summary ---
Author Organization [facility] Address [address] [place] [address] Phone Care Team Providers Care Undercutter Name Role Phone Unavailable Primary Care Provider Unavailabl e Encounter Details Date Type Department Care Team (Late st Contact Info) Description 05/16/2011 Hospital Encounter [facility],Outside Imaging 30 [place] [address] System, Provider Not In, PhD Partners [address] [address] Social History Tobacco Use Types Packs/Day Years [...] you interested in more education? Not on yante e 03/12/2023 Are you concerned about learning? [...] Info) Description 11/11/2025 12:45 PM EST Appointment [facility] 30 [place] [address] Tomer Arita MD 15 [facility] Carter. 201 [place] [address] 02/26/2026 9:00 AM EDT Office Visit [facility] Primary Care Clinic 15 [facility] [address] [place] [address] Cece Dai MD, MPH 15 [facility] [address]. 201 [place] [address] Tomer Arita MD 15 [facility] [address]. [address] [place] [address] 04/07/2026 11:00 AM EDT Office Visit [facility] Endocrinology Clinic 40 [place] [address] Asia Morales MD [address] [place] [address] [email or web address] documented as of this encounter [...] not the complete legal health record.[facility]
--- OUTSIDE RECORDS SUMMARY | 2025-10-22 19:16 | XMS_ITS | Encounter Summary ---
Author Organization [facility] Address [address] [place] [address] Phone Care Team Providers Care Software Project Lead Name Role Phone Cece Dai MD, MPH Primary Care Provid er Cece Dai MD, MPH Unavailable [phone]- [phone] Encounter Details Date Type Department Care Team (Late st Contact Info) Description 02/27/2025 Procedure Pass [facility] - [address] [place] [address] Social History Tobacco Use Types Packs/Day Years [...] Info) Description 11/11/2025 12:45 PM EST Appointment [address] [address] Tomer Arita MD [address] [place] [address] [email or web address] 02/26/2026 9:00 AM EDT Office Visit [facility] 15 [facility] 201 [place] [address] Cece Dai MD, MPH [address] [address] Tomer Arita MD 15 [facility] 201 [place] [address] 04/07/2026 11:00 AM EDT Office Visit [facility] Endocrinology Clinic 40 [place] [phone] Asia Morales MD [address] [address] [email or web address] documented as of this encounter Visit Diagnoses Not on filedocumented in this encounter Additional Health Concerns Assessment Noted Time PHQ-2 Depression Total Score: 0 02/26/20 25 10:12 AM EDT documented as of this encounter Care Teams Software Project Lead Relationship Specialty Start Date End Date Cece Dai MD, MPH [address] [address] PCP - General Family Medicine 04/22/24 Cece Dai MD, MPH [address] [address] Insurance Assigned Provider 02/09/25 documented as of this encounter Additional Source Comments The information contained in this document represents components of the legal health record. It is not the complete legal health record.[facility]
--- OUTSIDE RECORDS SUMMARY | 2025-10-22 19:16 | XMS_ITS | Data Portability ---
Author Organization [place] [facility], Allergy Address [address] [address] Care Team Providers Care Hand Fretted Instrument Maker Name Role Phone TELLO SAMINA Referring Provider [...] She is working with the integrative medicine [employer]. They do have a somewhat different approach. We discussed that I think migraine is a big component and have suggested magnesium oxide up to 400 mg riboflavin 400 mg and avoidance of dietary triggers. I have given her written information including the migraine disorders.org website. I am happy to offer her an additional opinion. She was not happy at the [facility]. I asked her to review [...] on natural recovery progress and functional capacity scientologist. 5. Fractured rib Persistence of rib pain [...] w/o contrast 2024 025 AUSTIN [facility] [place], [address], [address], [place], [address], 5 10:47:58 Medication Orders None recorded. Patient TargetsNo targets recorded. Patient Instructions Encounter Date Encounter Id Patient Instructions Last Modified By Organization Details Last Modified Time 05/12/2025 [id number] Please note: Parts of this encounter note [...] No observ ation record ed. [facility] [place] [address], [address], 01/01/2025 13:39:36 Result Notes None recorded. 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 Active 025 RUTH CORONA PA-C [address], [address], [facility] - [facility] 5 12:43:20 Migraine without aura, not refractory 907383593 Active 025 RUTH CORONA PA-C 100 [facility] [address] [place] [address], [address], [facility] - [facility] 5 12:43:29 Migraine 23401954 Active 025 RUTH CORONA PA-C 100 [facility] E [facility], [facility], [address], [facility] - [facility] [place] 5 12:43:37 Pain in face 02072408 Active 025 THERESA BRIGGS MD 100 [facility],[address], [facility], [address], [facility] - [facility] [place] 5 12:57:09 Ear sensations - finding 025004820 Active 025 THERESA BRIGGS MD 100 [facility],[address], [facility], [address], [facility] - [facility] [place] 5 12:57:24 Deviated nasal septum 372786295 Active 025 THERESA BRIGGS MD 100 [facility],[address], [facility], [address], [facility] - [facility] [place] 5 12:57:47 Perennial allergic rhinitis 756516928 Active 025 THERESA BRIGGS MD 100 [facility], [address], [facility], [address], [facility] - [facility] 5 10:50:44 Frequent headache 102101595 Active 025 THERESA BRIGGS MD 100 [facility], [address], [facility], [address], [facility] - [facility] 5 10:50:52 Chronic sinusitis 51233707 Active 025 THERESA BRIGGS MD 100 [facility], [address], [place], [address], [facility] - [facility] 5 10:50:57 Problem Notes None recorded. Procedures Surgical History Date Name Laterality Status Provider Name and Address Organization Details Recorded Time 03/21/20 25 JMSNasal/Sinus Endoscopy completed THERESA Reynolds MD [address] [address], [place], [address], [place] - [facility] 03/21/2025 08:53:42 12/17/19 25 Nasal Endoscopy completed RUTH CORONA PA-C [address], [address], [facility] - [facility] 12/17/2024 11:06:16 cholecystectomy completed Sonia Jack [place] - [facility] 12/17/2024 10:35:16 hernia repair completed Sonia Jack [place] [facility] 12/17/2024 10:35:32 Imaging Results None recorded. Procedure Notes None recorded. Medical Equipment None Reported. Allergies Allergen ID Allergen Name Allergen Category Reaction Reaction Severity Criticality Documentation Date Start Date Code Code System Note Provider Name and Address Organization Details Recorded Time 506705 Substance with macrolide structure and antibacte rial mechanism of action (substanc e) medicatio n Not available Not available unabletoasse 12/17/2024 46927 0009 SNOMED Sonia whitt [place] - [facility] 5 10:32:47 617771 cultivate d mushroom extract food,medi cation Not available Not available Not available 12/17/2024 04536 17 RxNorm [address] wh[address] [facility] 10:33:43 326064 nystatin medicatio n Not available Not available [facility] 12/17/2024 7597 RxNorm RUTH CORONA PA-C 100 [facility] [address], [place], [address], [facility] - [facility] 5 10:53:29 Medications Name Sig Start Date Stop Date Status Note LastModified by Organization Details LastModified Time lisinopril 2.5 mg tablet TAKE 1 TO 2 TABLETS BY MOUTH DAILY active Not Available Not Available No t Available Vitals Date Recorded Body height Body mass index (BMI) Body weight Provider Name and Address Organization Details Last Updated DateTime 12/17/2024 170.18 cm 18.8 kg/m2 28859.08 g Sonia Jack [place] [facility] 12/17/2024 10:30:48 Date Recorded Systolic And Diastolic Provider Name and Address Organization Details Last Updated DateTime 05/12/2025 130/84 mm[Hg] THERESA CORTES MD [address] [place] [address], [place], [address], [place] - [facility] 05/12/2025 10:53:13 Date Recorded Body height Provider Name an d Address Organization Details Last Updated DateTime 05/12/2025 170.18 cm BLAIR LARA [place] [facility] [place] 05/12/2025 10:27:07 Social History None recorded. Functional [...] ICD10 Code Diagnosis IMO Codes Diagnosis Note [id number] RUTH CORONA PA-C [facility] [address] [address] 12/17/2024 10:04:14 12/17/2024 11:06:28 Nasal congestion 23594149 R09.81 Allergic rhinitis 849083 04 J30.9 Atypical facial pain 713 42062 G50.1 Migraine 54743404 G43.90 9 [id number] THERESA ELENA MD [facility] [address] [address] 03/21/2025 08:32:29 03/21/2025 08:58:24 Pain in face 69184789 R51.9 97074 Nasal congestion 0830117 0 R09.81 04281 Ear sensat ions - finding 734784620 H93.8X3 57429702 Deviated nasal septum 12 7932989 J34.2 40239 65496 THERESA ELENA MD [facility] [address] [address] 05/12/2025 10:18:42 05/12/2025 10:55:08 Perennial allergic rhinitis 280171573 J30.89 884664 Frequent headache 110549 003 R51.9 45941944 Chronic sinusitis 667414 00 J32.8 57650 Health Concerns Section Related Observation LastModified by Organization Detai ls LastModified Time None Recorded Concern Status LastModified by Organization Details LastModified Time None Recorded Advance Directives Directive None Recorded Payers Insurance Date Sequence Insurance Name Policy Number Policy Whatley Covered Member ID Whatley Member ID Guarantor Name 05/12/2025 2 [facility] (MEDICARE SUPPLEMENT) Tish garcia [id number] Tish Mack 05/12/2025 1 MEDICARE B-[place]: [facility] [employer] Tish Mack [id number] Tish Mack Notes Date Note Type [...] noise sensitivity. She is closely followed by [facility] for holistic management of her symptoms. She [...] of sinus surgery. LIZETT PORTILLO MD 100 [facility],[address], [address], [facility] [place] 12/18/2024 07:36:00 03/21/2025 text/html Persistent issues with headache, facial pressure and congestion. Presently taking multiple supplements and antifungals from [facility] for fungus and toxins Saw Dr Soler at [facility] and felt he wasn't very good. there must be something else that we can't see wants IV antifungal to get into brain recent CT scan did not show any significant sinus disease THERESA CORTES MD 100 [facility],[address], [address], [facility] 03/21/2025 12:58:01 05/12/2025 text/html The patient [...] no recent hospital admissions or procedures at [facility]. She had an encounter with orthopedic health services and breast screening follow-up. Currently, the patient manages her health with supplementary magnesium and B vitamins, addressing unspecified wellness goals. Previously discussed management of migraine with magnesium and B vitamin. That seems to be helpful. I had also recommended evaluation with Dr. Walters in [place] but she has held off on that at the present time THERESA CORTES MD 100 [facility],[address] [address], [place], [address], [facility] 05/12/2025 10:55:31 OBGyn Episode No OBEpisode recorded.
--- OUTSIDE RECORDS SUMMARY | 2025-10-22 19:16 | XMS_ITS | Encounter Summary ---
Author Organization [facility] Address [address] [place] [address] Phone Care Team Providers Care Salvage Winder And Inspector Name Role Phone Cece Dai MD, MPH Primary Care Provid er Cece Dai MD, MPH Unavailable +1- [phone] Encounter Details Date Type Department Care Team (Late st Contact Info) Description 02/07/2025 Procedure Pass [facility] - [address] [place] [address] Social History Tobacco Use Types Packs/Day Years [...] Info) Description 11/11/2025 12:45 PM EST Appointment [address] [address] Tomer Arita MD [address] [place] [address] 02/26/2026 9:00 AM EDT Office Visit [facility] Primary Care Clinic 15 [facility] 201 [place] [address] Cece Dai MD, MPH [address] [address] Tomer Arita MD [address] [address] 04/07/2026 11:00 AM EDT Office Visit [facility] Endocrinology Clinic 40 [place] [address] Asia Morales MD [address] [address] documented as of this encounter Visit Diagnoses Not on filedocumented in this encounter Additional Health Concerns Assessment Noted Time PHQ-2 Depression Total Score: 0 02/26/20 10:12 AM EDT documented as of this encounter Care Teams Salvage Winder And Inspector Relationship Specialty Start Date End Date Cece Dai MD, MPH [address] [address] PCP - General Family Medicine 04/22/24 Cece Dai MD, MPH [address] [address] Insurance Assigned Provider 02/09/25 documented as of this encounter Additional Source Comments The information contained in this document represents components of the legal health record. It is not the complete legal health record.[facility]
--- OUTSIDE RECORDS SUMMARY | 2025-10-22 19:16 | XMS_ITS | Encounter Summary ---
Author Organization [facility] Address [address] [place] [address] Phone Care Team Providers Care Automotive Service Writer Name Role Phone Jovan Guillermo MD Primary Care Provider + Cece Dai MD, MPH Primary Care Provid er Cece Dai MD, MPH Unavailable +1- [phone] Encounter Details Date Type Department Care Team (Late st Contact Info) Description 06/04/2021 Ancillary Orders [facility],[address] [address] System, Provider Not In, [place] [address] Social History Tobacco Use Types Packs/Day Years [...] Info) Description 11/11/2025 12:45 PM EST Appointment [facility], [facility] [address] [place] [address] Tomer Arita MD 15 [facility] 201 [place] [address] 02/26/2026 9:00 AM EDT Office Visit [facility] Primary Care [facility] 15 [facility] 201 [place] [address] Cece Dai MD, MPH 15 [facility]. 201 [place] [address] [email or web address] Tomer Arita MD 15 [facility] 201 [place] [address] 04/07/2026 11:00 AM EDT Office Visit [facility] Endocrinology Clinic [address] [place] [address] Asia Morales MD [address] [address] [email or web address] documented as [...] on filedocumented in this encounter Care Teams Automotive Service Writer Relationship Specialty Start Date End Date Jovan Guillermo MD [address] [place] [address] PCP - General 05/17/19 04/21/24 Cece Dai MD, MPH [address] [place] [address] PCP - General Family Medicine 04/22/24 Cece Dai MD, MPH [address] [place] [address] Insurance Assigned Provider 02/09/25 documented as of this encounter Additional Source Comments The information contained in this document represents components of the legal health record. It is not the complete legal health record.[facility]
--- OUTSIDE RECORDS SUMMARY | 2025-10-22 19:16 | XMS_ITS | Encounter Summary ---
Author Organization [facility] Address 399 [facility] [address] [place] [address] Phone Care Team Providers Care Fish Hatchery Inspector Name Role Phone Jovan Guillermo MD Primary Care Provider + Cece Dai MD, MPH Primary Care Provid er Cece Dai MD, MPH Unavailable +1- [phone] Encounter Details Date Type Department Care Team (Late st Contact Info) Description 05/24/2021 Procedure Pass [facility] - [address] [place] [address] Social History Tobacco Use Types Packs/Day Years [...] Info) Description 11/11/2025 12:45 PM EST Appointment [facility], [address] [address] Tomer Arita MD [address] [address] 02/26/2026 9:00 AM EDT Office Visit [facility] Primary Care Clinic [address] [address] Cece Dai MD, MPH [address] [place] [address] Tomer Arita MD [address] [place] [address] 04/07/2026 11:00 AM EDT Office Visit [facility] Endocr[facility]ology Clinic [address] [place] [phone] Asia Morales MD [address] [place] [address] [email or web address] documented as of this encounter Visit Diagnoses Not on filedocumented in this encounter Care Teams Fish Hatchery Inspector Relationship Specialty Start Date End Date Jovan Guillermo MD [address] [place] [address] PCP - General 05/17/19 04/21/24 Cece Dai MD, MPH [address] [place] [address] PCP - General Family Medicine 04/22/24 Cece Dai MD, MPH [address] [place] [address] Insurance Assigned Provider 02/09/25 documented as of this encounter Additional Source Comments The information contained in this document represents components of the legal health record. It is not the complete legal health record.[facility]
--- OUTSIDE RECORDS SUMMARY | 2025-10-22 19:16 | XMS_ITS | Encounter Summary ---
Author Organization [facility] Address [address] [facility] [address] [facility] [address] [place] [address] Phone Care Team Providers Care Auto Seat Cover Installer Name Role Phone Jovan Guillermo MD Primary Care Provider + Cece Dai MD, MPH Primary Care Provid er Cece Dai MD, MPH Unavailable +1- [phone] Encounter Details Date Type Department Care Team (Late st Contact Info) Description 05/24/2021 Ancillary Orders Virtual Department [address] [place] [address] Jovan Guillermo MD [address] [place] [address] Breast screening Social History Tobacco Use Types [...] Info) Description 11/11/2025 12:45 PM EST Appointment [facility] 30 [place] [address] Tomer Arita MD 15 [facility]. 201 [place] [address] [email or web address] 02/26/2026 9:00 AM EDT Office Visit [facility] Primary Care [facility] 15 [facility] 201 [place] [address] Cece Dai MD, MPH 15 [facility]. [address] [place] [address] [email or web address] Tomer Arita MD 15 [facility]. [address] [place] [address] 04/07/2026 11:00 AM EDT Office Visit [facility] Endocrinology Clinic 40 [place] [address] Asia Morales MD [address] [place] [address] [email or web address] documented as of this encounter Results * [...] unspecified documented in this encounter Care Teams Auto Seat Cover Installer Relationship Specialty Start Date End Date Jovan Guillermo MD [address] [place] [address] PCP - General 05/17/19 04/21/24 Cece Dai MD, MPH [address] [address] [email or web address] PCP - General Family Medicine 04/22/24 Cece Dai MD, MPH [address] [address] [email or web address] Insurance Assigned Provider 02/09/25 documented as of this encounter Additional Source Comments The information contained in this document represents components of the legal health record. It is not the complete legal health record.[facility]
--- OUTSIDE RECORDS SUMMARY | 2025-10-22 19:16 | XMS_ITS | Encounter Summary ---
Author Organization [facility] Address [address] [place] [address] Phone Care Team Providers Care Manager Hvac Name Role Phone Jovan Guillermo MD Primary Care Provider + Cece Dai MD, MPH Primary Care Provid er Cece Dia MD, MPH Unavailable +1- [phone] Encounter Details Date Type Department Care Team (Late st Contact Info) Description 06/09/2023 Procedure Pass [facility] - [address] [place] [address] Social History Tobacco Use Types Packs/Day Years [...] Info) Description 11/11/2025 12:45 PM EST Appointment [facility], [facility] 30 [place] [address] Tomer Arita MD [address] [place] [address] 02/26/2026 9:00 AM EDT Office Visit [facility] Primary Care Clinic [address] [place] [address] Cece Dai MD, MPH [address] [place] [address] Tomer Arita MD [address] [place] [address] 04/07/2026 11:00 AM EDT Office Visit [facility] Endocrinology Clinic 40 [place] [phone] Asia Morales MD [address] [place] [address] documented as of this encounter Visit Diagnoses Not on filedocumented in this encounter Care Teams Manager Hvac Relationship Specialty Start Date End Date Jovan Guillermo MD [address] [place] [address] PCP - General 05/17/19 04/21/24 Cece Dai MD, MPH [address] [place] [phone] [email or web address] PCP - General Family Medicine 04/22/24 Cece Dai MD, MPH [address] [place] [address] [email or web address] Insurance Assigned Provider 02/09/25 documented as of this encounter Additional Source Comments The information contained in this document represents components of the legal health record. It is not the complete legal health record.[facility]
--- OUTSIDE RECORDS SUMMARY | 2025-10-22 19:16 | XMS_ITS | Encounter Summary ---
Author Organization [facility] Address [address] [place] [address] Phone Care Team Providers Care Volleyball Assistant Coach Name Role Phone Jovan Guillermo MD Primary Care Provider + Cece Dai MD, MPH Primary Care Provid er Cece Dai MD, MPH Unavailable +1- [phone] Encounter Details Date Type Department Care Team (Late st Contact Info) Description 06/09/2023 Procedure Pass [facility] - [address] [place] [address] Social History Tobacco Use Types Packs/Day Years [...] Info) Description 11/11/2025 12:45 PM EST Appointment [facility], [facility] 30 [place] [address] Tomer Arita MD [address] [place] [address] 02/26/2026 9:00 AM EDT Office Visit [facility] Primary Care Clinic [address] [place] [address] Cece Dai MD, MPH [address] [place] [address] Tomer Arita MD [address] [place] [address] 04/07/2026 11:00 AM EDT Office Visit [facility] Endocrinology Clinic 40 [place] [phone] Asia Morales MD [address] [place] [address] documented as of this encounter Visit Diagnoses Not on filedocumented in this encounter Care Teams Volleyball Assistant Coach Relationship Specialty Start Date End Date Jovan Guillermo MD [address] [place] [address] PCP - General 05/17/19 04/21/24 Cece Dai MD, MPH [address] [place] [address] [email or web address] PCP - General Family Medicine 04/22/24 Cece Dai MD, MPH [address] [place] [address] Insurance Assigned Provider 02/09/25 documented as of this encounter Additional Source Comments The information contained in this document represents components of the legal health record. It is not the complete legal health record.[facility]
--- OUTSIDE RECORDS SUMMARY | 2025-10-22 19:16 | XMS_ITS | Encounter Summary ---
Author Organization [facility] Address [address] [place] [address] Phone Care Team Providers Care Toll Collector Name Role Phone Cece Dai MD, MPH Primary Care Provid er Cece Dai MD, MPH Unavailable +1- [phone] Encounter Details Date Type Department Care Team (Late st Contact Info) Description 07/15/2025 Procedure Pass [facility], [facility] - [address] [address] Social History Tobacco Use Types Packs/Day Years [...] Info) Description 11/11/2025 12:45 PM EST Appointment [address] [address] Tomer Arita MD [address] [place] [address] 02/26/2026 9:00 AM EDT Office Visit [facility] Primary Care Clinic 15 [facility] 201 [place] [address] Cece Dai MD, MPH [address] [address] Tomer Arita MD [address] [address] 04/07/2026 11:00 AM EDT Office Visit [facility] Endocrinology Clinic 40 [place] [address] Asia Morales MD [address] [address] documented as of this encounter Visit Diagnoses Not on filedocumented in this encounter Additional Health Concerns Assessment Noted Time PHQ-2 Depression Total Score: 0 02/26/20 10:12 AM EDT documented as of this encounter Care Teams Toll Collector Relationship Specialty Start Date End Date Cece Dai MD, MPH [address] [address] PCP - General Family Medicine 04/22/24 Cece Dai MD, MPH [address] [address] Insurance Assigned Provider 02/09/25 documented as of this encounter Additional Source Comments The information contained in this document represents components of the legal health record. It is not the complete legal health record.[facility]
--- OUTSIDE RECORDS SUMMARY | 2025-10-22 19:16 | XMS_ITS | Encounter Summary ---
Author Organization [facility] Address [address] [place] [address] Phone Care Team Providers Care Public Health Technician Name Role Phone Jovan Guillermo MD Primary Care Provider + Cece Dai MD, MPH Primary Care Provid er Cece Dai MD, MPH Unavailable +1- [phone] Encounter Details Date Type Department Care Team (Late st Contact Info) Description 06/09/2023 Ancillary Orders Virtual Department 30 [place] [address] Jovan Guillermo MD [address] [place] [address] Encounter for screening mammogram for malignant neoplasm [...] Description 11/11/2025 12:45 PM EST Appointment [facility] 30 [place] [address] Tomer Arita MD [address] [place] [address] 02/26/2026 9:00 AM EDT Office Visit [facility] [address] [place] [address] Cece Dai MD, MPH [address] [place] [address] Tomer Arita MD [address] [place] [address] 04/07/2026 11:00 AM EDT Office Visit [facility] 40 [place] [address] Asia Morales MD [address] [place] [address] documented as of this encounter Results * [...] breast documented in this encounter Care Teams Public Health Technician Relationship Specialty Start Date End Date Jovan Guillermo MD [address] [place] [address] PCP - General 05/17/19 04/21/24 Cece Dai MD, MPH [address] [place] [address] [email or web address] PCP - General Family Medicine 04/22/24 Cece Dai MD, MPH [address] [place] [address] [email or web address] Insurance Assigned Provider 02/09/25 documented as of this encounter Additional Source Comments The information contained in this document represents components of the legal health record. It is not the complete legal health record.[facility]
--- OUTSIDE RECORDS SUMMARY | 2025-10-22 19:16 | XMS_ITS | Clinical Summary ---
Author Organization [facility] Address [address] [place] [address] Phone Care Team Providers Care Associate Professor Of Education Name Role Phone Cece Dai MD, MPH Primary Care Provid er Cece Dai MD, MPH Unavailable +1- [phone] Allergies Active Allergy Reactions Criticality Noted Date [...] Chronic sinusitis 04/22/2024 Overview (04/22/2024): Follows at [facility], believes it is fungal Assessment & Plan (02/25/2025 11:18 AM EDT): Orders: Ambulatory referral to External Allergy Assessment & Plan (10/22/2024 10:54 AM EST): Orders: External Referral to [facility] ([facility]) History of stroke associated with blood clotting [...] 5:27 AM EDT): Will need a new weatherization crew leader as Dr Holland is nearing care home. [...] Type Department Care Team Description 09/18/[address] [facility] [address] [place] [address] Cece Dai MD, MPH Referral (Endocrinology ) 09/03/2025 9:02 AM EDT - 09/03/2025 11:59 PM EDT Hospital Encounter [facility] - [address] [address] Tomer Arita MD Discharge Disposition: Home or Self Care 08/25/2025 11:52 AM EDT - 08/25/2025 11:59 PM EDT Hospital Encounter [facility] [address] [address] Tomer Arita MD Discharge Disposition: Home or Self Care 08/22/2025 11:20 AM EDT Office Visit [address] [place] [address] Tomer Arita MD Intractable abdominal pain (Primary Dx); Age related osteoporosis, unspecified pathological fracture presence 08/11/2025 Telephone [facility] [address] [place] [address] Cece Dai MD, MPH Calcium Injection 07/24/2025 Telephone [facility] [address] [place] [address] Cece Dai MD, MPH CT order question 07/15/2025 Procedure Pass [facility] - [facility] 30 [place] [address] from Last 3 Months Immunizations Immunization Administration [...] Info) Description 11/11/2025 12:45 PM EST Appointment [address] [address] Tomer Arita MD [address] [place] [address] 02/26/2026 9:00 AM EDT Office Visit [facility] [address] [place] [address] Cece Dai MD, MPH [address] [place] [address] [email or web address] Tomer Arita MD [address] [place] [address] 04/07/2026 11:00 AM EDT Office Visit [facility] 40 [place] [phone] Asia Morales MD [address] [place] [address] Health Maintenance Due Date Last Done Comments [...] cm in the inferomedial right lobe. No hwaa hepatomegaly or abnormal perihepatic fluid. Biliary: Status [...] EDT) SODIUM 137 133 - 146 mmol/L [facility] POTASSIUM 4.0 3.3 - 5.1 mmol/L [facility] CHLORIDE 101 96 - 108 mmol/L [facility] CO2 27 21 - 35 mmol/L [facility] BUN 10 6 - 19 mg/dL [facility] CREATININE 0.30(L) 0.5 - 1.5 mg/dL [facility] GLUCOSE 85 70 - 99 mg/dL [facility] ALBUMIN 4.5 3.9 - 4.8 g/dL [facility] TOTAL PROTEIN 6.9 6.5 - 8.0 g/dL [facility] CALCIUM 10.2 8.4 - 10.3 mg/dL [facility] ALKALINE PHOSPHATASE 76 39 - 117 U/L [facility] TOTAL BILIRUBIN 0.5 0.0 - 1.2 mg/dL [facility] AST 16 0 - 37 U/L [facility] ALT 14 0 - 40 U/L [facility] GLOBULIN 2.4 1 - 4.8 g/dL [facility] EGFR 116 >59 mL/min/1.7 3m2 [facility] Comment:Estimated glomerular filtration rate calculated using the CKD-EPI refit equation. ANION GAP 13 10 - 20 mmol/L [facility] Blood 08/25/2025 11:5 7 AM EDT 08/25/2025 12:04 PM EDT us Tomer Arita MD LAB BLOOD BKR ORDERABLES Final Result [facility] 30 [place], [place] [id number] * (ABNORMAL) CBC and differential (08/25/2025 11:57 AM EDT) WBC 6.31 4.00 - 11.00 K/uL [facility] RBC 4.27 4.00 - 5.20 M/uL [facility] HGB 12.7 12.0 - 16.0 g/dL [facility] HCT 39.8 36.0 - 46.0 % [facility] PLT 349 150 - 450 K/uL [facility] MCV 93.2 80.0 - 100.0 fL [facility] MCH 29.7 27.0 - 31.0 pg [facility] MCHC 31.9(L) 32.0 - 36.0 g/dL [facility] RDW 14.1 11.5 - 14.5 % [facility] MPV 10.0 8.4 - 12.0 fL [facility] NRBC 0.00 0.00 /100 WBCs [facility] ABSOLUTE NRBC 0.00 0.00 K/uL [facility] DIFF METHOD Auto [facility] NEUTS 59.4 48.0 - 76.0 % [facility] LYMPHS 30.4 18.0 - 41.0 % [facility] MONOS 7.4 4.0 - 11.0 % [facility] EOS 2.1 0.0 - 5.0 % [facility] BASOS 0.5 0.0 - 1.5 % [facility] Granulocytes, immature (%) 0.2 0.0 - 0.9 % [facility] ABSOLUTE NEUTS 3.75 1.92 - 7.60 K/uL [facility] ABSOLUTE LYMPHS 1.92 0.72 - 4.10 K/uL [facility] ABSOLUTE MONOS 0.47 0.16 - 1.10 K/uL [facility] ABSOLUTE EOS 0.13 0.00 - 0.50 K/uL [facility] ABSOLUTE BASOS 0.03 0.00 - 0.15 K/uL [facility] Granulocytes, immature 0.01 0.00 - 0.09 K/uL [facility] Blood 08/25/2025 11:5 7 AM EDT 08/25/2025 12:04 PM EDT us Tomer Arita MD LAB BLOOD BKR ORDERABLES Final Result Performing Organization Address City/[facility]/ZIP Co de Phone Number [address] [address] * Parathyroid hormone (PTH) (08/25/2025 11:57 AM EDT) PARATHYROID HORMONE 26 15 - 65 pg/mL [facility] Blood 08/25/2025 11:5 7 AM EDT 08/25/2025 12:04 PM EDT us Tomer Arita MD LAB BLOOD BKR ORDERABLES Final Result Performing Organization Address City[facility]/ZIP Co de Phone Number [address] [address] * Ionized calcium (08/25/2025 11:57 AM EDT) IONIZED CALCIUM 1.21 1.14 - 1.37 mmol/L [facility] Blood 08/25/2025 11:5 7 AM EDT 08/25/2025 12:04 PM EDT us Tomer Arita MD LAB BLOOD BKR ORDERABLES Final Result [facility] [address] [place] [address] * BD DXA AXIAL (SPINE) WITH HIP (06/07/2025 11:36 AM EDT) Anatomical Region Laterality Modality Bone Density Bone Density 06/07/2025 10:5 1 AM EDT Impressions 06/09/2025 12:17 PM EDT Interpretation: Osteoporosis. Narrative 06/09/2025 12:17 PM EDT Referred By: CECE DAI Indications: Postmenopausal Scanner: [employer] A with serial# of [id number] located at [facility] Bone Density Scan (DXA) 06/07/25 Details of [...] -2.5), or Osteoporosis (T-score <= -2.5). At [facility], T-scores are compared to peak bone density [...] Referred By: CECE DAI Indications: Postmenopausal Scanner: [employer] with serial# of [id number] located at [facility] Bone Density [...] -2.5), or Osteoporosis (T-score <= -2.5). At [facility], T-scores are compared to peak bone density [...] (06/21/2024 10:39 AM EDT) HDL 103 mg/dL [facility] Comment: Interpretation <40 mg/dL: Low HDL cholesterol (major risk factor for CHD) Greater than or equal to 60 mg/dL: High HDL cholesterol ( negative risk factor for CHD) HDL - cholesterol is affected by a number of factors, e.g. smoking, excerise, hormones, sex and age. CHOLESTEROL 174 0 - 240 mg/dL [facility] TRIGLYCERIDES 62 30 - 160 mg/dL [facility] LDL 59 50 - 129 mg/dL [facility] Comment: LDL levels in terms of [...] LAB BLOOD BKR ORDERA BLES Final Result [facility] [address] [place] [address] from Last 3 Months or Most Recently Relevant to Health Maintenance Insurance MEDICARE PART A & B MEDICARE ENHANCE SUPPLEMENT MEDICARE PART A & B [facility] MEDICARE ENHANCE SUPPLEMENT MEDICARE PART A & B [facility] MEDICARE ENHANCE SUPPLEMENT MEDICARE PART A & B [facility] MEDICARE ENHANCE SUPPLEMENT MEDICARE PART A & B [facility] MEDICARE ENHANCE SUPPLEMENT MEDICARE PART A & B [facility] MEDICARE ENHANCE SUPPLEMENT Care Teams Associate Professor Of Education Relationship Specialty Start Date End Date Cece Dai MD, MPH [address] [place] [address] [email or web address] PCP - General Family Medicine 04/22/24 Cece Dai MD, MPH [address] [place] [address] [email or web address] Insurance Assigned Provider 02/09/25 Additional Source Comments The information contained in this document represents components of the legal health record. It is not the complete legal health record.[facility]
--- OUTSIDE RECORDS SUMMARY | 2025-10-22 19:16 | XMS_ITS | Encounter Summary ---
Author Organization [facility] Address [address] [facility] [place] [address] Phone Care Team Providers Care Maintenance Instructor Name Role Phone Cece Dai MD, MPH Primary Care Provid er Cece Dai MD, MPH Unavailable [phone]- [phone] Encounter Details Date Type Department Care Team (Late st Contact Info) Description 02/27/2025 Ancillary Orders [facility] [address] [facility] [address] [place] [address] Cece Dai MD, MPH [address] [facility] [address] [place] [address] [email or web address] [place] lower inner quadrant of left [...] Info) Description 11/11/2025 12:45 PM EST Appointment [address] [address] Tomer Arita MD [address] [facility] [place] [address] 02/26/2026 9:00 AM EDT Office Visit [facility] Primary [facility] [address] [facility] [address] [place] [address] Cece Dai MD, MPH [address] [facility] [place] [address] [email or web address] Tomer Arita MD 15 [facility] 201 [place] [address] 04/07/2026 11:00 AM EDT Office Visit [facility] [address] [place] [phone] Asia Morales MD [address] [place] [address] [email or web address] documented as of this encounter Results * [...] documented as of this encounter Care Teams Maintenance Instructor Relationship Specialty Start Date End Date Cece Dai MD, MPH [address] [address] PCP - General Family Medicine 04/22/24 Cece Dai MD, MPH [address] [address] Insurance Assigned Provider 02/09/25 documented as of this encounter Additional Source Comments The information contained in this document represents components of the legal health record. It is not the complete legal health record.[facility]
--- OUTSIDE RECORDS SUMMARY | 2025-10-22 19:16 | XMS_ITS | Clinical Summary ---
Author Organization [facility] it Address [address] [place] [address] Care Team Providers Care Vegetable Loader Name Role Phone Heri Cueto MD Primary Care Provider [phone] Allergies Active Allergy Reactions Criticality Noted Date [...] Recently Relevant to Health Maintenance Care Teams Vegetable Loader Relationship Specialty Start Date End Date Heri Cueto MD 4 [place] [address] PCP - General 04/29/11
--- OUTSIDE RECORDS SUMMARY | 2025-10-22 19:17 | XMS_ITS | Encounter Summary ---
Author Organization [facility] Address [address] [place] [address] Phone Care Team Providers Care Crusher Machine Operator Name Role Phone Jovan Guillermo MD Primary Care Provider + Cece Dai MD, MPH Primary Care Provid er Cece Dai MD, MPH Unavailable [phone]- [phone] Encounter Details Date Type Department Care Team (Latest Contact Info) Description 06/07/2023 Transcribe Orders Virtual Department 30 [place] [address] Jovan Guillermo MD [address] [place] [address] Encounter for screening mammogram for malignant neoplasm [...] Info) Description 11/11/2025 12:45 PM EST Appointment [address] [address] Tomer Arita MD [address] [place] [address] 02/26/2026 9:00 AM EDT Office Visit [facility] Clinic [address] [place] [address] Cece Dai MD, MPH [address] [place] [address] Tomer Arita MD [address] [place] [address] 04/07/2026 11:00 AM EDT Office Visit [facility] Endocrinology Clinic 40 [place] [address] Asia Morales MD [address] [place] [address] [address] [place] [address] documented as of this encounter Visit Diagnoses Diagnosis Encounter for screening mammogram for malignant neoplasm of breast- Primary documented in this encounter Care Teams Crusher Machine Operator Relationship Specialty Start Date End Date Jovan Guillermo MD [address] [place] [address] PCP - General 05/17/19 04/21/24 Cece Dai MD, MPH [address] [place] [address] [email or web address] PCP - General Family Medicine 04/22/24 Cece Dai MD, MPH [address] [place] [address] [email or web address] Insurance Assigned Provider 02/09/25 documented as of this encounter Additional Source Comments The information contained in this document represents components of the legal health record. It is not the complete legal health record.[facility]
--- OUTSIDE RECORDS SUMMARY | 2025-10-22 19:17 | XMS_ITS | Encounter Summary ---
Author Organization [facility] Address [address] [place] [address] Phone Care Team Providers Care Corporate Strategist Name Role Phone Jovan Guillermo MD Primary Care Provider + Cece Dai MD, MPH Primary Care Provid er Cece Dai MD, MPH Unavailable [phone]- [phone] Encounter Details Date Type Department Care Team (Late st Contact Info) Description 06/09/2023 Ancillary Orders Virtual Department 30 [place] [address] Jovan Guillermo MD [address] [place] [address] Encounter for screening mammogram for malignant neoplasm [...] Info) Description 11/11/2025 12:45 PM EST Appointment [facility], [facility] 30 [place] [address] Tomer Arita MD [address] [place] [address] 02/26/2026 9:00 AM EDT Office Visit [facility] Clinic [address] [place] [address] Cece Dai MD, MPH [address] [place] [address] Tomer Arita MD [address] [place] [address] 04/07/2026 11:00 AM EDT Office Visit [facility] Endocrinology Clinic 40 [place] [address] Asia Morales MD [address] [place] [address] documented as of this encounter Results * [...] scattered fibroglandular densities. us Jovan Guillermo MD IM US BREAST Final Re sult documented in this encounter Visit Diagnoses Diagnosis Encounter for screening mammogram for malignant neoplasm of breast Encounter for screening mammogram for malignant neoplasm of breast documented in this encounter Care Teams Corporate Strategist Relationship Specialty Start Date End Date Jovan Guillermo MD [address] [place] [address] PCP - General 05/17/19 04/21/24 Cece Dai MD, MPH [address] [place] [address] [email or web address] PCP - General Family Medicine 04/22/24 Cece Dai MD, MPH [address] [place] [address] [email or web address] Insurance Assigned Provider 02/09/25 documented as of this encounter Additional Source Comments The information contained in this document represents components of the legal health record. It is not the complete legal health record.[facility]
== END 2025-10-22 14:26 | disposition home or self-care (01) ==
LOC: HO.HMGAL 14:26
PROVIDERS: PCP Family Medicine; Visit Provider Registered Nurse Emergency
DX: J30.89 Other allergic rhinitis (principal)
CPT/HCPCS: 95117; 95165

== ENCOUNTER 2025-10-27 13:22 | Outpatient (AMB) | payer MEDICARE, OTHER, SELFPAY ==
--- OUTSIDE RECORDS SUMMARY | 2007-05-10 23:00 | XMS_ITS | Encounter Summary ---
Author Organization [facility] Address [address] [place] [address] Phone Care Team Providers Care Manufacturing Helper Name Role Phone Unavailable Primary Care Provider Unavailabl e Encounter Details Date Type Department Care Team (Late st Contact Info) Description 05/11/2007 Hospital Encounter [facility],Outside Imaging [address] [place] [address] System, Provider Not In, PhD Partners [address] [address] Social History Tobacco Use Types Packs/Day Years Used Date Smoking Tobacco: Former Cigarettes Smokeless Tobacco: Never Comments:Smoking History Pac ks/day: >2. Quit about 1985. Alcohol Use Standard Drinks/Week Comments Never 0 (1 standard drink = 0.6 oz pur e alcohol) Child or Family Care Answer Date Record ed Do you have problems with on e of the following making it difficult for you to work, study, or receive health care? No 04/22/2024 Education Answer Date Recorded Are you interested in more education? Not on yanet e 03/12/2023 Are you concerned about learning? Not on file 03/12/2023 No 03/12/2023 No 03/12/2023 Food Answer Date Recorded Within the past 6 months we worried whether our food would run out before we got money to buy more. Never True 04/22/2024 Within the past 6 months the food we bought just didn't last and we didn't have enough money to get more. Never True Residential Stability Answer Date Recor ded What is your housing situation today? I have beth barron 04/22/2024 How many times have you move d in the past 12 months? Zero (I did not move) 04/22/2024 Paying for Meds Answer Date Recorded Do you have trouble paying for medicines? No 04/22/2024 Paying Utility Bills Answer Date Record ed Do you have trouble paying your heating or elect ricity bill? No 04/22/2024 Transportation Answer Date Recorded Has the lack of transportati on kept you from medical appointments or from getting medications? No 04/22/2024 Digital Access Answer Date Recorded No 04/22/2024 Yes 04/22/2024 Do you have reliable internet access at home? Ye s 04/22/2024 Do you have a device (e.g., phone, tablet, computer) with a working camera? Yes 04/22/2024 Intimate Partner Violence Answer Date R ecorded Denied Basic Needs Not on file 02/25/2025 In the past 12 months have y ou been in a relationship with a person who hurts, threatens, or tries to control you? No 02/25/2025 Worried food would run out Not on file 02/25 In the past 12 months have y ou been in a relationship with a person who hurts, threatens, or tries to control you? No 02/25/2025 Comments No Sex and Gender Information Value Date Recorded Sex Assigned at Not on file Legal Sex Female 6:31 PM EST Gender Identity Female 09/02/2025 9:31 PM EDT Sexual Orientation Not on file documented as of this encounter Plan of Treatment Upcoming Encounters Date Type Department Care Team (Late st Contact Info) Description 11/11/2025 12:45 PM EST Appointment [facility] 30 [place] [address] Tomer Arita MD [address] [place] [address] [address] [place] [address] 02/26/2026 9:00 AM EDT Office Visit [facility] 15 [facility] [address] [place] [address] Cece Dai MD, MPH 15 [facility] [address] [place] [address] Tomer Arita MD 15 [facility] [address] [place] [address] 04/07/2026 11:00 AM EDT Office Visit [facility] 40 [place] [phone] Asia Morales MD [address] [place] [address] [email or web address] documented as of this encounter Procedures Procedure Name Priority Date/Time Associated Diagnosis Comments BI MAMMOGRAM OUTSIDE (NO INTERPRETATION) Routine 05/11/2007 12:00 AM EDT documented in this encounter Results * Mammogram Outside (No Interpretation) (05/11/2007 12:00 AM EDT) Narrative SYSTEMGENERATED, DOCUMENTATION - 06/04/2021 10:45 AM EDT This study is for PACS storage only and not for interpretation. us Provider Not In System PhD IMG OUTSIDE IMAGING W /OUT INTERPRETATION Final Result documented in this encounter Visit Diagnoses Not on filedocumented in this encounter Additional Source Comments The information contained in this document represents components of the legal health record. It is not the complete legal health record.[facility]
--- OUTSIDE RECORDS SUMMARY | 2007-05-14 23:00 | XMS_ITS | Encounter Summary ---
Author Organization [facility] Address [address] [place] [address] Phone Care Team Providers Care Advertising Operations Manager Name Role Phone Unavailable Primary Care Provider Unavailabl e Encounter Details Date Type Department Care Team (Late st Contact Info) Description 05/15/2007 Hospital Encounter [facility],Outside Imaging 30 [place] [address] System, Provider Not In, PhD Partners [address] [address] Social History Tobacco Use Types Packs/Day Years [...] Description 11/11/2025 12:45 PM EST Appointment [facility] 30 [place] [address] Tomer Arita MD [address] [place] [address] 201 [place] [address] 02/26/2026 9:00 AM EDT Office Visit [facility] 15 [facility] [address] [place] [address] Cece Dai MD, MPH 15 [facility] [address] 201 [place] [address] Tomer Arita MD 15 [facility] [address] 201 [place] [address] 04/07/2026 11:00 AM EDT Office Visit [facility] Endocrinology Clinic 40 [place] [phone] Asia Morales MD [address] [place] [address] [email or web address] documented as of this encounter Procedures Procedure [...] It is not the complete legal health record.[facility]
--- OUTSIDE RECORDS SUMMARY | 2008-05-12 23:00 | XMS_ITS | Encounter Summary ---
Author Organization [facility] Address [address] [place] [address] Phone Care Team Providers Care Used Car Manager Name Role Phone Unavailable Primary Care Provider Unavailabl e Encounter Details Date Type Department Care Team (Late st Contact Info) Description 05/13/2008 Hospital Encounter [facility],Outside Imaging 30 [place] [address] System, Provider Not In, PhD Partners [address] [address] Social History Tobacco Use Types Packs/Day Years [...] Info) Description 11/11/2025 12:45 PM EST Appointment [facility] 30 [place] [address] Tomer Arita MD [address] [place] [address] 201 [place] [address] 02/26/2026 9:00 AM EDT Office Visit [facility] Primary Care Clinic 15 [facility] [address] [place] [address] Cece Dai MD, MPH 15 [facility] [address] [place] [address] Tomer Arita MD 15 [facility] [address] [place] [address] 04/07/2026 11:00 AM EDT Office Visit [facility] Endocrinology Clinic 40 [place] [address] Asia Morales MD [address] [place] [address] [email or web address] documented as of this [...] It is not the complete legal health record.[facility]
--- OUTSIDE RECORDS SUMMARY | 2010-05-10 23:00 | XMS_ITS | Encounter Summary ---
Author Organization [facility] Address [address] [place] [address] Phone Care Team Providers Care Gold Wheel Blocker And Polisher Name Role Phone Unavailable Primary Care Provider Unavailabl e Encounter Details Date Type Department Care Team (Late st Contact Info) Description 05/11/2010 Hospital Encounter [facility],Outside Imaging 30 [place] [address] System, Provider Not In, PhD Partners [address] [address] Social History Tobacco Use Types Packs/Day Years [...] Info) Description 11/11/2025 12:45 PM EST Appointment [facility] 30 [place] [address] Tomer Arita MD [address] [place] [address] 201 [place] [address] 02/26/2026 9:00 AM EDT Office Visit [facility] 15 [facility] [address] [place] [address] Cece Dai MD, MPH 15 [facility] Carter. [address] [place] [address] Tomer Arita MD 15 [facility] [address] [place] [address] 04/07/2026 11:00 AM EDT Office Visit [facility]ology Clinic 40 [place] [phone] Asia Morales MD [address] [place] [address] [email or web address] [...] It is not the complete legal health record.[facility]
--- OUTSIDE RECORDS SUMMARY | 2011-05-15 23:00 | XMS_ITS | Encounter Summary ---
Author Organization [facility] Address [address] [place] [address] Phone Care Team Providers Care Shop Assistant Name Role Phone Unavailable Primary Care Provider Unavailabl e Encounter Details Date Type Department Care Team (Late st Contact Info) Description 05/16/2011 Hospital Encounter [facility],Outside Imaging 30 [place] [address] System, Provider Not In, PhD Partners [address] [address] Social History Tobacco Use Types Packs/Day Years [...] Info) Description 11/11/2025 12:45 PM EST Appointment [facility] 30 [place] [address] Tomer Arita MD [address] [place] [address] 201 [place] [address] 02/26/2026 9:00 AM EDT Office Visit [facility] Primary Care Clinic 15 [facility] [address] [place] [address] Cece Dai MD, MPH 15 [facility] Carter. 201 [place] [address] Tomer Arita MD 15 [facility] [address] [place] [address] 04/07/2026 11:00 AM EDT Office Visit [facility] Endocrinology Clinic 40 [place] [address] Asia Morales MD [address] [place] [address] [email or web address] documented as of this encounter Procedures Procedure [...]
--- OUTSIDE RECORDS SUMMARY | 2025-10-27 16:43 | XMS_ITS | Encounter Summary ---
Author Organization [facility] Address [address] [place] [address] Phone Care Team Providers Care Supervisor Type Photography Name Role Phone Cece Dai MD, MPH Primary Care Provid er Cece Dai MD, MPH Unavailable [phone]- [phone] Encounter Details Date Type Department Care Team (Late st Contact Info) Description 02/07/2025 Procedure Pass [facility] - [address] [place] [address] Social History Tobacco Use Types Packs/Day Years [...] Info) Description 11/11/2025 12:45 PM EST Appointment [address] [address] Tomer Arita MD [address] [place] [address] 02/26/2026 9:00 AM EDT Office Visit [facility] Clinic 15 [facility] 201 [place] [address] Cece Dai MD, MPH [address] [address] Tomer Arita MD [address] [address] 04/07/2026 11:00 AM EDT Office Visit [facility] Endocrinology Clinic 40 [place] [phone] Asia Morales MD [address] [address] documented as of this encounter Visit Diagnoses Not on filedocumented in this encounter Additional Health Concerns Assessment Noted Time PHQ-2 Depression Total Score: 0 02/26/20 10:12 AM EDT documented as of this encounter Care Teams Supervisor Type Photography Relationship Specialty Start Date End Date Cece Dai MD, MPH [address] [address] PCP - General Family Medicine 04/22/24 Cece Dai MD, MPH [address] [address] Insurance Assigned Provider 02/09/25 documented as of this encounter Additional Source Comments The information contained in this document represents components of the legal health record. It is not the complete legal health record.[facility]
--- OUTSIDE RECORDS SUMMARY | 2025-10-27 16:43 | XMS_ITS | Encounter Summary ---
Author Organization [facility] Address [address] [facility] [address] [facility] [address] [place] [address] Phone Care Team Providers Care Housing Coordinator Name Role Phone Jovan Guillermo MD Primary Care Provider + Cece Dai MD, MPH Primary Care Provid er Cece Dai MD, MPH Unavailable [phone]- [phone] Encounter Details Date Type Department Care Team (Late st Contact Info) Description 05/24/2021 Procedure Pass [facility] - [address] [place] [address] Social History Tobacco Use Types Packs/Day Years [...] Info) Description 11/11/2025 12:45 PM EST Appointment [facility], [address] [address] Tomer Arita MD [address] [address] 02/26/2026 9:00 AM EDT Office Visit [facility] Primary Care Clinic [address] [address] Cece Dai MD, MPH [address] [place] [address] Tomer Arita MD [address] [place] [address] 04/07/2026 11:00 AM EDT Office Visit [facility] Endocrinology Clinic [address] [place] [phone] Asia Morales MD [address] [place] [address] [email or web address] documented as of this encounter Visit Diagnoses Not on filedocumented in this encounter Care Teams Housing Coordinator Relationship Specialty Start Date End Date Jovan Guillermo MD [address] [place] [address] PCP - General 05/17/19 04/21/24 Cece Dai MD, MPH [address] [place] [address] PCP - General Family Medicine 04/22/24 Cece Dai MD, MPH [address] [place] [address] Insurance Assigned Provider 02/09/25 documented as of this encounter Additional Source Comments The information contained in this document represents components of the legal health record. It is not the complete legal health record.[facility]
--- OUTSIDE RECORDS SUMMARY | 2025-10-27 16:43 | XMS_ITS | Encounter Summary ---
Author Organization [facility] Address [address] [place] [address] Phone Care Team Providers Care Adoption Social Worker Name Role Phone Cece Dai MD, MPH Primary Care Provid er Cece Dai MD, MPH Unavailable [phone]- [phone] Encounter Details Date Type Department Care Team (Late st Contact Info) Description 02/27/2025 Procedure Pass [facility] - [address] [place] [address] Social History Tobacco Use Types Packs/Day Years [...] Info) Description 11/11/2025 12:45 PM EST Appointment [address] [address] Tomer Arita MD [address] [place] [address] 02/26/2026 9:00 AM EDT Office Visit [facility] Primary Care Clinic 15 [facility] 201 [place] [address] Cece Dai MD, MPH [address] [address] Tomer Arita MD 15 [facility] 201 [place] [address] 04/07/2026 11:00 AM EDT Office Visit [facility] Endocrinology Clinic 40 [place] [phone] Asia Morales MD [address] [address] [email or web address] documented as of this encounter Visit Diagnoses Not on filedocumented in this encounter Additional Health Concerns Assessment Noted Time PHQ-2 Depression Total Score: 0 02/26/20 25 10:12 AM EDT documented as of this encounter Care Teams Adoption Social Worker Relationship Specialty Start Date End Date Cece Dai MD, MPH [address] [address] PCP - General Family Medicine 04/22/24 Cece Dai MD, MPH [address] [address] Insurance Assigned Provider 02/09/25 documented as of this encounter Additional Source Comments The information contained in this document represents components of the legal health record. It is not the complete legal health record.[facility]
--- OUTSIDE RECORDS SUMMARY | 2025-10-27 16:43 | XMS_ITS | Encounter Summary ---
Author Organization [facility] Address [address] [place] [address] Phone Care Team Providers Care Director Construction Services Name Role Phone Cece Dai MD, MPH Primary Care Provid er Cece Dai MD, MPH Unavailable [phone]- [phone] Encounter Details Date Type Department Care Team (Late st Contact Info) Description 02/27/2025 Ancillary Orders [facility] [address] [place] [address] Cece Dai MD, MPH [address] [facility] [address] 201 [place] [address] [email or web address] [place] [...] Info) Description 11/11/2025 12:45 PM EST Appointment [address] [address] Tomer Arita MD [address] [facility] [place] [address] 02/26/2026 9:00 AM EDT Office Visit [facility] Primary Care [facility] [address] [facility] [address] [place] [address] Cece Dai MD, MPH [address] [facility] [place] [address] [email or web address] Tomer Arita MD [address] [facility] 201 [place] [address] 04/07/2026 11:00 AM EDT Office Visit [facility] End[facility]ology [facility] [address] [place] [address] [phone] Asia Morales MD [address] [place] [address] [email or web address] documented as of this encounter Results * [...] as of this encounter Care Teams Director Construction Services Relationship Specialty Start Date End Date Cece Dai MD, MPH [address] [address] PCP - General Family Medicine 04/22/24 Cece Dai MD, MPH [address] [address] Insurance Assigned Provider 02/09/25 documented as of this encounter Additional Source Comments The information contained in this document represents components of the legal health record. It is not the complete legal health record.[facility]
--- OUTSIDE RECORDS SUMMARY | 2025-10-27 16:43 | XMS_ITS | Encounter Summary ---
Author Organization [facility] Address [address] [place] [address] Phone Care Team Providers Care Tax Economist Name Role Phone Jovan Guillermo MD Primary Care Provider + Cece Dai MD, MPH Primary Care Provid er Cece Dai MD, MPH Unavailable [phone]- [phone] Encounter Details Date Type Department Care Team (Late st Contact Info) Description 05/24/2021 Ancillary Orders Virtual Department [address] [place] [address] Jovan Guillermo MD [address] [place] [address] Breast screening Social History Tobacco Use Types [...] Info) Description 11/11/2025 12:45 PM EST Appointment [facility] 30 [place] [address] Tomer Arita MD [address] [facility] 201 [place] [address] [email or web address] 02/26/2026 9:00 AM EDT Office Visit [facility] Primary Care [facility] [address] [facility] 201 [place] [address] Cece Dai MD, MPH [address] [facility]. [address] [place] [address] [email or web address] Tomer Arita MD [address] [facility] [place] [address] 04/07/2026 11:00 AM EDT Office Visit [facility] Endocrinology Clinic 40 [place] [address] Asia Morales MD [address] [place] [address] [email or web address] documented as of this encounter Results * [...] unspecified documented in this encounter Care Teams Tax Economist Relationship Specialty Start Date End Date Jovan Guillermo MD [address] [place] [address] PCP - General 05/17/19 04/21/24 Cece Dai MD, MPH [address] [address] [email or web address] PCP - General Family Medicine 04/22/24 Cece Dai MD, MPH [address] [address] [email or web address] Insurance Assigned Provider 02/09/25 documented as of this encounter Additional Source Comments The information contained in this document represents components of the legal health record. It is not the complete legal health record.[facility]
--- OUTSIDE RECORDS SUMMARY | 2025-10-27 16:43 | XMS_ITS | Encounter Summary ---
Author Organization [facility] Address [address] [place] [address] Care Team Providers Care Banquet Steward Name Role Phone Jovan Guillermo Primary Care Provider [phone] Encounter Details Date Type Department Care Team (Latest Contact Info) Description 03/16/2015 Prep for Procedure Department of Transplantation & Hepatobiliary Diseases [facility] Transplantation [address] [place] [address] Jovan Hurley MD [address] [place] [address] Cholelithiasis (Primary Dx) Social History Tobacco Use Types Packs/Day Years Used Date Smoking Tobacco: Former Cigarettes Alcohol Use Standard Drinks/Week Comments No 0 (1 standard drink = 0.6 oz pur e alcohol) Comments No Sex and Gender Information Value Date Recorded Sex Assigned at Not on file Legal Sex Female 1:48 PM EDT Gender Identity Not on file Sexual Orientation Not on file documented as of this encounter Plan of Treatment Not on file documented as of this encounter Results * EKG 12 lead (03/16/2015 3:44 PM EDT) 03/16/2015 3:44 PM EDT Narrative EKG [facility] - 03/17/2015 12:25 PM EDT - OTHERWISE NORMAL ECG - Sinus bradycardia No previous ECG available for comparison Procedure Note Puneet Santillan MD - 03/17/2015 - OTHERWISE NORMAL ECG - Sinus bradycardia No previous ECG available for comparison us Jovan Hurley MD ECG ORDERABLES Final Resu lt Performing Organization Address [facility]/ZIP Co de Phone Number EKG BUR [address] [place] [address] * APTT (03/16/2015 3:10 PM EDT) Pathologist [facility] PTT 37 31 - 40 s 03/16/2015 4:59 PM EDT [facility] Blood specimen (specimen) Venipuncture / Unknown 03/16/2015 3:10 PM EDT 03/16/2015 4:29 PM EDT Jovan Hurley MD LAB BLOOD ORDERABLES Final Result Performing Organization Address [facility] Co de Phone Number [address] [address] * ProTime-INR (03/16/2015 3:10 PM EDT) [facility] INR 1.1 <1.3 INR 03/16/2015 4:59 PM EDT [facility] Blood specimen (specimen) Venipuncture / Unknown 03/16/2015 3:10 PM EDT 03/16/2015 4:29 PM EDT Jovan Hurley MD LAB BLOOD ORDERABLES Final Result Performing Organization Address [facility] de Phone Number [address] [address] * (ABNORMAL) Hemoglobin A1C (03/16/2015 3:10 PM EDT) [facility] Hemoglobin A1C 5.7(H) 4.6 - 5.6 % 03/17/2015 9:20 AM EDT [facility] Comment: 4.6 to 5.6% Normal 5.7 to 6.4% Pre-diabetes, increased risk for diabetes >= 6.5% Diabetes mellitus Blood specimen (specimen) Venipuncture / Unknown 03/16/2015 3:10 PM EDT 03/16/2015 4:29 PM EDT Jovan Hurley MD LAB BLOOD ORDERABLES Final Result [facility] [address] [facility] [place] [address] documented in this encounter Visit Diagnoses Diagnosis Cholelithiasis- Primary Calculus of gallbladder without mention of cholecystitis or obstruction Cholelithiasis Calculus of gallbladder without mention of cholecystitis or obstruction documented in this encounter Care Teams Banquet Steward Relationship Specialty Start Date End Date Jovan Guillermo [address] [place] [address] PCP - General 03/09/15 documented as of this encounter
--- OUTSIDE RECORDS SUMMARY | 2025-10-27 16:43 | XMS_ITS | Encounter Summary ---
Author Organization [facility] Address [address] [place] [address] Phone Care Team Providers Care Charge Authorizer Name Role Phone Cece Dai MD, MPH Primary Care Provid er Cece Dai MD, MPH Unavailable [phone] Encounter Details Date Type Department Care Team (Late st Contact Info) Description 07/15/2025 Procedure [facility], Ct Scan - [address] [address] Social History Tobacco Use Types Packs/Day Years [...] Info) Description 11/11/2025 12:45 PM EST Appointment [address] [address] Tomer Arita MD [address] [place] [address] 02/26/2026 9:00 AM EDT Office Visit [facility] Primary Care Clinic [address] [facility] 201 [place] [address] Cece Dai MD, MPH [address] [address] Tomer Arita MD [address] [address] 04/07/2026 11:00 AM EDT Office Visit [facility] Endocrinology Clinic 40 [place] [address] Asia Morales MD [address] [address] documented as of this encounter Visit Diagnoses Not on filedocumented in this encounter Additional Health Concerns Assessment Noted Time PHQ-2 Depression Total Score: 0 02/26/20 10:12 AM EDT documented as of this encounter Care Teams Charge Authorizer Relationship Specialty Start Date End Date Cece Dai MD, MPH [address] [address] PCP - General Family Medicine 04/22/24 Cece Dai MD, MPH [address] [address] Insurance Assigned Provider 02/09/25 documented as of this encounter Additional Source Comments The information contained in this document represents components of the legal health record. It is not the complete legal health record.[facility]
--- OUTSIDE RECORDS SUMMARY | 2025-10-27 16:44 | XMS_ITS | Encounter Summary ---
Author Organization [facility] Address [address] [place] [address] Phone Care Team Providers Care Pharmacist Name Role Phone Jovan Guillermo MD Primary Care Provider + Cece Dai MD, MPH Primary Care Provid er Cece Dai MD, MPH Unavailable [phone]- [phone] Encounter Details Date Type Department Care Team (Late st Contact Info) Description 06/09/2023 Procedure Pass [facility] - [address] [place] [address] Social History Tobacco Use Types Packs/Day Years [...] Info) Description 11/11/2025 12:45 PM EST Appointment [facility] 30 [place] [address] Tomer Arita MD [address] [place] [address] 02/26/2026 9:00 AM EDT Office Visit [facility] Primary Care Clinic [address] [place] [address] Cece Dai MD, MPH [address] [place] [address] Tomer Arita MD [address] [place] [address] 04/07/2026 11:00 AM EDT Office Visit [facility] Endocrinology Clinic 40 [place] [phone] Asia Morales MD [address] [place] [address] documented as of this encounter Visit Diagnoses Not on filedocumented in this encounter Care Teams Pharmacist Relationship Specialty Start Date End Date Jovan Guillermo MD [address] [place] [address] PCP - General 05/17/19 04/21/24 Cece Dai MD, MPH [address] [place] [address] [email or web address] PCP - General Family Medicine 04/22/24 Cece Dai MD, MPH [address] [place] [address] Insurance Assigned Provider 02/09/25 documented as of this encounter Additional Source Comments The information contained in this document represents components of the legal health record. It is not the complete legal health record.[facility]
--- OUTSIDE RECORDS SUMMARY | 2025-10-27 16:44 | XMS_ITS | Clinical Summary ---
Author Organization [facility] Address [address] [place] [address] Phone Care Team Providers Care Traffic And Transport Planner Name Role Phone Cece Dai MD, MPH Primary Care Provid er Cece Dai MD, MPH Unavailable [phone]- [phone] Allergies Active Allergy Reactions Criticality Noted Date [...] Chronic sinusitis 04/22/2024 Overview (04/22/2024): Follows at [facility], believes it is fungal Assessment & Plan (02/25/2025 11:18 AM EDT): Orders: Ambulatory referral to External Allergy Assessment & Plan (10/22/2024 10:54 AM EST): Orders: External Referral to [facility]ol[facility]ology ([facility]) History of stroke associated with blood [...] 5:27 AM EDT): Will need a new school standards coach as Dr Holland is nearing group home. I also strongly encouraged her to [...] Type Department Care Team Description 09/18/2025 Telephone [facility] Primary Care Clinic [address] [place] [address] Cece Dai MD, MPH Referral (Endocrinology ) 09/03/2025 9:02 AM EDT - 09/03/2025 11:59 PM EDT Hospital Encounter [facility], Ct Scan - [address] [address] Tomer Arita MD Discharge Disposition: Home or Self Care 08/25/2025 11:52 AM EDT - 08/25/2025 11:59 PM EDT Hospital Encounter [facility] [address] [place] [address] Tomer Arita MD Discharge Disposition: Home or Self Care 08/22/2025 11:20 AM EDT Office Visit [facility] Primary Care [facility] [address] [place] [address] Tomer Arita MD Intractable abdominal pain (Primary Dx); Age related osteoporosis, unspecified pathological fracture presence 08/11/2025 Telephone [facility] Primary Care [facility] [address] [place] [address] Cece Dai MD, MPH Calcium Injection 07/15/2025 Procedure Pass [facility], Ct Scan - [address] [address] from Last 3 Months Immunizations Immunization Administration [...] 11/11/2025 12:45 PM EST Appointment [facility], [facility] [address] [place] [address] Tomer Arita MD [address] [address] 02/26/2026 9:00 AM EDT Office Visit [facility] Primary Care Clinic [address] [place] [address] Cece Dai MD, MPH [address] [place] [address] Tomer Arita MD [address] [place] [address] 04/07/2026 11:00 AM EDT Office Visit [facility] Endocrinology Clinic 40 [place] [phone] Asia Morales MD [address] [place] [address] Health Maintenance Due Date Last Done Comments SMOKING Hx and SMOKELESS TOBACCO SCREENING 1970 HEPATITIS C SCREENING 1975 COLONOSCOPY 2002 FIT TEST 2002 FOBT 2002 SIGMOIDOSCOPY 2002 VIRTUAL COLONOSCOPY 2002 ZOSTER VACCINES (1 of 2) 2007 INFLUENZA VACCINE (#1) 2025 3, 09/07/2022, 10/12/2005 COVID-19 VACCINE ( season) 2025 [...] BKR ORDERABLES Final Result Performing Organization Address City/State/[facility] Co de Phone Number [address] [address] * (ABNORMAL) CBC and differential (08/25/2025 11:57 [...] MD LAB BLOOD BKR ORDERABLES Final Result [address] [address] * Parathyroid hormone (PTH) (08/25/2025 11:57 AM EDT) PARATHYROID HORMONE 26 15 - 65 pg/mL [facility] Blood 08/25/2025 11:5 7 AM EDT 08/25/2025 12:04 PM EDT Tomer Arita MD LAB BLOOD BKR ORDERABLES Final Result [address] [address] * Ionized calcium (08/25/2025 11:57 AM EDT) IONIZED CALCIUM 1.21 1.14 - 1.37 mmol/L [facility] Blood 08/25/2025 11:5 7 AM EDT 08/25/2025 12:04 PM EDT us Tomer Arita MD LAB BLOOD BKR ORDERABLES Final Result [facility] [address] [place] [address] * BD DXA AXIAL (SPINE) WITH HIP (06/07/2025 11:36 AM EDT) Anatomical Region Laterality Modality Bone Density Bone Density 06/07/2025 10:5 1 AM EDT Impressions 06/09/2025 12:17 PM EDT Interpretation: Osteoporosis. Narrative 06/09/2025 12:17 PM EDT Referred By: CECE DAI Indications: Postmenopausal Scanner: Kybernesis A with serial# of [id number] located at [facility] Bone Density Scan (DXA) 06/07/25 Details [...] -2.5), or Osteoporosis (T-score <= -2.5). At [facility], T-scores are compared to peak bone [...] Referred By: CECE DAI Indications: Postmenopausal Scanner: Kybernesis A with serial# of [id number] located at [facility] Bone Density Scan (DXA) 06/07/25 Details of [...] -2.5), or Osteoporosis (T-score <= -2.5). At [facility], T-scores are compared to peak bone [...] RISK RATIO 1.7(L) 3.3 - 4.4 [facility] Blood 06/21/2024 10:3 9 AM EDT 06/21/2024 10:50 AM EDT us Cece Dai MD, MPH LAB BLOOD BKR ORDERA BLES Final Result [facility] [address] [place] [address] from Last 3 Months or Most Recently Relevant to Health Maintenance Insurance MEDICARE PART A & B [facility] MEDICARE ENHANCE SUPPLEMENT MEDICARE PART A & B [facility] MEDICARE ENHANCE SUPPLEMENT MEDICARE PART A & B MEDICARE ENHANCE SUPPLEMENT MEDICARE PART A & [place] [address] [place] [address] MEDICARE ENHANCE SUPPLEMENT MEDICARE PART A & B [facility] MEDICARE ENHANCE SUPPLEMENT MEDICARE PART A & B [facility] MEDICARE ENHANCE SUPPLEMENT Care Teams Traffic And Transport Planner Relationship Specialty Start Date End Date Cece Dai MD, MPH [address] [place] [address] [email or web address] PCP - General Family Medicine 04/22/24 Cece Dai MD, MPH [address] [place] [address] [email or web address] Insurance Assigned Provider 02/09/25 Additional Source Comments The information contained in this document represents components of the legal health record. It is not the complete legal health record.[facility]
--- OUTSIDE RECORDS SUMMARY | 2025-10-27 16:44 | XMS_ITS | Encounter Summary ---
Author Organization [facility] Address [address] [place] [address] Phone Care Team Providers Care Urology Physician Assistant Name Role Phone Jovan Guillermo MD Primary Care Provider + Cece Dai MD, MPH Primary Care Provid er Cece Dai MD, MPH Unavailable [phone]- [phone] Encounter Details Date Type Department Care Team (Late st Contact Info) Description 06/09/2023 Ancillary Orders Virtual Department [address] [place] [address] Jovan Guillermo MD [address] [place] [address] Encounter for screening mammogram for malignant neoplasm [...] Info) Description 11/11/2025 12:45 PM EST Appointment [facility] 30 [place] [address] Tomer Arita MD [address] [place] [address] 02/26/2026 9:00 AM EDT Office Visit [facility] Primary Care Clinic [address] [place] [address] Cece Dai MD, MPH [address] [place] [address] Tomer Arita MD [address] [place] [address] 04/07/2026 11:00 AM EDT Office Visit [facility] Endocrinology Clinic [address] [place] [address] Asia Morales MD [address] [place] [address] documented as of this encounter Results * [...] breast documented in this encounter Care Teams Urology Physician Assistant Relationship Specialty Start Date End Date Jovan Guillermo MD [address] [place] [address] PCP - General 05/17/19 04/21/24 Cece Dai MD, MPH [address] [place] [address] [email or web address] PCP - General Family Medicine 04/22/24 Cece Dai MD, MPH [address] [place] [address] [email or web address] Insurance Assigned Provider 02/09/25 documented as of this encounter Additional Source Comments The information contained in this document represents components of the legal health record. It is not the complete legal health record.[facility]
--- OUTSIDE RECORDS SUMMARY | 2025-10-27 16:44 | XMS_ITS | Encounter Summary ---
Author Organization [facility] Address [address] [place] [address] Phone Care Team Providers Care Medical Billing Associate Name Role Phone Jovan Guillermo MD Primary Care Provider + Cece Dai MD, MPH Primary Care Provid er Cece Dai MD, MPH Unavailable [phone] Encounter Details Date Type Department Care Team (Late st Contact Info) Description 06/09/2023 Ancillary Orders Virtual Department 30 [place] [address] Jovan Guillermo MD [address] [place] [address] Encounter for screening mammogram for malignant neoplasm [...] Info) Description 11/11/2025 12:45 PM EST Appointment [facility] 30 [place] [address] Tomer Arita MD [address] [place] [address] 02/26/2026 9:00 AM EDT Office Visit [facility] Primary Care Clinic [address] [place] [address] Cece Dai MD, MPH [address] [place] [address] Tomer Arita MD [address] [place] [address] 04/07/2026 11:00 AM EDT Office Visit [facility] Endocrinology Clinic 40 [place] [address] Asia Morales MD [address] [place] [address] documented as of this encounter Results * [...] breast documented in this encounter Care Teams Medical Billing Associate Relationship Specialty Start Date End Date Jovan Guillermo MD [address] [place] [address] PCP - General 05/17/19 04/21/24 Cece Dai MD, MPH [address] [place] [address] [email or web address] PCP - General Family Medicine 04/22/24 Cece Dai MD, MPH [address] [place] [address] [email or web address] Insurance Assigned Provider 02/09/25 documented as of this encounter Additional Source Comments The information contained in this document represents components of the legal health record. It is not the complete legal health record.[facility]
--- OUTSIDE RECORDS SUMMARY | 2025-10-27 16:44 | XMS_ITS | Clinical Summary ---
Author Organization [facility] it Address [address] [place] [address] Care Team Providers Care Bridge Maintenance Worker Name Role Phone Heri Cueto MD Primary Care Provider [phone] Allergies Active Allergy Reactions Criticality Noted Date [...] Recently Relevant to Health Maintenance Care Teams Bridge Maintenance Worker Relationship Specialty Start Date End Date Heri Cueto MD [address] [place] [address] PCP - General 04/29/11
--- OUTSIDE RECORDS SUMMARY | 2025-10-27 16:44 | XMS_ITS | Encounter Summary ---
Author Organization [facility] Address [address] [place] [address] Phone Care Team Providers Care Travel Services Professional Name Role Phone Jovan Guillermo MD Primary Care Provider + Cece Dai MD, MPH Primary Care Provid er Cece Dai MD, MPH Unavailable +1- [phone] Encounter Details Date Type Department Care Team (Latest Contact Info) Description 06/07/2023 Transcribe Orders Virtual Department [address] [place] [address] Jovan Guillermo MD [address] [place] [address] Encounter for screening mammogram for malignant neoplasm [...] Info) Description 11/11/2025 12:45 PM EST Appointment [address] [address] Tomer Arita MD [address] [place] [address] 02/26/2026 9:00 AM EDT Office Visit [facility] [address] [place] [address] Cece Dai MD, MPH [address] [place] [address] Tomer Arita MD [address] [place] [address] 04/07/2026 11:00 AM EDT Office Visit [facility] Endocrinology Clinic [address] [place] [address] Asia Morales MD [address] [place] [address] [address] [place] [address] documented as of this encounter Visit Diagnoses Diagnosis Encounter for screening mammogram for malignant neoplasm of breast- Primary documented in this encounter Care Teams Travel Services Professional Relationship Specialty Start Date End Date Jovan Guillermo MD [address] [place] [address] PCP - General 05/17/19 04/21/24 Cece Dai MD, MPH [address] [place] [address] [email or web address] PCP - General Family Medicine 04/22/24 Cece Dai MD, MPH [address] [place] [address] [email or web address] Insurance Assigned Provider 02/09/25 documented as of this encounter Additional Source Comments The information contained in this document represents components of the legal health record. It is not the complete legal health record.[facility]
--- OUTSIDE RECORDS SUMMARY | 2025-10-27 16:44 | XMS_ITS | Data Portability ---
Author Organization [place] [facility], Allergy Address [address] [address] Care Team Providers Care Mail Carriers Supervisor Name Role Phone TELLO SAMINA Referring Provider [...] She is working with the integrative medicine [facility] and [place]. They do have a somewhat different approach. We discussed that I think migraine is a big component and have suggested magnesium oxide up to 400 mg riboflavin 400 mg and avoidance of dietary triggers. I have given her written information including the migraine disorders.org website. I am happy to offer her an additional opinion. She was not happy at the [facility]. I asked her to review the migraine [...] on natural recovery progress and functional capacity oriental orthodox. 5. Fractured rib Persistence of rib pain [...] w/o contrast 2024 025 [place] [facility] [place], [address], [address], [place], [address], 5 10:47:58 Medication Orders None recorded. Patient TargetsNo targets recorded. Patient Instructions Encounter Date Encounter Id Patient Instructions Last Modified By Organization Details Last Modified Time 05/12/2025 [id number] Please note: Parts of this encounter note [...] contr ast No observ ation record ed. [facility] [place] [address], [address], 01/01/2025 13:39:36 Result Notes None recorded. Problems Name Problem SNOMED Code Status Onset Date Resolution Date Notes Provider Name and Address Organization Details Recorded Time Nasal congestion 85544571 Active 025 THERESA BRIGGS MD [address], [address], [place] [facility] 5 12:57:18 Allergic rhinitis 68013217 Active 025 RUTH CORONA PA-C [address], [address], [facility] - [facility] 5 11:03:53 Atypical facial pain 30417564 Active 025 RUTH CORONA PA-C [address], [address], [facility] - [facility] 5 12:43:20 Migraine without aura, not refractory 908644837 Active 025 RUTH CORONA PA-C 100 [facility] E [address] [place] [address], [address], [facility] - [facility] 5 12:43:29 Migraine 28171623 Active 025 RUTH CORONA PA-C 100 [facility] E [facility], [place], [address], [facility] - [facility] 5 12:43:37 Pain in face 37829853 Active 025 THERESA BRIGGS MD 100 [facility],[address], [place], [address], [facility] - [facility] [place] 5 12:57:09 Ear sensations - finding 947087972 Active 025 THERESA BRIGGS MD 100 [facility],[address], [place], [address], [facility] - [facility] [place] 5 12:57:24 Deviated nasal septum 605364014 Active 025 THERESA BRIGGS MD 100 [facility],[address], [place], [address], [facility] - [facility] [place] 5 12:57:47 Perennial allergic rhinitis 238480256 Active 025 THERESA BRIGGS MD 100 [facility], [address], [place], [address], [facility] - [facility] 5 10:50:44 Frequent headache 467367646 Active 025 THERESA BRIGGS MD 100 [facility], [address], [place], [address], [facility] - [facility] 5 10:50:52 Chronic sinusitis 94311934 Active 025 THERESA BRIGGS MD 100 [facility], [address], [place], [address], [facility] - [facility] 5 10:50:57 Problem Notes None recorded. Procedures Surgical History Date Name Laterality Status Provider Name and Address Organization Details Recorded Time 03/21/20 25 JMSNasal/Sinus Endoscopy completed THERESA Reynolds MD [address] [address], [place], [address], [place] [facility] 03/21/2025 08:53:42 12/17/19 25 Nasal Endoscopy completed RUTH CORONA PA-C [address], [address], [facility] - [facility] 12/17/2024 11:06:16 cholecystectomy completed Sonia Jack [place] - [facility] 12/17/2024 10:35:16 hernia repair completed Sonia Jack [place] [facility] 12/17/2024 10:35:32 Imaging Results None recorded. Procedure Notes None recorded. Medical Equipment None Reported. Allergies Allergen ID Allergen Name Allergen Category Reaction Reaction Severity Criticality Documentation Date Start Date Code Code System Note Provider Name and Address Organization Details Recorded Time 093228 Substance with macrolide structure and antibacte rial mechanism of action (substanc e) medicatio n Not available Not available unabletoasse 12/17/2024 98450 0009 SNOMED Sonia whitt [place] [facility] 5 10:32:47 682244 cultivate d mushroom extract food,medi cation Not available Not available Not available 12/17/2024 18699 17 RxNorm [address] [facility] 10:33:43 520873 nystatin medicatio n Not available Not available [facility] 12/17/2024 7597 RxNorm RUTH CORONA PA-C 100 [facility] [address], [place], [address], [facility] - [facility] 5 10:53:29 Medications Name Sig Start Date Stop Date Status Note LastModified by Organization Details LastModified Time lisinopril 2.5 mg tablet TAKE 1 TO 2 TABLETS BY MOUTH DAILY active Not Available Not Available No t Available Vitals Date Recorded Body height Body mass index (BMI) Body weight Provider Name and Address Organization Details Last Updated DateTime 12/17/2024 170.18 cm 18.8 kg/m2 86812.08 g Sonia Jack [place] [facility] 12/17/2024 10:30:48 Date Recorded Systolic And Diastolic Provider Name and Address Organization Details Last Updated DateTime 05/12/2025 130/84 mm[Hg] THERESA CORTES MD [address] [place] [address], [place], [address], [place] [facility] 05/12/2025 10:53:13 Date Recorded Body height Provider Name an d Address Organization Details Last Updated DateTime 05/12/2025 170.18 cm BLAIR LARA [place] [facility] [place] 05/12/2025 10:27:07 Social History None recorded. Functional [...] Emphysema N Migraines Y Thyroid Problems N Depression N COPD N Developmental Delay N Glaucoma N Nasal or Sinus Problems N Anemia N Immune System Disorder N Anesthesia Complications N Heart Attack (HI) N Other Skin Condition N Diabetes N [...] ICD10 Code Diagnosis IMO Codes Diagnosis Note [id number] RUTH CORONA PA-C [facility] [address] [address] 12/17/2024 10:04:14 12/17/2024 11:06:28 Nasal congestion 09992386 R09.81 Allergic rhinitis 212148 04 J30.9 Atypical facial pain 713 [address]60 G50.1 Migraine 95456022 G43.90 9 60037 THERESA ELENA MD [facility] [address] [address] 03/21/2025 08:32:29 03/21/2025 08:58:24 Pain in face 08915953 R51.9 01607 Nasal congestion 6306370 0 R09.81 40920 Ear sensat ions - finding 963242194 H93.8X3 49434937 Deviated nasal septum 12 9493373 J34.2 91479 21024 THERESA ELENA MD [facility] [address] [address] 05/12/2025 10:18:42 05/12/2025 10:55:08 Perennial allergic rhinitis 305249987 J30.89 274389 Frequent headache 431745 003 R51.9 21665018 Chronic sinusitis 252591 00 J32.8 86079 Health Concerns Section Related Observation LastModified by Organization Detai ls LastModified Time None Recorded Concern Status LastModified by Organization Details LastModified Time None Recorded Advance Directives Directive None Recorded Payers Insurance Date Sequence Insurance Name Policy Number Policy Whatley Covered Member ID Whatley Member ID Guarantor Name 05/12/2025 2 [facility] (MEDICARE SUPPLEMENT) Tish garcia [id number] Tish Mack 05/12/2025 1 MEDICARE B-[place]: [facility] [employer] Tish Mack [id number] Tish Mack Notes Date Note Type [...] noise sensitivity. She is closely followed by [facility] for holistic management of her symptoms. [...] of sinus surgery. LIZETT PORTILLO MD 100 [facility],[address], [address], [facility] 12/18/2024 07:36:00 03/21/2025 text/html Persistent issues with headache, facial pressure and congestion. Presently taking multiple supplements and antifungals from [facility] for fungus and toxins Saw Dr Soler at [facility] and felt he wasn't very good. there must be something else that we can't see wants IV antifungal to get into brain recent CT scan did not show any significant sinus disease THERESA CORTES MD 100 [facility],[address], [address], [facility] 03/21/2025 12:58:01 05/12/2025 text/html The patient [...] no recent hospital admissions or procedures at [facility]. She had an encounter with orthopedic health services and breast screening follow-up. Currently, the patient manages her health with supplementary magnesium and B vitamins, addressing unspecified wellness goals. Previously discussed management of migraine with magnesium and B vitamin. That seems to be helpful. I had also recommended evaluation with Dr. Walters in [place] but she has held off on that at the present time THERESA CORTES MD 100 [facility],[address] [address], [place], [address], [facility] 05/12/2025 10:55:31 OBGyn Episode No OBEpisode recorded.
--- OUTSIDE RECORDS SUMMARY | 2025-10-27 16:44 | XMS_ITS | Clinical Summary ---
Author Organization [facility] Address [address] [place] [address] Care Team Providers Care Behavior Management Specialist Name Role Phone Jovan Guillermo Primary Care Provider [phone] Allergies Active Allergy Reactions Criticality Noted Date Comments Sulfamethoxazole-Trimethoprim Rash Low 2014 Penicillins Rash Low 03/14/2015 Medications lisinopril (PRINIVIL,ZESTR IL) 2.5 MG tablet 15 mg. 0 5 Active aspirin 81 MG EC tablet Take 81 mg by mouth daily. Active folic acid (FOLVITE) 1 MG tablet Take 2,400 mg by mouth daily. Active multivitamin with 18 mg iron (multivitamin) per tablet Take 1 tablet by mouth daily. Active fish oil-omega-3 fatty acids 300-1,000 mg capsule Take 1 g by mouth daily. Active NexIUM 40 mg capsuleIndicati ons:Gastroesoph ageal reflux disease TAKE 1 CAPSULE BY MOUTH EVERY MORNING BEFORE BREAKFAST 90 capsule 1 Active Active Problems Problem Noted Date Diagnosed Date Cholecystitis 03/16/2015 Abdominal pain 03/16/2015 Family History * Patient is adopted Relation Status Comments Mother Other Social History Tobacco Use Types Packs/Day Years Used Date Smoking Tobacco: Former Cigarettes 3 18 Smokeless Tobacco: Never Alcohol Use Standard Drinks/Week Comments No 0 (1 standard drink = 0.6 oz pur e alcohol) Comments No Sex and Gender Information Value Date Recorded Sex Assigned at Not on file Legal Sex Female 1:48 PM EDT Gender Identity Not on file Sexual Orientation Not on file Last Filed Vital Signs Vital Sign Reading Time Taken Comments Blood Pressure 114/67 05/12/2016 1:51 PM EDT Pulse 77 05/12/2016 1:51 PM EDT Temperature 36.3 C (97.4 F) 05/12/2016 11:59 AM EDT Respiratory Rate 15 05/12/2016 1:51 PM EDT Oxygen Saturation 98% 05/12/2016 1:51 PM EDT Inhaled Oxygen Concentration - - Weight 78 kg (172 lb) 04/23/2019 10:51 AM EDT Height 167.6 cm (5' 6 ) 04/23/2019 10:51 AM EDT Body Mass Index 27.76 04/23/2019 10:51 AM EDT Plan of Treatment Not on file [place] [address] [place] [address] HEALTHCARE Advance Directives Healthcare Agents on File Name Relationship Healthcare Agent Relationshi p Communication Ga Mack Spouse Health Care Agent Care Teams Behavior Management Specialist Relationship Specialty Start Date End Date Jovan Guillermo [address] [facility] [address] [place] [address] PCP - General 03/09/15
--- OUTSIDE RECORDS SUMMARY | 2025-10-27 16:44 | XMS_ITS | Encounter Summary ---
Author Organization [facility] Address [address] [place] [address] Phone Care Team Providers Care Automatic Mold Sander Name Role Phone Jovan Guillermo MD Primary Care Provider + Cece Dai MD, MPH Primary Care Provid er Cece Dai MD, MPH Unavailable [phone]- [phone] Encounter Details Date Type Department Care Team (Late st Contact Info) Description 06/09/2023 Procedure Pass [facility] - [address] [place] [address] Social History Tobacco Use Types Packs/Day Years [...] 11/11/2025 12:45 PM EST Appointment [facility], [facility] [address] [place] [address] Tomer Arita MD [address] [place] [address] 02/26/2026 9:00 AM EDT Office Visit [facility] Primary Care Clinic [address] [place] [address] Cece Dai MD, MPH [address] [place] [address] Tomer Arita MD [address] [place] [address] 04/07/2026 11:00 AM EDT Office Visit [facility] Endocrinology Clinic 40 [place] [phone] Asia Morales MD [address] [place] [address] documented as of this encounter Visit Diagnoses Not on filedocumented in this encounter Care Teams Automatic Mold Sander Relationship Specialty Start Date End Date Jovan Guillermo MD [address] [place] [address] PCP - General 05/17/19 04/21/24 Cece Dai MD, MPH [address] [place] [address] [email or web address] PCP - General Family Medicine 04/22/24 Cece Dai MD, MPH [address] [place] [address] [email or web address] Insurance Assigned Provider 02/09/25 documented as of this encounter Additional Source Comments The information contained in this document represents components of the legal health record. It is not the complete legal health record.[facility]
--- OUTSIDE RECORDS SUMMARY | 2025-10-27 16:44 | XMS_ITS | Encounter Summary ---
Author Organization [facility] Address [address] [place] [address] Phone Care Team Providers Care Ncr Operator Name Role Phone Jovan Guillermo MD Primary Care Provider + Cece Dai MD, MPH Primary Care Provid er Cece Dai MD, MPH Unavailable [phone]- [phone] Encounter Details Date Type Department Care Team (Late st Contact Info) Description 06/04/2021 Ancillary Orders [facility],[address] [address] System, Provider Not In, [place] [address] Social History Tobacco Use Types Packs/Day Years [...] Description 11/11/2025 12:45 PM EST Appointment [facility], [facility] [address] [place] [address] Tomer Arita MD 15 [facility] 201 [place] [address] 02/26/2026 9:00 AM EDT Office Visit [facility] Primary Care [facility] 15 [facility] 201 [place] [address] Cece Dai MD, MPH 15 [facility]. 201 [place] [address] [email or web address] Tomer Arita MD 15 [facility] 201 [place] [address] 04/07/2026 11:00 AM EDT Office Visit [facility] Endocrinology Clinic [address] [place] [phone] Asia Morales MD [address] [address] [email or web address] documented as of [...] on filedocumented in this encounter Care Teams Ncr Operator Relationship Specialty Start Date End Date Jovan Guillermo MD [address] [place] [address] PCP - General 05/17/19 04/21/24 Cece Dai MD, MPH [address] [place] [address] PCP - General Family Medicine 04/22/24 Cece Dai MD, MPH [address] [place] [address] Insurance Assigned Provider 02/09/25 documented as of this encounter Additional Source Comments The information contained in this document represents components of the legal health record. It is not the complete legal health record.[facility]
== END 2025-10-27 13:23 | disposition home or self-care (01) ==
LOC: HO.HMGAL 13:22
PROVIDERS: PCP Family Medicine; Visit Provider Registered Nurse Emergency
DX: J30.89 Other allergic rhinitis (principal)
CPT/HCPCS: 95117; 95165

== ENCOUNTER 2025-11-05 11:45 | Outpatient (AMB) | payer MEDICARE, OTHER, SELFPAY ==
--- OUTSIDE RECORDS SUMMARY | 2007-05-10 23:00 | XMS_ITS | Encounter Summary ---
Author Organization [facility] Address [address] [place] [address] Phone Care Team Providers Care Private Branch Exchange Repairer Name Role Phone Unavailable Primary Care Provider Unavailabl e Encounter Details Date Type Department Care Team (Late st Contact Info) Description 05/11/2007 Hospital Encounter [facility],Outside Imaging 30 [place] [address] System, Provider Not In, PhD Partners [address] [address] Social History Tobacco Use Types Packs/Day Years [...] Info) Description 11/11/2025 12:45 PM EST Appointment [facility] 30 [place] [address] Tomer Arita MD [address] [place] [address] 201 [place] [address] 02/26/2026 9:00 AM EDT Office Visit [facility] Clinic 15 [facility] [address] [place] [address] Cece Dai MD, MPH 15 [facility] Carter. [address] [place] [address] Tomer Arita MD 15 [facility] [address]. [address] [place] [address] 04/07/2026 11:00 AM EDT Office Visit [facility]ology Clinic 40 [place] [phone] Asia Morales MD [address] [place] [address] [email or web address] documented as of this encounter Procedures Procedure [...] It is not the complete legal health record.[facility]
--- OUTSIDE RECORDS SUMMARY | 2007-05-14 23:00 | XMS_ITS | Encounter Summary ---
Author Organization [facility] Address [address] [place] [address] Phone Care Team Providers Care Turbine Mechanic Name Role Phone Unavailable Primary Care Provider Unavailabl e Encounter Details Date Type Department Care Team (Late st Contact Info) Description 05/15/2007 Hospital Encounter [facility],Outside Imaging 30 [place] [address] System, Provider Not In, PhD Partners [address] [address] Social History Tobacco Use Types Packs/Day Years [...] Info) Description 11/11/2025 12:45 PM EST Appointment [facility] 30 [place] [address] Tomer Arita MD [address] [place] [address] 201 [place] [address] 02/26/2026 9:00 AM EDT Office Visit [facility] Clinic 15 [facility] [address] [place] [address] Cece Dai MD, MPH 15 [facility] [address]. [address] [place] [address] Tomer Arita MD 15 [facility] [address] [place] [address] 04/07/2026 11:00 AM EDT Office Visit [facility] Endocrinology Clinic 40 [place] [phone] Asia Morales MD [address] [place] [address] [email or web address] documented as of this encounter [...] It is not the complete legal health record.[facility]
--- OUTSIDE RECORDS SUMMARY | 2008-05-12 23:00 | XMS_ITS | Encounter Summary ---
Author Organization [facility] Address [address] [place] [address] Phone Care Team Providers Care Business Office Director Name Role Phone Unavailable Primary Care Provider Unavailabl e Encounter Details Date Type Department Care Team (Late st Contact Info) Description 05/13/2008 Hospital Encounter [facility],Outside Imaging 30 [place] [address] System, Provider Not In, PhD Partners [address] [address] Social History Tobacco Use Types Packs/Day Years [...] Info) Description 11/11/2025 12:45 PM EST Appointment [facility] 30 [place] [address] Tomer Arita MD [address] [place] [address] 201 [place] [address] 02/26/2026 9:00 AM EDT Office Visit [facility] Clinic 15 [facility] [address] [place] [address] Cece Dai MD, MPH 15 [facility] [address]. [address] [place] [address] Tomer Arita MD 15 [facility] [address] [place] [address] 04/07/2026 11:00 AM EDT Office Visit [facility] Endocrinology Clinic 40 [place] [address] Asia Morales MD [address] [place] [address] [email or web address] documented as of this encounter Procedures Procedure [...] It is not the complete legal health record.[facility]
--- OUTSIDE RECORDS SUMMARY | 2010-05-10 23:00 | XMS_ITS | Encounter Summary ---
Author Organization [facility] Address [address] [place] [address] Phone Care Team Providers Care Personal Health Coach Name Role Phone Unavailable Primary Care Provider Unavailabl e Encounter Details Date Type Department Care Team (Late st Contact Info) Description 05/11/2010 Hospital Encounter [facility],Outside Imaging 30 [place] [address] System, Provider Not In, PhD Partners [address] [address] Social History Tobacco Use Types Packs/Day Years [...] Info) Description 11/11/2025 12:45 PM EST Appointment [facility] 30 [place] [address] Tomer Arita MD [address] [place] [address] 201 [place] [address] 02/26/2026 9:00 AM EDT Office Visit [facility] [address] [employer] [address] [place] [address] Cece Dai MD, MPH 15 [facility] Carter. 201 [place] [address] Tomer Arita MD 15 [facility] [address] [place] [address] 04/07/2026 11:00 AM EDT Office Visit [facility] 40 [place] [phone] Asia Morales MD [address] [place] [address] [email or web address] documented as of this encounter Procedures Procedure Name Priority Date/Time Associated Diagnosis Comments BI MAMMOGRAM OUTSIDE (NO INTERPRETATION) Routine 05/11/2010 12:00 AM EDT documented in this encounter Results * Mammogram Outside (No Interpretation) (05/11/2010 12:00 AM EDT) Narrative SYSTEMGENERATED, DOCUMENTATION - [...] It is not the complete legal health record.[facility]
--- OUTSIDE RECORDS SUMMARY | 2011-05-15 23:00 | XMS_ITS | Encounter Summary ---
Author Organization [facility] Address [address] [place] [address] Phone Care Team Providers Care Tinware Lithograph Press Operator Name Role Phone Unavailable Primary Care Provider Unavailabl e Encounter Details Date Type Department Care Team (Late st Contact Info) Description 05/16/2011 Hospital Encounter [facility],Outside Imaging 30 [place] [address] System, Provider Not In, PhD Partners [address] [address] Social History Tobacco Use Types Packs/Day Years [...] Info) Description 11/11/2025 12:45 PM EST Appointment [facility] 30 [place] [address] Tomer Arita MD [address] [place] [address] 201 [place] [address] 02/26/2026 9:00 AM EDT Office Visit [facility] Clinic 15 [facility] [address] [place] [address] Cece Dai MD, MPH 15 [facility] Carter. 201 [place] [address] Tomer Arita MD 15 [facility] [address] [place] [address] 04/07/2026 11:00 AM EDT Office Visit [facility] Endocrinology Clinic 40 [place] [address] Asia Morales MD [address] [place] [address] [email or web address] documented as of this encounter Procedures Procedure Name Priority Date/Time Associated Diagnosis Comments BI MAMMOGRAM OUTSIDE (NO INTERPRETATION) Routine 05/16/2011 12:00 AM EDT documented in this encounter Results * Mammogram Outside (No Interpretation) (05/16/2011 12:00 AM EDT) Narrative SYSTEMGENERATED, DOCUMENTATION - [...]
--- OUTSIDE RECORDS SUMMARY | 2025-11-05 13:28 | XMS_ITS | Encounter Summary ---
Author Organization [facility] Address [address] [facility] [address] [place] [address] Phone Care Team Providers Care Salvage Mechanic Name Role Phone Jovan Guillermo MD Primary Care Provider + Cece Dai MD, MPH Primary Care Provid er Cece Dai MD, MPH Unavailable [phone]- [phone] Encounter Details Date Type Department Care Team (Late st Contact Info) Description 05/24/2021 Procedure Pass [facility] - [address] [place] [address] Social History Tobacco Use Types Packs/Day Years [...] Description 11/11/2025 12:45 PM EST Appointment [facility], [address] [address] Tomer Arita MD [address] [address] 02/26/2026 9:00 AM EDT Office Visit [facility] [address] [address] Cece Dai MD, MPH [address] [place] [address] Tomer Arita MD [address] [place] [address] 04/07/2026 11:00 AM EDT Office Visit [facility] [address] [place] [phone] Asia Morales MD [address] [place] [address] [email or web address] documented as of this encounter Visit Diagnoses Not on filedocumented in this encounter Care Teams Salvage Mechanic Relationship Specialty Start Date End Date Jovan Guillermo MD [address] [place] [address] PCP - General 05/17/19 04/21/24 Cece Dai MD, MPH [address] [place] [address] PCP - General Family Medicine 04/22/24 Cece Dai MD, MPH [address] [place] [address] Insurance Assigned Provider 02/09/25 documented as of this encounter Additional Source Comments The information contained in this document represents components of the legal health record. It is not the complete legal health record.[facility]
--- OUTSIDE RECORDS SUMMARY | 2025-11-05 13:28 | XMS_ITS | Encounter Summary ---
Author Organization [facility] Address [address] [place] [address] Phone Care Team Providers Care Agricultural Appraiser Name Role Phone Cece Dai MD, MPH Primary Care Provid er Cece Dai MD, MPH Unavailable [phone]- [phone] Encounter Details Date Type Department Care Team (Late st Contact Info) Description 02/07/2025 Procedure Pass [facility] - [address] [place] [address] Social History Tobacco Use Types Packs/Day Years [...] Info) Description 11/11/2025 12:45 PM EST Appointment [address] [address] Tomer Arita MD [address] [place] [address] 02/26/2026 9:00 AM EDT Office Visit [facility] 15 [facility] 201 [place] [address] Cece Dai MD, MPH [address] [address] Tomer Arita MD [address] [address] 04/07/2026 11:00 AM EDT Office Visit [facility]ology [facility] 40 [place] [address] Asia Morales MD [address] [address] documented as of this encounter Visit Diagnoses Not on filedocumented in this encounter Additional Health Concerns Assessment Noted Time PHQ-2 Depression Total Score: 0 02/26/20 10:12 AM EDT documented as of this encounter Care Teams Agricultural Appraiser Relationship Specialty Start Date End Date Cece Dai MD, MPH [address] [address] PCP - General Family Medicine 04/22/24 Cece Dai MD, MPH [address] [address] Insurance Assigned Provider 02/09/25 documented as of this encounter Additional Source Comments The information contained in this document represents components of the legal health record. It is not the complete legal health record[facility]
--- OUTSIDE RECORDS SUMMARY | 2025-11-05 13:28 | XMS_ITS | Encounter Summary ---
Author Organization Joellen Chavez [facility] Address [address] [place] [address] Care Team Providers Care Equity Trader Name Role Phone Jovan Guillermo Primary Care Provider [phone] Encounter Details Date Type Department Care Team (Latest Contact Info) Description 03/16/2015 Prep for Procedure Department of Transplantation & Hepatobiliary Diseases [facility] Transplantation [address] [place] [address] Jovan Hurley MD [address] [place] [address] Cholelithiasis (Primary Dx) Social History Tobacco Use [...] ORDERABLES Final Resu lt Performing Organization Address [facility]/ZIP Co de Phone Number EKG BUR [address] [place] [address] * APTT (03/16/2015 3:10 PM EDT) Pathologist [facility] PTT 37 31 - 40 s 03/16/2015 4:59 PM EDT [facility] Blood specimen (specimen) Venipuncture / Unknown 03/16/2015 3:10 PM EDT 03/16/2015 4:29 PM EDT Jovan Hurley MD LAB BLOOD ORDERABLES Final Result Performing Organization Address [facility] Co de Phone Number [address] [address] * ProTime-INR (03/16/2015 3:10 PM EDT) [facility] INR 1.1 <1.3 INR 03/16/2015 4:59 PM EDT [facility] Blood specimen (specimen) Venipuncture / Unknown 03/16/2015 3:10 PM EDT 03/16/2015 4:29 PM EDT Jovan Hurley MD LAB BLOOD ORDERABLES Final Result Performing Organization Address [facility] de Phone Number [address] [address] * (ABNORMAL) Hemoglobin A1C (03/16/2015 3:10 PM EDT) [facility] Hemoglobin A1C 5.7(H) 4.6 - 5.6 % 03/17/2015 9:20 AM EDT [facility] Comment: 4.6 to 5.6% Normal 5.7 to 6.4% Pre-diabetes, increased risk for diabetes >= 6.5% Diabetes mellitus Blood specimen (specimen) Venipuncture / Unknown 03/16/2015 3:10 PM EDT 03/16/2015 4:29 PM EDT Jovan Hurley MD LAB BLOOD ORDERABLES Final Result [facility] [address] [place] [address] documented in this encounter Visit Diagnoses Diagnosis Cholelithiasis- Primary Calculus of gallbladder without mention of cholecystitis or obstruction Cholelithiasis Calculus of gallbladder without mention of cholecystitis or obstruction documented in this encounter Care Teams Equity Trader Relationship Specialty Start Date End Date Jovan Guillermo [address] [place] [address] PCP - General 03/09/15 documented as of this encounter
--- OUTSIDE RECORDS SUMMARY | 2025-11-05 13:28 | XMS_ITS | Encounter Summary ---
Author Organization [facility] Address [address] [place] [address] Phone Care Team Providers Care Coke Production Heater Name Role Phone Cece Dai MD, MPH Primary Care Provid er Cece Dia MD, MPH Unavailable [phone] Encounter Details Date Type Department Care Team (Late st Contact Info) Description 02/27/2025 Procedure Pass [facility] - [address] [place] [address] Social History Tobacco Use Types Packs/Day Years [...] Info) Description 11/11/2025 12:45 PM EST Appointment [address] [address] Tomer Arita MD [address] [place] [address] 02/26/2026 9:00 AM EDT Office Visit [facility] Primary Care Clinic 15 [facility] [address] [place] [address] Cece Dai MD, MPH [address] [address] Tomer Arita MD 15 [facility] 201 [place] [address] 04/07/2026 11:00 AM EDT Office Visit [facility] Endocrinology Clinic 40 [place] [phone] sAia Morales MD [address] [address] [email or web address] documented as of this encounter Visit Diagnoses Not on filedocumented in this encounter Additional Health Concerns Assessment Noted Time PHQ-2 Depression Total Score: 0 02/26/20 25 10:12 AM EDT documented as of this encounter Care Teams Coke Production Heater Relationship Specialty Start Date End Date Cece Dai MD, MPH [address] [address] PCP - General Family Medicine 04/22/24 Cece Dai MD, MPH [address] [address] Insurance Assigned Provider 02/09/25 documented as of this encounter Additional Source Comments The information contained in this document represents components of the legal health record. It is not the complete legal health record.[facility]
--- OUTSIDE RECORDS SUMMARY | 2025-11-05 13:28 | XMS_ITS | Encounter Summary ---
Author Organization [facility] Address [address] [place] [address] Phone Care Team Providers Care Chronometer Repairer Name Role Phone Cece Dai MD, MPH Primary Care Provid er Cece Dai MD, MPH Unavailable [phone] Encounter Details Date Type Department Care Team (Late st Contact Info) Description 07/15/2025 Procedure Pass [facility] - [address] [address] Social History Tobacco Use Types Packs/Day Years [...] Info) Description 11/11/2025 12:45 PM EST Appointment [address] [address] Tomer Arita MD [address] [place] [address] 02/26/2026 9:00 AM EDT Office Visit [facility] Primary Care Clinic 15 [facility] 201 [place] [address] Cece Dai MD, MPH [address] [address] Tomer Arita MD [address] [address] 04/07/2026 11:00 AM EDT Office Visit [facility] Endocrinology Clinic 40 [place] [phone] Asia Morales MD [address] [address] documented as of this encounter Visit Diagnoses Not on filedocumented in this encounter Additional Health Concerns Assessment Noted Time PHQ-2 Depression Total Score: 0 02/26/20 10:12 AM EDT documented as of this encounter Care Teams Chronometer Repairer Relationship Specialty Start Date End Date Cece Dai MD, MPH [address] [address] PCP - General Family Medicine 04/22/24 Cece Dai MD, MPH [address] [address] Insurance Assigned Provider 02/09/25 documented as of this encounter Additional Source Comments The information contained in this document represents components of the legal health record. It is not the complete legal health record.[facility]
--- OUTSIDE RECORDS SUMMARY | 2025-11-05 13:28 | XMS_ITS | Encounter Summary ---
Author Organization [facility] Address [address] [place] [address] Phone Care Team Providers Care Chain Maker Loom Control Name Role Phone Jovan Guillermo MD Primary Care Provider + Cece Dai MD, MPH Primary Care Provid er Cece Dai MD, MPH Unavailable [phone] Encounter Details Date Type Department Care Team (Late st Contact Info) Description 05/24/2021 Ancillary Orders Virtual Department [address] [place] [address] Jovan Guillermo MD [address] [place] [address] Breast screening Social History Tobacco Use Types [...] Description 11/11/2025 12:45 PM EST Appointment [facility] [address] [place] [address] Tomer Arita MD 15 [facility]. 201 [place] [address] [email or web address] 02/26/2026 9:00 AM EDT Office Visit [facility] Primary Care [facility] 15 [facility] 201 [place] [address] Cece Dai MD, MPH 15 [facility]. [address] [place] [address] [email or web address] Tomer Arita MD 15 [facility]. [address] [place] [address] 04/07/2026 11:00 AM EDT Office Visit [facility] Endocrinology Clinic [address] [place] [address] Asia Morales MD [address] [place] [address] [email or web address] documented as of this encounter Results * [...] unspecified documented in this encounter Care Teams Chain Maker Loom Control Relationship Specialty Start Date End Date Jovan Guillermo MD [address] [place] [address] PCP - General 05/17/19 04/21/24 Cece Dai MD, MPH [address] [address] [email or web address] PCP - General Family Medicine 04/22/24 Cece Dai MD, MPH [address] [address] [email or web address] Insurance Assigned Provider 02/09/25 documented as of this encounter Additional Source Comments The information contained in this document represents components of the legal health record. It is not the complete legal health record.[facility]
--- OUTSIDE RECORDS SUMMARY | 2025-11-05 13:28 | XMS_ITS | Encounter Summary ---
Author Organization [facility] Address [address] [place] [address] Phone Care Team Providers Care Lapidarist Name Role Phone Cece Dai MD, MPH Primary Care Provid er Cece Dai MD, MPH Unavailable [phone]- [phone] Encounter Details Date Type Department Care Team (Late st Contact Info) Description 02/27/2025 Ancillary Orders [facility] Primary Care Clinic 15 [facility] [address] [place] [address] Cece Dai MD, MPH 15 [facility]. 201 [place] [address] [email or web address] [place] of left [...] Info) Description 11/11/2025 12:45 PM EST Appointment [address] [address] Tomer Arita MD 15 [facility]. 201 [place] [address] 02/26/2026 9:00 AM EDT Office Visit [facility] Primary Care [facility] [address] [facility] [address] [place] [address] Cece Dai MD, MPH 15 [facility]. 201 [place] [address] [email or web address] Tomer Arita MD 15 [facility] 201 [place] [address] 04/07/2026 11:00 AM EDT Office Visit [facility] Endocrinology Clinic [address] [place] [phone] Asia Morales MD [address] [place] [address] [email or web address] documented as of this encounter Results * [...] documented as of this encounter Care Teams Lapidarist Relationship Specialty Start Date End Date Cece Dai MD, MPH [address] [address] PCP - General Family Medicine 04/22/24 Cece Dai MD, MPH [address] [address] Insurance Assigned Provider 02/09/25 documented as of this encounter Additional Source Comments The information contained in this document represents components of the legal health record. It is not the complete legal health record.[facility]
--- OUTSIDE RECORDS SUMMARY | 2025-11-05 13:29 | XMS_ITS | Encounter Summary ---
Author Organization [facility] Address [address] [place] [address] Phone Care Team Providers Care Wireless Store Manager Name Role Phone Jovan Guillermo MD Primary Care Provider + Cece Dai MD, MPH Primary Care Provid er Cece Dai MD, MPH Unavailable [phone]- [phone] Encounter Details Date Type Department Care Team (Late st Contact Info) Description 06/09/2023 Procedure Pass [facility] - [address] [place] [address] Social History Tobacco Use Types Packs/Day Years [...] 11/11/2025 12:45 PM EST Appointment [facility] 30 [place] [address] Tomer Arita MD [address] [place] [address] 02/26/2026 9:00 AM EDT Office Visit [facility] Primary Care Clinic [address] [place] [address] Cece Dai MD, MPH [address] [place] [address] Tomer Arita MD [address] [place] [address] 04/07/2026 11:00 AM EDT Office Visit [facility] Endocrinology Clinic 40 [place] [phone] Asia Morales MD [address] [place] [address] documented as of this encounter Visit Diagnoses Not on filedocumented in this encounter Care Teams Wireless Store Manager Relationship Specialty Start Date End Date Jovan Guillermo MD [address] [place] [address] PCP - General 05/17/19 04/21/24 Cece Dai MD, MPH [address] [place] [phone] [email or web address] PCP - General Family Medicine 04/22/24 Cece Dai MD, MPH [address] [place] [address] [email or web address] Insurance Assigned Provider 02/09/25 documented as of this encounter Additional Source Comments The information contained in this document represents components of the legal health record. It is not the complete legal health record.[facility]
--- OUTSIDE RECORDS SUMMARY | 2025-11-05 13:29 | XMS_ITS | Encounter Summary ---
Author Organization [facility] Address [address] [place] [address] Phone Care Team Providers Care Club Lounge Attendant Name Role Phone Jovan Guillermo MD Primary Care Provider + Cece Dai MD, MPH Primary Care Provid er Cece Dai MD, MPH Unavailable [phone]- [phone] Encounter Details Date Type Department Care Team (Late st Contact Info) Description 06/09/2023 Procedure Pass [facility] - [address] [place] [address] Social History Tobacco Use Types Packs/Day Years [...] Info) Description 11/11/2025 12:45 PM EST Appointment [facility], [facility] 30 [place] [address] Tomer Arita MD [address] [place] [address] 02/26/2026 9:00 AM EDT Office Visit [facility] Primary Care Clinic [address] [place] [address] Cece Dai MD, MPH [address] [place] [address] Tomer Arita MD [address] [place] [address] 04/07/2026 11:00 AM EDT Office Visit [facility] Endocrinology Clinic 40 [place] [phone] Asia Morales MD [address] [place] [address] documented as of this encounter Visit Diagnoses Not on filedocumented in this encounter Care Teams Club Lounge Attendant Relationship Specialty Start Date End Date Jovan Guillermo MD [address] [place] [address] PCP - General 05/17/19 04/21/24 Cece Dai MD, MPH [address] [place] [address] [email or web address] PCP - General Family Medicine 04/22/24 Cece Dai MD, MPH [address] [place] [address] [email or web address] Insurance Assigned Provider 02/09/25 documented as of this encounter Additional Source Comments The information contained in this document represents components of the legal health record. It is not the complete legal health record.[facility]
--- OUTSIDE RECORDS SUMMARY | 2025-11-05 13:29 | XMS_ITS | Data Portability ---
Author Organization [place] [facility], Allergy Address [address] [address] Care Team Providers Care Baker Test Name Role Phone TELLO SAMINA Referring Provider [...] She is working with the integrative medicine [facility]. They do have a somewhat different approach. We discussed that I think migraine is a big component and have suggested magnesium oxide up to 400 mg riboflavin 400 mg and avoidance of dietary triggers. I have given her written information including the migraine [email or web address].org website. I am happy to offer her an additional opinion. She was not happy at the [facility]. I asked her to review the [...] on natural recovery progress and functional capacity restorationism. 5. Fractured rib Persistence of rib pain [...] w/o contrast 2024 025 [place] [place], [address], [address], [place], [address], 5 10:47:58 Medication Orders None recorded. Patient TargetsNo targets recorded. Patient Instructions Encounter Date Encounter Id Patient Instructions Last Modified By Organization Details Last Modified Time 05/12/2025 [id number] Please note: Parts of this encounter note [...] contr ast No observ ation record ed. [facility] [place] [address], [address], 01/01/2025 13:39:36 Result Notes None recorded. Problems Name Problem SNOMED Code Status Onset Date Resolution Date Notes Provider Name and Address Organization Details Recorded Time Nasal congestion 85343100 Active 025 THERESA BRIGGS MD [address], [address], [place] [facility] 5 12:57:18 Allergic rhinitis 20254065 Active 025 RUTH CORONA PA-C [address], [address], [facility] - [facility] 5 11:03:53 Atypical facial pain 22321961 Active 025 RUTH CORONA PA-C [address], [address], [facility] - [facility] 5 12:43:20 Migraine without aura, not refractory 994358547 Active 025 RUTH CORONA PA-C 100 [facility] E [address] [place] [address], [address], [facility] - [facility] 5 12:43:29 Migraine 17433366 Active 025 RUTH CORONA PA-C 100 [facility] E [facility], [place], [address], [facility] - [facility] [place] 5 12:43:37 Pain in face 09845505 Active 025 THERESA BRIGGS MD 100 [facility],[address], [place], [address], [facility] - [facility] [place] 5 12:57:09 Ear sensations - finding 300612045 Active 025 THERESA BRIGGS MD 100 [facility],[address], [place], [address], [facility] - [facility] [place] 5 12:57:24 Deviated nasal septum 077868158 Active 025 THERESA BRIGGS MD 100 [facility],[address], [place], [address], [facility] - [facility] [place] 5 12:57:47 Perennial allergic rhinitis 673006407 Active 025 THERESA BRIGGS MD 100 [facility], E 100, [place], [address], [facility] - [facility] 5 10:50:44 Frequent headache 398227815 Active 025 THERESA BRIGGS MD 100 [facility], [address] 100, [place], [address], [facility] - [facility] 5 10:50:52 Chronic sinusitis 27941171 Active 025 THERESA BRIGGS MD 100 [facility], E 100, [place], [address], [facility] - [facility] 5 10:50:57 Problem Notes None recorded. Procedures Surgical History Date Name Laterality Status Provider Name and Address Organization Details Recorded Time 03/21/20 25 JMSNasal/Sinus Endoscopy completed THERESA Reynolds MD [address] [address], [place], [address], [place] - [facility] 03/21/2025 08:53:42 12/17/19 25 Nasal Endoscopy completed RUTH CORONA PA-C [address], [address], [facility] - [facility] 12/17/2024 11:06:16 cholecystectomy completed Sonia Jack [place] - [facility] 12/17/2024 10:35:16 hernia repair completed Sonia Jack [place] [facility] 12/17/2024 10:35:32 Imaging Results None recorded. Procedure Notes None recorded. Medical Equipment None Reported. Allergies Allergen ID Allergen Name Allergen Category Reaction Reaction Severity Criticality Documentation Date Start Date Code Code System Note Provider Name and Address Organization Details Recorded Time 576707 Substance with macrolide structure and antibacte rial mechanism of action (substanc e) medicatio n Not available Not available unabletoasse 12/17/2024 03180 0009 SNOMED Sonia whitt [place] - [facility] 5 10:32:47 553014 cultivate d mushroom extract food,medi cation Not available Not available Not available 12/17/2024 10293 17 RxNorm Sonia whitt [facility] 10:33:43 599072 nystatin medicatio n Not available Not available [facility] 12/17/2024 7597 RxNorm RUTH CORONA PA-C 100 [facility] [address], [place], [address], [facility] - [facility] 5 10:53:29 Medications Name Sig Start Date Stop Date Status Note LastModified by Organization Details LastModified Time lisinopril 2.5 mg tablet TAKE 1 TO 2 TABLETS BY MOUTH DAILY active Not Available Not Available No t Available Vitals Date Recorded Body height Body mass index (BMI) Body weight Provider Name and Address Organization Details Last Updated DateTime 12/17/2024 170.18 cm 18.8 kg/m2 96470.08 g Sonia Jack [place] [facility] 12/17/2024 10:30:48 Date Recorded Systolic And Diastolic Provider Name and Address Organization Details Last Updated DateTime 05/12/2025 130/84 mm[Hg] THERESA CORTSE MD [address] [place] [address], [place], [address], [place] - [facility] 05/12/2025 10:53:13 Date Recorded Body height Provider Name an d Address Organization Details Last Updated DateTime 05/12/2025 170.18 cm BLAIR LARA [place] [facility] [place] 05/12/2025 10:27:07 Social History None recorded. Functional [...] Disorder N Anesthesia Complications N Heart Attack (IA) N Other Skin Condition N Diabetes N [...] ICD10 Code Diagnosis IMO Codes Diagnosis Note [id number] RUTH CORONA PA-C [facility] [address] [address] 12/17/2024 10:04:14 12/17/2024 11:06:28 Nasal congestion 57687061 R09.81 Allergic rhinitis 555922 04 J30.9 Atypical facial pain 713 03535 G50.1 Migraine 09416370 G43.90 9 51655 THERESA ELENA MD [facility] [address] [address] 03/21/2025 08:32:29 03/21/2025 08:58:24 Pain in face 32255721 R51.9 42490 Nasal congestion 7923834 0 R09.81 31109 Ear sensat ions - finding 582534151 H93.8X3 85396543 Deviated nasal septum 12 5841482 J34.2 84654 89117 THERESA ELENA MD [facility] [address] [address] 05/12/2025 10:18:42 05/12/2025 10:55:08 Perennial allergic rhinitis 948445861 J30.89 425330 Frequent headache 683504 003 R51.9 14220986 Chronic sinusitis 994075 00 J32.8 69979 Health Concerns Section Related Observation LastModified by Organization Detai ls LastModified Time None Recorded Concern Status LastModified by Organization Details LastModified Time None Recorded Advance Directives Directive None Recorded Payers Insurance Date Sequence Insurance Name Policy Number Policy Whatley Covered Member ID Whatley Member ID Guarantor Name 05/12/2025 2 [facility] (MEDICARE SUPPLEMENT) Tish garcia [id number] Tish Mack 05/12/2025 1 MEDICARE B-[place]: [facility] [employer] Tish Mack [id number] Tish Mack Notes Date Note Type [...] noise sensitivity. She is closely followed by [facility] for holistic management of her symptoms. [...] of sinus surgery. LIZETT PORTILLO MD 100 [facility],[address], [address], [facility] 12/18/2024 07:36:00 03/21/2025 text/html Persistent issues with headache, facial pressure and congestion. Presently taking multiple supplements and antifungals from [facility] for fungus and toxins Saw Dr Soler [facility] and felt he wasn't very good. there must be something else that we can't see wants IV antifungal to get into brain recent CT scan did not show any significant sinus disease THERESA CORTES MD 100 [facility],[address], [address], [facility] 03/21/2025 12:58:01 05/12/2025 text/html The patient [...] no recent hospital admissions or procedures at [facility]. She had an encounter with orthopedic health services and breast screening follow-up. Currently, the patient manages her health with supplementary magnesium and B vitamins, addressing unspecified wellness goals. Previously discussed management of migraine with magnesium and B vitamin. That seems to be helpful. I had also recommended evaluation with Dr. Walters in [place] but she has held off on that at the present time THERESA CORTES MD 100 [facility],[address] [address], [place], [address], [facility] 05/12/2025 10:55:31 OBGyn Episode No OBEpisode recorded.
--- OUTSIDE RECORDS SUMMARY | 2025-11-05 13:29 | XMS_ITS | Clinical Summary ---
Author Organization [facility] Address [address] [place] [address] Phone Care Team Providers Care Regulatory Manager Name Role Phone Cece Dai MD, MPH Primary Care Provid er Cece Dai MD, MPH Unavailable +1- [phone] Allergies Active Allergy Reactions Criticality Noted Date [...] Chronic sinusitis 04/22/2024 Overview (04/22/2024): Follows at [facility], believes it is fungal Assessment & Plan (02/25/2025 11:18 AM EDT): Orders: Ambulatory referral to External Allergy Assessment & Plan (10/22/2024 10:54 AM EST): Orders: External Referral to Otolaryngology ([facility]) History of stroke associated with blood [...] 5:27 AM EDT): Will need a new production planner scheduler as Dr Holland is nearing [facility]p. I also strongly encouraged her to think [...] Type Department Care Team Description 09/18/2025 Telephone [facility] [address] [place] [address] Cece Dai MD, MPH Referral (Endocrinology ) 09/03/2025 9:02 AM EDT - 09/03/2025 11:59 PM EDT Hospital Encounter [facility], Ct Scan - [address] [address] Tomer Arita MD Discharge Disposition: Home or Self Care 08/25/2025 11:52 AM EDT - 08/25/2025 11:59 PM EDT Hospital Encounter [facility] [address] [place] [address] Tomer Arita MD Discharge Disposition: Home or Self Care 08/22/2025 11:20 AM EDT Office Visit [facility] Primary Care [facility] [address] [place] [address] Tomer Arita MD Intractable abdominal pain (Primary Dx); Age related osteoporosis, unspecified pathological fracture presence 08/11/2025 Telephone [facility] Primary Care [facility] [address] [place] [address] Cece Dai MD, MPH Calcium Injection 07/15/2025 Procedure Pass [facility], Ct Scan - [address] [address] from Last 3 Months Immunizations Immunization Administration [...] Info) Description 11/11/2025 12:45 PM EST Appointment [facility], [facility] [address] [place] [address] Tomer Arita MD [address] [address] 02/26/2026 9:00 AM EDT Office Visit [facility] [address] [place] [address] Cece Dai MD, MPH [address] [place] [address] Tomer Arita MD [address] [place] [address] 04/07/2026 11:00 AM EDT Office Visit [facility] Endocrinology Clinic [address] [place] [phone] Asia Morales MD [address] [place] [address] Health Maintenance Due Date Last Done Comments [...] EDT) SODIUM 137 133 - 146 mmol/L [facility] POTASSIUM 4.0 3.3 - 5.1 mmol/L [facility] CHLORIDE 101 96 - 108 mmol/L [facility] CO2 27 21 - 35 mmol/L [facility] BUN 10 6 - 19 mg/dL [facility] CREATININE 0.30(L) 0.5 - 1.5 mg/dL [facility] GLUCOSE 85 70 - 99 mg/dL [facility] ALBUMIN 4.5 3.9 - 4.8 g/dL [facility] TOTAL PROTEIN 6.9 6.5 - 8.0 g/dL [facility] CALCIUM 10.2 8.4 - 10.3 mg/dL [facility] ALKALINE PHOSPHATASE 76 39 - 117 U/L [facility] TOTAL BILIRUBIN 0.5 0.0 - 1.2 mg/dL [facility] AST 16 0 - 37 U/L [facility] ALT 14 0 - 40 U/L [facility] GLOBULIN 2.4 1 - 4.8 g/dL [facility] EGFR 116 >59 mL/min/1.7 3m2 [facility] Comment:Estimated glomerular filtration rate calculated using the CKD-EPI refit equation. ANION GAP 13 10 - 20 mmol/L [facility] Blood 08/25/2025 11:5 7 AM EDT 08/25/2025 12:04 PM EDT us Tomer Arita MD LAB BLOOD BKR ORDERABLES Final Result Performing Organization Address City/State/[facility] Co de Phone Number [address] [address] * (ABNORMAL) CBC and differential (08/25/2025 11:57 AM EDT) WBC 6.31 4.00 - 11.00 K/uL [facility] RBC 4.27 4.00 - 5.20 M/uL [facility] HGB 12.7 12.0 - 16.0 g/dL [facility] HCT 39.8 36.0 - 46.0 % [facility] PLT 349 150 - 450 K/uL [facility] MCV 93.2 80.0 - 100.0 fL [facility] MCH 29.7 27.0 - 31.0 pg [facility] MCHC 31.9(L) 32.0 - 36.0 g/dL [facility] RDW 14.1 11.5 - 14.5 % [facility] MPV 10.0 8.4 - 12.0 fL [facility] NRBC 0.00 0.00 /100 WBCs [facility] ABSOLUTE NRBC 0.00 0.00 K/uL [facility] DIFF METHOD Auto [facility] NEUTS 59.4 48.0 - 76.0 % [facility] LYMPHS 30.4 18.0 - 41.0 % [facility] MONOS 7.4 4.0 - 11.0 % [facility] EOS 2.1 0.0 - 5.0 % [facility] BASOS 0.5 0.0 - 1.5 % [facility] Granulocytes, immature (%) 0.2 0.0 - 0.9 % [facility] ABSOLUTE NEUTS 3.75 1.92 - 7.60 K/uL [facility] ABSOLUTE LYMPHS 1.92 0.72 - 4.10 K/uL [facility] ABSOLUTE MONOS 0.47 0.16 - 1.10 K/uL [facility] ABSOLUTE EOS 0.13 0.00 - 0.50 K/uL [facility] ABSOLUTE BASOS 0.03 0.00 - 0.15 K/uL [facility] Granulocytes, immature 0.01 0.00 - 0.09 K/uL [facility] Blood 08/25/2025 11:5 7 AM EDT 08/25/2025 12:04 PM EDT us Tomer Arita MD LAB BLOOD BKR ORDERABLES Final Result [address] [address] * Parathyroid hormone (PTH) (08/25/2025 11:57 AM EDT) PARATHYROID HORMONE 26 15 - 65 pg/mL [facility] Blood 08/25/2025 11:5 7 AM EDT 08/25/2025 12:04 PM EDT Tomer Arita MD LAB BLOOD BKR ORDERABLES Final Result [address] [address] * Ionized calcium (08/25/2025 11:57 AM EDT) IONIZED CALCIUM 1.21 1.14 - 1.37 mmol/L [facility] Blood 08/25/2025 11:5 7 AM EDT 08/25/2025 12:04 PM EDT us Tomer Arita MD LAB BLOOD BKR ORDERABLES Final Result [facility] [address] [place] [address] * BD DXA AXIAL (SPINE) WITH HIP (06/07/2025 11:36 AM EDT) Anatomical Region Laterality Modality Bone Density Bone Density 06/07/2025 10:5 1 AM EDT Impressions 06/09/2025 12:17 PM EDT Interpretation: Osteoporosis. Narrative 06/09/2025 12:17 PM EDT Referred By: CECE DAI Indications: Postmenopausal Scanner: [employer] A with serial# of [id number] located at [facility] Bone Density Scan (DXA) 06/07/25 Details of [...] -2.5), or Osteoporosis (T-score <= -2.5). At [facility], T-scores are compared to peak bone density [...] Referred By: CECE DAI Indications: Postmenopausal Scanner: [employer] A with serial# of [id number] located at [facility] Bone Density Scan (DXA) 06/07/25 Details of [...] -2.5), or Osteoporosis (T-score <= -2.5). At [facility], T-scores are compared to peak bone density [...] (06/21/2024 10:39 AM EDT) HDL 103 mg/dL [facility] Comment: Interpretation <40 mg/dL: Low HDL cholesterol (major risk factor for CHD) Greater than or equal to 60 mg/dL: High HDL cholesterol ( negative risk factor for CHD) HDL - cholesterol is affected by a number of factors, e.g. smoking, excerise, hormones, sex and age. CHOLESTEROL 174 0 - 240 mg/dL [facility] TRIGLYCERIDES 62 30 - 160 mg/dL [facility] LDL 59 50 - 129 mg/dL [facility] Comment: LDL levels in terms of risk for coronary heart disease: <100 mg/dL: Optimal 100-129 mg/dL: Near or above optimal 130-159 mg/dL: Borderline high 160-189 mg/dL: High >190 mg/dL: Very High CARDIAC RISK RATIO 1.7(L) 3.3 - 4.4 C [facility] Blood 06/21/2024 10:3 9 AM EDT 06/21/2024 10:50 AM EDT us Cece Dai MD, MPH LAB BLOOD BKR ORDERA BLES Final Result [facility] [address] [place] [address] from Last 3 Months or Most Recently Relevant to Health Maintenance Insurance MEDICARE PART A & B [facility] MEDICARE ENHANCE SUPPLEMENT MEDICARE PART A & B [facility] MEDICARE ENHANCE SUPPLEMENT MEDICARE PART A & B MEDICARE ENHANCE SUPPLEMENT MEDICARE PART A & [place] [address] [place] [address] MEDICARE ENHANCE SUPPLEMENT MEDICARE PART A & B [facility] MEDIC[facility] ENHANCE SUPPLEMENT [facility] Address: [facility] [address] [place] [address] MEDICARE PART A & B [facility] MEDICARE ENHANCE SUPPLEMENT Care Teams Regulatory Manager Relationship Specialty Start Date End Date Cece Dai MD, MPH [address] [place] [address] [email or web address] PCP - General Family Medicine 04/22/24 Cece Dai MD, MPH [address] [place] [address] [email or web address] Insurance Assigned Provider 02/09/25 Additional Source Comments The information contained in this document represents components of the legal health record. It is not the complete legal health record.[facility]
--- OUTSIDE RECORDS SUMMARY | 2025-11-05 13:29 | XMS_ITS | Clinical Summary ---
Author Organization [facility] it Address [address] [place] [address] Care Team Providers Care Learning Specialist Name Role Phone Heri Cueto MD Primary Care Provider [phone] Allergies Active Allergy Reactions Criticality Noted Date [...] Recently Relevant to Health Maintenance Care Teams Learning Specialist Relationship Specialty Start Date End Date Heri Cueto MD [address] [place] [address] PCP - General 04/29/11
--- OUTSIDE RECORDS SUMMARY | 2025-11-05 13:29 | XMS_ITS | Encounter Summary ---
Author Organization [facility] Address [address] [place] [address] Phone Care Team Providers Care Color Strainer Name Role Phone Jovan Guillermo MD Primary Care Provider + Cece Dai MD, MPH Primary Care Provid er Cece Dai MD, MPH Unavailable [phone]- [phone] Encounter Details Date Type Department Care Team (Late st Contact Info) Description 06/09/2023 Ancillary Orders Virtual Department [address] [place] [address] Jovan Guillermo MD [address] [place] [address] Encounter for screening mammogram for malignant neoplasm [...] Info) Description 11/11/2025 12:45 PM EST Appointment [facility] [address] [place] [address] Tomer Arita MD [address] [place] [address] 02/26/2026 9:00 AM EDT Office Visit [facility] [address] [place] [address] Cece Dai MD, MPH [address] [place] [address] Tomer Arita MD [address] [place] [address] 04/07/2026 11:00 AM EDT Office Visit [facility] Endocr[facility]ology Clinic [address] [place] [address] Asia Morales MD [address] [place] [address] documented as of this encounter Results * [...] breast documented in this encounter Care Teams Color Strainer Relationship Specialty Start Date End Date Jovan Guillermo MD [address] [place] [address] PCP - General 05/17/19 04/21/24 Cece Dai MD, MPH [address] [place] [phone] [email or web address] PCP - General Family Medicine 04/22/24 Cece Dai MD, MPH [address] [place] [address] [email or web address] Insurance Assigned Provider 02/09/25 documented as of this encounter Additional Source Comments The information contained in this document represents components of the legal health record. It is not the complete legal health record.[facility]
--- OUTSIDE RECORDS SUMMARY | 2025-11-05 13:29 | XMS_ITS | Encounter Summary ---
Author Organization [facility] Address [address] [place] [address] Phone Care Team Providers Care Rug Hooker Name Role Phone Jovan Guillermo MD Primary Care Provider + Cece Dai MD, MPH Primary Care Provid er Cece Dai MD, MPH Unavailable [phone]- [phone] Encounter Details Date Type Department Care Team (Late st Contact Info) Description 06/04/2021 Ancillary Orders [facility],[address] [address] System, Provider Not In, [place] [address] Social History Tobacco Use Types Packs/Day Years [...] Info) Description 11/11/2025 12:45 PM EST Appointment [facility], [facility] [address] [place] [address] Tomer Arita MD 15 [facility] 201 [place] [address] 02/26/2026 9:00 AM EDT Office Visit [facility] Primary Care [facility] 15 [facility] [address] [place] [address] Cece Dai MD, MPH 15 [facility] [address] [place] [address] [email or web address] Tomer Arita MD 15 [facility] 201 [place] [address] 04/07/2026 11:00 AM EDT Office Visit [facility] End[facility]ology Clinic [address] [place] [address] Asia Morales MD [address] [address] [email or web address] documented as of this [...] on filedocumented in this encounter Care Teams Rug Hooker Relationship Specialty Start Date End Date Jovan Guillermo MD [address] [place] [address] PCP - General 05/17/19 04/21/24 Cece Dai MD, MPH [address] [place] [address] PCP - General Family Medicine 04/22/24 Cece Dai MD, MPH [address] [place] [phone] Insurance Assigned Provider 02/09/25 documented as of this encounter Additional Source Comments The information contained in this document represents components of the legal health record. It is not the complete legal health record.[facility]
--- OUTSIDE RECORDS SUMMARY | 2025-11-05 13:29 | XMS_ITS | Encounter Summary ---
Author Organization [facility] Address [address] [place] [address] Phone Care Team Providers Care Rn Social Work Name Role Phone Jovan Guillermo MD Primary Care Provider + Cece Dai MD, MPH Primary Care Provid er Cece Dai MD, MPH Unavailable [phone] Encounter Details Date Type Department Care Team (Latest Contact Info) Description 06/07/2023 Transcribe Orders Virtual Department [address] [place] [address] Jovan Guillermo MD [address] [place] [address] Encounter for screening mammogram for malignant neoplasm [...] Info) Description 11/11/2025 12:45 PM EST Appointment [address] [address] Tomer Arita MD [address] [place] [address] 02/26/2026 9:00 AM EDT Office Visit [facility] [address] [place] [address] Cece Dai MD, MPH [address] [place] [address] Tomer Arita MD [address] [place] [address] 04/07/2026 11:00 AM EDT Office Visit [facility] [address] [place] [address] Asia Morales MD [address] [place] [address] [address] [place] [address] documented as of this encounter Visit Diagnoses Diagnosis Encounter for screening mammogram for malignant neoplasm of breast- Primary documented in this encounter Care Teams Rn Social Work Relationship Specialty Start Date End Date Jovan Guillermo MD [address] [place] [address] PCP - General 05/17/19 04/21/24 Cece Dai MD, MPH [address] [place] [address] [email or web address] PCP - General Family Medicine 04/22/24 Cece Dai MD, MPH [address] [place] [address] [email or web address] Insurance Assigned Provider 02/09/25 documented as of this encounter Additional Source Comments The information contained in this document represents components of the legal health record. It is not the complete legal health record.[facility]
--- OUTSIDE RECORDS SUMMARY | 2025-11-05 13:29 | XMS_ITS | Clinical Summary ---
Author Organization [facility] Address [address] [place] [address] Care Team Providers Care Glove Stitcher Name Role Phone Jovan Guillermo Primary Care Provider [phone] Allergies Active Allergy Reactions Criticality Noted Date [...] Plan of Treatment Not on [place] [address] [address] [place] [address] HEALTHCARE Advance Directives Healthcare Agents on File Name Relationship Healthcare Agent Relationshi p Communication Ga Mack Spouse Health Care Agent Care Teams Glove Stitcher Relationship Specialty Start Date End Date Jovan Guillermo [address] [facility] [address] [place] [address] PCP - General 03/09/15
--- OUTSIDE RECORDS SUMMARY | 2025-11-05 13:29 | XMS_ITS | Encounter Summary ---
Author Organization [facility] Address [address] [place] [address] Phone Care Team Providers Care Shearer Helper Name Role Phone Jovan Guillermo MD Primary Care Provider + Cece Dai MD, MPH Primary Care Provid er Cece Dai MD, MPH Unavailable [phone] Encounter Details Date Type Department Care Team (Late st Contact Info) Description 06/09/2023 Ancillary Orders Virtual Department [address] [place] [address] Jovan Guillermo MD [address] [place] [address] Encounter for screening mammogram for malignant neoplasm [...] Info) Description 11/11/2025 12:45 PM EST Appointment [facility] [address] [place] [address] Tomer Arita MD [address] [place] [address] 02/26/2026 9:00 AM EDT Office Visit [facility] [address] [place] [address] Cece Dai MD, MPH [address] [place] [address] Tomer Arita MD [address] [place] [address] 04/07/2026 11:00 AM EDT Office Visit [facility] [address] [place] [address] Asia Morales MD [address] [place] [address] documented as of this encounter Results * [...] breast documented in this encounter Care Teams Shearer Helper Relationship Specialty Start Date End Date Jovan Guillermo MD [address] [place] [address] PCP - General 05/17/19 04/21/24 Cece Dai MD, MPH [address] [place] [address] [email or web address] PCP - General Family Medicine 04/22/24 Cece Dai MD, MPH [address] [place] [address] [email or web address] Insurance Assigned Provider 02/09/25 documented as of this encounter Additional Source Comments The information contained in this document represents components of the legal health record. It is not the complete legal health record.[facility]
== END 2025-11-05 11:45 | disposition home or self-care (01) ==
LOC: HO.HMGAL 11:45
PROVIDERS: PCP Family Medicine; Visit Provider Registered Nurse Emergency
DX: J30.89 Other allergic rhinitis (principal)
CPT/HCPCS: 95117; 95165